=== PATIENT | male | born 1955 | race Caucasian/White ===

== ENCOUNTER → 2017-06-01 | Outpatient (CLI) | payer MEDICARE, MEDICAID, SELFPAY | PROVIDERS: Visit Provider Emergency Medicine | DX: Z79.899 Other long term (current) drug therapy (principal) | CPT/HCPCS: 80305; 80364 ==

== ENCOUNTER → 2017-07-11 13:34 | Outpatient (POV) | payer MEDICARE, MEDICAID, SELFPAY ==
[2017-07-11 13:52] VITALS: BP 134/92; PULSE 77; RESP 20; O2SAT 94
--- NOTE | 2017-07-11 14:22 | HMH.PMCON ---
Assessment and Plan (1) Degenerative joint disease of cervical spine Current visit: Yes Status: Chronic Category: Medical Code(s): M47.812 - Spondylosis without myelopathy or radiculopathy, cervical region (2) Cervical radiculopathy Current visit: Yes Status: Chronic Category: Medical Code(s): M54.12 - Radiculopathy, cervical region (3) Cervical spinal stenosis Current visit: Yes Status: Chronic Category: Medical Code(s): M48.02 - Spinal stenosis, cervical region - Assessment and plan all Dx Assessment and Plan for all problems:: We will seek approval and plan on spinal cord stimulator trial. I have given him all the information and explained the risk and benefits. I have entered all questions. We will plan on neuropsychological evaluation and plan on spinal cord stimulator trial to help with neck pain with radiation down his left arm. HPI - Data of Consult Patient: new to practice Consult date: 07/11/17 Requesting Physician: Davey Paez MD Primary Care Provider: Luis Mendez MD Family Provider: Luis Mendez MD - Consult Narrative Reason for consult: Neck pain with left arm pain History of present illness: Mr. Soni is a 62 year old male who we are seeing for neck pain with left arm pain. He is referred by Dr. Cedeño who felt that he may be a candidate for spinal cord stimulation. 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 He thought that strong cord stimulation may help instead of pursuing posterior decompression. At that pain is a 10 out of 10. He is currently on gabapentin 600 mg 3 times a day along with oxycodone given by Dr. Mendez. His Arthur is appropriate. Kaspar #[id number]. Urine drug screen is pending. CC: Davey Paez MD [facility] History I have reviewed the patient's past medical history: Yes Medical History: Reports:: Internal Pacemaker Denies:: Diabetes Mellitus Type 1 Other Surgeries: Yes: Appendectomy, Pacemaker, Other (THROAT AND NECK SX) - *Social History Smoking Status: Current every day smoker Tobacco Type: cigarettes # Packs/Day (cigarettes): 2 #Yrs smoked (if former smoker): 40 Alcohol Intake: never Occupational Status: other - Psychiatric History Expresses thoughts of harming self/others: None Suicide Plan Description: No Plan *Family Hx:: Diabetes Review of Systems - Review of Systems Review of systems:: pertinent systems reviewed and negative unless documented below - *Musculoskeletal Reports back pain, Reports neck pain, Reports radiating pain into limb, Reports stiffness - *Neurologic Reports tingling/numbness/burning sensations, Reports radiating pain Meds Home Medications Medication Instructions Recorded Confirmed Type gabapentin 600 mg tablet 600 mg PO TID 07/04/17 07/11/17 History oxycodone 5 mg tablet 5 mg PO TID PRN tab 07/04/17 07/11/17 History Allergies Allergy/AdvReac Type Severity Reaction Status Date / Time cyclobenzaprine Allergy Intermediate I-HIVES Verified 07/04/17 16:50 [From Flexeril] Penicillins Allergy Intermediate Verified 07/04/17 16:50 Muscle Relaxants Allergy Intermediate I-RASH Uncoded 07/04/17 16:50 Objective Vital signs: Pulse Resp BP Pulse Ox 77 20 134/92 94 L 07/11/17 13:52 07/11/17 13:52 07/11/17 13:52 07/11/17 13:52 - Routine Back/Spine/Pelvis Exam Back/Spine: Present: vertebral tenderness - *Routine Neurological Exam Present: alert, oriented X3 Opioid Risk Tool - Opioid Risk Tool-Male Family hx alcohol abuse: N Family hx illegal drugs: N Family hx rx drug abuse: N Personal hx alcohol abuse: N Personal hx illegal drugs: N Personal hx rx drug abuse: N Age: 45+ Hx of sexual abuse: N Mental health issues-ADD,OCD,Bipolar, etc: N Hx of depression: Y Male Risk Score: 1
--- NOTE | 2017-07-11 14:25 | P.CONS_ITS ---
Assessment and Plan (1) Degenerative joint disease of cervical spine Current visit: Yes Status: Chronic Category: Medical Code(s): M47.812 - Spondylosis without myelopathy or radiculopathy, cervical region (2) Cervical radiculopathy Current visit: Yes Status: Chronic Category: Medical Code(s): M54.12 - Radiculopathy, cervical region (3) Cervical spinal stenosis Current visit: Yes Status: Chronic Category: Medical Code(s): M48.02 - Spinal stenosis, cervical region - Assessment and plan all Dx Assessment and Plan for all problems:: We will seek approval and plan on spinal cord stimulator trial. I have given him all the information and explained the risk and benefits. I have entered all questions. We will plan on neuropsychological evaluation and plan on spinal cord stimulator trial to help with neck pain with radiation down his left arm. HPI - Data of Consult Patient: new to practice Consult date: 07/11/17 Requesting Physician: Davey Paez MD Primary Care Provider: Luis Mendez MD Family Provider: Luis Mendez MD - Consult Narrative Reason for consult: Neck pain with left arm pain History of present illness: Mr. Soni is a 62 year old male who we are seeing for neck pain with left arm pain. He is referred by Dr. Cedeño who felt that he may be a candidate for spinal cord stimulation. 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 He thought that strong cord stimulation may help instead of pursuing posterior decompression. At that pain is a 10 out of 10. He is currently on gabapentin 600 mg 3 times a day along with oxycodone given by Dr. Mendez. His Arthur is appropriate. Kaspar # [id number]. Urine drug screen is pending. CC: Davey Paez MD [facility] History I have reviewed the patient's past medical history: Yes Medical History: Reports:: Internal Pacemaker Denies:: Diabetes Mellitus Type 1 Other Surgeries: Yes: Appendectomy, Pacemaker, Other (THROAT AND NECK SX) - *Social History Smoking Status: Current every day smoker Tobacco Type: cigarettes # Packs/Day (cigarettes): 2 #Yrs smoked (if former smoker): 40 Alcohol Intake: never Occupational Status: other - Psychiatric History Expresses thoughts of harming self/others: None Suicide Plan Description: No Plan *Family Hx:: Diabetes Review of Systems - Review of Systems Review of systems:: pertinent systems reviewed and negative unless documented below - *Musculoskeletal Reports back pain, Reports neck pain, Reports radiating pain into limb, Reports stiffness - *Neurologic Reports tingling/numbness/burning sensations, Reports radiating pain Meds Home Medications Medication Instructions Recorded Confirmed Type gabapentin 600 mg tablet 600 mg PO TID 07/04/17 07/11/17 History oxycodone 5 mg tablet 5 mg PO TID PRN tab 07/04/17 07/11/17 History Allergies Allergy/AdvReac Type Severity Reaction Status Date / Time cyclobenzaprine Allergy Intermediate I-HIVES Verified 07/04/17 16:50 [From Flexeril] Penicillins Allergy Intermediate Verified 07/04/17 16:50 Muscle Relaxants Allergy Intermediate I-RASH Uncoded 07/04/17 16:50 Objective Vital signs: Pulse Resp BP Pulse Ox 77 20 134/92 94 L 07/11/17 13:52 07/11/17 13:52 07/11/17 13:52 07/11/17 13:52 - Routine Back/Spine/Pelvis Exam Back/
[2017-07-11 15:26] LABS: Amphetamine/Metha Screen,Urine Negative ng/mL (<1000); Barbiturates Screen,Urine Negative ng/mL (<200); Benzodiazepines Screen,Urine Negative ng/mL (200); Cannabinoid Screen,Urine Positive ng/mL (<50); Cocaine Screen,Urine Positive ng/g (<300); Methadone Screen,Urine Negative ng/mL (<300); Opiate Screen,Urine Negative ng/mL (<300); Phencyclidine Screen,Urine Negative ng/mL (<25)
[2017-07-23 14:11] LABS: Cannabinoid Positive (.); Carboxy THC (GC/MS) 157 ng/mL (Cutoff=10); Cocaine + Metabolite Positive (.)
[2017-07-23 19:08] LABS: Benzoylecgonine (GC/MS) 845 ng/mL (Cutoff=150); Opiates Negative (Cutoff=100)
== END ==
PROVIDERS: Family Provider Emergency Medicine; PCP Emergency Medicine; Visit Provider Anesthesiology
DX: M47.812 Spondylosis without myelopathy or radiculopathy, cervical region (principal); M54.12 Radiculopathy, cervical region; M48.02 Spinal stenosis, cervical region; Z79.899 Other long term (current) drug therapy
CPT/HCPCS: 80305; 80361; 99202; G0480

== ENCOUNTER 2017-08-24 12:10 | Day surgery (SDC) | payer MEDICARE, MEDICAID, SELFPAY ==
[2017-08-23 11:46] VITALS: BMI 21.2
[2017-08-24 12:52] VITALS: BP 116/51; PULSE 69; RESP 20; TEMP 37.1; O2SAT 97
[2017-08-24 13:32] LABS: Basophils % 0.7 % (0.1-2.0); Eosinophils # 0.1 K/mm3 (0.0-0.4); Eosinophils % 1.3 % (0.1-12.0); Hematocrit 47.5 % (42.0-52.0); Hemoglobin 15.4 g/dL (14.1-18.0); Lymphocytes # 1.1 K/mm3 (0.7-4.5); Lymphocytes % 27.6 K/mm3 (10-50); Mean Corpuscular HGB Conc 32.4 g/dL (31.8-35.4); Mean Corpuscular Hemoglobin 29.5 pg (27.0-31.2); Mean Corpuscular Volume 90.9 fl (80-94); Mean Platelet Volume 7.3 fl (7.4-10.4); Monocytes # 0.3 K/mm3 (0.1-1.0); Monocytes % 7.7 % (1.7-9.3); Neutrophils # 2.4 K/mm3 (1.8-7.8); Neutrophils % 62.7 % (37.0-80.0); Platelet Count 184 K/mm3 (142-424); Red Blood Count 5.23 M/mm3 (4.60-6.20); White Blood Count 3.9 K/mm3 (4.8-10.8)
[2017-08-24 14:11] LABS: Anion Gap 9.9 mEq/L (5-15); Blood Urea Nitrogen 9 mg/dL (7-18); Carbon Dioxide 28 mmol/L (21.0-32.0); Chloride 101 mmol/L (98-107); Creatinine Clearance Estimated 97 mL/min (0-300); Creatinine,Serum 0.77 mg/dL (0.70-1.30); Estimated Glomerular Filt Rate 103 ml/min (>60); GFR (African American) 125 ML/MIN (>60); Glucose 87 mg/dL (74-106); Potassium 3.9 mmoL/L (3.5-5.1); Sodium 135 mmol/L (136-145)
[2017-08-24 17:20] VITALS: BP 123/71; PULSE 85; RESP 18; TEMP 37.2; O2SAT 97
--- NOTE | 2017-08-24 17:22 | HMH.OPNOTE ---
Date of procedure: 08/24/17 Pre-op Diagnosis:: Degenerative disc disease of the cervical spine with cervical radiculopathy symptoms and cervical spinal stenosis with degenerative disc disease of lumbar spine with lumbar radiculopathy symptoms Post-op Diagnosis:: Same Procedure performed:: Spinal cord stimulator trial with 2 leads one in the cervical region and one in the thoracolumbar region Surgeon:: Davey Paez MD IT DATA ARCHITECT:: Other Anesthesia: local Estimated blood loss (mL): 0 Clinical Note:: This patient is a pleasant 62-year-old white male who we have been seeing for neck pain and low back pain with radicular symptoms. He has C5-C6 pseudoarthrosis with stenosis and is not a surgical candidate. He presents for spinal cord stimulator trial to help with neck pain and low back pain. We will place 2 leads one in the cervical region and one at the thoracolumbar region. We will do this today. Operative findings:: None Operative note:: Informed consent was obtained and the risk and benefits of the procedure was explained to the patient. Patient was taken to the procedure room. He was placed prone on the procedure table. He was prepped and draped in sterile fashion. C-arm fluoroscopy was used to view the lumbar spine. The skin and subcutaneous tissues were anesthetized using lidocaine. A 17-gauge epidural needle was inserted and advanced into the L3-L4 interspace. After confirmation of needle placement in the epidural space stimulating lead was inserted and advanced with great difficulty to the cervical region. We were unable to advance past T3. The lead remained at T3-T4-T5. The superior aspect of lead was then unable to go past T3. A second needle was then placed and advanced into the L4-L5 interspace. After confirmation needle placement in the epidural space stimulating lead was inserted and advanced very easily to the T7-T8-T9 vertebral bodies. Lead placement was confirmed in AP and lateral views. The stylets were pulled and needles were pulled. The leads were secured in place and the patient was taken to recovery in stable condition. He was then programmed by the [facility] loan servicing representative. We will discharge patient home. We will follow-up with him on Tuesday for reprogramming. This will be a 1 week trial. Condition: stable Disposition: PACU (Follow-up in 1 week) Complications:: None
--- NOTE | 2017-08-24 17:31 | P.OP_ITS ---
Date of procedure: 08/24/17 Pre-op Diagnosis:: Degenerative disc disease of the cervical spine with cervical radiculopathy symptoms and cervical spinal stenosis with degenerative disc disease of lumbar spine with lumbar radiculopathy symptoms Post-op Diagnosis:: Same Procedure performed:: Spinal cord stimulator trial with 2 leads one in the cervical region and one in the thoracolumbar region Surgeon:: Davey Paez MD TELEPHONE INSTRUMENT SUPERVISOR:: Other Anesthesia: local Estimated blood loss (mL): 0 Clinical Note:: This patient is a pleasant 62-year-old white male who we have been seeing for neck pain and low back pain with radicular symptoms. He has C5-C6 pseudoarthrosis with stenosis and is not a surgical candidate. He presents for spinal cord stimulator trial to help with neck pain and low back pain. We will place 2 leads one in the cervical region and one at the thoracolumbar region. We will do this today. Operative findings:: None Operative note:: Informed consent was obtained and the risk and benefits of the procedure was explained to the patient. Patient was taken to the procedure room. He was placed prone on the procedure table. He was prepped and draped in sterile fashion. C-arm fluoroscopy was used to view the lumbar spine. The skin and subcutaneous tissues were anesthetized using lidocaine. A 17-gauge epidural needle was inserted and advanced into the L3-L4 interspace. After confirmation of needle placement in the epidural space stimulating lead was inserted and advanced with great difficulty to the cervical region. We were unable to advance past T3. The lead remained at T3-T4-T5. The superior aspect of lead was then unable to go past T3. A second needle was then placed and advanced into the L4-L5 interspace. After confirmation needle placement in the epidural space stimulating lead was inserted and advanced very easily to the T7-T8-T9 vertebral bodies. Lead placement was confirmed in AP and lateral views. The stylets were pulled and needles were pulled. The leads were secured in place and the patient was taken to recovery in stable condition. He was then programmed by the [facility] product support sales representative. We will discharge patient home. We will follow-up with him on Tuesday for reprogramming. This will be a 1 week trial. Condition: stable Disposition: PACU (Follow-up in 1 week) Complications:: None
[2017-08-24 17:35] VITALS: BP 128/77; PULSE 86; RESP 18; O2SAT 97
[2017-08-24 17:50] VITALS: BP 127/85; PULSE 89; RESP 18; O2SAT 97
[2017-08-24 18:05] VITALS: BP 125/70; PULSE 88; RESP 18; O2SAT 95
[2017-08-24 18:10] VITALS: BP 123/71; PULSE 83; RESP 18; O2SAT 95
== END 2017-08-24 18:21 | disposition home or self-care (01) ==
LOC: OR 12:11
PROVIDERS: Family Provider Emergency Medicine; PCP Emergency Medicine; Visit Provider Anesthesiology
DX: M50.10 Cervical disc disorder with radiculopathy, unspecified cervical region (principal); M51.16 Intervertebral disc disorders with radiculopathy, lumbar region
CPT/HCPCS: 63650; 80048; 85025; C1897; J3370

== ENCOUNTER → 2017-08-24 14:38 | Outpatient (POV) | payer MEDICARE, MEDICAID, SELFPAY ==
--- NOTE | 2017-08-24 15:03 | HMH.PMCON ---
Assessment and Plan - Assessment and plan all Dx Assessment and Plan for all problems:: Impression-DDD of the cervical spine with radiculopathy and spinal stenosis of the cervical spine Plan-spinal cord stimulator trial today. If successful will consider placement of an epidural pain stimulator system HPI - Data of Consult Patient: new to practice Consult date: 08/24/17 Requesting Physician: Wallace Fontana MD Primary Care Provider: Luis Mendez MD Family Provider: Luis Mendez MD - Consult Narrative Reason for consult: DDD of the cervical spine with radiculopathy, cervical spinal stenosis History of present illness: Mr. Soni is a 62 year old male who is to undergo a spinal cord stimulator trial today for management of this cervical disc disease. CC: Wallace Fontana MD [facility] History Medical History: Reports:: Cancer (throat ca), Chronic Obstructive Pulmonary Disease (COPD), Internal Pacemaker Denies:: Diabetes Mellitus Type 1, Diabetes Mellitus Type 2, MRSA, Seizures Other Medical History: Reports: Liver Disease. Denies: Blood Transfusion Reaction Comment: Illnesses-atrial fibrillation, hepatitis, history of throat cancer status post surgery Other Surgeries: Yes: Angioplasty, Appendectomy, Colonoscopy, Pacemaker, Other (THROAT AND NECK SX) Amputation: No Fractures: Yes Comment: Operations-pacemaker placement, appendectomy, throat surgery - *Social History Smoking Status: Current every day smoker Tobacco Type: cigarettes # Packs/Day (cigarettes): 2 #Yrs smoked (if former smoker): 40 Alcohol Intake: never Substance Use Type: denies use Occupational Status: other Household Members: family *Family Hx:: Cancer, Diabetes, Heart Attack Review of Systems - Review of Systems As above Meds Home Medications Medication Instructions Recorded Confirmed Type gabapentin 600 mg tablet 600 mg PO TID 07/04/17 08/23/17 History oxycodone 5 mg tablet 5 mg PO TID PRN tab 07/04/17 08/23/17 History Allergies Allergy/AdvReac Type Severity Reaction Status Date / Time cyclobenzaprine Allergy Intermediate I-HIVES Verified 07/04/17 16:50 [From Flexeril] Penicillins Allergy Intermediate Verified 07/04/17 16:50 Muscle Relaxants Allergy Intermediate I-RASH Uncoded 07/04/17 16:50 Objective Comments: Pale white male in no distress - Routine Chest/Breast/Axilla Exam Comments: Decreased breath sounds - *Routine Cardiovascular Exam Present: RRR - *Routine Abdominal Exam Comments: Soft and nontender
--- NOTE | 2017-08-24 15:06 | P.CONS_ITS ---
Assessment and Plan - Assessment and plan all Dx Assessment and Plan for all problems:: Impression-DDD of the cervical spine with radiculopathy and spinal stenosis of the cervical spine Plan-spinal cord stimulator trial today. If successful will consider placement of an epidural pain stimulator system HPI - Data of Consult Patient: new to practice Consult date: 08/24/17 Requesting Physician: Wallace Fontana MD Primary Care Provider: Luis Mendez MD Family Provider: Luis Mendez MD - Consult Narrative Reason for consult: DDD of the cervical spine with radiculopathy, cervical spinal stenosis History of present illness: Mr. Soni is a 62 year old male who is to undergo a spinal cord stimulator trial today for management of this cervical disc disease. CC: Wallace Fontana MD [facility] History Medical History: Reports:: Cancer (throat ca), Chronic Obstructive Pulmonary Disease (COPD), Internal Pacemaker Denies:: Diabetes Mellitus Type 1, Diabetes Mellitus Type 2, MRSA, Seizures Other Medical History: Reports: Liver Disease. Denies: Blood Transfusion Reaction Comment: Illnesses-atrial fibrillation, hepatitis, history of throat cancer status post surgery Other Surgeries: Yes: Angioplasty, Appendectomy, Colonoscopy, Pacemaker, Other ( THROAT AND NECK SX) Amputation: No Fractures: Yes Comment: Operations-pacemaker placement, appendectomy, throat surgery - *Social History Smoking Status: Current every day smoker Tobacco Type: cigarettes # Packs/Day (cigarettes): 2 #Yrs smoked (if former smoker): 40 Alcohol Intake: never Substance Use Type: denies use Occupational Status: other Household Members: family *Family Hx:: Cancer, Diabetes, Heart Attack Review of Systems - Review of Systems As above Meds Home Medications Medication Instructions Recorded Confirmed Type gabapentin 600 mg tablet 600 mg PO TID 07/04/17 08/23/17 History oxycodone 5 mg tablet 5 mg PO TID PRN tab 07/04/17 08/23/17 History Allergies Allergy/AdvReac Type Severity Reaction Status Date / Time cyclobenzaprine Allergy Intermediate I-HIVES Verified 07/04/17 16:50 [From Flexeril] Penicillins Allergy Intermediate Verified 07/04/17 16:50 Muscle Relaxants Allergy Intermediate I-RASH Uncoded 07/04/17 16:50 Objective Comments: Pale white male in no distress - Routine Chest/Breast/Axilla Exam Comments: Decreased breath sounds - *Routine Cardiovascular Exam Present: RRR - *Routine Abdominal Exam Comments: Soft and nontender
== END ==
PROVIDERS: Family Provider Emergency Medicine; PCP Emergency Medicine; Visit Provider Surgery
DX: M54.12 Radiculopathy, cervical region (principal)
CPT/HCPCS: 99212

== ENCOUNTER → 2017-08-29 14:29 | Outpatient (POV) | payer MEDICARE, MEDICAID, SELFPAY ==
[2017-08-29 15:23] VITALS: BP 116/71; PULSE 85; RESP 18; O2SAT 91; BMI 21.2
--- NOTE | 2017-08-29 15:33 | HMH.PAINSOAP ---
[facility] Pain Management SOAP Note Subjective:: This patient is a pleasant 62-year-old white male who is status post spinal cord stimulator trial for neck pain and low back pain with radicular symptoms. He does have C5-C6 pseudoarthrosis with stenosis. He is not a surgical candidate. He underwent spinal cord stimulator trial with one cervical lead in 1 thoracolumbar lead. We were unable to get the cervical lead up past T3, T4 and T5. He had one lead at T3-4-5 and 1-lead at T7-T8-T9. Patient had 90% relief in his pain symptoms. Pain score was a 1 out of 10. He is doing much better with his pain symptoms and is much more functional. This is a successful trial and he wants to proceed with implant. Objective:: Alert and oriented ?3 in no acute distress. Patient does have a normal gait. Motor strength of the upper and lower extremities is 5/5. There is no gross sensory deficit. Leads were pulled intact without complication. Assessment:: Degenerative disc disease of the cervical spine with cervical radiculopathy symptoms and cervical spinal stenosis with degenerative disc disease of lumbar spine with lumbar radiculopathy symptoms. Plan:: We will seek approval and plan on permanent placement of spinal cord stimulator. One lead will be at T3-T4-T5 and one lead will be at T7-T8-T9. This will be a Nuvectra spinal cord stimulator system. Patient has had a successful neuropsychological evaluation and a successful spinal cord stimulator trial.
== END ==
PROVIDERS: Family Provider Emergency Medicine; PCP Emergency Medicine; Visit Provider Anesthesiology
DX: M54.16 Radiculopathy, lumbar region (principal); M54.12 Radiculopathy, cervical region
CPT/HCPCS: 99212

== ENCOUNTER → 2017-09-12 13:37 | Outpatient (REF) | payer MEDICARE, MEDICAID, SELFPAY ==
[2017-09-12 19:10] LABS: Amphetamine/Metha Screen,Urine Negative ng/mL (<1000); Barbiturates Screen,Urine Negative ng/mL (<200); Benzodiazepines Screen,Urine Negative ng/mL (200); Cannabinoid Screen,Urine Negative ng/mL (<50); Cocaine Screen,Urine Negative ng/g (<300); Methadone Screen,Urine Negative ng/mL (<300); Opiate Screen,Urine Negative ng/mL (<300); Phencyclidine Screen,Urine Negative ng/mL (<25)
== END ==
LOC: LAB 13:37
PROVIDERS: Visit Provider Emergency Medicine
DX: M54.2 Cervicalgia (principal)
CPT/HCPCS: 80305

== ENCOUNTER → 2017-09-30 10:58 | Outpatient (CLI) | payer MEDICARE, MEDICAID, SELFPAY ==
[2017-09-30 11:16] LABS: Basophils % 0.4 % (0.1-2.0); Eosinophils # 0.1 K/mm3 (0.0-0.4); Eosinophils % 0.7 % (0.1-12.0); Hematocrit 51.5 % (42.0-52.0); Lymphocytes # 1.5 K/mm3 (0.7-4.5); Lymphocytes % 23.6 K/mm3 (10-50); Mean Corpuscular HGB Conc 32.9 g/dL (31.8-35.4); Mean Corpuscular Hemoglobin 29.6 pg (27.0-31.2); Mean Corpuscular Volume 90.1 fl (80-94); Mean Platelet Volume 7.1 fl (7.4-10.4); Monocytes # 0.3 K/mm3 (0.1-1.0); Monocytes % 5.1 % (1.7-9.3); Neutrophils # 4.5 K/mm3 (1.8-7.8); Neutrophils % 70.1 % (37.0-80.0); Platelet Count 190 K/mm3 (142-424); Red Blood Count 5.72 M/mm3 (4.60-6.20); Red Cell Distribution Width 13.1 % (11.5-17.5); White Blood Count 6.4 K/mm3 (4.8-10.8)
[2017-09-30 14:12] LABS: Anion Gap 13.4 mEq/L (5-15); Blood Urea Nitrogen 8 mg/dL (7-18); Carbon Dioxide 29 mmol/L (21.0-32.0); Chloride 102 mmol/L (98-107); Creatinine,Serum 0.73 mg/dL (0.70-1.30); Estimated Glomerular Filt Rate 110 ml/min (>60); GFR (African American) 133 ML/MIN (>60); Glucose 96 mg/dL (74-106); Potassium 4.4 mmoL/L (3.5-5.1); Sodium 140 mmol/L (136-145)
== END ==
PROVIDERS: Visit Provider Clinical Nurse Specialist Family Health
DX: Z79.899 Other long term (current) drug therapy (principal)
CPT/HCPCS: 36415; 80048; 85025

== ENCOUNTER → 2017-10-11 10:58 | Outpatient (REF) | payer MEDICARE, MEDICAID, SELFPAY ==
[2017-10-11 14:05] LABS: Amphetamine/Metha Screen,Urine Negative ng/mL (<1000); Barbiturates Screen,Urine Negative ng/mL (<200); Benzodiazepines Screen,Urine Negative ng/mL (200); Cannabinoid Screen,Urine Negative ng/mL (<50); Cocaine Screen,Urine Positive ng/g (<300); Methadone Screen,Urine Negative ng/mL (<300); Opiate Screen,Urine Negative ng/mL (<300); Phencyclidine Screen,Urine Negative ng/mL (<25)
== END ==
LOC: LAB 10:58
PROVIDERS: Visit Provider Emergency Medicine
DX: M47.812 Spondylosis without myelopathy or radiculopathy, cervical region (principal)
CPT/HCPCS: 80305

== ENCOUNTER → 2017-10-18 09:06 | Outpatient (POV) | payer MEDICARE, MEDICAID, SELFPAY ==
[2017-10-18 09:37] VITALS: BP 135/80; PULSE 92; RESP 18; TEMP 36.7; O2SAT 98; BMI 20.6
--- NOTE | 2017-10-18 09:57 | HMH.PAINSOAP ---
[facility] Pain Management SOAP Note Subjective:: Patient is a pleasant 62-year-old white male who presents today for follow-up after neurostimulator implant. Patient is doing extremely well. Patient stitches have been removed. Sites look clean dry and intact. No sign symptoms of infection. Patient states that his pain is completely relieved he states he has 100% relief of his back and leg pain. Along with his neck and arm pain. Patient states he is sleeping well through the night. ROS General: no recent weight change, no fever, no sleep disturbances Respiratory: no cough, no shortness of air, no recurring pulmonary infections Cardiovascular/Peripheral Vascular: No chest pain, No palpitations, no edema, no shortness of breath. Gastrointestinal: no incontinence, normal bowel movements reported Genitourinary: no incontinence Musculoskeletal: Neck pain, arm pain, back pain, leg pain Psychiatric: normal mood/ affect Neurological: [denies weakness in extremities], [denies balance issues] Objective:: Physical Exam General: Alert and oriented x3, no acute distress, pleasant and cooperative, [on room air] Lungs: Resps E/U, Symmetrical chest expansion, Eyes: PERRL Musculoskeletal: Flexion and extension of lumbar and cervical spine somewhat guarded secondary to pain, deep tendon reflexes normal, strength in upper and lower extremities [5/5], normal gait noted Skin: 3 sites on his back clean dry intact, healing, Steri-Strips in place, no sign symptoms of infection Neurological: speech clear, euclid operator equal, no gross sensory deficits Assessment:: Degenerative disc disease of cervical spine with cervical radiculopathy symptoms and cervical stenosis. Degenerative disc disease of the lumbar spine with lumbar radiculopathy symptoms Plan:: We will see this patient back in 1 month to assess his healing. Patient is to call if he needs anything in the meantime. This note was dictated using voice recognition software and may contain errors or omissions
--- NOTE | 2017-10-18 10:09 | P.CONS_ITS ---
[facility] Pain Management SOAP Note Subjective:: Patient is a pleasant 62-year-old white male who presents today for follow-up after neurostimulator implant. Patient is doing extremely well. Patient stitches have been removed. Sites look clean dry and intact. No sign symptoms of infection. Patient states that his pain is completely relieved he states he has 100% relief of his back and leg pain. Along with his neck and arm pain. Patient states he is sleeping well through the night. ROS General: no recent weight change, no fever, no sleep disturbances Respiratory: no cough, no shortness of air, no recurring pulmonary infections Cardiovascular/Peripheral Vascular: No chest pain, No palpitations, no edema, no shortness of breath. Gastrointestinal: no incontinence, normal bowel movements reported Genitourinary: no incontinence Musculoskeletal: Neck pain, arm pain, back pain, leg pain Psychiatric: normal mood/ affect Neurological: [denies weakness in extremities], [denies balance issues] Objective:: Physical Exam General: Alert and oriented x3, no acute distress, pleasant and cooperative, [ on room air] Lungs: Resps E/U, Symmetrical chest expansion, Eyes: PERRL Musculoskeletal: Flexion and extension of lumbar and cervical spine somewhat guarded secondary to pain, deep tendon reflexes normal, strength in upper and lower extremities [5/5], normal gait noted Skin: 3 sites on his back clean dry intact, healing, Steri-Strips in place, no sign symptoms of infection Neurological: speech clear, photograph inspector equal, no gross sensory deficits Assessment:: Degenerative disc disease of cervical spine with cervical radiculopathy symptoms and cervical stenosis. Degenerative disc disease of the lumbar spine with lumbar radiculopathy symptoms Plan:: We will see this patient back in 1 month to assess his healing. Patient is to call if he needs anything in the meantime. This note was dictated using voice recognition software and may contain errors or omissions
== END ==
PROVIDERS: Family Provider Emergency Medicine; PCP Emergency Medicine; Visit Provider Clinical Nurse Specialist Family Health
DX: M54.12 Radiculopathy, cervical region (principal); M54.16 Radiculopathy, lumbar region
CPT/HCPCS: 99212

== ENCOUNTER → 2017-11-08 10:21 | Outpatient (POV) | payer MEDICARE, MEDICAID, SELFPAY ==
[2017-11-08 10:31] VITALS: BP 136/81; PULSE 74; RESP 18; O2SAT 97; BMI 21.2
--- NOTE | 2017-11-08 10:48 | HMH.PAINSOAP ---
[facility] Pain Management SOAP Note Subjective:: Patient is a pleasant 62-year-old white male who presents today for follow-up. Patient had a neurostimulator implant. Patient is doing well with the stimulation and reports 100% pain relief in his back and legs along with his neck and arms. Patient does have a small seroma around the anchor site of the leads. Patient states that this is very tender. There is no sign symptoms of infection. Patient states he still has his abdominal binder but has not been wearing it. ROS General: no recent weight change, no fever, no sleep disturbances Respiratory: no cough, no shortness of air, no recurring pulmonary infections Cardiovascular/Peripheral Vascular: No chest pain, No palpitations, no edema, no shortness of breath. Gastrointestinal: no incontinence, normal bowel movements reported Genitourinary: no incontinence Musculoskeletal: Neck pain, arm pain, back pain, leg pain Psychiatric: normal mood/ affect Neurological: [denies weakness in extremities], [denies balance issues] Objective:: Physical Exam General: Alert and oriented x3, no acute distress, pleasant and cooperative, [on room air] Lungs: Resps E/U, Symmetrical chest expansion, Eyes: PERRL Musculoskeletal: Flexion and extension of cervical and lumbar spine somewhat guarded secondary to pain, deep tendon reflexes normal, strength in upper and lower extremities [5/5], normal gait noted Skin: Small seroma noted on site where leads were anchored. 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 I will follow-up with him in 1 week and we will determine if the seroma has begun to resolve. This note was dictated using voice recognition software and may contain errors or omissions
--- NOTE | 2017-11-08 10:51 | P.CONS_ITS ---
[facility] Pain Management SOAP Note Subjective:: Patient is a pleasant 62-year-old white male who presents today for follow-up. Patient had a neurostimulator implant. Patient is doing well with the stimulation and reports 100% pain relief in his back and legs along with his neck and arms. Patient does have a small seroma around the anchor site of the leads. Patient states that this is very tender. There is no sign symptoms of infection. Patient states he still has his abdominal binder but has not been wearing it. ROS General: no recent weight change, no fever, no sleep disturbances Respiratory: no cough, no shortness of air, no recurring pulmonary infections Cardiovascular/Peripheral Vascular: No chest pain, No palpitations, no edema, no shortness of breath. Gastrointestinal: no incontinence, normal bowel movements reported Genitourinary: no incontinence Musculoskeletal: Neck pain, arm pain, back pain, leg pain Psychiatric: normal mood/ affect Neurological: [denies weakness in extremities], [denies balance issues] Objective:: Physical Exam General: Alert and oriented x3, no acute distress, pleasant and cooperative, [ on room air] Lungs: Resps E/U, Symmetrical chest expansion, Eyes: PERRL Musculoskeletal: Flexion and extension of cervical and lumbar spine somewhat guarded secondary to pain, deep tendon reflexes normal, strength in upper and lower extremities [5/5], normal gait noted Skin: Small seroma noted on site where leads were anchored. 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 I will follow-up with him in 1 week and we will determine if the seroma has begun to resolve. This note was dictated using voice recognition software and may contain errors or omissions
== END ==
PROVIDERS: Family Provider Emergency Medicine; PCP Emergency Medicine; Visit Provider Clinical Nurse Specialist Family Health
DX: M54.16 Radiculopathy, lumbar region (principal); M54.12 Radiculopathy, cervical region
CPT/HCPCS: 99212

== ENCOUNTER → 2017-11-15 08:29 | Outpatient (POV) | payer MEDICARE, MEDICAID, SELFPAY ==
[2017-11-15 08:39] VITALS: BP 165/89; PULSE 66; RESP 18; O2SAT 99; BMI 21.2
--- NOTE | 2017-11-15 09:10 | HMH.PAINSOAP ---
[facility] Pain Management SOAP Note Subjective:: Patient is a pleasant 62-year-old white male who presents today for follow-up in regards to his seroma. Patient neurostimulator implant and reports 100% pain relief in his back and legs along with his neck and arms. Patient has a small seroma around the anchor site of the leads. Patient states that it is tender. Patient denies any fever. Patient states he has not been wearing his abdominal binder as he was directed. Patient shows no sign symptoms of infection. ROS General: no recent weight change, no fever, no sleep disturbances Respiratory: no cough, no shortness of air, no recurring pulmonary infections Cardiovascular/Peripheral Vascular: No chest pain, No palpitations, no edema, no shortness of breath. Gastrointestinal: no incontinence, normal bowel movements reported Genitourinary: no incontinence Musculoskeletal: Neck pain, arm pain, back pain, leg pain Psychiatric: normal mood/ affect Neurological: [denies weakness in extremities], [denies balance issues] Objective:: Physical Exam General: Alert and oriented x3, no acute distress, pleasant and cooperative, [on room air] Lungs: Resps E/U, Symmetrical chest expansion, Eyes: PERRL Musculoskeletal: Flexion and extension of lumbar spine somewhat guarded secondary to pain, deep tendon reflexes normal, strength in upper and lower extremities [5/5], normal gait noted Skin: Small seroma noted on site where leads were anchored. No redness noted. No changes in size since last assessment. 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 dorita chavira to assess the seroma. Patient did not wear his abdominal binder as directed. Patient states that NSAIDs do not help him. I instructed the patient to call the office if he began to have any fevers or changes in the size of the seroma. This note was dictated using voice recognition software and may contain errors or omissions
--- NOTE | 2017-11-15 09:14 | P.CONS_ITS ---
[facility] Pain Management SOAP Note Subjective:: Patient is a pleasant 62-year-old white male who presents today for follow-up in regards to his seroma. Patient neurostimulator implant and reports 100% pain relief in his back and legs along with his neck and arms. Patient has a small seroma around the anchor site of the leads. Patient states that it is tender. Patient denies any fever. Patient states he has not been wearing his abdominal binder as he was directed. Patient shows no sign symptoms of infection. ROS General: no recent weight change, no fever, no sleep disturbances Respiratory: no cough, no shortness of air, no recurring pulmonary infections Cardiovascular/Peripheral Vascular: No chest pain, No palpitations, no edema, no shortness of breath. Gastrointestinal: no incontinence, normal bowel movements reported Genitourinary: no incontinence Musculoskeletal: Neck pain, arm pain, back pain, leg pain Psychiatric: normal mood/ affect Neurological: [denies weakness in extremities], [denies balance issues] Objective:: Physical Exam General: Alert and oriented x3, no acute distress, pleasant and cooperative, [ on room air] Lungs: Resps E/U, Symmetrical chest expansion, Eyes: PERRL Musculoskeletal: Flexion and extension of lumbar spine somewhat guarded secondary to pain, deep tendon reflexes normal, strength in upper and lower extremities [5/5], normal gait noted Skin: Small seroma noted on site where leads were anchored. No redness noted. No changes in size since last assessment. Neurological: speech clear, coordinating producer equal, no gross sensory deficits Assessment:: Degenerative disc disease of the cervical spine with cervical radiculopathy symptoms and cervical stenosis, degenerative disc disease of the lumbar spine with lumbar radiculopathy symptoms, seroma Plan:: I will have the patient follow-up with Dr. dorita chavira to assess the seroma. Patient did not wear his abdominal binder as directed. Patient states that NSAIDs do not help him. I instructed the patient to call the office if he began to have any fevers or changes in the size of the seroma. This note was dictated using voice recognition software and may contain errors or omissions
== END ==
PROVIDERS: Family Provider Emergency Medicine; PCP Emergency Medicine; Visit Provider Clinical Nurse Specialist Family Health
DX: M54.12 Radiculopathy, cervical region (principal); M54.16 Radiculopathy, lumbar region
CPT/HCPCS: 99212

== ENCOUNTER → 2017-11-30 13:33 | Outpatient (POV) | payer MEDICARE, MEDICAID, SELFPAY ==
[2017-11-30 14:43] VITALS: BP 124/78; PULSE 67; RESP 18; O2SAT 99; BMI 20.2
--- NOTE | 2017-11-30 14:53 | HMH.PAINSOAP ---
[facility] Pain Management SOAP Note Subjective:: Complains of swelling around the lead insertion site on his lower spine. Patient had a pain stimulator system placement. System was placed 2 months ago. According to the nurse it looks smaller than on his last visit Objective:: Physical exam-stimulator generator incision without any problems. Small seroma noted over the stimulator lead insertion site but definitely no significant action?should resolve with time Assessment:: Impression-resolving negligible seroma. Definitely no intervention needed Plan:: [id number] mainly for any signs of infection such as tenderness redness etc.
--- NOTE | 2017-11-30 14:57 | P.CONS_ITS ---
[facility] Pain Management SOAP Note Subjective:: Complains of swelling around the lead insertion site on his lower spine. Patient had a pain stimulator system placement. System was placed 2 months ago. According to the nurse it looks smaller than on his last visit Objective:: Physical exam-stimulator generator incision without any problems. Small seroma noted over the stimulator lead insertion site but definitely no significant action?should resolve with time Assessment:: Impression-resolving negligible seroma. Definitely no intervention needed Plan:: [id number] mainly for any signs of infection such as tenderness redness etc.
== END ==
PROVIDERS: Family Provider Emergency Medicine; PCP Emergency Medicine; Visit Provider Surgery
DX: L76.34 Postprocedural seroma of skin and subcutaneous tissue following other procedure (principal)
CPT/HCPCS: 99212

== ENCOUNTER → 2018-01-03 09:25 | Outpatient (CLI) | payer MEDICARE, MEDICAID, SELFPAY ==
--- NOTE | 2018-01-03 09:28 | XR_ITS ---
XR chest 2V HISTORY: ITS.REASON: chest pain ORDERING PHYSICIAN: Luis Mendez MD PATIENT AGE: 63 years COMPARISON: PA and lateral chest 12/26/2017 FINDINGS: The cardiomediastinal silhouette and pulmonary vascularity are within normal limits. The lungs are clear without infiltrates, suspicious nodules, or pleural effusions. No acute bony abnormalities. Again noted is a left-sided cardiac pacemaker with dual chamber electrodes both in good position. The neurostimulator electrode is again seen unchanged in position. IMPRESSION: Negative chest, no acute finding
[2018-01-03 10:02] LABS: Basophils % 0.5 % (0.1-2.0); Eosinophils # 0.2 K/mm3 (0.0-0.4); Eosinophils % 2.9 % (0.1-12.0); Hematocrit 46.3 % (42.0-52.0); Hemoglobin 15.2 g/dL (14.1-18.0); Lymphocytes # 1.6 K/mm3 (0.7-4.5); Lymphocytes % 22.5 K/mm3 (10-50); Mean Corpuscular HGB Conc 32.9 g/dL (31.8-35.4); Mean Corpuscular Hemoglobin 29.9 pg (27.0-31.2); Mean Corpuscular Volume 90.8 fl (80-94); Mean Platelet Volume 7.1 fl (7.4-10.4); Monocytes # 0.4 K/mm3 (0.1-1.0); Monocytes % 5.5 % (1.7-9.3); Neutrophils # 4.9 K/mm3 (1.8-7.8); Neutrophils % 68.5 % (37.0-80.0); Platelet Count 196 K/mm3 (142-424); Red Cell Distribution Width 14.1 % (11.5-17.5); White Blood Count 7.2 K/mm3 (4.8-10.8)
[2018-01-03 10:43] LABS: Alanine Aminotransferase 92 U/L (12-78); Albumin Level 3.5 gm/dL (3.4-5.0); Alkaline Phosphatase 74 U/L (46-116); Anion Gap 12.4 mEq/L (5-15); Aspartate Amino Transferase 39 U/L (15-37); Bilirubin,Total 0.2 mg/dL (0.2-1.0); Blood Urea Nitrogen 14 mg/dL (7-18); Calcium 8.6 mg/dL (8.5-10.1); Carbon Dioxide 26 mmol/L (21.0-32.0); Chloride 106 mmol/L (98-107); Creatinine,Serum 0.74 mg/dL (0.70-1.30); Estimated Glomerular Filt Rate 108 ml/min (>60); GFR (African American) 130 ML/MIN (>60); Globulin 3.5 gm/dl (1.3-3.2); Glucose 100 mg/dL (74-106); Potassium 4.4 mmoL/L (3.5-5.1); Sodium 140 mmol/L (136-145)
== END ==
PROVIDERS: PCP Emergency Medicine; Visit Provider Emergency Medicine
DX: R07.9 Chest pain, unspecified (principal); M47.812 Spondylosis without myelopathy or radiculopathy, cervical region; I10 Essential (primary) hypertension
CPT/HCPCS: 36415; 71046; 80053; 85025

== ENCOUNTER → 2018-03-03 08:46 | Outpatient (CLI) | payer MEDICARE, SELFPAY ==
--- NOTE | 2018-03-03 08:47 | CT_ITS ---
CT abdomen pelvis w con CLINICAL INDICATION: Left groin pain ITS.REASON: groin pin ORDERING PHYSICIAN: Steve Valadez MD PATIENT AGE: 63 years COMPARISON: 11/25/2014 TECHNIQUE: Axial images obtained with sagittal and coronal reformats. All CT scans at the facility use one or more dose reduction, viz: automated exposure control, ma/kV adjustment per patient size (including targeted exams where dose is matched to indication, i.e. head), or iterative reconstruction technique. PROCEDURE: Oral Contrast: Redicat IV Contrast: 75 mL's of Isovue-370. Immediate and delayed images are obtained. FINDINGS: COPD noted in the lung bases with areas of scarring. There are scattered isodense lesions of the liver the largest in the right hepatic lobe superiorly at 5.3 x 5.2 cm consistent with hepatic cysts. The largest cyst has slightly increased in size previously measuring 4.9 x 4.8 cm. The spleen, adrenal glands, and pancreas are unremarkable No renal or ureteral calculi. No hydronephrosis. There is no evidence of hernia. There is mild thickening in the left inguinal region with slight increased soft tissue density and could be related to prior hernia repair. No evidence of residual or recurrent hernia. There is an epidural stimulator device present with power pack in the subcutaneous region of the right flank. IMPRESSION: 1. No acute finding. 2. Multiple hepatic cysts the largest at 5 cm 3 slight soft tissue thickening in the left inguinal area which may be due to prior surgery. No evidence of inguinal hernia.
== END ==
PROVIDERS: Family Provider Emergency Medicine; PCP Emergency Medicine; Visit Provider Surgery
DX: R10.30 Lower abdominal pain, unspecified (principal)
CPT/HCPCS: 74177; Q9967

== ENCOUNTER → 2018-04-10 15:32 | Outpatient (POV) | payer MEDICARE, SELFPAY ==
[2018-04-10 15:50] VITALS: BP 118/79; PULSE 72; RESP 18; O2SAT 97; BMI 19.8
--- NOTE | 2018-04-18 08:51 | P.CONS_ITS ---
[facility] Pain Management SOAP Note Subjective:: Patient is a pleasant 63-year-old white male who presents today for follow-up. Patient is having difficulty with his neurostimulator. Patient has swelling over the area however that is resolved. Patient is being seen by the malt liquors sales representative today. Patient would like to also take some information in regards to her intrathecal pain pump. Patient rates his pain today a 7 out of 10. Patient denies falling. ROS General: no recent weight change, no fever, no sleep disturbances Respiratory: no cough, no shortness of air, no recurring pulmonary infections Cardiovascular/Peripheral Vascular: No chest pain, No palpitations, no edema, no shortness of breath. Gastrointestinal: no incontinence, normal bowel movements reported Genitourinary: no incontinence Musculoskeletal: Back pain, leg pain Psychiatric: normal mood/ affect, Neurological: [denies weakness in extremities], [denies balance issues] Objective:: Physical Exam General: Alert and oriented x3, no acute distress, pleasant and cooperative, [on room air] Lungs: Resps E/U, Symmetrical chest expansion, Eyes: PERRL Musculoskeletal: Flexion and extension of lumbar spine somewhat guarded secondary to pain, deep tendon reflexes normal, strength in upper and lower extremities [5/5], [abnormal gait noted] Neurological: speech clear, crew scheduler 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 Patient is going to be reprogrammed at this time by the malt liquors sales representative. It may be beneficial to get x-rays to determine if his leads have shifted. This note was dictated using voice recognition software and may contain errors or omissions
== END ==
PROVIDERS: PCP Emergency Medicine; Visit Provider Clinical Nurse Specialist Family Health
DX: M51.16 Intervertebral disc disorders with radiculopathy, lumbar region (principal); M50.10 Cervical disc disorder with radiculopathy, unspecified cervical region
CPT/HCPCS: 99213

== ENCOUNTER → 2018-05-01 14:18 | Outpatient (POV) | payer MEDICARE, MEDICAID, SELFPAY ==
[2018-05-01 14:39] VITALS: BP 130/91; PULSE 80; RESP 18; O2SAT 98; BMI 20.5
--- NOTE | 2018-05-01 15:06 | XR_ITS ---
XR thoracic spine 2V Ordering Physician: Jackie Caldwell Patient Age: 63 years: Male HISTORY: ITS.REASON: STIMULATOR MAY NOT BE WORKING THORACIC PAIN TECHNIQUE: AP lateral and swimmer's view T-spine COMPARISON : PA and lateral chest 04/30/2018 and 01/03/2018. FINDINGS The thoracic spine is intact with no compression fractures. Minor anterior marginal osteophytes. We again see the 2 stimulator device leads in the T-spine spinal canal,. The most superior extending up to to the level of T5. , And the other. To the T8 level. 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 Transitional vertebra at thoracolumbar junction. Pacemaker leads noted entering from left subclavian with atrial and ventricular leads intact. Pacemaker overlying the upper left chest.. There is normal alignment at the cervical thoracic junction. There does appear to be displaced C7/T1 and likely due to less IMPRESSION Thoracic spine intact. No fracture nor subluxation. Normal alignment. Spinal stenosis leads are evident extending to the T8 and T5 level thoracic spinal canal.. . These leads appear to be intact on these images
--- NOTE | 2018-05-01 15:34 | HMH.PAINSOAP ---
[facility] Pain Management SOAP Note Subjective:: Patient is a pleasant 63-year-old white male who presents today for follow-up. Patient is having difficulty with his neurostimulator. Patient was doing well right after his implantation however he has been overstimulated recently. Patient has not had a stimulator on for 2 weeks. We will follow-up with the sales promotion representative and see if we can re-program him starting low and increasing slowly. He rates his pain a 7 out of 10 today. ROS General: no recent weight change, no fever, no sleep disturbances Respiratory: no cough, no shortness of air, no recurring pulmonary infections Cardiovascular/Peripheral Vascular: No chest pain, No palpitations, no edema, no shortness of breath. Gastrointestinal: no incontinence, normal bowel movements reported Genitourinary: no incontinence Musculoskeletal: Back pain, leg pain Psychiatric: normal mood/ affect Neurological: [denies weakness in extremities], [denies balance issues] Objective:: Physical Exam General: Alert and oriented x3, no acute distress, pleasant and cooperative, [on room air] Lungs: Resps E/U, Symmetrical chest expansion, Eyes: PERRL Musculoskeletal: Flexion and extension of lumbar spine somewhat guarded secondary to pain, deep tendon reflexes normal, strength in upper and lower extremities [5/5], slightly antalgic gait Neurological: speech clear, electrical design technician equal, no gross sensory deficits Assessment:: Degenerative disc disease lumbar spine with lumbar radiculopathy and degenerative disc disease cervical spine with cervical radiculopathy Plan:: We will follow-up with the patient and the sales promotion representative tomorrow. This note was dictated using voice recognition software and may contain errors or omissions
== END ==
PROVIDERS: PCP Emergency Medicine; Visit Provider Clinical Nurse Specialist Family Health
DX: M51.16 Intervertebral disc disorders with radiculopathy, lumbar region (principal); M50.10 Cervical disc disorder with radiculopathy, unspecified cervical region
CPT/HCPCS: 72070; 99213

== ENCOUNTER → 2018-05-16 10:37 | Outpatient (POV) | payer MEDICARE, SELFPAY ==
[2018-05-16 10:46] VITALS: BP 126/78; PULSE 77; RESP 18; O2SAT 98; BMI 20.7
--- NOTE | 2018-05-16 11:16 | P.CONS_ITS ---
[facility] Pain Management SOAP Note Subjective:: Patient is a 63-year-old white male who presents today for follow-up. Patient is wanted to discuss an intrathecal pain pump. Patient and I had a long discussion in regards to this. He has a neurostimulator however he is noncompliant with keeping it discharged and managed. Patient has a history of alcoholism and illegal drug use. Patient is not really a narcotic candidate. I discussed with the patient that we will see if he is an appropriate candidate for Prialt. Patient states he understands. Patient has been in contact with the neurostimulator rep however he is not provided with what we need to ensure we can reprogram him. 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 Rates his pain a 6 out of 10. ROS General: no recent weight change, no fever, no sleep disturbances Respiratory: no cough, no shortness of air, no recurring pulmonary infections Cardiovascular/Peripheral Vascular: No chest pain, No palpitations, no edema, no shortness of breath. Gastrointestinal: no incontinence, normal bowel movements reported Genitourinary: no incontinence Musculoskeletal: Back pain, leg pain Psychiatric: normal mood/ affect Neurological: [denies weakness in extremities], [denies balance issues] Objective:: Physical Exam General: Alert and oriented x3, no acute distress, pleasant and cooperative, [on room air] Lungs: Resps E/U, Symmetrical chest expansion, Eyes: PERRL Musculoskeletal: Flexion and extension of lumbar spine somewhat guarded secondary to pain, deep tendon reflexes normal, strength in upper and lower extremities [5/5], [abnormal gait noted] Neurological: speech clear, network contract manager equal, no gross sensory deficits Assessment:: Degenerative disc disease lumbar spine with lumbar radiculopathy Plan:: I have some hesitations moving forward with an intrathecal pain pump trial due to his history of illegal drug use and noncompliance with his neurostimulator. Patient and I did discuss potentially utilizing nonnarcotic Prialt. Patient states he would like to try this. Patient is also requesting pain medication. I discussed with him we would not be prescribing for him. Patient does have a confirmed urine drug screen for both cocaine and marijuana in this year. This note was dictated using voice recognition software and may contain errors or omissions
== END ==
PROVIDERS: PCP Emergency Medicine; Visit Provider Clinical Nurse Specialist Family Health
DX: M51.16 Intervertebral disc disorders with radiculopathy, lumbar region (principal)
CPT/HCPCS: 99213

== ENCOUNTER → 2018-05-30 09:52 | Outpatient (POV) | payer MEDICARE, SELFPAY ==
[2018-05-30 10:30] VITALS: BP 138/90; PULSE 74; RESP 18; O2SAT 99; BMI 20.5
[2018-05-30 10:56] LABS: Amphetamine/Metha Screen,Urine Negative ng/mL (<1000); Barbiturates Screen,Urine Negative ng/mL (<200); Benzodiazepines Screen,Urine Negative ng/mL (<200); Cannabinoid Screen,Urine Positive ng/mL (<50); Cocaine Screen,Urine Negative ng/mL (<300); Methadone Screen,Urine Negative ng/mL (<300); Opiate Screen,Urine Negative ng/mL (<300); Phencyclidine Screen,Urine Negative ng/mL (<25)
--- NOTE | 2018-05-30 11:06 | HMH.PAINSOAP ---
[facility] Pain Management SOAP Note Subjective:: Is a 63-year-old white male who presents today to discuss the removal of spinal cord stimulator. Patient would like to have it removed he states is not working however he has not had on. Patient had the gas charger stool in. Patient states that he is in a lot of pain and he wants it taken out he does have a history of alcoholism and illegal drug use. We will have him put down for explant soon as possible. ROS General: no recent weight change, no fever, no sleep disturbances Respiratory: no cough, no shortness of air, no recurring pulmonary infections Cardiovascular/Peripheral Vascular: No chest pain, No palpitations, no edema, no shortness of breath. Gastrointestinal: no incontinence, normal bowel movements reported Genitourinary: no incontinence Musculoskeletal: Back pain Psychiatric: normal mood/ affect Neurological: [denies weakness in extremities], [denies balance issues] Objective:: Physical Exam General: Alert and oriented x3, no acute distress, pleasant and cooperative, [on room air] Lungs: Resps E/U, Symmetrical chest expansion, Eyes: PERRL Musculoskeletal: Flexion and extension of lumbar spine somewhat guarded secondary to pain, deep tendon reflexes normal, strength in upper and lower extremities [5/5], [abnormal gait noted] Neurological: speech clear, vegetable farmer equal, no gross sensory deficits Assessment:: Degenerative disc disease lumbar spine with lumbar radiculopathy Plan:: We will set up with Dr. alfa chavira to have his spinal cord stimulator removed. This note was dictated using voice recognition software and may contain errors or omissions
[2018-06-03 20:11] LABS: Oxycodone (GC/MS) 235 ng/mL (Cutoff=100)
[2018-06-04 21:27] LABS: Opiates Negative (Cutoff=100); Oxymorphone (GC/MS) 541 ng/mL (Cutoff=100)
== END ==
PROVIDERS: PCP Emergency Medicine; Visit Provider Clinical Nurse Specialist Family Health
DX: M51.16 Intervertebral disc disorders with radiculopathy, lumbar region (principal); Z79.899 Other long term (current) drug therapy
CPT/HCPCS: 80305; 80361; 80365; 99213; G0480

== ENCOUNTER → 2018-07-25 11:21 | Outpatient (POV) | payer MEDICARE, MEDICAID, SELFPAY ==
[2018-07-25 11:47] VITALS: BP 100/65; PULSE 77; RESP 18; O2SAT 98
--- NOTE | 2018-07-25 12:01 | HMH.PAINSOAP ---
[facility] Pain Management SOAP Note Subjective:: Patient is a pleasant 63-year-old white male who presents today for follow-up after removal of his spinal cord stimulator. Patient does have a seroma. Is not wearing his abdominal binder. 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 Patient has stitches intact. ROS General: no recent weight change, no fever, no sleep disturbances Respiratory: no cough, no shortness of air, no recurring pulmonary infections Cardiovascular/Peripheral Vascular: No chest pain, No palpitations, no edema, no shortness of breath. Gastrointestinal: no incontinence, normal bowel movements reported Genitourinary: no incontinence Musculoskeletal: Back pain Psychiatric: normal mood/ affect Neurological: [denies weakness in extremities], [denies balance issues] Objective:: Physical Exam General: Alert and oriented x3, no acute distress, pleasant and cooperative, [on room air] Lungs: Resps E/U, Symmetrical chest expansion Eyes: PERRL Skin: Notable seroma lower back no redness noted around Musculoskeletal: Flexion and extension of lumbar spine somewhat guarded secondary to pain, deep tendon reflexes normal, strength in upper and lower extremities [5/5], [abnormal gait noted] Neurological: speech clear, slot service specialist equal, no gross sensory deficits Assessment:: Seroma after procedure Plan:: Patient has a long history of noncompliance. Patient was sent to retrieve his antibiotics we will put him on Bactrim DS twice daily for 7 days. He is to wear his abdominal binder. I will follow-up with him in 1 week and reassess his symptoms. Dr. Paez has reviewed this note and agrees with this plan of care. This note was dictated using voice recognition software and may contain errors or omissions
--- NOTE | 2018-07-25 12:04 | P.CONS_ITS ---
[facility] Pain Management SOAP Note Subjective:: Patient is a pleasant 63-year-old white male who presents today for follow-up after removal of his spinal cord stimulator. Patient does have a seroma. Is not wearing his abdominal binder. Patient did not picker and packer his antibiotics after his surgery. Patient has stitches intact. ROS General: no recent weight change, no fever, no sleep disturbances Respiratory: no cough, no shortness of air, no recurring pulmonary infections Cardiovascular/Peripheral Vascular: No chest pain, No palpitations, no edema, no shortness of breath. Gastrointestinal: no incontinence, normal bowel movements reported Genitourinary: no incontinence Musculoskeletal: Back pain Psychiatric: normal mood/ affect Neurological: [denies weakness in extremities], [denies balance issues] Objective:: Physical Exam General: Alert and oriented x3, no acute distress, pleasant and cooperative, [on room air] Lungs: Resps E/U, Symmetrical chest expansion Eyes: PERRL Skin: Notable seroma lower back no redness noted around Musculoskeletal: Flexion and extension of lumbar spine somewhat guarded secondary to pain, deep tendon reflexes normal, strength in upper and lower extremities [5/5], [abnormal gait noted] Neurological: speech clear, business reporting developer equal, no gross sensory deficits Assessment:: Seroma after procedure Plan:: Patient has a long history of noncompliance. Patient was sent to retrieve his antibiotics we will put him on Bactrim DS twice daily for 7 days. He is to wear his abdominal binder. I will follow-up with him in 1 week and reassess his symptoms. Dr. Paez has reviewed this note and agrees with this plan of care. This note was dictated using voice recognition software and may contain errors or omissions
== END ==
PROVIDERS: PCP Emergency Medicine; Visit Provider Clinical Nurse Specialist Family Health
DX: M96.842 Postprocedural seroma of a musculoskeletal structure following a musculoskeletal system procedure
CPT/HCPCS: 99213

== ENCOUNTER → 2018-07-31 10:49 | Outpatient (POV) | payer MEDICARE, MEDICAID, SELFPAY ==
[2018-07-31 11:03] VITALS: BP 117/72; PULSE 75; RESP 18; O2SAT 98; BMI 19.5
--- NOTE | 2018-07-31 11:12 | HMH.PAINSOAP ---
[facility] Pain Management SOAP Note Subjective:: Patient is a pleasant 63-year-old white male who presents today for follow-up after removal of his spinal cord stimulator patient does have a seroma however it is smaller than last time I have seen him. Patient finished his antibiotics there is no redness. Patient has stitches intact. Incisions are healed with no sign symptoms of infection. He rates his pain a 6 out of 10. ROS General: no recent weight change, no fever, no sleep disturbances Respiratory: no cough, no shortness of air, no recurring pulmonary infections Cardiovascular/Peripheral Vascular: No chest pain, No palpitations, no edema, no shortness of breath. Gastrointestinal: no incontinence, normal bowel movements reported Genitourinary: no incontinence Musculoskeletal: Back pain Psychiatric: normal mood/ affect Neurological: [denies weakness in extremities], [denies balance issues] Objective:: Physical Exam General: Alert and oriented x3, no acute distress, pleasant and cooperative, [on room air] Lungs: Resps E/U, Symmetrical chest expansion, Eyes: PERRL Musculoskeletal: Flexion and extension of lumbar spine somewhat guarded secondary to pain, deep tendon reflexes normal, strength in upper and lower extremities [5/5], [abnormal gait noted] Neurological: speech clear, manager mission equal, no gross sensory deficits Assessment:: Degenerative disc disease lumbar spine with lumbar radiculopathy Plan:: We will follow-up with the patient in 1 month and reassess his symptoms. Patient stitches were removed. he has been instructed to call the office if he has any issues prior to his next appointment. Dr. Paez has reviewed this note and agrees with this plan of care. This note was dictated using voice recognition software and may contain errors or omissions
--- NOTE | 2018-07-31 11:17 | P.CONS_ITS ---
[facility] Pain Management SOAP Note Subjective:: Patient is a pleasant 63-year-old white male who presents today for follow-up after removal of his spinal cord stimulator patient does have a seroma however it is smaller than last time I have seen him. Patient finished his antibiotics there is no redness. Patient has stitches intact. Incisions are healed with no sign symptoms of infection. He rates his pain a 6 out of 10. ROS General: no recent weight change, no fever, no sleep disturbances Respiratory: no cough, no shortness of air, no recurring pulmonary infections Cardiovascular/Peripheral Vascular: No chest pain, No palpitations, no edema, no shortness of breath. Gastrointestinal: no incontinence, normal bowel movements reported Genitourinary: no incontinence Musculoskeletal: Back pain Psychiatric: normal mood/ affect Neurological: [denies weakness in extremities], [denies balance issues] Objective:: Physical Exam General: Alert and oriented x3, no acute distress, pleasant and cooperative, [on room air] Lungs: Resps E/U, Symmetrical chest expansion, Eyes: PERRL Musculoskeletal: Flexion and extension of lumbar spine somewhat guarded secondary to pain, deep tendon reflexes normal, strength in upper and lower extremities [5/5], [abnormal gait noted] Neurological: speech clear, panel coverer equal, no gross sensory deficits Assessment:: Degenerative disc disease lumbar spine with lumbar radiculopathy Plan:: We will follow-up with the patient in 1 month and reassess his symptoms. Patient stitches were removed. he has been instructed to call the office if he has any issues prior to his next appointment. Dr. Paez has reviewed this note and agrees with this plan of care. This note was dictated using voice recognition software and may contain errors or omissions
== END ==
PROVIDERS: PCP Emergency Medicine; Visit Provider Clinical Nurse Specialist Family Health
DX: M51.16 Intervertebral disc disorders with radiculopathy, lumbar region (principal)
CPT/HCPCS: 99213

== ENCOUNTER → 2018-10-03 12:45 | Outpatient (CLI) | payer MEDICARE, MEDICAID, SELFPAY ==
--- NOTE | 2018-10-03 12:47 | CT_ITS ---
CT lumbar spine wo con INDICATION: Low back pain ITS.REASON: back pain ORDERING PHYSICIAN: Lusi Mendez MD PATIENT AGE: 63 years COMPARISON: 06/30/2015 TECHNIQUE: Axial images obtained with sagittal and coronal reformats. All CT scans at the facility use one or more dose reduction, viz: automated exposure control, ma/kV adjustment per patient size (including targeted exams where dose is matched to indication, i.e. head), or iterative reconstruction technique. FINDINGS: T12-L1 and L1-L2 have an unremarkable appearance. There is minimal bulging disc at L2-L3 slightly eccentric toward the left. There is some decrease in the disc space at L3-L4. There is absent pedicle on the right at L4 with fusion of the L3 and L4 spinous processes and partial fusion of the left L3 and L4 facets. L4-L5: Concentric bulging disc. There is mild anterolisthesis of L4 on L5 of 4 mm not significant changed. L5-S1: Bilateral pars interarticularis defect as before with bulging disc. No acute fracture or dislocation. No lytic or blastic change. IMPRESSION: 1. Overall no significant change with no acute finding. 2. Bulging disc at L4-5 and L5-S1. 3. 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
--- NOTE | 2018-10-03 12:47 | CT_ITS ---
CT CERVICAL SPINE WITHOUT CONTRAST CT RECONSTRUCTIONS HISTORY:Neck pain, chronic neck pain ORDERING PHYSICIAN: Luis Mendez MD PATIENT AGE: 63 years COMPARISON: 04/06/2017 Technique: All CT scans at the facility use one or more dose reduction, viz: automated exposure control, ma/kV adjustment per patient size (including targeted exams where dose is matched to indication, i.e. head), or iterative reconstruction technique PROCEDURE: Axial spiral CT scanning performed of the cervical spine beginning at the base of the skull and continuing to the upper T-spine. 3-D multiplanar reconstruction with 3-D manipulation of volumetric data set in image rendering was completed by the radiologist and/or technologist with the supervision of the radiologist on independent workstation. FINDINGS: There are postsurgical changes as before. There is normal alignment. No fracture or dislocation. No lytic or blastic change. C2-C3: Mild degenerative disc disease. C3-C4: Facet and uncovertebral hypertrophy with bilateral foraminal narrowing left greater than right not significant changed. C4-C5: Postsurgical changes with partial fusion of C4-C5 and mild retrolisthesis of C4 on C5 of 3 mm with posterior disc osteophyte complex not significant change. Borderline narrowing of the canal and change. C5-C6: Postsurgical changes with prior fusion. Right-sided foraminal narrowing from uncovertebral and facet hypertrophy. C6-C7: Severe degenerative disc disease with postsurgical changes. Screw holes are present within the C7 vertebral body. Mild right lateral recess and foraminal narrowing. C7-T1: Degenerative disc disease. Centrilobular emphysematous changes and scarring is present in the lung apices. IMPRESSION: Overall no significant change in cervical spondylosis with multilevel degenerative disc disease along with facet and uncovertebral hypertrophy with foraminal narrowing. Please see above for detailed description at each level
== END ==
PROVIDERS: PCP Emergency Medicine; Visit Provider Emergency Medicine
DX: M48.02 Spinal stenosis, cervical region (principal); M54.9 Dorsalgia, unspecified
CPT/HCPCS: 72125; 72131

== ENCOUNTER → 2018-12-15 18:02 | Outpatient (CLI) | payer MEDICARE, MEDICAID, SELFPAY ==
[2018-12-15 20:27] LABS: Amphetamine/Metha Screen,Urine Negative ng/mL (<1000); Barbiturates Screen,Urine Negative ng/mL (<200); Benzodiazepines Screen,Urine Negative ng/mL (<200); Cannabinoid Screen,Urine Positive ng/mL (<50); Cocaine Screen,Urine Negative ng/mL (<300); Methadone Screen,Urine Negative ng/mL (<300); Opiate Screen,Urine Positive ng/mL (<300); Phencyclidine Screen,Urine Negative ng/mL (<25)
== END ==
PROVIDERS: Visit Provider Emergency Medicine
DX: Z79.899 Other long term (current) drug therapy (principal)
CPT/HCPCS: 80305

== ENCOUNTER → 2019-02-14 15:51 | Outpatient (CLI) | payer MEDICARE, MEDICAID, SELFPAY ==
[2019-02-14 19:56] LABS: Amphetamine/Metha Screen,Urine Negative ng/mL (<1000); Barbiturates Screen,Urine Negative ng/mL (<200); Benzodiazepines Screen,Urine Negative ng/mL (<200); Cannabinoid Screen,Urine Positive ng/mL (<50); Cocaine Screen,Urine Negative ng/mL (<300); Methadone Screen,Urine Negative ng/mL (<300); Opiate Screen,Urine Negative ng/mL (<300); Phencyclidine Screen,Urine Negative ng/mL (<25)
== END ==
PROVIDERS: Visit Provider Emergency Medicine
DX: M47.812 Spondylosis without myelopathy or radiculopathy, cervical region (principal)
CPT/HCPCS: 80305

== ENCOUNTER → 2019-10-17 09:33 | Outpatient (CLI) | payer MEDICARE, SELFPAY | PROVIDERS: PCP Emergency Medicine; Visit Provider Emergency Medicine | DX: R05 Cough (principal) | CPT/HCPCS: 94060; 94726; 94729 ==

== ENCOUNTER 2019-12-24 11:43 | Emergency (ER) | payer MEDICARE, SELFPAY ==
--- NOTE | 2019-12-24 11:47 | HMH.EDGENADL ---
ED Disposition Clinical Impression: Finger infection Cellulitis Qualifiers: Site of cellulitis: extremity Site of cellulitis of extremity: finger Laterality: left Qualified Code(s): L03.012 - Cellulitis of left finger Disposition: Home, Self-Care Condition on Discharge: Good Instructions: DI for Skin Abscess Additional Instructions: Take antibiotics as prescribed. This is very important. As we discussed, you must be on the look out for signs of deep space infection. If you have any fever, worsening swelling or pain of the hand, or any other new, changing, worsening, or concerning symptoms, come back to the emergency department. Prescriptions: Sulfamethoxazole/Trimethoprim [Bactrim DS tablet] 1 each PO BID 10 Days #20 tab Transmission Status: Received by [facility] cephALEXin [Keflex 500mg Cap] 500 mg PO Q6H 10 Days #40 cap Transmission Status: Received by [facility] Referrals: Luis Mendez MD [Primary Care Provider] - Time of Disposition: 12:59 - Critical Care Critical Care Time: No Attestation: On , the high probability of a clinically significant, sudden or life threatening deterioration of the following system(s) required my full and direct attention, intervention and personal management. The time I documented below is in addition to time spent performing reported procedures but includes the following listed in this critical care notation. Medical Decision Making - Medical Records MR Comment: 64-year-old right hand dominant male presents emergency department with left middle finger swelling and a laceration on the dorsal aspect of the finger between the MCP and proximal interphalangeal joint. This injury occurred on , 4 days ago. He has had a recent tetanus vaccination within the last year denies the need for one today. Today he complains of swelling of the finger and pain. There is no concern for compartment syndrome. He does not have flexor tenosynovitis. He does have a localized cellulitis some surrounding redness and swelling. No drainage from the wound. Given that he was cut on the finger by a piece of metal, will obtain an x-ray and reassess. Of note, he has full extension ability of the middle finger as well as flexion, but does have some pain with range of motion. laceration dorsal aspect of finger. He states that right after the accident incident he was able to completely range his finger without any problems, so I doubt tendon injury. However I told him that this was a possibility. Also spoke to him about the risk of worsening infection and the importance of very close follow-up for a wound check and instructions for hand surgery followup. We will start him on antibiotics today. He is not septic, does not have indication for deep space infection at this time, however spoke to him about the possibility of this. X-ray personally reviewed and read by radiology and does not show any concern for foreign body. Is given strict return precautions to come back with any worsening of swelling and redness, fever, etc. and discharge instructions and he verbalized understanding and agreement to the plan. Safe to discharge. - Arthur Inquiry Pt receiving controlled substance: No Vital Signs: 12/24/19 12:00 12/24/19 12:50 12/24/19 13:17 Temperature 98.9 F Temperature Source Oral Pulse Rate Pulse Rate [Right Radial] 74 75 70 Respiratory Rate 18 18 Blood Pressure Blood Pressure [Right Arm] 114/87 112/81 109/81 L Blood Pressure Mean [Right Arm] 96 91 90 Blood Pressure Source Blood Pressure Source [Right Arm] Automatic Cuff Automatic Cuff Automatic Cuff Blood Pressure Position Blood Pressure Position [Right Arm] Sitting Sitting Sitting 02 Sat by Pulse Oximetry 97 96 99 Oxygen Delivery Method Room Air Room Air Room Air 12/24/19 13:32 Temperature 98.9 F Temperature Source Oral Pulse Rate 75 Pulse Rate [Right Radial] Respiratory Rate 16 Bl
--- NOTE | 2019-12-24 11:52 | XR_ITS ---
PROCEDURE: XR HAND LT MIN 3V CLINICAL INDICATION: infection, fb Laceration COMPARISON: No exams were available for comparison FINDINGS: No fracture or dislocation. No lytic or blastic change. There is normal mineralization. Scattered mild osteoarthritic changes of the digits. Sub chondral cystic changes involve the distal aspect of the 1st metacarpal. No fracture or dislocation. No lytic or blastic change. No radiopaque foreign bodies. Other findings:None. IMPRESSION: Osteoarthritic changes Nonspecific subchondral cystic change of the distal aspect of the 1st metacarpal Dictated by: Jaquan Carolina MD 12/24/2019 12:27 Electronically signed by Jaquan Carolina MD in [place] 12/24/2019 12:27
--- NOTE | 2019-12-24 11:52 | XR_ITS ---
PROCEDURE: XR FINGER LT MIN 2V CLINICAL INDICATION: infection, fb Laceration COMPARISON: No exams were available for comparison FINDINGS: No fracture or dislocation. No lytic or blastic change. There is normal mineralization. The joint spaces are well-preserved. No significant degenerative/arthritic changes. No erosive changes evident. Other findings:No radiopaque foreign body apparent. Minimal osteoarthritic change at DIP joint. No soft tissue gas IMPRESSION: No acute findings. Dictated by: Jaquan Carolina MD 12/24/2019 12:26 Electronically signed by Jaquan Carolina MD in [place] 12/24/2019 12:26
[2019-12-24 12:00] VITALS: BP 114/87; PULSE 74; RESP 18; TEMP 37.2; O2SAT 97; BMI 20.5
[2019-12-24 12:50] VITALS: BP 112/81; PULSE 75; RESP 18; O2SAT 96
[2019-12-24 13:17] VITALS: BP 109/81; PULSE 70; O2SAT 99
[2019-12-24 13:32] VITALS: BP 125/83; PULSE 75; RESP 16; TEMP 37.2; O2SAT 99
== END 2019-12-24 13:33 | disposition home or self-care (01) ==
LOC: ER 11:52
PROVIDERS: Emergency Provider Emergency Medicine; PCP Emergency Medicine
DX: L03.012 Cellulitis of left finger (principal); J44.9 Chronic obstructive pulmonary disease, unspecified; I10 Essential (primary) hypertension; I25.10 Atherosclerotic heart disease of native coronary artery without angina pectoris; I48.91 Unspecified atrial fibrillation; F17.210 Nicotine dependence, cigarettes, uncomplicated; Z95.0 Presence of cardiac pacemaker; Z88.0 Allergy status to penicillin; Z88.8 Allergy status to other drugs, medicaments and biological substances
CPT/HCPCS: 73130; 73140; 99282

== ENCOUNTER → 2020-05-14 10:23 | Outpatient (CLI) | payer MEDICARE, SELFPAY ==
--- NOTE | 2020-05-14 10:23 | CT_ITS ---
PROCEDURE: CT LUNG SCREENING CLINICAL INDICATION: LDCT CURRENT SMOKER, 40 pack year smoking history COPD, EMPHYSEMA, CAD HX OF THROAT CA NO PRIOR COMPARISON: CT CHW CT CHEST W/ CONTRAST from 04/10/2013 TECHNIQUE: The exam was performed on a [employer] Speed [address] scanner using 2.90 mGy CTDI. A low dose helical CT CHEST was performed on a multi-detector scanner. All CT scans at the facility use one or more dose reduction, viz: automated exposure control, ma/kV adjustment per patient size (including targeted exams where dose is matched to indication, i.e. head), or iterative reconstruction technique. The LDCT was performed in a facility that meets the criteria for the screening program. Data regarding this exam was submitted to ACR which is an approved registry. The order for this exam indicates that it came as a result of a lung cancer screening counseling shard decision-making visit that included all the elements required of such a visit including smoking cessation. The radiologist interpreting this exam meets the CMS criteria for the LDCT lung cancer screening program. The exam is reported using the Lung-RADS classification scale and reported to the ACR registry. NOTE: This study was performed for the specific purposes of lung cancer screening and is not an alternative to diagnostic chest CT. RADIATION DOSE: CTDI vol(CT dose Index-volume) = 2.90mG DLP (Dose Length Product) = 126.63 mGcm FINDINGS: COPD with centrilobular emphysema and scattered areas of scarring No suspicious nodules are identified. There is bronchial thickening. There is evidence of old granulomatous disease. OTHER FINDINGS: Degenerative changes are present in the thoracic spine. There is a pacemaker present. Coronary artery calcifications are noted. There are few scattered small axillary lymph nodes. Upper abdominal images show a hepatic cyst measuring 6 cm with other smaller cysts noted. There is some increased density within the gallbladder which could be due to stones and/or sludge. IMPRESSION: Lung-RADS Category 2 Benign Appearance or Behavior Follow-up: Continue annual screening with LDCT in 12 months Other nonacute findings as described above. There is increased density in the gallbladder which could be due to sludge and/or stones. Dictated by: Jaquan Carolina MD 05/26/2020 11:20 Jaquan Carolina MD in [place] 05/26/2020 11:20
== END ==
PROVIDERS: PCP Emergency Medicine; Visit Provider Internal Medicine Pulmonary Disease
DX: Z87.891 Personal history of nicotine dependence (principal); Z12.2 Encounter for screening for malignant neoplasm of respiratory organs

== ENCOUNTER → 2020-09-15 14:53 | Outpatient (CLI) | payer MEDICARE, SELFPAY ==
[2020-09-15 15:40] LABS: Phencyclidine Screen,Urine Negative ng/ml (<25)
[2020-09-15 15:41] LABS: Opiate Screen,Urine Negative ng/ml (<300)
[2020-09-15 15:48] LABS: Amphetamine/Metha Screen,Urine Negative ng/ml (<1000); Barbiturates Screen,Urine Negative ng/ml (<200)
[2020-09-15 15:49] LABS: Benzodiazepines Screen,Urine Negative ng/ml (<200)
[2020-09-15 15:50] LABS: Cannabinoid Screen,Urine Positive ng/ml (<50); Cocaine Screen,Urine Negative ng/ml (<300)
[2020-09-15 15:51] LABS: Methadone Screen,Urine Negative ng/ml (<300)
== END ==
PROVIDERS: Visit Provider Emergency Medicine
DX: M47.812 Spondylosis without myelopathy or radiculopathy, cervical region (principal)
CPT/HCPCS: 80305

== ENCOUNTER → 2020-11-07 14:05 | Outpatient (CLI) | payer MEDICARE, SELFPAY ==
[2020-11-07 17:10] LABS: Amphetamine/Metha Screen,Urine Negative ng/ml (<1000)
[2020-11-07 17:11] LABS: Barbiturates Screen,Urine Negative ng/ml (<200)
[2020-11-07 17:12] LABS: Benzodiazepines Screen,Urine Negative ng/ml (<200); Cannabinoid Screen,Urine Positive ng/ml (<50)
[2020-11-07 17:13] LABS: Cocaine Screen,Urine Negative ng/ml (<300)
[2020-11-07 17:14] LABS: Methadone Screen,Urine Negative ng/ml (<300); Opiate Screen,Urine Negative ng/ml (<300)
[2020-11-07 17:15] LABS: Phencyclidine Screen,Urine Negative ng/ml (<25)
== END ==
PROVIDERS: Visit Provider Emergency Medicine
DX: M47.812 Spondylosis without myelopathy or radiculopathy, cervical region (principal)
CPT/HCPCS: 80305

== ENCOUNTER → 2021-01-02 13:39 | Outpatient (CLI) | payer MEDICARE, SELFPAY ==
[2021-01-02 13:46] LABS: Basophils # 0.1 K/mm3 (0-0.2); Basophils % 1.5 % (0.1-2.0); Eosinophils # 0.1 K/mm3 (0.0-0.4); Eosinophils % 1.6 % (0.1-12.0); Hematocrit 45.7 % (42.0-52.0); Hemoglobin 15.4 g/dL (14.1-18.0); Lymphocytes # 1.7 K/mm3 (0.7-4.5); Lymphocytes % 22.9 % (10-50); Mean Corpuscular HGB Conc 33.7 g/dL (31.8-35.4); Mean Corpuscular Hemoglobin 30.1 pg (27.0-31.2); Mean Corpuscular Volume 89.2 fl (80-94); Mean Platelet Volume 8.1 fl (7.4-10.4); Monocytes # 0.4 K/mm3 (0.1-1.0); Monocytes % 4.8 % (1.7-9.3); Neutrophils # 5.3 K/mm3 (1.8-7.8); Neutrophils % 69.3 % (37.0-80.0); Platelet Count 180 K/mm3 (142-424); Red Blood Count 5.12 M/mm3 (4.60-6.20); White Blood Count 7.6 K/mm3 (4.8-10.8)
[2021-01-02 13:49] LABS: Chloride 103 mmol/L (98-107); Potassium 4.1 mmoL/L (3.5-5.1); Sodium 140 mmol/L (136-145)
[2021-01-02 13:51] LABS: Blood Urea Nitrogen 13 mg/dl (9-20); Estimated Glomerular Filt Rate 114 ml/min (>60); GFR (African American) 137 ML/MIN (>60)
[2021-01-02 13:52] LABS: Alanine Aminotransferase 55 U/L (12-78); Albumin Level 4.5 g/dl (3.5-5.0); Albumin/Globulin Ratio 1.5 (1.1-1.8); Alkaline Phosphatase 57 U/L (38-126); Anion Gap 12.1 mEq/L (5-15); Aspartate Amino Transferase 47 U/L (17-59); Bilirubin,Total 0.4 mg/dl (0.2-1.3); Calcium 9.2 mg/dl (8.4-10.2); Carbon Dioxide 29 mmol/L (22.0-30.0); Glucose 101 mg/dl (74-100); Total Protein,Serum 7.5 g/dl (6.3-8.2)
[2021-01-02 14:32] LABS: Erythrocyte Sedimentation Rate 6 mm/hr (0-20)
[2021-01-02 14:48] LABS: Amphetamine/Metha Screen,Urine Negative ng/ml (<1000)
[2021-01-02 14:49] LABS: Barbiturates Screen,Urine Negative ng/ml (<200)
[2021-01-02 14:50] LABS: Benzodiazepines Screen,Urine Negative ng/ml (<200); Cannabinoid Screen,Urine Negative ng/ml (<50)
[2021-01-02 14:51] LABS: Cocaine Screen,Urine Negative ng/ml (<300); Methadone Screen,Urine Negative ng/ml (<300)
[2021-01-02 14:52] LABS: Opiate Screen,Urine Negative ng/ml (<300)
[2021-01-02 14:53] LABS: Phencyclidine Screen,Urine Negative ng/ml (<25)
== END ==
PROVIDERS: Visit Provider Emergency Medicine
DX: I10 Essential (primary) hypertension (principal); M47.812 Spondylosis without myelopathy or radiculopathy, cervical region
CPT/HCPCS: 80053; 80305; 85025; 85651

== ENCOUNTER → 2021-01-16 10:42 | Outpatient (CLI) | payer MEDICARE, SELFPAY ==
--- NOTE | 2021-01-16 10:42 | CT_ITS ---
PROCEDURE: CT HEAD/BRAIN WO/W CON CLINICAL INDICATION: headaches COMPARISON CT HDWO CT HEAD W/O CONTRAST from 11/04/2016 TECHNIQUE: IV Contrast: 100ML Isovue 370 CT head with axial performed with and without contrast. Dose modulation, automated exposure control, and/or iterative reconstruction were used for dose reduction. FINDINGS: There is no space-occupying mass or abnormal enhancement.There is no evidence of hemorrhage. Ventricles: The logan-white differentiation is well preserved throughout, with no evidence of acute infarct. Volume: Osseous Osseous structures are unremarkable. Sinuses: The paranasal sinuses are clear Mastoids: Mastoid air cells are clear. IMPRESSION: Negative Head CT. Dictated by: Jaquan Carolina MD 01/16/2021 18:41 Jaquan Carolina MD in [facility] 01/16/2021 18:41
[2021-01-16 11:21] LABS: Anion Gap 13.4 mEq/L (5-15); Blood Urea Nitrogen 12 mg/dl (9-20); Carbon Dioxide 28 mmol/L (22.0-30.0); Chloride 104 mmol/L (98-107); Estimated Glomerular Filt Rate 114 ml/min (>60); GFR (African American) 137 ML/MIN (>60); Glucose 91 mg/dl (74-100); Potassium 4.4 mmoL/L (3.5-5.1); Sodium 141 mmol/L (136-145)
== END ==
PROVIDERS: PCP Emergency Medicine; Visit Provider Emergency Medicine
DX: R51.9 Headache, unspecified (principal); Z01.818 Encounter for other preprocedural examination
CPT/HCPCS: 36415; 70470; 80048; Q9967

== ENCOUNTER → 2021-02-18 14:03 | Outpatient (CLI) | payer MEDICARE, SELFPAY ==
[2021-02-18 14:52] LABS: Amphetamine/Metha Screen,Urine Negative ng/ml (<1000); Benzodiazepines Screen,Urine Negative ng/ml (<200)
[2021-02-18 14:53] LABS: Barbiturates Screen,Urine Negative ng/ml (<200); Methadone Screen,Urine Negative ng/ml (<300)
[2021-02-18 14:54] LABS: Cannabinoid Screen,Urine Positive ng/ml (<50)
[2021-02-18 14:55] LABS: Cocaine Screen,Urine Negative ng/ml (<300); Opiate Screen,Urine Negative ng/ml (<300)
[2021-02-18 14:56] LABS: Phencyclidine Screen,Urine Negative ng/ml (<25)
== END ==
PROVIDERS: Visit Provider Emergency Medicine
DX: M47.812 Spondylosis without myelopathy or radiculopathy, cervical region (principal)
CPT/HCPCS: 80305

== ENCOUNTER → 2021-03-12 15:12 | Outpatient (CLI) | payer MEDICARE, SELFPAY ==
--- NOTE | 2021-03-12 15:13 | CT_ITS ---
PROCEDURE: CT CERVICAL SPINE WO CON CLINICAL INDICATION: neck pain COMPARISON: No exams were available for comparison TECHNIQUE: Axial images obtained with sagittal and coronal reformats. All CT scans at the facility use one or more dose reduction, viz: automated exposure control, ma/kV adjustment per patient size (including targeted exams where dose is matched to indication, i.e. head), or iterative reconstruction technique. Axial spiral CT scanning performed of the cervical spine beginning at the base of the skull and continuing to the upper T-spine. 3-D multiplanar reconstruction with 3-D manipulation of volumetric data set in image rendering was completed by the radiologist and/or technologist with the supervision of the radiologist on independent workstation. FINDINGS: FINDINGS: There are postsurgical changes as before. There is normal alignment. No fracture or dislocation. No lytic or blastic change. C2-C3: Mild degenerative disc disease. C3-C4: Facet and uncovertebral hypertrophy with bilateral foraminal narrowing left greater than slightly worse on the left compared to the previous study. Facet osteophyte on the left is creating foraminal encroachment and is slightly larger. This also causes left lateral recess narrowing.. C4-C5: Postsurgical changes with partial fusion of C4-C5 and mild retrolisthesis of C4 of approximately 3 mm. Small central posterior disc osteophyte complex is not significantly changed. Borderline canal stenosis unchanged. C5-C6: Postsurgical changes with prior fusion. Right-sided foraminal narrowing from uncovertebral and facet hypertrophy. Endplate hypertrophic changes eccentric toward the right with right lateral recess and foraminal narrowing not significantly changed. C6-C7: Severe degenerative disc disease with postsurgical changes. Screw holes are present within the C7 vertebral body. Mild right lateral recess and foraminal narrowing. C7-T1: Degenerative disc disease with 3 mm anterolisthesis of C7. Centrilobular emphysematous changes and scarring is present in the lung apices. IMPRESSION: Multilevel cervical spondylosis with postsurgical changes. Please see above for detailed description at each level there is slight increase in left-sided foraminal narrowing at C3-C4. No other significant changes are evident. Dictated by: Jaquan Carolina MD 03/13/2021 12:14 Jaquan Carolina MD in [facility] 03/13/2021 12:14
== END ==
LOC: RAD 15:13
PROVIDERS: PCP Emergency Medicine; Visit Provider Emergency Medicine
DX: M50.30 Other cervical disc degeneration, unspecified cervical region (principal)
CPT/HCPCS: 72125

== ENCOUNTER → 2021-04-20 14:02 | Outpatient (CLI) | payer MEDICARE, SELFPAY ==
[2021-04-20 14:36] LABS: Amphetamine/Metha Screen,Urine Negative ng/ml (<1000)
[2021-04-20 14:37] LABS: Barbiturates Screen,Urine Negative ng/ml (<200)
[2021-04-20 14:39] LABS: Benzodiazepines Screen,Urine Negative ng/ml (<200); Cannabinoid Screen,Urine Positive ng/ml (<50)
[2021-04-20 14:40] LABS: Cocaine Screen,Urine Negative ng/ml (<300)
[2021-04-20 14:41] LABS: Methadone Screen,Urine Negative ng/ml (<300); Opiate Screen,Urine Negative ng/ml (<300)
[2021-04-20 14:42] LABS: Phencyclidine Screen,Urine Negative ng/ml (<25)
== END ==
PROVIDERS: Visit Provider Emergency Medicine
DX: M47.812 Spondylosis without myelopathy or radiculopathy, cervical region (principal)
CPT/HCPCS: 80305

== ENCOUNTER → 2021-06-16 17:46 | Outpatient (CLI) | payer MEDICARE, SELFPAY ==
[2021-06-16 19:28] LABS: Barbiturates Screen,Urine Negative ng/ml (<200)
[2021-06-16 19:29] LABS: Benzodiazepines Screen,Urine Negative ng/ml (<200)
[2021-06-16 19:30] LABS: Cocaine Screen,Urine Negative ng/ml (<300)
[2021-06-16 19:31] LABS: Methadone Screen,Urine Negative ng/ml (<300)
[2021-06-16 19:32] LABS: Opiate Screen,Urine Positive ng/ml (<300); Phencyclidine Screen,Urine Negative ng/ml (<25)
[2021-06-16 20:17] LABS: Amphetamine/Metha Screen,Urine Negative ng/ml (<1000)
[2021-06-16 20:18] LABS: Cannabinoid Screen,Urine Positive ng/ml (<50)
== END ==
PROVIDERS: Visit Provider Emergency Medicine
DX: M47.812 Spondylosis without myelopathy or radiculopathy, cervical region (principal)
CPT/HCPCS: 80305

== ENCOUNTER → 2021-06-30 13:49 | Outpatient (CLI) | payer MEDICARE, SELFPAY ==
--- NOTE | 2021-06-30 13:49 | CT_ITS ---
FINAL REPORT CLINICAL HISTORY: lung cancer screening, current smoker, one pack a day of 53 years, hx of throat cancer, pt has COPD and emphysema COMPARISON: May 14, 2020 FINDINGS: Low-Dose Chest CT CTDI vol (mGy): 2.90 DLP (mGy-cm): 114.64 Axial images were obtained from the lung apex to the mid abdomen by computed tomography. Low-dose protocol was utilized. FINDINGS: CHEST: There is no axillary adenopathy. There is no hilar or mediastinal adenopathy. The heart is proper size. A left subclavian pacemaker is present. There is no pericardial or pleural effusion. Limited images of the upper abdomen demonstrate stable low-attenuation hepatic masses which may represent cysts. Lung window images demonstrate moderate emphysema. There is mild scarring. There are multiple, stable, less than 5 mm pulmonary nodules including a 4 mm lateral right upper lobe nodule on image 28. There are no new masses or nodules identified. IMPRESSION: Lung RADS category 2. Recommend 12 month follow-up low-dose chest CT. Reviewed, Interpreted and Dictated by Jose Ny III, MD Transcribed by Aleida Browne Authenticated by Jose Ny III, MD on 06/30/2021 03:46:05 PM [facility]
== END ==
PROVIDERS: PCP Emergency Medicine; Visit Provider Internal Medicine Pulmonary Disease
DX: Z87.891 Personal history of nicotine dependence (principal); Z12.2 Encounter for screening for malignant neoplasm of respiratory organs
CPT/HCPCS: 71271

== ENCOUNTER → 2021-08-11 14:45 | Outpatient (CLI) | payer MEDICARE, SELFPAY ==
[2021-08-11 14:42] LABS: Prostate Specific Ag Screen 2.5 ng/ml (0.0-4.0)
[2021-08-11 15:12] LABS: Amphetamine/Metha Screen,Urine Negative ng/ml (<1000)
[2021-08-11 15:13] LABS: Barbiturates Screen,Urine Negative ng/ml (<200); Benzodiazepines Screen,Urine Negative ng/ml (<200)
[2021-08-11 15:14] LABS: Cannabinoid Screen,Urine Positive ng/ml (<50); Cocaine Screen,Urine Negative ng/ml (<300)
[2021-08-11 15:15] LABS: Methadone Screen,Urine Negative ng/ml (<300)
[2021-08-11 15:16] LABS: Opiate Screen,Urine Negative ng/ml (<300); Phencyclidine Screen,Urine Negative ng/ml (<25)
== END ==
PROVIDERS: Visit Provider Emergency Medicine
DX: Z12.5 Encounter for screening for malignant neoplasm of prostate (principal); M47.812 Spondylosis without myelopathy or radiculopathy, cervical region
CPT/HCPCS: 80305; G0103

== ENCOUNTER → 2021-10-09 16:38 | Outpatient (CLI) | payer MEDICARE, SELFPAY ==
[2021-10-09 17:12] LABS: Amphetamine/Metha Screen,Urine Negative ng/ml (<1000)
[2021-10-09 17:13] LABS: Barbiturates Screen,Urine Negative ng/ml (<200)
[2021-10-09 17:14] LABS: Benzodiazepines Screen,Urine Negative ng/ml (<200); Cannabinoid Screen,Urine Positive ng/ml (<50)
[2021-10-09 17:15] LABS: Cocaine Screen,Urine Negative ng/ml (<300)
[2021-10-09 17:16] LABS: Methadone Screen,Urine Negative ng/ml (<300); Opiate Screen,Urine Negative ng/ml (<300)
[2021-10-09 17:17] LABS: Phencyclidine Screen,Urine Negative ng/ml (<25)
== END ==
LOC: LAB.DROPOF 10-21 16:39
PROVIDERS: Visit Provider Emergency Medicine
DX: M47.812 Spondylosis without myelopathy or radiculopathy, cervical region (principal)
CPT/HCPCS: 80305

== ENCOUNTER → 2021-12-01 15:23 | Outpatient (CLI) | payer MEDICARE, SELFPAY ==
[2021-12-01 13:42] LABS: Barbiturates Screen,Urine Negative ng/ml (<200)
[2021-12-01 13:43] LABS: Amphetamine/Metha Screen,Urine Negative ng/ml (<1000); Benzodiazepines Screen,Urine Negative ng/ml (<200)
[2021-12-01 13:44] LABS: Cocaine Screen,Urine Negative ng/ml (<300); Methadone Screen,Urine Negative ng/ml (<300)
[2021-12-01 13:45] LABS: Cannabinoid Screen,Urine Positive ng/ml (<50)
[2021-12-01 13:46] LABS: Opiate Screen,Urine Negative ng/ml (<300); Phencyclidine Screen,Urine Negative ng/ml (<25)
== END ==
LOC: LAB 15:24
PROVIDERS: Visit Provider Emergency Medicine
DX: M47.812 Spondylosis without myelopathy or radiculopathy, cervical region (principal)
CPT/HCPCS: 80305

== ENCOUNTER → 2022-01-27 19:00 | Outpatient (CLI) | payer MEDICARE, SELFPAY ==
[2022-01-27 15:32] LABS: Amphetamine/Metha Screen,Urine Negative ng/ml (<1000)
[2022-01-27 15:33] LABS: Barbiturates Screen,Urine Negative ng/ml (<200); Benzodiazepines Screen,Urine Negative ng/ml (<200)
[2022-01-27 15:34] LABS: Cannabinoid Screen,Urine Negative ng/ml (<50)
[2022-01-27 15:35] LABS: Cocaine Screen,Urine Negative ng/ml (<300)
[2022-01-27 15:36] LABS: Methadone Screen,Urine Negative ng/ml (<300); Opiate Screen,Urine Negative ng/ml (<300)
[2022-01-27 15:37] LABS: Phencyclidine Screen,Urine Negative ng/ml (<25)
== END ==
LOC: LAB.DROPOF 19:01
PROVIDERS: PCP Emergency Medicine; Visit Provider Emergency Medicine
DX: M47.812 Spondylosis without myelopathy or radiculopathy, cervical region (principal); Z79.899 Other long term (current) drug therapy
CPT/HCPCS: 80305

== ENCOUNTER → 2022-03-26 10:00 | Outpatient (CLI) | payer MEDICARE, SELFPAY ==
[2022-03-26 19:30] LABS: Amphetamine/Metha Screen,Urine Negative ng/ml (<1000)
[2022-03-26 19:31] LABS: Barbiturates Screen,Urine Negative ng/ml (<200)
[2022-03-26 19:32] LABS: Benzodiazepines Screen,Urine Negative ng/ml (<200)
[2022-03-26 19:33] LABS: Cannabinoid Screen,Urine Positive ng/ml (<50); Cocaine Screen,Urine Negative ng/ml (<300)
[2022-03-26 19:34] LABS: Methadone Screen,Urine Negative ng/ml (<300)
[2022-03-26 19:35] LABS: Opiate Screen,Urine Positive ng/ml (<300); Phencyclidine Screen,Urine Negative ng/ml (<25)
== END ==
LOC: LAB.DROPOF 03-27 07:53
PROVIDERS: PCP Emergency Medicine; Visit Provider Emergency Medicine
DX: M47.812 Spondylosis without myelopathy or radiculopathy, cervical region (principal)
CPT/HCPCS: 80305

== ENCOUNTER → 2022-05-24 21:22 | Outpatient (CLI) | payer MEDICARE, SELFPAY ==
[2022-05-24 19:33] LABS: Amphetamine/Metha Screen,Urine Negative ng/ml (<1000); Barbiturates Screen,Urine Negative ng/ml (<200)
[2022-05-24 19:34] LABS: Benzodiazepines Screen,Urine Negative ng/ml (<200)
[2022-05-24 19:35] LABS: Cannabinoid Screen,Urine Positive ng/ml (<50)
[2022-05-24 19:36] LABS: Cocaine Screen,Urine Negative ng/ml (<300); Methadone Screen,Urine Negative ng/ml (<300)
[2022-05-24 19:37] LABS: Opiate Screen,Urine Negative ng/ml (<300); Phencyclidine Screen,Urine Negative ng/ml (<25)
== END ==
LOC: LAB 21:23
PROVIDERS: Visit Provider Emergency Medicine
DX: M47.812 Spondylosis without myelopathy or radiculopathy, cervical region (principal)
CPT/HCPCS: 80305

== ENCOUNTER → 2022-07-23 14:51 | Outpatient (CLI) | payer MEDICARE, SELFPAY ==
[2022-07-23 16:40] LABS: Amphetamine/Metha Screen,Urine Negative ng/ml (<1000); Barbiturates Screen,Urine Negative ng/ml (<200); Benzodiazepines Screen,Urine Negative ng/ml (<200); Cannabinoid Screen,Urine Positive ng/ml (<50); Cocaine Screen,Urine Negative ng/ml (<300); Methadone Screen,Urine Negative ng/ml (<300); Opiate Screen,Urine Positive ng/ml (<300); Phencyclidine Screen,Urine Negative ng/ml (<25)
== END ==
PROVIDERS: PCP Emergency Medicine; Visit Provider Emergency Medicine
DX: M47.812 Spondylosis without myelopathy or radiculopathy, cervical region (principal)
CPT/HCPCS: 80305

== ENCOUNTER → 2022-09-22 09:20 | Outpatient (CLI) | payer MEDICARE, SELFPAY ==
[2022-09-22 13:49] LABS: Barbiturates Screen,Urine Negative ng/ml (<200)
[2022-09-22 13:50] LABS: Benzodiazepines Screen,Urine Negative ng/ml (<200)
[2022-09-22 13:51] LABS: Amphetamine/Metha Screen,Urine Negative ng/ml (<1000); Cannabinoid Screen,Urine Negative ng/ml (<50)
[2022-09-22 13:52] LABS: Alanine Aminotransferase 56 U/L (12-78); Albumin Level 3.9 g/dl (3.5-5.0); Albumin/Globulin Ratio 1.5 (1.1-1.8); Alkaline Phosphatase 61 U/L (38-126); Anion Gap 6.5 mEq/L (5-15); Aspartate Amino Transferase 50 U/L (17-59); Bilirubin,Total 0.2 mg/dl (0.2-1.3); Blood Urea Nitrogen 17 mg/dl (9-20); Calcium 8.4 mg/dl (8.4-10.2); Carbon Dioxide 28 mmol/L (22.0-30.0); Chloride 106 mmol/L (98-107); Chol/HDL Ratio 2.1 (1-3.5); Cholesterol 96 mg/dl (140-200); Cocaine Screen,Urine Negative ng/ml (<300); Estimated Glomerular Filt Rate 135 ml/min (>60); GFR (African American) 164 ML/MIN (>60); Globulin 2.6 g/dL (1.3-3.2); Glucose 97 mg/dl (74-100); HDL Cholesterol 46 mg/dl (40-60); Methadone Screen,Urine Negative ng/ml (<300); Potassium 4.5 mmoL/L (3.5-5.1); Sodium 136 mmol/L (136-145); Total Protein,Serum 6.5 g/dl (6.3-8.2); Triglycerides 45 mg/dl (30-150); VLDL Cholesterol 9 mg/dL (0-40)
[2022-09-22 13:54] LABS: Opiate Screen,Urine Negative ng/ml (<300); Phencyclidine Screen,Urine Negative ng/ml (<25)
[2022-09-22 13:57] LABS: Basophils % 0.5 % (0.1-2.0); Eosinophils # 0.1 K/mm3 (0.0-0.4); Eosinophils % 1.2 % (0.1-12.0); Hematocrit 44.4 % (42.0-52.0); Hemoglobin 13.8 g/dL (14.1-18.0); Lymphocytes # 1.6 K/mm3 (0.7-4.5); Lymphocytes % 26.2 % (10-50); Mean Corpuscular HGB Conc 31.1 g/dL (31.8-35.4); Mean Corpuscular Hemoglobin 29.6 pg (27.0-31.2); Mean Corpuscular Volume 95.4 fl (80-94); Mean Platelet Volume 9.1 fl (7.4-10.4); Monocytes # 0.5 K/mm3 (0.1-1.0); Monocytes % 7.6 % (1.7-9.3); Neutrophils # 3.9 K/mm3 (1.8-7.8); Neutrophils % 64.6 % (37.0-80.0); Platelet Count 182 K/mm3 (142-424); Red Blood Count 4.66 M/mm3 (4.60-6.20); Red Cell Distribution Width 14.2 % (11.5-17.5)
[2022-09-22 14:02] LABS: Direct LDL Cholesterol 37.02 mg/dL (100-129)
[2022-09-22 14:09] LABS: 25-OH Vitamin D, Total 41.6 ng/mL (30-100); Free T4 (Free Thyroxine) 1.19 ng/dl (0.78-2.19)
[2022-09-22 14:21] LABS: Prostate Specific Ag Screen 2.2 ng/ml (0.0-4.0); Thyroid Stimulating Hormone 1.31 uIU/mL (0.465-4.68)
== END ==
PROVIDERS: PCP Emergency Medicine; Visit Provider Emergency Medicine
DX: R07.9 Chest pain, unspecified (principal); R53.83 Other fatigue; E55.9 Vitamin D deficiency, unspecified; M47.812 Spondylosis without myelopathy or radiculopathy, cervical region; Z12.5 Encounter for screening for malignant neoplasm of prostate
CPT/HCPCS: 80053; 80061; 80305; 82306; 84439; 84443; 85025; G0103

== ENCOUNTER → 2022-09-28 06:37 | Outpatient (CLI) | payer MEDICARE, SELFPAY | LOC: RAD 06:38 | PROVIDERS: PCP Emergency Medicine; Visit Provider Physician Assistant | DX: F17.200 Nicotine dependence, unspecified, uncomplicated (principal); I10 Essential (primary) hypertension; J44.9 Chronic obstructive pulmonary disease, unspecified; R06.09 Other forms of dyspnea; Z95.0 Presence of cardiac pacemaker | CPT/HCPCS: 78452; 93017; 93306; A9502; J2785 ==

== ENCOUNTER 2022-10-13 09:10 | Day surgery (SDC) | payer MEDICARE, SELFPAY ==
[2022-10-13] VITALS (9 sets, daily range): BP systolic 122–135; BP diastolic 69–88; PULSE 60–70; RESP 16–20; O2SAT 95–97; BMI 18.6
--- NOTE | 2022-10-13 07:06 | IR_ITS ---
APPROVED REPORT Patient Location: Outpatient PROCEDURES Left heart catheterization Left ventriculogram Selective coronary angiogram Intravascular ultrasound the proximal LAD INDICATION Known coronary artery disease, Angina pectoris, Abnormal stress test Informed consent was obtained prior to the procedure. COMPLICATIONS None Estimated Blood Loss: Less than 10 ML TECHNIQUE One percent lidocaine used to anesthetize the right anterior aspect of the wrist. The right radial artery was accessed via the Seldinger technique. A 6 Mohawk sheath was placed in the right radial artery. 150 mg magnesium sulfate, 800 mcg of nitroglycerin, 1mg Lidocaine and 5000 U Heparin were given through the arterial sheath. The papa catheter was also used to perform left heart catheterization, left ventriculogram and selective coronary angiogram. At the end the diagnostic angiogram therapeutic Was administered giving a therapeutic ACT and the guide catheter was placed in left main artery followed by Choice PT extra-support wire being placed into the LAD. An intravascular ultrasound probe was advanced in the proximal LAD was interrogated. The MLA of the proximal LAD was 4.5 mm???. The vessel was calcified but the severity of the stenosis did not require revascularization therefore the apparatus was removed the sheath was removed and hemostasis was achieved using TR banding patient transferred to the postop holding in stable condition ANGIOGRAPHIC RESULTS The left main artery Normal The left anterior descending artery Has a proximal calcified concentric 40 to 50% stenosis. The mid vessel has additional 10 to 20% stenoses while the distal segment is widely patent. The entire LAD is tortuous a large first diagonal artery is equal in size to the LAD proper. Diagonal arteries widely patent The circumflex artery Is a nondominant vessel and has proximal 20 to 30% stenosis The right coronary artery Is a dominant vessel and has proximal 50% calcification and then subtotally occluded at mid portion immediately distal to the RV marginal branch. The distal right coronary fills via a large and rich collateral network from the left coronary system The FISHER ventriculogram reveals Normal 65% The left ventricular end-diastolic pressure 10 to 15 mmHg IMPRESSION Chronically occluded dominant right coronary artery which fills via [id number]-je-[id number] collaterals and a rich collateral network Moderate calcification in the proximal LAD which does not meet criteria for revascularization Normal ejection fraction Normal to borderline LVEDP PLAN 1. Aggressive risk factor modification 2. I do not recommend revascularizing or opening the chronically occluded right coronary artery given the rich collateral network as described above 3. LDL less than 55 to be achieved with high intensity statin 4. Continue medical management 5. Avoidance of tobacco products 6. Cardiac rehabilitation Electronically signed by : Juan Hardin MD 10/13/2022 13:32:56
[2022-10-13 10:07] LABS: MANUAL DIFFERENTIAL MANUAL DIFFERENTIAL (MANUAL DIFF)
[2022-10-13 10:11] LABS: Basophils % 0.4 % (0.1-2.0); Eosinophils # 0.1 K/mm3 (0.0-0.4); Eosinophils % 1.6 % (0.1-12.0); Hematocrit 43.2 % (42.0-52.0); Hemoglobin 14.2 g/dL (14.1-18.0); Lymphocytes # 1.7 K/mm3 (0.7-4.5); Lymphocytes % 31.8 % (10-50); Mean Corpuscular HGB Conc 32.7 g/dL (31.8-35.4); Mean Corpuscular Hemoglobin 30.2 pg (27.0-31.2); Mean Corpuscular Volume 92.3 fl (80-94); Mean Platelet Volume 7.9 fl (7.4-10.4); Monocytes # 0.3 K/mm3 (0.1-1.0); Monocytes % 5.8 % (1.7-9.3); Neutrophils # 3.3 K/mm3 (1.8-7.8); Neutrophils % 60.4 % (37.0-80.0); Platelet Count 185 K/mm3 (142-424); Red Blood Count 4.69 M/mm3 (4.60-6.20); White Blood Count 5.4 K/mm3 (4.8-10.8)
[2022-10-13 10:23] LABS: Chloride 101 mmol/L (98-107); Potassium 4.1 mmoL/L (3.5-5.1); Sodium 138 mmol/L (136-145)
[2022-10-13 10:26] LABS: Anion Gap 14.1 mEq/L (5-15); Blood Urea Nitrogen 19 mg/dl (9-20); Calcium 8.6 mg/dl (8.4-10.2); Carbon Dioxide 27 mmol/L (22.0-30.0); Creatinine Clearance Estimated 60 mL/min (50-200); Estimated Glomerular Filt Rate 113 ml/min (>60); GFR (African American) 137 ML/MIN (>60); Glucose 83 mg/dl (74-100)
[2022-10-13 10:51] LABS: Eosinophils % 4 % (0-3); Lymphocytes % 27 % (10-50); Monocytes % 7 % (2-9); Neutrophils % 62 % (42-76); RBC Morphology Normal; Total Cells Counted 100
[2022-10-13 10:52] LABS: Platelet Estimate Normal
== END 2022-10-13 14:58 | disposition home or self-care (01) ==
PROVIDERS: PCP Emergency Medicine; Visit Provider Internal Medicine
DX: F17.210 Nicotine dependence, cigarettes, uncomplicated (principal); I10 Essential (primary) hypertension; I25.118 Atherosclerotic heart disease of native coronary artery with other forms of angina pectoris; J44.9 Chronic obstructive pulmonary disease, unspecified; R06.09 Other forms of dyspnea; R94.39 Abnormal result of other cardiovascular function study; Z95.0 Presence of cardiac pacemaker; I25.82 Chronic total occlusion of coronary artery; Z79.899 Other long term (current) drug therapy; D64.9 Anemia, unspecified
CPT/HCPCS: 80048; 85007; 85014; 85018; 85048; 85049; 92978; 93458; 99152; C1725; C1769; J1644; Q9967

== ENCOUNTER → 2023-01-17 23:12 | Outpatient (CLI) | payer MEDICARE, SELFPAY ==
[2023-01-17 20:16] LABS: Amphetamine/Metha Screen,Urine Negative ng/ml (<1000); Barbiturates Screen,Urine Negative ng/ml (<200); Benzodiazepines Screen,Urine Negative ng/ml (<200); Cannabinoid Screen,Urine Positive ng/ml (<50); Cocaine Screen,Urine Negative ng/ml (<300); Methadone Screen,Urine Negative ng/ml (<300); Opiate Screen,Urine Negative ng/ml (<300); Phencyclidine Screen,Urine Negative ng/ml (<25)
== END ==
PROVIDERS: PCP Emergency Medicine; Visit Provider Emergency Medicine
DX: M47.812 Spondylosis without myelopathy or radiculopathy, cervical region (principal)
CPT/HCPCS: 80305

== ENCOUNTER 2023-02-12 11:48 | Emergency (ER) | payer MEDICARE, SELFPAY ==
[2023-02-12] VITALS (9 sets, daily range): BP systolic 117–140; BP diastolic 56–91; PULSE 60–80; RESP 17–18; TEMP 36.7–36.8; O2SAT 96–100; BMI 19.3
--- NOTE | 2023-02-12 11:59 | PC.NURSE ---
DR DOLL AT BEDSIDE
--- NOTE | 2023-02-12 12:03 | CT_ITS ---
PROCEDURE INFORMATION: Exam: CT Right Lower Extremity With Contrast, Hip Exam date and time: 02/12/2023 1:54 PM Age: 68 years old Clinical indication: Cellulitis; Hip; Right; Additional info: R lateral hip infection TECHNIQUE: Imaging protocol: CT of the right lower extremity with intravenous contrast was performed. Exam focused on the hip. Radiation optimization: All CT scans at this facility use at least one of these dose optimization techniques: automated exposure control; mA and/or kV adjustment per patient size (includes targeted exams where dose is matched to clinical indication); or iterative reconstruction. Contrast material: ISOVUE; Contrast volume: 100 ml; Contrast route: IV; REPORTING DATA: Count of CT and Cardiac NM exams in prior 12 months: This patient has received [address] and 0 known cardiac nuclear medicine studies in the 12 months prior to the current study. COMPARISON: ABDPELW CT abdomen pelvis w con 03/03/2018 10:16 AM FINDINGS: Bones/joints: Normal. No acute fracture or dislocation. Soft tissues: Thick-walled collection lateral to the right hip measures 5.0 x 0.9 x 4.4 cm (AP/TV/SI). This appears lateral to the iliotibial band. No extension into adjacent musculature. Associated extensive subcutaneous edema. IMPRESSION: Subcutaneous abscess as detailed above.
--- NOTE | 2023-02-12 12:05 | HMH.EDGENADL ---
Discharge Plan Disposition Patient Disposition: Home, Self-Care Condition: Good Chief Complaint: Skin/Abscess/Foreign Body Prescriptions Prescriptions: No Action wkhidfbnyc-nqiykiwhanwua-zpri [Fioricet] 50-300-40 mg capsule 1 cap PO Q8H PRN (Reason: headache) Qty: 10 0RF albuterol sulfate [Proventil HFA] 90 mcg/actuation HFA aerosol inhaler 2 puff INHALATION Q4-6H PRN (Reason: shortness of breath or wheezing) Qty: 18 2RF sildenafil (pulm.hypertension) 20 mg tablet 20 mg PO DAILY PRN (Reason: sexual activity) Qty: 30 2RF Rx Instructions: Take 1 to 3 tablets as needed sulfamethoxazole-trimethoprim 800-160 mg tablet 1 tab PO Q12H mupirocin 2 % ointment topical gabapentin 600 mg tablet 600 mg PO TID Qty: 90 1RF oxycodone 10 mg tablet 10 mg PO QID Qty: 120 0RF aspirin 81 MG tablet,chewable 81 mg PO DAILY tamsulosin 0.4 mg capsule See Rx Instructions .ROUTE .COMPLEX Rx Instructions: TAKE ONE CAPSULE BY MOUTH ONCE A DAY bupropion HCl 75 mg tablet 75 mg PO BID finasteride 5 mg tablet See Rx Instructions .ROUTE .COMPLEX Rx Instructions: TAKE ONE TABLET BY MOUTH ONCE A DAY Trelegy Ellipta 100-62.5-25 mcg blister with device 1 inh INHALATION DAILY Referrals Follow up/Referrals: Luis Mendez MD [Primary Care Provider] - See instructions Activity Restrictions/Add. Instructions Additional Instructions/Restrictions: At this time it was felt you are safe to be discharged home. If new or worsening symptoms please do not hesitate to return the emergency department. Please change your packing once daily as discussed. Please continue to take Bactrim which was previously prescribed to you. Please follow-up with your family doctor early next week as soon as you are able. Clinical Impressions Clinical Impression: Abscess of right thigh Instructions Patient Instructions: DI for Skin Abscess Discharge ED Provider: Nick Celaya General Adult HPI General Chief complaint: Skin/Abscess/Foreign Body Stated complaint: wound on right hip draining Time Seen by Provider: 02/12/23 11:53 Mode of Arrival: Ambulatory Limitations: No Limitations Description of Symptoms (Recalled from ER Triage Doc. by RN): PT C/O RED, RAISED AREA TO RIGHT HIP. HAS HAS FOR 4-5 DAYS. SEEN AT [facility] ED AND GIVEN ABX AND CREAM. NO IMPROVEMENT History of Present Illness HPI narrative: Patient is a 68-year-old male with no pertinent past medical history who presents emergency department for evaluation of right hip swelling. History is obtained by patient at bedside. Over the last week were initially started as what he suspects to be a bug bite developed worsening erythema spreading from the proximal hip all the way down towards the knee. Patient went to [facility] where he was prescribed Bactrim for which he has been compliant over the last 3 days. Swelling and pain over the lateral hip has worsened however he does state that the distal erythema towards his knee has improved. Due to worsening pain and swelling at the hip he presents here for continued evaluation. Patient denies fevers, other acute complaints at this time. Related Data Home Medications Medication Instructions Recorded Confirmed aspirin 81 mg chewable tablet 81 mg PO DAILY heart health 12/24/19 02/10/23 bupropion HCl 75 mg tablet 75 mg PO BID mood 10/13/22 02/10/23 finasteride 5 mg tablet See Rx Instructions .Route 10/13/22 02/10/23 .COMPLEX urinary fluticasone fur. 100 mcg-umeclid 1 inh inhalation DAILY Allergy 10/13/22 02/10/23 62.5 mcg-vilant 25 mcg symptoms inhalat.powder (Trelegy Ellipta) tamsulosin 0.4 mg capsule See Rx Instructions .Route 10/13/22 02/10/23 .COMPLEX bph mupirocin 2 % topical ointment topical 02/10/23 02/10/23 sulfamethoxazole 800 1 tab PO Q12H 02/10/23 02/10/23 mg-trimethoprim 160 mg tablet Previous Rx's Medication Instructions Recor
--- NOTE | 2023-02-12 12:16 | EXP.PHA.CONS ---
Pharmacy Consult Date: 02/12/23 Time: 12:16 Referring provider: DR. DOLL Reason for Consult:: VANCOMYCIN DOSING Allergies Allergy/AdvReac Type Severity Reaction Status Date / Time cyclobenzaprine Allergy Intermediate I-HIVES Verified 02/10/23 11:32 [From Flexeril] Penicillins Allergy Intermediate Unknown Verified 02/10/23 11:32 allergy reaction tramadol AdvReac Nausea Verified 02/10/23 11:32 Home Medications Medication Instructions Recorded Confirmed Type aspirin 81 mg chewable tablet 81 mg PO DAILY heart health 12/24/19 02/10/23 History albuterol sulfate 90 mcg/actuation 2 puff inhalation Q4-6H PRN 06/09/20 02/10/23 Rx aerosol inhaler (Proventil HFA) shortness of breath or wheezing #18 grams tpidqvueow-rmyjlxwbdvcyk-nkkctsev 1 cap PO Q8H PRN headache #10 caps 01/02/21 02/10/23 Rx 50 mg-300 mg-40 mg capsule (Fioricet) sildenafil (pulm.hypertension) 20 20 mg PO DAILY PRN sexual activity 07/23/22 02/10/23 Rx mg tablet #30 tabs bupropion HCl 75 mg tablet 75 mg PO BID mood 10/13/22 02/10/23 History finasteride 5 mg tablet See Rx Instructions .Route 10/13/22 02/10/23 History .COMPLEX urinary fluticasone fur. 100 mcg-umeclid 1 inh inhalation DAILY Allergy 10/13/22 02/10/23 History 62.5 mcg-vilant 25 mcg symptoms inhalat.powder (Trelegy Ellipta) tamsulosin 0.4 mg capsule See Rx Instructions .Route 10/13/22 02/10/23 History .COMPLEX bph gabapentin 600 mg tablet 600 mg PO TID Pain #90 tabs 01/17/23 02/10/23 Rx oxycodone 10 mg tablet 10 mg PO QID Pain #120 tabs 01/17/23 02/10/23 Rx mupirocin 2 % topical ointment topical 02/10/23 02/10/23 History sulfamethoxazole 800 1 tab PO Q12H 02/10/23 02/10/23 History mg-trimethoprim 160 mg tablet New Prescriptions to Start Prescriptions: Height: 1.78 m Weight: 61.235 kg Laboratory Results:: D Medical History: Medical History (Updated 02/10/23 @ 12:39 by Luis Mendez MD) COPD (chronic obstructive pulmonary disease) Coronary artery disease Hypertension Assessment and Plan Assessment and plan all Dx Assessment and Plan for all problems:: Pharmacokinetic dosing service Objective: Patient: Floor: Age: 68 yo Serum creatinine: 1 mg/dL Height: 70.1 Inches Weight (kg): 61.3 Assessment: IBW (kg): 73.23 Dosing wt(kg): 61.3 Estimated Creatinine clearance (ml/min): 63.0 CRCL method: Cockcroft and Gault using ibw(default). Drug selected: Vancomycin Loading dose (mg): 0 Vd (liters): 49.0 (factor used: 0.8 L/kg) Miguel Angel (hr-1): 0.057 Half life (hrs): 12.16 Recommended dose: 1250 mg Interval: 18 hrs Infusion time (hrs): 2.0 Predicted peak (mcg/mL): 37.6 Predicted trough (mcg/mL): 15.10 Total body weight is being used for vancomycin dosing. Recommendations: Give Vancomycin 1250 mg q 18 hrs with an expected Cpeak of 37.6 mcg/ml and an expected Ctrough of 15.10 mcg/ml ----Vanco only - ignore for aminoglycosides----- CLvanco= 2.79 L/hr AUC 0-24 /ELIDA Data: ELIDA 0.5 mcg/mL: AUC/ELIDA: 1194.7 ELIDA 1.0 mcg/mL: AUC/ELIDA: 597.4 --------- ELIDA 1.5 mcg/mL: AUC/ELIDA: 398.2 ELIDA 2.0 mcg/mL: AUC/ELIDA: 298.7
[2023-02-12 13:03] LABS: Basophils % 0.2 % (0.1-2.0); Eosinophils # 0.1 K/mm3 (0.0-0.4); Eosinophils % 0.9 % (0.1-12.0); Hematocrit 43.9 % (42.0-52.0); Lymphocytes # 0.9 K/mm3 (0.7-4.5); Lymphocytes % 10.8 % (10-50); Mean Corpuscular HGB Conc 31.9 g/dL (31.8-35.4); Mean Corpuscular Hemoglobin 29.8 pg (27.0-31.2); Mean Corpuscular Volume 93.5 fl (80-94); Mean Platelet Volume 8.4 fl (7.4-10.4); Monocytes # 0.5 K/mm3 (0.1-1.0); Monocytes % 5.9 % (1.7-9.3); Neutrophils # 7.1 K/mm3 (1.8-7.8); Neutrophils % 82.1 % (37.0-80.0); Platelet Count 174 K/mm3 (142-424); Red Cell Distribution Width 13.7 % (11.5-17.5); White Blood Count 8.7 K/mm3 (4.8-10.8)
[2023-02-12 13:13] LABS: Alanine Aminotransferase 35 U/L (12-78); Albumin Level 4.1 g/dl (3.5-5.0); Albumin/Globulin Ratio 1.1 (1.1-1.8); Alkaline Phosphatase 65 U/L (38-126); Anion Gap 12.8 mEq/L (5-15); Aspartate Amino Transferase 37 U/L (17-59); Bilirubin,Total 0.3 mg/dl (0.2-1.3); Blood Urea Nitrogen 12 mg/dl (9-20); Calcium 9.2 mg/dl (8.4-10.2); Carbon Dioxide 31 mmol/L (22.0-30.0); Chloride 102 mmol/L (98-107); Creatinine Clearance Estimated 63 mL/min (50-200); Estimated Glomerular Filt Rate 97 ml/min (>60); GFR (African American) 117 ML/MIN (>60); Globulin 3.9 g/dL (1.3-3.2); Glucose 97 mg/dl (74-100); Potassium 4.8 mmoL/L (3.5-5.1); Sodium 141 mmol/L (136-145)
[2023-02-12 13:18] LABS: C-Reactive Protein 47.2 mg/L (0-4)
--- NOTE | 2023-02-12 13:25 | PC.NURSE ---
PT RESTING WITH EYES CLOSED. CALL LIGHT WITHIN REACH
--- NOTE | 2023-02-12 13:45 | PC.NURSE ---
PT TO CT
--- NOTE | 2023-02-12 13:58 | PC.NURSE ---
PT RETURNED FROM CT
--- NOTE | 2023-02-12 14:19 | PC.NURSE ---
pt sleeping in bed nothing needed at this time,call light at bs
--- NOTE | 2023-02-12 14:58 | PC.NURSE ---
REGULAR LUNCH TRAY SET-UP FOR PT
== END 2023-02-12 15:10 | disposition home or self-care (01) ==
PROVIDERS: Emergency Provider Emergency Medicine; PCP Emergency Medicine
DX: L02.415 Cutaneous abscess of right lower limb (principal); J44.9 Chronic obstructive pulmonary disease, unspecified; I25.10 Atherosclerotic heart disease of native coronary artery without angina pectoris; I10 Essential (primary) hypertension; F17.210 Nicotine dependence, cigarettes, uncomplicated
CPT/HCPCS: 10061; 73701; 80053; 85025; 86140; 87040; 87070; 87077; 87186; 87205; 96374; 96375; 99285; Q9967

== ENCOUNTER → 2023-03-28 10:53 | Outpatient (CLI) | payer MEDICARE, SELFPAY ==
--- NOTE | 2023-03-28 11:07 | CA_ITS ---
APPROVED REPORT EXAM: Comprehensive 2D, Doppler, and color-flow Echocardiogram Customer Consultant: Julissa Campbell RDCS Ht: 5 ft 10 in Wt: 129lbs BSA: 1.73 BP: 121/77 mmHg Indications: PP PRE-OP,CAD,SOA,COPD,HTN 2D Dimensions LVOT 1.81 cm (M/F) 1.5-2.5 M-Mode Dimensions RVDd 1.67 cm (0.9-2.6) LA Diam 2.13 cm (1.9-4.0) LVDd 5.29 cm (3.5-5.7) Ao Diam 4.30 cm (2.0-3.7) LVDs 3.95 cm (3.5-5.7) IVSd 0.87 cm (0.6-1.1) PWd 0.80 cm (0.6-1.1) EF (Teich) 49.60% FS 25.30% EDV (Teich) 134.80 mL TAPSE 1.65 (<1.7) ESV (Teich) 67.90 mL LV Diastology E Decel Time 223.00 (160-240 msec) E/A Ratio 0.7 MED E' 7.20 (< 7 cm/sec) E'/MED E' Ratio 7.25 (>14) LAT E' 12.60 (<10 cm/sec) E/LAT E' Ratio 4.14 (>14) Mitral Valve MV E Max Joseph. 52.00 (40-130 cm/s) MV A Velocity 72.00 (40-130 cm/s) E/A Ratio 0.73 MV Decel. Time 223.00 (160-240 ms) MV PHT 65.00 ms Tricuspid Valve TR P. Velocity 312.00 cm/s RAP Estimate 10.00 mmHg RVSP 48.80 mmHg Left Ventricle The left ventricle is normal size. The left ventricular systolic function is mildly reduced. Proximal septal thickening is noted. There is mild global hypokinesis present. The inferior, lateral, and inferolateral LV ibarra are moderately hypokinetic. The left ventricular diastolic function is normal. LVEF is 45-50%. Right Ventricle Right ventricle is mildly dilated. The right ventricular systolic function is normal. A devie lead is noted in the right ventricle. Atria The left atrium size is normal. The right atrium size is normal. There is no Doppler evidence of interatrial shunt. Aortic Valve The aortic valve is mildly thickened. The aortic valve opens well, cannot rule out bicuspid aortic valve. There is no aortic valvular stenosis. Trace aortic regurgitation. Mitral Valve Mild mitral annular calcification. The mitral valve leaflets are mildly thickened. No evidence of mitral valve stenosis. Mild to moderate mitral regurgitation. Tricuspid Valve The tricuspid valve leaflets are thin and pliable. Mild to moderate tricuspid regurgitation. RVSP is 40-45 mmHg. Pulmonic Valve The pulmonary valve is normal in structure. Trace pulmonic regurgitation. Great Vessels The aortic root is normal in size. The ascending aorta is not well visualized. IVC is normal in size and collapses >50% with inspiration. Pericardium There is no pericardial effusion. Conclusion Normal LV size with mild reduction in LV systolic function (LVEF 45-50%). Mildly dilated RV. Mild to moderate MR and TR. Elevated RVSP 40-45 mmHg. Electronically signed by : Gema Courtney MD 03/29/2023 19:29:58
== END ==
LOC: RT 10:54
PROVIDERS: PCP Emergency Medicine; Visit Provider Physician Assistant
DX: R06.09 Other forms of dyspnea (principal); I10 Essential (primary) hypertension; I25.10 Atherosclerotic heart disease of native coronary artery without angina pectoris; Z95.0 Presence of cardiac pacemaker; F17.200 Nicotine dependence, unspecified, uncomplicated
CPT/HCPCS: 93306

== ENCOUNTER 2023-04-11 10:59 | Day surgery (SDC) | payer MEDICARE, SELFPAY ==
--- NOTE | 2023-04-11 | IR_ITS ---
APPROVED REPORT Patient Location: Outpatient Electrical Intern: ANIL Trinidad RT (R) PROCEDURES Pocket Revision Removal of old Pacemaker Implant of Permanent Pacemaker INDICATION End of battery life Informed consent was obtained prior to the procedure. COMPLICATIONS None Estimated Blood Loss: Less than 10 mls TECHNIQUE 1% lidocaine with epinephrine used to anesthetize the left anterior aspect of the chest. Scalpel was used to make the initial cutaneous incision and then used to dissect down to the existing pacemaker generator. The generator was removed from the existing pocket. Digital manipulation was required along with intermittent usage of scalpel in order to revise the pocket. The leads were removed from the old generator. The new generator was screwed to the existing leads and secured into place. Electronic interrogation proved acceptable thresholds and voltage within the lead. Antibiotics were used to flush the pocket and the pacemaker was secured using 3-0 silk into the newly revised pocket. Monocryl was used to close the subcutaneous tissue and then oralia were placed on the cutaneous area in order to approximate the incision. Patient was transferred to the postop holding area in stable condition. INTERROGATION Generator Model number: [id number] Generator Serial number: [id number] Atrial lead model number: 4076 Atrial lead serial number: [id number] P-wave: 2.7mV Impedence: 0.75V@0.4ms Threshold: 640 Right Ventricular lead model number: 4076 Right Ventricular lead serial number: [id number] R-wave: 8.6mV Impedence: 1.0V@0.4ms Threshold: 460 Pacing Parameters: Mode: DDDR Base/Max Track: 60 ppm / 130 ppm No diaphragmatic stimulation at 10 volts. IMPRESSION Successful Pocket Revision Successful Removal of old Pacemaker Successful Implant of Permanent Pacemaker PLAN 1. follow up office visit, post op wound care Electronically signed by : Juan Hardin MD 04/11/2023 14:41:14
[2023-04-11 11:02] VITALS: BMI 17.9
[2023-04-11 11:17] LABS: Basophils % 0.5 % (0.1-2.0); Eosinophils # 0.1 K/mm3 (0.0-0.4); Eosinophils % 1.4 % (0.1-12.0); Hematocrit 42.1 % (42.0-52.0); Hemoglobin 14.4 g/dL (14.1-18.0); Lymphocytes # 1.3 K/mm3 (0.7-4.5); Lymphocytes % 22.8 % (10-50); Mean Corpuscular HGB Conc 34.2 g/dL (31.8-35.4); Mean Corpuscular Hemoglobin 31.1 pg (27.0-31.2); Mean Corpuscular Volume 91.1 fl (80-94); Mean Platelet Volume 7.9 fl (7.4-10.4); Monocytes # 0.3 K/mm3 (0.1-1.0); Monocytes % 5.6 % (1.7-9.3); Neutrophils % 69.8 % (37.0-80.0); Platelet Count 165 K/mm3 (142-424); Red Blood Count 4.62 M/mm3 (4.60-6.20); Red Cell Distribution Width 14.2 % (11.5-17.5); White Blood Count 5.7 K/mm3 (4.8-10.8)
[2023-04-11 11:25] LABS: Chloride 105 mmol/L (98-107); Potassium 4.4 mmoL/L (3.5-5.1); Sodium 140 mmol/L (136-145)
[2023-04-11 11:28] LABS: Anion Gap 7.4 mEq/L (5-15); Blood Urea Nitrogen 15 mg/dl (9-20); Calcium 8.6 mg/dl (8.4-10.2); Carbon Dioxide 32 mmol/L (22.0-30.0); Creatinine Clearance Estimated 58 mL/min (50-200); Estimated Glomerular Filt Rate 113 ml/min (>60); GFR (African American) 137 ML/MIN (>60); Glucose 93 mg/dl (74-100)
[2023-04-11 12:57] VITALS: BP 117/84; PULSE 80; RESP 20; O2SAT 100
[2023-04-11 14:15] VITALS: BP 144/84; PULSE 74; RESP 18; O2SAT 93
[2023-04-11 14:30] VITALS: BP 122/74; PULSE 67; RESP 18; O2SAT 91
[2023-04-11 14:58] VITALS: BP 124/72; PULSE 83; RESP 18; O2SAT 98
== END 2023-04-11 15:19 | disposition home or self-care (01) ==
PROVIDERS: PCP Emergency Medicine; Visit Provider Internal Medicine
DX: Z45.010 Encounter for checking and testing of cardiac pacemaker pulse generator [battery] (principal); I25.10 Atherosclerotic heart disease of native coronary artery without angina pectoris; J44.9 Chronic obstructive pulmonary disease, unspecified; I10 Essential (primary) hypertension; F17.210 Nicotine dependence, cigarettes, uncomplicated; Z79.899 Other long term (current) drug therapy
CPT/HCPCS: 33228; 36415; 80048; 85025; 99152; C1785

== ENCOUNTER → 2023-04-12 08:08 | Outpatient (CLI) | payer MEDICARE, SELFPAY ==
[2023-04-12 20:03] LABS: Amphetamine/Metha Screen,Urine Negative ng/ml (<1000)
[2023-04-12 20:04] LABS: Barbiturates Screen,Urine Negative ng/ml (<200); Benzodiazepines Screen,Urine Positive ng/ml (<200)
[2023-04-12 20:05] LABS: Cannabinoid Screen,Urine Negative ng/ml (<50)
[2023-04-12 20:06] LABS: Cocaine Screen,Urine Negative ng/ml (<300); Methadone Screen,Urine Negative ng/ml (<300)
[2023-04-12 20:07] LABS: Opiate Screen,Urine Negative ng/ml (<300)
[2023-04-12 20:08] LABS: Phencyclidine Screen,Urine Negative ng/ml (<25)
== END ==
PROVIDERS: PCP Emergency Medicine; Visit Provider Emergency Medicine
DX: M47.812 Spondylosis without myelopathy or radiculopathy, cervical region (principal)
CPT/HCPCS: 80305

== ENCOUNTER → 2023-06-08 23:39 | Outpatient (CLI) | payer MEDICARE, SELFPAY ==
[2023-06-08 19:35] LABS: Amphetamine/Metha Screen,Urine Negative ng/ml (<1000)
[2023-06-08 19:36] LABS: Barbiturates Screen,Urine Negative ng/ml (<200)
[2023-06-08 19:37] LABS: Benzodiazepines Screen,Urine Negative ng/ml (<200); Cannabinoid Screen,Urine Negative ng/ml (<50)
[2023-06-08 19:38] LABS: Cocaine Screen,Urine Negative ng/ml (<300)
[2023-06-08 19:39] LABS: Methadone Screen,Urine Negative ng/ml (<300); Opiate Screen,Urine Positive ng/ml (<300)
[2023-06-08 19:40] LABS: Phencyclidine Screen,Urine Negative ng/ml (<25)
== END ==
PROVIDERS: PCP Internal Medicine; Visit Provider Internal Medicine
DX: Z79.899 Other long term (current) drug therapy (principal)
CPT/HCPCS: 80305

== ENCOUNTER 2023-07-04 12:33 | Outpatient (CLI) | payer MEDICARE, SELFPAY ==
[2023-07-04 12:55] LABS: Basophils # 0.1 K/mm3 (0-0.2); Basophils % 0.6 % (0.1-2.0); Eosinophils # 0.1 K/mm3 (0.0-0.4); Eosinophils % 1.1 % (0.1-12.0); Hematocrit 47.4 % (42.0-52.0); Hemoglobin 15.8 g/dL (14.1-18.0); Lymphocytes # 1.9 K/mm3 (0.7-4.5); Lymphocytes % 24.1 % (10-50); Mean Corpuscular HGB Conc 33.4 g/dL (31.8-35.4); Mean Corpuscular Hemoglobin 30.8 pg (27.0-31.2); Mean Corpuscular Volume 92.1 fl (80-94); Mean Platelet Volume 8.6 fl (7.4-10.4); Monocytes # 0.5 K/mm3 (0.1-1.0); Neutrophils # 5.5 K/mm3 (1.8-7.8); Neutrophils % 68.2 % (37.0-80.0); Platelet Count 173 K/mm3 (142-424); Red Blood Count 5.15 M/mm3 (4.60-6.20); Red Cell Distribution Width 13.9 % (11.5-17.5)
[2023-07-04 13:03] LABS: Chloride 102 mmol/L (98-107)
[2023-07-04 13:04] LABS: Potassium 4.8 mmoL/L (3.5-5.1); Sodium 139 mmol/L (136-145)
[2023-07-04 13:06] LABS: Alanine Aminotransferase 61 U/L (12-78); Albumin Level 4.3 g/dl (3.5-5.0); Albumin/Globulin Ratio 1.3 (1.1-1.8); Alkaline Phosphatase 52 U/L (38-126); Anion Gap 12.8 mEq/L (5-15); Aspartate Amino Transferase 54 U/L (17-59); Bilirubin,Total 0.7 mg/dl (0.2-1.3); Blood Urea Nitrogen 12 mg/dl (9-20); Carbon Dioxide 29 mmol/L (22.0-30.0); Cholesterol 115 mg/dl (140-200); Estimated Glomerular Filt Rate 135 ml/min (>60); GFR (African American) 163 ML/MIN (>60); Globulin 3.4 g/dL (1.3-3.2); Glucose 88 mg/dl (74-100); Total Protein,Serum 7.7 g/dl (6.3-8.2); Triglycerides 63 mg/dl (30-150); VLDL Cholesterol 13 mg/dL (0-40)
[2023-07-04 13:07] LABS: Chol/HDL Ratio 2.9 (1-3.5); HDL Cholesterol 40 mg/dl (40-60)
[2023-07-04 14:44] LABS: Direct LDL Cholesterol 55.85 mg/dL (100-129)
[2023-07-04 19:37] LABS: Amphetamine/Metha Screen,Urine Negative ng/ml (<1000); Barbiturates Screen,Urine Negative ng/ml (<200); Benzodiazepines Screen,Urine Negative ng/ml (<200); Cannabinoid Screen,Urine Negative ng/ml (<50); Cocaine Screen,Urine Negative ng/ml (<300); Methadone Screen,Urine Negative ng/ml (<300); Opiate Screen,Urine Negative ng/ml (<300); Phencyclidine Screen,Urine Negative ng/ml (<25)
[2023-07-04 21:34] LABS: Creatinine,Urine Random 38 mg/dL (Not Estab.)
[2023-07-04 21:41] LABS: Microalbumin < 6.000 mg/L (0-16.7)
== END 2023-07-04 23:59 ==
LOC: LAB.DROPOF 12:33
PROVIDERS: PCP Internal Medicine; Visit Provider Internal Medicine
DX: Z79.899 Other long term (current) drug therapy (principal); Z83.3 Family history of diabetes mellitus; R53.83 Other fatigue; E78.5 Hyperlipidemia, unspecified
CPT/HCPCS: 80053; 80061; 80307; 82043; 82570; 85025

== ENCOUNTER 2023-08-01 19:28 | Outpatient (CLI) | payer MEDICARE, SELFPAY ==
[2023-08-02 12:40] LABS: Prostate Specific Ag Screen 2.5 ng/ml (0.0-4.0)
== END 2023-08-01 23:59 ==
LOC: LAB.DROPOF 19:29
PROVIDERS: PCP Internal Medicine; Visit Provider Internal Medicine
DX: R35.0 Frequency of micturition (principal); Z12.5 Encounter for screening for malignant neoplasm of prostate
CPT/HCPCS: 87086; G0103

== ENCOUNTER 2023-10-24 14:37 | Outpatient (CLI) | payer MEDICARE, SELFPAY ==
[2023-10-26 09:12] LABS: Prostate Specific Ag 1.1 ng/mL (0.0-4.0); Sex Hormone Binding Globulin 98.8 nmol/L (19.3-76.4); Testosterone,Total 711 ng/dL (264-916)
[2023-11-01 20:45] LABS: Testosterone,Free 3.3 pg/mL (6.6-18.1)
== END 2023-10-24 23:59 | disposition home or self-care (01) ==
LOC: LAB 14:38
PROVIDERS: PCP Internal Medicine; Visit Provider Urology
DX: N40.1 Benign prostatic hyperplasia with lower urinary tract symptoms (principal); R39.11 Hesitancy of micturition; R33.9 Retention of urine, unspecified
CPT/HCPCS: 36415; 84153; 84154; 84270; 84402; 84403

== ENCOUNTER 2023-11-23 18:16 | Emergency (ER) | payer MEDICARE, SELFPAY ==
[2023-11-23 18:51] VITALS: BP 122/78; PULSE 68; RESP 16; O2SAT 97; BMI 19.3
--- NOTE | 2023-11-23 18:56 | PC.NURSE ---
pt placed on nonrebreather at 15L per for pain relief
[2023-11-23 19:06] LABS: Basophils # 0.1 K/mm3 (0-0.2); Basophils % 0.6 % (0.1-2.0); Eosinophils # 0.1 K/mm3 (0.0-0.4); Eosinophils % 1.4 % (0.1-12.0); Hematocrit 40.4 % (42.0-52.0); Hemoglobin 13.3 g/dL (14.1-18.0); Lymphocytes # 1.5 K/mm3 (0.7-4.5); Lymphocytes % 18.6 % (10-50); Mean Corpuscular HGB Conc 32.9 g/dL (31.8-35.4); Mean Corpuscular Hemoglobin 30.4 pg (27.0-31.2); Mean Corpuscular Volume 92.5 fl (80-94); Mean Platelet Volume 7.5 fl (7.4-10.4); Monocytes # 0.4 K/mm3 (0.1-1.0); Monocytes % 4.2 % (1.7-9.3); Neutrophils # 6.2 K/mm3 (1.8-7.8); Neutrophils % 75.2 % (37.0-80.0); Platelet Count 196 K/mm3 (142-424); Red Blood Count 4.37 M/mm3 (4.60-6.20); Red Cell Distribution Width 14.3 % (11.5-17.5); White Blood Count 8.2 K/mm3 (4.8-10.8)
[2023-11-23 19:13] LABS: Chloride 107 mmol/L (98-107); Potassium 4.2 mmoL/L (3.5-5.1); Sodium 139 mmol/L (136-145)
--- NOTE | 2023-11-23 19:15 | PC.NURSE ---
I rounded on the pt. he states there has been no relief with the oxygen administration. O2 removed
[2023-11-23 19:16] LABS: Alanine Aminotransferase 26 U/L (12-78); Albumin Level 3.8 g/dl (3.5-5.0); Albumin/Globulin Ratio 1.2 (1.1-1.8); Alkaline Phosphatase 75 U/L (38-126); Anion Gap 10.2 mEq/L (5-15); Aspartate Amino Transferase 35 U/L (17-59); Blood Urea Nitrogen 15 mg/dl (9-20); Carbon Dioxide 26 mmol/L (22.0-30.0); Creatinine Clearance Estimated 63 mL/min (50-200); Estimated Glomerular Filt Rate 97 ml/min (>60); GFR (African American) 117 ML/MIN (>60); Globulin 3.2 g/dL (1.3-3.2); Glucose 95 mg/dl (74-100)
[2023-11-23 19:18] LABS: Bilirubin,Total 0.1 mg/dl (0.2-1.3)
[2023-11-23] MEDS: PROCHLORPERAZINE 10MG/2ML VIAL 10 MG IV (19:21)
[2023-11-23] MEDS: diphenhydrAMINE 50MG/ML VIAL 25 MG IV (19:21)
[2023-11-23] MEDS: KETOROLAC 30MG/ML VIAL 15 MG IV (19:21)
[2023-11-23] MEDS: ACETAMINOPHEN 1,000MG/100ML VIAL 1000 MG IV (19:21)
[2023-11-23] MEDS: DEXAMETHASONE 4MG/ML 1ML VIAL 10 MG IV (19:21)
[2023-11-23 19:22] LABS: C-Reactive Protein 0.7 mg/L (0-4)
[2023-11-23] MEDS: LACTATED RINGERS 1000ML 1,000 ML 999 ML IV (19:22)
--- NOTE | 2023-11-23 19:51 | PC.NURSE ---
I rounded on the pt, he is resting with his eyes closed at this time.
[2023-11-23 20:01] LABS: Erythrocyte Sedimentation Rate 13 mm/hr (0-20)
--- NOTE | 2023-11-23 20:01 | ED_ITS ---
Discharge Plan Disposition Patient Disposition: Home, Self-Care Chief Complaint: Headache Prescriptions Prescriptions: No Action tadalafil [Cialis] 20 mg tablet 20 mg PO DAILY Qty: 7 2RF Rx Instructions: Take a 20 mg 1-2 hours before sexual intercourse in addition to the daily 5 mg Cialis bupropion HCl 150 mg tablet sustained-release 12 hr 150 mg PO BID 90 Days Qty: 180 4RF albuterol sulfate [Proventil HFA] 90 mcg/actuation HFA aerosol inhaler 2 puff INHALATION Q4-6H PRN (Reason: shortness of breath or wheezing) Qty: 18 2RF aspirin 81 mg tablet,chewable 81 mg PO DAILY Qty: 90 4RF carvedilol 3.125 mg tablet 3.125 mg PO DAILY 90 Days Qty: 90 4RF finasteride 5 mg tablet 5 mg PO DAILY 90 Days Qty: 90 4RF Trelegy Ellipta 100-62.5-25 mcg blister with device 1 inh INHALATION DAILY Qty: 60 4RF gabapentin 600 mg tablet 600 mg PO TID Qty: 90 2RF irbesartan 75 mg tablet See Rx Instructions .ROUTE .COMPLEX Qty: 90 4RF Dose Instruction: TAKE ONE TABLET BY MOUTH ONCE A DAY Rx Instructions: TAKE ONE TABLET BY MOUTH ONCE A DAY mupirocin 2 % ointment 1 applic topical BID PRN (Reason: Skin condition) Qty: 22 4RF oxycodone 10 mg tablet 10 mg PO Q6H PRN (Reason: pain) Qty: 120 0RF oxycodone 10 mg tablet 10 mg PO Q6H PRN (Reason: pain) 30 Days Qty: 120 0RF oxycodone 10 mg tablet 10 mg PO Q6H 30 Days Qty: 120 0RF tamsulosin 0.4 mg capsule 0.4 mg PO DAILY 90 Days Qty: 90 1RF tadalafil [Cialis] 5 mg tablet 5 mg PO DAILY Qty: 30 2RF Referrals Follow up/Referrals: Yuniel Clark DO [Primary Care Provider] - See instructions Activity Restrictions/Add. Instructions Additional Instructions/Restrictions: Call your family doctor to establish care for this visit to the emergency department and schedule follow-up within 48 hours to ensure improvement. If you have any worsening of your condition or any other concerning signs or symptoms, return to the emergency department or your primary care doctor for further evaluation. Clinical Impressions Clinical Impression: Headache, Retro-orbital pain of left eye, Migraine Discharge ED Provider: Stef Prescott General Adult HPI General Chief complaint: Headache Stated complaint: Migraine Time Seen by Provider: 11/23/23 18:48 Mode of Arrival: Ambulatory Source of Information: Patient Limitations: No Limitations Description of Symptoms (Recalled from ER Triage Doc. by RN): pt reports he woke up with a migraine this am. he took 10mg percocet around 1300 without any relief. pt reports the pain is worse in his R eye and an 8/10. pt states he has been experiencing migraines for the last six months. pt has never seen a provider for migraines. History of Present Illness HPI narrative: Please note that above description of symptoms, in this electronic medical record under categorization of recalled from ER triage doctor by RN are reflective of an initial nursing assessment, however, is not reflective of my full history and physical exam that was personally taken and clarified. Consequentially, this preceding description of symptoms, which may include the patient's categorized chief complaint in the EMR, do not reflect my personal clinical impression, and the ultimate description of history of present illness and patient stated complaints should be deferred to this section of the note. Unless stated otherwise or congruent with this section of the note, additional signs, symptoms, or incongruence should be interpreted as inaccurate with my clinical impression. Related Data Previous Rx's Medication Instructions Recorded tadalafil 5 mg tablet (Cialis) 5 mg PO DAILY #30 tabs 09/12/23 tamsulosin 0.4 mg capsule 0.4 mg PO DAILY bph 90 days #90 09/12/23 caps albuterol sulfate 90 mcg/actuation 2 puff inhalation Q4-6H PRN 09/26/23 aerosol inhaler (Proventil HFA) shortness of breath or wheezing #18 grams aspirin 81 mg chewable tablet 81 mg PO DAILY heart health #90 09/26/23 tabs bupropion HCl 150 mg tablet,12 hr 150 mg PO BID 90 days #180 ea 09/26/23 sustained-release carvedilol 3.125 mg tablet 3.125 mg PO DAILY 90 days #90 tabs 09/26/23 finasteride 5 mg tablet 5 mg PO DAILY urinary 90 days #90 09/26/23 tabs fluticasone fur. 100 mcg-umeclid 1 inh inhalation DAILY Allergy 09/26/23 62.5 mcg-vilant 25 mcg symptoms #60 ea inhalat.powder (Trelegy Ellipta) gabapentin 600 mg tablet 600 mg PO TID Pain #90 tabs 09/26/23 irbesartan 75 mg tablet See Rx Instructions .Route 09/26/23 .COMPLEX #90 tabs mupirocin 2 % topical ointment 1 applic topical BID PRN Skin 09/26/23 condition #22 grams oxycodone 10 mg tablet 10 mg PO Q6H PRN pain #120 tabs 09/26/23 oxycodone 10 mg tablet 10 mg PO Q6H PRN pain 30 days #120 09/26/23 tabs oxycodone 10 mg tablet 10 mg PO Q6H Pain 30 days #120 tabs 09/26/23 tadalafil 20 mg tablet (Cialis) 20 mg PO DAILY #7 tabs 10/24/23 Allergies Allergy/AdvReac Type Severity Reaction Status Date / Time cyclobenzaprine Allergy Intermediate I-HIVES Verified 10/24/23 14:07 [From Flexeril] Penicillins Allergy Intermediate Unknown Verified 10/24/23 14:07 allergy reaction methadone AdvReac Intermediate vomiting Verified 10/24/23 14:07 tramadol AdvReac Nausea Verified 10/24/23 14:07 PFSH PFSH Disclaimer: The information contained in this section may have been updated after the patient was seen, as this information can be updated by other users. Medical History Coronary artery disease Patient is following with Dr. Hardin and his team. COPD (chronic obstructive pulmonary disease) Hypertension Family History Other No significant family history Social History Smoking Status: Current every day smoker tobacco type: cigarettes packs per day: 40 alcohol intake: never substance use type: marijuana current occupational status: disabled Travel in the last 8 weeks: Inside the [place] household members: family housing: house current occupational exposures/hazards: No caffeine: Yes ROS Obtained: Yes All systems reviewed & no additional complaints except as documented Physical Exam General General appearance: alert and in no apparent distress Head Head exam: atraumatic and normocephalic Eye Eye exam: Present normal appearance, PERRL and EOMI ENT ENT exam: Present mucous membranes moist Neck Neck exam: Present normal inspection, full ROM and trachea midline Respiratory Respiratory exam: Absent respiratory distress, wheezes, stridor, accessory muscle use or prolonged expiratory phase Cardiovascular Cardiovascular exam: Present normal rhythm Abdominal Exam Abdominal exam: Present soft; Absent distention, tenderness, guarding, rebound or rigidity Extremities Exam Extremities exam: Absent edema Neurological Exam Neurological exam: Present alert, oriented X3, CN II-XII intact and normal gait; Absent motor sensory deficit Skin Skin exam: Present warm and dry; Absent diaphoresis or erythema Medical Decision Making Medical Records Medical records reviewed: Yes I reviewed the patient's medical records. Arthur Inquiry Pt receiving controlled substance: No Arthur was queried for this patient: No Vital Signs: 11/23/23 18:51 11/23/23 21:07 Temperature 98.1 F Temperature Source Oral Pulse Rate 66 Pulse Rate [Left] 68 Respiratory Rate 16 18 Blood Pressure 120/75 Blood Pressure [Right Arm] 122/78 Blood Pressure Mean [Right Arm] 92 Blood Pressure Source Automatic Cuff Blood Pressure Source [Right Arm] Automatic Cuff Blood Pressure Position Sitting Blood Pressure Position [Right Arm] Sitting 02 Sat by Pulse Oximetry 97 Oxygen Delivery Method Room Air Room Air Lab Data Lab Results 11/23/23 18:53: WBC 8.2, RBC 4.37 L, Hgb 13.3 L, Hct 40.4 L, MCV 92.5, MCH 30.4, MCHC 32.9, RDW 14.3, Plt Count 196, MPV 7.5, Neut % (Auto) 75.2, Lymph % (Auto) 18.6, [place] % (Auto) 4.2, Eos % (Auto) 1.4, Baso % (Auto) 0.6, Neut # (Auto) 6.2, Lymph # (Auto) 1.5, [place] # (Auto) 0.4, Eos # (Auto) 0.1, Baso # (Auto) 0.1, ESR 13, Sodium 139, Potassium 4.2, Chloride 107, Carbon Dioxide 26, Anion Gap 10.2, BUN 15, Creatinine 0.80, Estimated Creat Clear 63, Estimated GFR 97, Est GFR ( Amer) 117, Glucose 95, Calcium 9.0, Total Bilirubin 0.1 L, AST 35, ALT 26, Alkaline Phosphatase 75, C-Reactive Protein 0.7, Total Protein 7.0, Albumin 3.8, Globulin 3.2, Albumin/Globulin Ratio 1.2 11/23/23 18:53 11/23/23 18:53 Orders (Tests/Meds): ED MEDICATIONS Discontinued Medications Generic Name Dose Route Start Last Admin Trade Name Ghanshyamq PRN Reason Stop Dose Admin Acetaminophen 1,000 mg 11/23/23 18:56 11/23/23 19:21 Acetaminophen 1,000mg/100ml Vial IV 11/23/23 18:57 1,000 mg ONCE ONE Administration Dexamethasone Sodium Phosphate 10 mg 11/23/23 18:56 11/23/23 19:21 Dexamethasone 4mg/Ml 1ml Vial IV 11/23/23 18:57 10 mg ONCE ONE Administration Diphenhydramine HCl 25 mg 11/23/23 18:56 11/23/23 19:21 Diphenhydramine 50mg/Ml Vial IV 11/23/23 18:57 25 mg ONCE ONE Administration Lactated Ringer's 1,000 mls @ 999 mls/hr 11/23/23 18:56 11/23/23 19:22 Lactated Ringer's 1000 Ml Bag IV 11/23/23 19:56 999 mls/hr .Q1H1M ONE Administration Ketorolac Tromethamine 15 mg 11/23/23 18:56 11/23/23 19:21 Ketorolac 30mg/Ml Vial IV 11/23/23 18:57 15 mg ONCE ONE Administration Prochlorperazine Edisylate 10 mg 11/23/23 18:56 11/23/23 19:21 Prochlorperazine 10mg/2ml Vial IV 11/23/23 18:57 10 mg ONCE ONE Administration ORDERS Category Date Time Status CBC w/Auto Diff [Complete Blood Count Auto Diff] Stat Lab 11/23/23 18:53 Completed CMP [Comprehensive Metabolic Panel] Stat Lab 11/23/23 18:53 Completed CRP [C-Reactive Protein] Stat Lab 11/23/23 18:53 Completed ESR [Erythrocyte Sedimentation Rate] Stat Lab 11/23/23 18:53 Completed Medical Decision Narrative: 68-year-old male history of hypertension, hyperlipidemia, COPD not on home oxygen presenting with headache. Patient states that he gets migraines every now and again, this was a little different. It is behind his left eye, stabbing, intermittent, associated with eye tearing and intermittent blurry vision. States that Excedrin helps a little bit, but they come and go. Had an episode in the lobby just prior to this visit, it is gone now. Never had anything like this in the past, does not take chronic headache medications or daily medications other than intermittent Excedrin. No neurologic deficits, chest pain, or other concerns. No jaw claudication, fevers or chills, weight loss. No blurry vision or ocular deficits when pain is not flaring up. History was obtained via conversation with patient. On arrival, patient hemodynamically stable, alert, oriented x4, appropriate, GCS 15, moving all extremities spontaneously, pupils equal and reactive to light. Full physical exam performed and significant for well-appearing patient in no acute distress. Differential includes migraine, cluster headache, tension headache, among others. Patient was given migraine cocktail with supplemental oxygen, followed by Benadryl, Compazine, fluids, Toradol, acetaminophen, Decadron for symptomatic management and correction of underlying abnormalities. Workup independently interpreted and significant for no leukocytosis, ESR negative, CRP negative. CT head was considered, not deemed necessary at this time given improvement of symptoms with care listed above. On reevaluation, patient stating his pain is controlled. Was not the oxygen, but was given migraine cocktail. This makes it less likely to be cluster headaches, but still possible. He was recommended a follow-up with his family doctor regarding this visit to the emergency department and possible neurology referral if needed. Patient voiced his understanding. Because patient at baseline without signs or symptoms of clinical decompensation, deemed appropriate for discharge. Results were relayed to patient who voiced understanding and were agreeable to outpatient management and follow up. I discussed my clinical impression with patient and answered all questions. At this time, the evidence for any other entities in the differential is insufficient to warrant any further testing or ED observation. This was explained as well. Advisory was given that persistent or worsening symptoms require further evaluation. I confirmed the understanding of this discussion. [employer] disclaimer Much of this encounter note is an electronic natural resources specialist spoken language to printed text. Electronic natural resources specialist of the spoken language may permit errors. Although I have reviewed the note, some errors may still exist. Critical Care Critical Care Time Critical Care Time: No
[2023-11-23 21:07] VITALS: BP 120/75; PULSE 66; RESP 18; TEMP 36.7; O2SAT 96
== END 2023-11-23 21:12 | disposition home or self-care (01) ==
PROVIDERS: Emergency Provider Emergency Medicine; PCP Internal Medicine
DX: G43.909 Migraine, unspecified, not intractable, without status migrainosus (principal); H57.12 Ocular pain, left eye; F17.210 Nicotine dependence, cigarettes, uncomplicated; J44.9 Chronic obstructive pulmonary disease, unspecified; I11.9 Hypertensive heart disease without heart failure; I25.10 Atherosclerotic heart disease of native coronary artery without angina pectoris
CPT/HCPCS: 80053; 85025; 85651; 86140; 96361; 96374; 96375; 99284; J0131; J1100; J1885; J7120

== ENCOUNTER 2023-12-21 11:00 | Outpatient (CLI) | payer MEDICARE, SELFPAY ==
[2023-12-21 18:30] LABS: Basophils % 0.4 % (0.1-2.0); Eosinophils # 0.1 K/mm3 (0.0-0.4); Eosinophils % 0.9 % (0.1-12.0); Hemoglobin 13.5 g/dL (14.1-18.0); Lymphocytes # 1.4 K/mm3 (0.7-4.5); Lymphocytes % 21.8 % (10-50); Mean Corpuscular HGB Conc 32.1 g/dL (31.8-35.4); Mean Corpuscular Hemoglobin 30.7 pg (27.0-31.2); Mean Corpuscular Volume 95.7 fl (80-94); Mean Platelet Volume 9.1 fl (7.4-10.4); Monocytes # 0.3 K/mm3 (0.1-1.0); Monocytes % 5.1 % (1.7-9.3); Neutrophils # 4.6 K/mm3 (1.8-7.8); Neutrophils % 71.8 % (37.0-80.0); Platelet Count 274 K/mm3 (142-424); Red Blood Count 4.39 M/mm3 (4.60-6.20); Red Cell Distribution Width 14.3 % (11.5-17.5); White Blood Count 6.4 K/mm3 (4.8-10.8)
== END 2023-12-21 23:59 | disposition home or self-care (01) ==
LOC: LAB.DROPOF 12-22 09:04
PROVIDERS: PCP Internal Medicine; Visit Provider Internal Medicine
DX: J44.9 Chronic obstructive pulmonary disease, unspecified (principal); F17.210 Nicotine dependence, cigarettes, uncomplicated
CPT/HCPCS: 85025

== ENCOUNTER 2024-01-25 10:45 | Outpatient (CLI) | payer MEDICARE, SELFPAY ==
--- NOTE | 2024-01-25 10:45 | US_ITS ---
FINAL REPORT TECHNIQUE: Ultrasound images of the abdominal aorta were obtained. CLINICAL HISTORY: family Hx AAA COMPARISON: None FINDINGS: ULTRASOUND OF THE ABDOMINAL AORTA The aorta measures up to 2.1 cm. The bifurcation is normal. The iliac arteries are within normal limits. IMPRESSION: No evidence of abdominal aortic aneurysm. Reviewed, Interpreted and Dictated by Jose Ny III, MD Transcribed by Bettina Haynes Authenticated and [facility]
--- NOTE | 2024-01-25 10:45 | CT_ITS ---
FINAL REPORT TECHNIQUE: Axial CT images of the chest were obtained without contrast. Low-dose protocol was utilized. This study was performed with techniques to keep radiation doses as low as reasonably achievable (ALARA). Individualized dose reduction techniques using automated exposure control or adjustment of mA and/or kV according to the patient's size were employed. CLINICAL HISTORY: lung cancer screening SMOKER, 2 1/2 PKS PER DAY X 56 YRS COPD, EMPYSEMA HX OF THROAT CANCER COMPARISON: 06/30/2021 FINDINGS: CT CHEST WITHOUT, LOW DOSE SCREENING CT Di Vol: 2.90 mGy DLP: 120.11 mGy*cm There is no axillary, mediastinal, or hilar adenopathy. The heart size is normal. There are severe coronary artery calcifications. A left subclavian pacer is present. There is no pleural or pericardial effusion. There is moderate emphysema and mild scarring. The lung windows show a stable 4 mm lateral right upper lobe nodule best seen on image 28. There are several other less than 5 mm nodules which are also stable. There are multiple new nodules in the right middle lobe and right lower lobe measuring up to 7 mm. There is a calcified granuloma in the left lower lobe. Limited images of the upper abdomen demonstrate several low-attenuation hepatic masses which are stable and favored to represent cysts. IMPRESSION: Multiple new right middle lobe and lower lobe nodules, most likely inflammatory. LR Category 0: 3 month follow-up low-dose chest CT is recommended. Reviewed, Interpreted and Dictated by Jose Ny III, MD Transcribed by Bettina Haynes Authenticated and [facility]
== END 2024-01-25 23:59 | disposition home or self-care (01) ==
LOC: RAD 10:45
PROVIDERS: PCP Internal Medicine; Visit Provider Internal Medicine
DX: F17.210 Nicotine dependence, cigarettes, uncomplicated (principal); Z82.49 Family history of ischemic heart disease and other diseases of the circulatory system; I11.9 Hypertensive heart disease without heart failure; I25.10 Atherosclerotic heart disease of native coronary artery without angina pectoris
CPT/HCPCS: 71271; 76705

== ENCOUNTER 2024-02-08 11:18 | Outpatient (CLI) | payer MEDICARE, SELFPAY ==
[2024-02-08 20:10] LABS: Thyroid Stimulating Hormone 2.14 uIU/mL (0.465-4.68)
== END 2024-02-08 23:59 | disposition home or self-care (01) ==
LOC: LAB.DROPOF 02-09 11:18
PROVIDERS: PCP Internal Medicine; Visit Provider Internal Medicine
DX: R53.83 Other fatigue (principal)
CPT/HCPCS: 84443

== ENCOUNTER 2024-03-09 11:04 | Outpatient (CLI) | payer MEDICARE, SELFPAY ==
--- NOTE | 2024-03-09 11:09 | US_ITS ---
FINAL REPORT CLINICAL HISTORY: claudication, current smoker, HTN, hyperlipidemia, CAD, bilateral rest pain COMPARISON: None FINDINGS: ANKLE-BRACHIAL PRESSURE INDICES Pressure indices are as follows: RIGHT LOWER EXTREMITY: Ankle-brachial pressure index: 1.26 Comments: Normal LEFT LOWER EXTREMITY: Ankle-brachial pressure index: 1.23 Comments: Normal CONCLUSION: No evidence of significant obstructive peripheral vascular disease of the lower extremities Reviewed, Interpreted and Dictated by Bala Richards MD Transcribed by Raya Aden Authenticated and [facility]
== END 2024-03-09 23:59 | disposition home or self-care (01) ==
LOC: RT 11:06
PROVIDERS: PCP Internal Medicine; Visit Provider Physician Assistant
DX: I73.9 Peripheral vascular disease, unspecified (principal)
CPT/HCPCS: 93923

== ENCOUNTER 2024-03-23 14:15 | Emergency (ER) | payer MEDICARE, SELFPAY ==
[2024-03-23] VITALS (7 sets, daily range): BP systolic 116–152; BP diastolic 61–79; PULSE 75–89; RESP 17–20; TEMP 36.4; O2SAT 94–98; BMI 19.3
--- NOTE | 2024-03-23 14:38 | CT_ITS ---
FINAL REPORT TECHNIQUE: Postcontrast axial images through the abdomen and pelvis were performed. This study was performed with techniques to keep radiation doses as low as reasonably achievable, (ALARA). Individualized dose reduction techniques using automated exposure control or adjustment of mA and/or kV according to the patient's size were employed. CLINICAL HISTORY: Abdominal pain, constipation FINDINGS: Abdomen: There is motion on many of the images which decreases the sensitivity of the exam. There are irregular nodular opacities in the right midlung and the right lower lobe worrisome for pneumonia. Multiple hepatic cysts are noted. There is mild fatty infiltration of the liver. The spleen is unremarkable. The adrenals are normal. The pancreas is unremarkable. The kidneys enhance appropriately. The aorta is normal in caliber. Moderate vascular calcifications are noted. No free fluid or adenopathy is identified. No findings for mechanical bowel obstruction are identified. Pelvis: The appendix is not identified. There is wall thickening of the rectosigmoid colon favored to be inflammatory. The urinary bladder wall is thickened which is likely inflammatory. No free fluid, free air, abscess or adenopathy is identified. Bilateral L5 pars defects are noted. There is 8 mm of anterolisthesis of L4 on L5. IMPRESSION: Rectosigmoid colon wall thickening is favored to be inflammatory. Urinary bladder wall thickening is likely inflammatory. Mild fatty liver with multiple hepatic cysts. Nodular opacities in the right midlung and the right lower lobe worrisome for pneumonia. Reviewed, Interpreted and Dictated by Jose Ny III, MD Transcribed by Roma Ferrer Authenticated and [facility]
--- NOTE | 2024-03-23 14:38 | XR_ITS ---
FINAL REPORT CLINICAL HISTORY: Shortness of breath COMPARISON: 07/13/2019 FINDINGS: A single portable view of the chest was obtained. A left subclavian pacer is present. The heart size and pulmonary vascularity are within normal limits. The mediastinum is within normal limits. There are mild right base opacities which may represent pneumonia or atelectasis and are new from the prior study. The bony thorax is intact. IMPRESSION: New mild right base opacities, may represent pneumonia or atelectasis. Reviewed, Interpreted and Dictated by Jose Ny III, MD Transcribed by Bettina Haynes Authenticated and [facility]
--- NOTE | 2024-03-23 14:39 | HMH.EDGENADL ---
Discharge Plan Disposition Patient Disposition: Home, Self-Care Condition: Good Prescriptions Prescriptions: New azithromycin 500 mg tablet 500 mg PO DAILY 3 Days Qty: 3 0RF Rx Instructions: start on day 2 of therapy magnesium citrate Solution 150 ml PO DAILY MDD 300 ml Qty: 750 0RF No Action varenicline [Chantix Starting Month Box] 0.5 mg (11)- 1 mg (42) tablets,dose pack See Rx Instructions PO PER PKG DIR Qty: 53 0RF Rx Instructions: PO PER PKG DIR varenicline [Chantix Continuing Month Box] 1 mg tablet 1 mg PO BID Qty: 56 2RF oxycodone 10 mg tablet 10 mg PO Q6H PRN (Reason: pain) Qty: 120 0RF oxycodone 10 mg tablet 10 mg PO Q6H 30 Days Qty: 120 0RF melatonin 10 mg capsule 10 mg PO HS PRN (Reason: sleep) Qty: 30 2RF finasteride 5 mg tablet 5 mg PO DAILY 90 Days Qty: 90 4RF tadalafil [Cialis] 5 mg tablet 5 mg PO DAILY Qty: 30 2RF tadalafil [Cialis] 20 mg tablet 20 mg PO DAILY Qty: 7 2RF Rx Instructions: Take a 20 mg 1-2 hours before sexual intercourse in addition to the daily 5 mg Cialis tamsulosin 0.4 mg capsule 0.8 mg PO DAILY 90 Days Qty: 180 1RF bupropion HCl 150 mg tablet sustained-release 12 hr 150 mg PO BID 90 Days Qty: 180 4RF albuterol sulfate [Proventil HFA] 90 mcg/actuation HFA aerosol inhaler 2 puff INHALATION Q4-6H PRN (Reason: shortness of breath or wheezing) Qty: 18 2RF aspirin 81 mg tablet,chewable 81 mg PO DAILY Qty: 90 4RF carvedilol 3.125 mg tablet 3.125 mg PO DAILY 90 Days Qty: 90 4RF Trelegy Ellipta 100-62.5-25 mcg blister with device 1 inh INHALATION DAILY Qty: 60 4RF irbesartan 75 mg tablet See Rx Instructions .ROUTE .COMPLEX Qty: 90 4RF Dose Instruction: TAKE ONE TABLET BY MOUTH ONCE A DAY Rx Instructions: TAKE ONE TABLET BY MOUTH ONCE A DAY mupirocin 2 % ointment 1 applic topical BID PRN (Reason: Skin condition) Qty: 22 4RF oxycodone 10 mg tablet 10 mg PO Q6H PRN (Reason: pain) 30 Days Qty: 120 0RF gabapentin 600 mg tablet 600 mg PO TID Qty: 90 2RF Referrals Follow up/Referrals: Yuniel Clark DO [Primary Care Provider] - See instructions Activity Restrictions/Add. Instructions Additional Instructions/Restrictions: Please utilize [id number] MiraLAX, use mag citrate if MiraLAX fails to produce bowel movement within the next 24 to 48 hours. Take mag citrate 150 mL once daily until bowel movement. Take azithromycin antibiotic as prescribed. Follow-up with your family physician. Please return to the emergency department for any worsening signs or symptoms. Clinical Impressions Clinical Impression: Constipation, Pneumonia Instructions Patient Instructions: Pneumonia-Adult, DI for Constipation, DI for Acute Abdominal Pain Print Language Print Language: Cuban Discharge ED Provider: Stef Prescott General Adult HPI <ALICIA Little - Last Filed: 03/23/24 17:20> General Chief complaint: Abdominal Pain Stated complaint: abd pain Time Seen by Provider: 03/23/24 14:29 Mode of Arrival: Ambulatory Source of Information: Patient Limitations: No Limitations History of Present Illness HPI narrative: C9-year-old male presents the emergency department with abdominal pain, constipation for 1 week, patient states he is still passing gas, he has had several diarrhea-like bowel movements ., But has not had a full bowel movement, he denies any hematochezia, melena, hematemesis, no nausea no vomiting, urinary type symptomatology, except for decreased urination which is chronic for him. Patient denies any fever chills chest pain shortness of breath, has no other acute symptomatology. Other past medical history consistent with hyperlipidemia, hypertension, BPH, insomnia, implantable pacemaker, CAD, degenerative disc disease of the cervical lumbar spine, on every day opioid use (Percocet 10 mg p.o), COPD, patient is a current everyday smoker, denies any alcohol or drug use. Initial triage vitals are unremarkable, patient states he has taken MiraLAX yesterday for the constipation, however it was unsuccessful Onset (ago): day(s) Related Data Previous Rx's ?Medication ?Instructions ?Recorded albuterol sulfate 90 mcg/actuation 2 puff inhalation Q4-6H PRN 09/26/23 aerosol inhaler (Proventil HFA) shortness of breath or wheezing #18 grams aspirin 81 mg chewable tablet 81 mg PO DAILY heart health #90 09/26/23 tabs bupropion HCl 150 mg tablet,12 hr 150 mg PO BID 90 days #180 ea 09/26/23 sustained-release carvedilol 3.125 mg tablet 3.125 mg PO DAILY 90 days #90 tabs 09/26/23 fluticasone fur. 100 mcg-umeclid 1 inh inhalation DAILY Allergy 09/26/23 62.5 mcg-vilant 25 mcg symptoms #60 ea inhalat.powder (Trelegy Ellipta) irbesartan 75 mg tablet See Rx Instructions .Route 09/26/23 .COMPLEX #90 tabs mupirocin 2 % topical ointment 1 applic topical BID PRN Skin 09/26/23 condition #22 grams varenicline 0.5 mg (11)-1 mg (42) See Rx Instructions PO PER PKG DIR 12/21/23 tablets in a dose pack (Chantix #53 tabs Starting Month Box) oxycodone 10 mg tablet 10 mg PO Q6H PRN pain 30 days #120 01/11/24 tabs melatonin 10 mg capsule 10 mg PO HS PRN sleep #30 caps 02/08/24 oxycodone 10 mg tablet 10 mg PO Q6H PRN pain #120 tabs 02/08/24 oxycodone 10 mg tablet 10 mg PO Q6H Pain 30 days #120 tabs 02/08/24 varenicline 1 mg tablet (Chantix 1 mg PO BID #56 tabs 02/08/24 Continuing Month Box) finasteride 5 mg tablet 5 mg PO DAILY urinary 90 days #90 03/05/24 tabs tadalafil 20 mg tablet (Cialis) 20 mg PO DAILY #7 tabs 03/05/24 tadalafil 5 mg tablet (Cialis) 5 mg PO DAILY #30 tabs 03/05/24 tamsulosin 0.4 mg capsule 0.8 mg (2 x 0.4 mg) PO DAILY bph 03/05/24 90 days #180 caps gabapentin 600 mg tablet 600 mg PO TID Pain #90 tabs 03/11/24 azithromycin 500 mg tablet 500 mg PO DAILY 3 days #3 tabs 10/11/24 magnesium citrate 150 ml PO DAILY constipation #750 03/23/24 mL Allergies Allergy/AdvReac Type Severity Reaction Status Date / Time cyclobenzaprine Allergy Intermediate I-HIVES Verified 03/05/24 11:17 [From Flexeril] Penicillins Allergy Intermediate Unknown Verified 03/05/24 11:17 allergy reaction methadone AdvReac Intermediate vomiting Verified 03/05/24 11:17 tramadol AdvReac Nausea Verified 03/05/24 11:17 PFSH <ALICIA Little - Last Filed: 03/23/24 17:20> FOR[facility]LY [facility] Disclaimer: The information contained in this section may have been updated after the patient was seen, as this information can be updated by other users. Medical History Coronary artery disease COPD (chronic obstructive pulmonary disease) Hypertension Family History Other No significant family history Social History Smoking Status: Current every day smoker tobacco type: cigarettes packs per day: 40 alcohol intake: never substance use type: marijuana current occupational status: disabled Travel in the last 8 weeks: Inside the [place] household members: family housing: house current occupational exposures/hazards: No caffeine: Yes Other Medical History Have you received the Flu Vaccine for this season: Yes Have you received the Pneumonia Vaccine: Yes <ALICIA Little - Last Filed: 03/23/24 17:20> ROS Obtained: Yes All systems reviewed & no additional complaints except as documented Physical Exam <ALICIA Little - Last Filed: 03/23/24 17:20> General General appearance: alert and in no apparent distress Head Head exam: atraumatic and normocephalic Eye Eye exam: Present PERRL and EOMI ENT ENT exam: Present mucous membranes moist Neck Neck exam: Present normal inspection Chest Chest inspection: Present normal inspection and symmetric chest wall rise Respiratory Respiratory exam: Present normal lung sounds bilaterally; Absent respiratory distress Cardiovascular Cardiovascular exam: Present regular rate and normal rhythm Abdominal Exam Abdominal exam: Present soft and tenderness; Absent distention, guarding, rebound or rigidity Extremities Exam Extremities exam: Present normal inspection Neurological Exam Neurological exam: Present alert and oriented X3 Psychiatric Psychiatric exam: Present normal affect Skin Skin exam: Present warm and dry Medical Decision Making <ALICIA Little - Last Filed: 03/23/24 17:20> Medical Records Medical records reviewed: Yes I reviewed the patient's medical records. Screening: Per USPSTF and CDC recommendations, given the prevalence of disease in our region, it is our hospital?s policy to screen for HIV and viral Hepatitis for all patients aged 18 and over and those with ongoing risk factors. Arthur Inquiry Pt receiving controlled substance: No Vital Signs: 03/23/24 14:17 03/23/24 15:00 03/23/24 15:30 Temperature 97.6 F Temperature Source Oral Pulse Rate 80 78 Pulse Rate [Right] 82 Respiratory Rate 17 Blood Pressure 129/72 129/61 Blood Pressure [Right Arm] 152/79 H Blood Pressure Mean Blood Pressure Mean [Right Arm] 103 Blood Pressure Source Blood Pressure Source [Right Arm] Automatic Cuff 02 Sat by Pulse Oximetry 98 95 97 Oxygen Delivery Method Room Air Room Air 03/23/24 16:00 03/23/24 16:30 03/23/24 17:00 Temperature Temperature Source Pulse Rate 75 76 80 Pulse Rate [Right] Respiratory Rate Blood Pressure 116/61 120/69 125/77 Blood Pressure [Right Arm] Blood Pressure Mean 85 91 Blood Pressure Mean [Right Arm] Blood Pressure Source Blood Pressure Source [Right Arm] 02 Sat by Pulse Oximetry 94 L 96 94 L Oxygen Delivery Method Room Air Room Air 03/23/24 17:37 Temperature 97.5 F L Temperature Source Pulse Rate 89 Pulse Rate [Right] Respiratory Rate 20 Blood Pressure 135/70 Blood Pressure [Right Arm] Blood Pressure Mean Blood Pressure Mean [Right Arm] Blood Pressure Source Automatic Cuff Blood Pressure Source [Right Arm] 02 Sat by Pulse Oximetry Oxygen Delivery Method Room Air Lab Data Lab results reviewed: Yes I reviewed the patient's lab results. Lab Results 03/23/24 14:40: WBC 10.7, RBC 4.64, Hgb 14.1, Hct 41.4 L, MCV 89.2, MCH 30.4, MCHC 34.0, RDW 14.7, Plt Count 200, MPV 7.3 L, Neut % (Auto) 84.6 H, Lymph % (Auto) 9.4 L, [place] % (Auto) 5.0, Eos % (Auto) 0.7, Baso % (Auto) 0.3, Neut # (Auto) 9.1 H, Lymph # (Auto) 1.0, [place] # (Auto) 0.5, Eos # (Auto) 0.1, Baso # (Auto) 0.0, Sodium 136, Potassium 3.3 L, Chloride 109 H, Carbon Dioxide 26, Anion Gap 4.3 L, BUN 17, Creatinine 0.70, Estimated GFR 112, Est GFR ( Amer) 136, Glucose 82, Lactate 1.1, Calcium 8.9, Magnesium 1.9, Total Bilirubin 0.6, AST 182 H, ALT 59, Alkaline Phosphatase 59, Total Protein 7.3, Albumin 3.9, Globulin 3.4 H, Albumin/Globulin Ratio 1.1, Lipase 67, HIV 1&2 Antibody Rapid Nonreactive 03/23/24 14:40 03/23/24 14:40 Orders (Tests/Meds): ED MEDICATIONS Discontinued Medications Generic Name Dose Route Start Last Admin Trade Name Freq PRN Reason Stop Dose Admin Iopamidol 75 ml 03/23/24 15:23 03/23/24 15:24 Iopamidol-370 (76%);100ml Bottle IV 03/23/24 15:24 75 ml ONCE ONE Administration Potassium Chloride 20 meq 03/23/24 16:45 03/23/24 17:11 Potassium Chloride 20meq Tab PO 03/23/24 16:46 20 meq ONCE ONE Administration Sodium Chloride 10 ml 03/23/24 15:23 03/23/24 15:24 Sodium Chloride 0.9% 10ml Syr (Rad Only) IV 04/22/24 15:22 10 ml NEEDED PRN Administration Maintain IV Site ORDERS Category Date Time Status CT abdomen pelvis w con Stat Cat Scan 03/23/24 14:38 Completed XR chest portable Stat Exams 03/23/24 14:38 Completed Complete Blood Count Auto Diff Stat Lab 03/23/24 14:40 Completed Comprehensive Metabolic Panel Stat Lab 03/23/24 14:40 Completed HIV (1&2) Antibody Rapid Stat Lab 03/23/24 14:40 Completed Hep C Ab with Reflex to RNA Stat Lab 03/23/24 14:40 Received Lactic Acid Stat Lab 03/23/24 14:40 Completed Lipase Stat Lab 03/23/24 14:40 Completed Magnesium Stat Lab 03/23/24 14:40 Completed Medical Decision Narrative: 69-year-old male presents emerged part with abdominal pain, constipation for 1 week, differential diagnose include but not limited to ileus, pseudo colonic obstruction, small bowel obstruction, large bowel obstruction, constipation, pancreatitis, gastroenteritis, colitis. Discussed patient case with the attending physician Dr. Prescott Will obtain CBC CMP, lactate, lipase, magnesium level, n.p.o. diet, CXR, CT abdomen pelvis with and without contrast further evaluate/characterization. Reviewed the patient's EKG along with the attending physician, NSR, with occasional PVC at 78 bpm, TN was within normal limits, QT interval within normal limits there is no STEMI CBC unremarkable CMP notable for mild hypokalemia at 3.3, mild hyperchloremia at 109, anion gap is decreased to 4.3 AST is increased to 182, otherwise unremarkable Give 20 mill equivalents p.o. potassium for hypokalemia I reviewed the patient's CT abdomen pelvis with and without contrast along with the corresponding radiologic report, there is a rectosigmoid colon wall thickening favored to be inflammatory, urinary bladder wall thickening is likely inflammatory, mild fatty liver with multiple hepatic cyst, nodule opacity in the right midlung and right lower lobe, worrisome for pneumonia. I reviewed the patient's chest x-ray along the corresponding radiologic report, new mild right base opacities which may represent pneumonia or atelectasis. Will prophylactically treat for pneumonia due to the patient's history of smoking, and chest x-ray/CT abdomen pelvis findings, will give azithromycin (Z-D[facility]) for pneumonia prophylaxis, will also give bowel regimen with mag citrate to the patient's pharmacy. Patient will take as prescribed, strict ED return precaution given to the patient at the bedside, patient care with current treatment plan/discharge plan. Follow-up PCP as directed. <Mere Floyd MD - Last Filed: 03/23/24 16:11> Vital Signs: 03/23/24 14:17 03/23/24 15:00 03/23/24 15:30 Temperature 97.6 F Temperature Source Oral Pulse Rate 80 78 Pulse Rate [Right] 82 Respiratory Rate 17 Blood Pressure 129/72 129/61 Blood Pressure [Right Arm] 152/79 H Blood Pressure Mean Blood Pressure Mean [Right Arm] 103 Blood Pressure Source Blood Pressure Source [Right Arm] Automatic Cuff 02 Sat by Pulse Oximetry 98 95 97 Oxygen Delivery Method Room Air Room Air 03/23/24 16:00 03/23/24 16:30 03/23/24 17:00 Temperature Temperature Source Pulse Rate 75 76 80 Pulse Rate [Right] Respiratory Rate Blood Pressure 116/61 120/69 125/77 Blood Pressure [Right Arm] Blood Pressure Mean 85 91 Blood Pressure Mean [Right Arm] Blood Pressure Source Blood Pressure Source [Right Arm] 02 Sat by Pulse Oximetry 94 L 96 94 L Oxygen Delivery Method Room Air Room Air 03/23/24 17:37 Temperature 97.5 F L Temperature Source Pulse Rate 89 Pulse Rate [Right] Respiratory Rate 20 Blood Pressure 135/70 Blood Pressure [Right Arm] Blood Pressure Mean Blood Pressure Mean [Right Arm] Blood Pressure Source Automatic Cuff Blood Pressure Source [Right Arm] 02 Sat by Pulse Oximetry Oxygen Delivery Method Room Air Lab Data Lab Results 03/23/24 14:40: WBC 10.7, RBC 4.64, Hgb 14.1, Hct 41.4 L, MCV 89.2, MCH 30.4, MCHC 34.0, RDW 14.7, Plt Count 200, MPV 7.3 L, Neut % (Auto) 84.6 H, Lymph % (Auto) 9.4 L, [place] % (Auto) 5.0, Eos % (Auto) 0.7, Baso % (Auto) 0.3, Neut # (Auto) 9.1 H, Lymph # (Auto) 1.0, [place] # (Auto) 0.5, Eos # (Auto) 0.1, Baso # (Auto) 0.0, Sodium 136, Potassium 3.3 L, Chloride 109 H, Carbon Dioxide 26, Anion Gap 4.3 L, BUN 17, Creatinine 0.70, Estimated GFR 112, Est GFR ( Amer) 136, Glucose 82, Lactate 1.1, Calcium 8.9, Magnesium 1.9, Total Bilirubin 0.6, AST 182 H, ALT 59, Alkaline Phosphatase 59, Total Protein 7.3, Albumin 3.9, Globulin 3.4 H, Albumin/Globulin Ratio 1.1, Lipase 67, HIV 1&2 Antibody Rapid Nonreactive Orders (Tests/Meds): ED MEDICATIONS Discontinued Medications Generic Name Dose Route Start Last Admin Trade Name Freq PRN Reason Stop Dose Admin Iopamidol 75 ml 03/23/24 15:23 03/23/24 15:24 Iopamidol-370 (76%);100ml Bottle IV 03/23/24 15:24 75 ml ONCE ONE Administration Potassium Chloride 20 meq 03/23/24 16:45 03/23/24 17:11 Potassium Chloride 20meq Tab PO 03/23/24 16:46 20 meq ONCE ONE Administration Sodium Chloride 10 ml 03/23/24 15:23 03/23/24 15:24 Sodium Chloride 0.9% 10ml Syr (Rad Only) IV 04/22/24 15:22 10 ml NEEDED PRN Administration Maintain IV Site ORDERS Category Date Time Status CT abdomen pelvis w con Stat Cat Scan 03/23/24 14:38 Completed XR chest portable Stat Exams 03/23/24 14:38 Completed Complete Blood Count Auto Diff Stat Lab 03/23/24 14:40 Completed Comprehensive Metabolic Panel Stat Lab 03/23/24 14:40 Completed HIV (1&2) Antibody Rapid Stat Lab 03/23/24 14:40 Completed Hep C Ab with Reflex to RNA Stat Lab 03/23/24 14:40 Received Lactic Acid Stat Lab 03/23/24 14:40 Completed Lipase Stat Lab 03/23/24 14:40 Completed Magnesium Stat Lab 03/23/24 14:40 Completed <Stef Prescott MD - Last Filed: 03/23/24 17:53> Vital Signs: 03/23/24 14:17 03/23/24 15:00 03/23/24 15:30 Temperature 97.6 F Temperature Source Oral Pulse Rate 80 78 Pulse Rate [Right] 82 Respiratory Rate 17 Blood Pressure 129/72 129/61 Blood Pressure [Right Arm] 152/79 H Blood Pressure Mean Blood Pressure Mean [Right Arm] 103 Blood Pressure Source Blood Pressure Source [Right Arm] Automatic Cuff 02 Sat by Pulse Oximetry 98 95 97 Oxygen Delivery Method Room Air Room Air 03/23/24 16:00 03/23/24 16:30 03/23/24 17:00 Temperature Temperature Source Pulse Rate 75 76 80 Pulse Rate [Right] Respiratory Rate Blood Pressure 116/61 120/69 125/77 Blood Pressure [Right Arm] Blood Pressure Mean 85 91 Blood Pressure Mean [Right Arm] Blood Pressure Source Blood Pressure Source [Right Arm] 02 Sat by Pulse Oximetry 94 L 96 94 L Oxygen Delivery Method Room Air Room Air 03/23/24 17:37 Temperature 97.5 F L Temperature Source Pulse Rate 89 Pulse Rate [Right] Respiratory Rate 20 Blood Pressure 135/70 Blood Pressure [Right Arm] Blood Pressure Mean Blood Pressure Mean [Right Arm] Blood Pressure Source Automatic Cuff Blood Pressure Source [Right Arm] 02 Sat by Pulse Oximetry Oxygen Delivery Method Room Air Lab Data Lab Results 03/23/24 14:40: WBC 10.7, RBC 4.64, Hgb 14.1, Hct 41.4 L, MCV 89.2, MCH 30.4, MCHC 34.0, RDW 14.7, Plt Count 200, MPV 7.3 L, Neut % (Auto) 84.6 H, Lymph % (Auto) 9.4 L, [place] % (Auto) 5.0, Eos % (Auto) 0.7, Baso % (Auto) 0.3, Neut # (Auto) 9.1 H, Lymph # (Auto) 1.0, [place] # (Auto) 0.5, Eos # (Auto) 0.1, Baso # (Auto) 0.0, Sodium 136, Potassium 3.3 L, Chloride 109 H, Carbon Dioxide 26, Anion Gap 4.3 L, BUN 17, Creatinine 0.70, Estimated GFR 112, Est GFR ( Amer) 136, Glucose 82, Lactate 1.1, Calcium 8.9, Magnesium 1.9, Total Bilirubin 0.6, AST 182 H, ALT 59, Alkaline Phosphatase 59, Total Protein 7.3, Albumin 3.9, Globulin 3.4 H, Albumin/Globulin Ratio 1.1, Lipase 67, HIV 1&2 Antibody Rapid Nonreactive Orders (Tests/Meds): ED MEDICATIONS Discontinued Medications Generic Name Dose Route Start Last Admin Trade Name Freq PRN Reason Stop Dose Admin Iopamidol 75 ml 03/23/24 15:23 03/23/24 15:24 Iopamidol-370 (76%);100ml Bottle IV 03/23/24 15:24 75 ml ONCE ONE Administration Potassium Chloride 20 meq 03/23/24 16:45 03/23/24 17:11 Potassium Chloride 20meq Tab PO 03/23/24 16:46 20 meq ONCE ONE Administration Sodium Chloride 10 ml 03/23/24 15:23 03/23/24 15:24 Sodium Chloride 0.9% 10ml Syr (Rad Only) IV 04/22/24 15:22 10 ml NEEDED PRN Administration Maintain IV Site ORDERS Category Date Time Status CT abdomen pelvis w con Stat Cat Scan 03/23/24 14:38 Completed XR chest portable Stat Exams 03/23/24 14:38 Completed Complete Blood Count Auto Diff Stat Lab 03/23/24 14:40 Completed Comprehensive Metabolic Panel Stat Lab 03/23/24 14:40 Completed HIV (1&2) Antibody Rapid Stat Lab 03/23/24 14:40 Completed Hep C Ab with Reflex to RNA Stat Lab 03/23/24 14:40 Received Lactic Acid Stat Lab 03/23/24 14:40 Completed Lipase Stat Lab 03/23/24 14:40 Completed Magnesium Stat Lab 03/23/24 14:40 Completed Medical Decision Narrative: 69-year-old male presents emerged part with abdominal pain, constipation for 1 week, differential diagnose include but not limited to ileus, pseudo colonic obstruction, small bowel obstruction, large bowel obstruction, constipation, pancreatitis, gastroenteritis, colitis. Discussed patient case with the attending physician Dr. Prescott Will obtain CBC CMP, lactate, lipase, magnesium level, n.p.o. diet, CXR, CT abdomen pelvis with and without contrast further evaluate/characterization. Reviewed the patient's EKG along with the attending physician, GIULIANAR, with occasional PVC at 78 bpm, TN was within normal limits, QT interval within normal limits there is no STEMI CBC unremarkable CMP notable for mild hypokalemia at 3.3, mild hyperchloremia at 109, anion gap is decreased to 4.3 AST is increased to 182, otherwise unremarkable Give 20 mill equivalents p.o. potassium for hypokalemia I reviewed the patient's CT abdomen pelvis with and without contrast along with the corresponding radiologic report, there is a rectosigmoid colon wall thickening favored to be inflammatory, urinary bladder wall thickening is likely inflammatory, mild fatty liver with multiple hepatic cyst, nodule opacity in the right midlung and right lower lobe, worrisome for pneumonia. I reviewed the patient's chest x-ray along the corresponding radiologic report, new mild right base opacities which may represent pneumonia or atelectasis. Will prophylactically treat for pneumonia due to the patient's history of smoking, and chest x-ray/CT abdomen pelvis findings, will give azithromycin (Z-[facility]) for pneumonia prophylaxis, will also give bowel regimen with mag citrate to the patient's pharmacy. Patient will take as prescribed, strict ED return precaution given to the patient at the bedside, patient care with current treatment plan/discharge plan. Follow-up PCP as directed. I was consulted by the MAGO, and we discussed the complexity of the problems being addressed. I approved the treatment and management plan for this patient's care in the Emergency Department, thus performing a substantive portion of the medical decision making. Stef Prescott MD Critical Care <Mere Floyd MD - Last Filed: 03/23/24 16:11> Critical Care Time Critical Care Time: No
--- NOTE | 2024-03-23 14:49 | PC.NURSE ---
RAD at for cxr
[2024-03-23 14:54] LABS: Basophils % 0.3 % (0.1-2.0); Eosinophils # 0.1 K/mm3 (0.0-0.4); Eosinophils % 0.7 % (0.1-12.0); Hematocrit 41.4 % (42.0-52.0); Hemoglobin 14.1 g/dL (14.1-18.0); Lymphocytes % 9.4 % (10-50); Mean Corpuscular Hemoglobin 30.4 pg (27.0-31.2); Mean Corpuscular Volume 89.2 fl (80-94); Mean Platelet Volume 7.3 fl (7.4-10.4); Monocytes # 0.5 K/mm3 (0.1-1.0); Neutrophils # 9.1 K/mm3 (1.8-7.8); Neutrophils % 84.6 % (37.0-80.0); Platelet Count 200 K/mm3 (142-424); Red Blood Count 4.64 M/mm3 (4.60-6.20); Red Cell Distribution Width 14.7 % (11.5-17.5); White Blood Count 10.7 K/mm3 (4.8-10.8)
--- NOTE | 2024-03-23 14:55 | ECG_ITS ---
APPROVED REPORT Exam: Resting ECG HR:78 bpm ECG Measurements Heart Rate 78 AXES UT 135 P 86 QRSd 107 QRS 86 QT 380 T 90 QTc 413 Conclusion SINUS RHYTHM WITH OCCASIONAL VENTRICULAR PREMATURE COMPLEXES RIGHT ATRIAL ENLARGEMENT [0.3mV P-WAVE] POSSIBLE LEFT ATRIAL ENLARGEMENT [-0.1mV P-WAVE IN V1/V2] NONSPECIFIC ST & T-WAVE ABNORMALITY Motion artifact degrades study Electronically signed by : ENMANUEL MICHELE, 03/25/2024 13:17:12
[2024-03-23 15:07] LABS: Lactic Acid 1.1 mmol/L (0.7-2.1)
[2024-03-23 15:08] LABS: Alanine Aminotransferase 59 U/L (12-78); Albumin Level 3.9 g/dl (3.5-5.0); Albumin/Globulin Ratio 1.1 (1.1-1.8); Alkaline Phosphatase 59 U/L (38-126); Aspartate Amino Transferase 182 U/L (17-59); Bilirubin,Total 0.6 mg/dl (0.2-1.3); Blood Urea Nitrogen 17 mg/dl (9-20); Calcium 8.9 mg/dl (8.4-10.2); Carbon Dioxide 26 mmol/L (22.0-30.0); Chloride 109 mmol/L (98-107); Estimated Glomerular Filt Rate 112 ml/min (>60); GFR (African American) 136 ML/MIN (>60); Globulin 3.4 g/dL (1.3-3.2); Glucose 82 mg/dl (74-100); Lipase 67 U/L (23-300); Magnesium 1.9 mg/dl (1.6-2.3); Sodium 136 mmol/L (136-145); Total Protein,Serum 7.3 g/dl (6.3-8.2)
[2024-03-23 15:11] LABS: Anion Gap 4.3 mEq/L (5-15); Potassium 3.3 mmoL/L (3.5-5.1)
[2024-03-23] MEDS: SODIUM CHLORIDE 0.9% 10ML SYR (RAD ONLY) 10 ML IV (15:24)
[2024-03-23] MEDS: IOPAMIDOL-370 (76%);100ML BOTTLE 75 ML IV (15:24)
[2024-03-23 16:22] LABS: HIV (1&2) Antibody Rapid NONREACTIVE (NONREACTIVE)
--- NOTE | 2024-03-23 16:31 | PC.NURSE ---
pt resting with call light within reach
[2024-03-23] MEDS: POTASSIUM CHLORIDE 20MEQ TAB 20 MEQ PO (17:11)
[2024-03-27 14:14] LABS: HCV Ab Reactive (Non Reactive)
== END 2024-03-23 17:37 | disposition home or self-care (01) ==
PROVIDERS: Physician Assistant; Emergency Provider Emergency Medicine; PCP Internal Medicine
DX: J18.9 Pneumonia, unspecified organism (principal); R10.9 Unspecified abdominal pain; K59.00 Constipation, unspecified; R39.12 Poor urinary stream; F17.200 Nicotine dependence, unspecified, uncomplicated
CPT/HCPCS: 71045; 74177; 80053; 83605; 83690; 83735; 85025; 86803; 87389; 93005; 99285; Q9967

== ENCOUNTER 2024-03-26 14:03 | Outpatient (POV) | payer MEDICARE, SELFPAY ==
[2024-03-26 15:23] VITALS: BP 136/89; PULSE 80; RESP 18; O2SAT 96; BMI 18.6
--- NOTE | 2024-03-26 15:59 | A.OFFVIS_ITS ---
HPI Data of Consult Patient: new to practice Consult date: 03/26/24 Requesting Physician: Marina Cedeño APRN Primary Care Provider: Yuniel Clark DO Consult Narrative Reason for consult: Neck pain, low back pain History of present illness: Mr. Soni is a 69 year old male who presents today as a new patient. He is a referral from Dr. Coates's office. Today he rates his pain an 8 out of 10. He states he has chronic pain throughout his neck and low back that has been going on for years. Patient states that he did have a spinal cord stimulator that was removed in 2019 because it was not working. Patient is currently managed with oxycodone 10 mg 4 times a day and gabapentin 600 mg 3 times a day from his PCP and feels like this works just fine for him. He states that he does not feel like he needs anything additional. Patient states he is not interested in injections or other interventions. Patient has tried and failed conservative therapy including oral medications, heat and ice and topicals. Patient has also had physical therapy and chiropractor in the past. Patient states that he is honestly not really sure why he was sent to our office. His Arthur has been reviewed. CC: Marina Cedeño APRN [facility] Disclaimer: The information contained in this section may have been updated after the patient was seen, as this information can be updated by other users. Medical History Coronary artery disease COPD (chronic obstructive pulmonary disease) Hypertension Family History Other No significant family history Social History Smoking Status: Current every day smoker tobacco type: cigarettes packs per day: 40 alcohol intake: never substance use type: marijuana current occupational status: other Travel in the last 8 weeks: None household members: family housing: house current occupational exposures/hazards: No caffeine: Yes Review of Systems Review of Systems Review of systems:: pertinent systems reviewed and negative unless documented below Review of systems (narrative): Review of Systems: General: No recent weight changes, no fever, no sleep disturbances Respiratory: No cough, no shortness of air, no recurring pulmonary infections Cardiovascular/peripheral vascular: No chest pain, no palpitations, no edema, no shortness of breath Gastrointestinal: No new onset incontinence, normal bowel movements reported Genitourinary: No new onset incontinence Musculoskeletal: Neck pain, low back pain Psychiatric: [Normal mood/affect] Neurological: [Denies weakness in extremities], [denies balance issues] Meds Home Medications and Allergies Home Medications ?Medication ?Instructions ?Recorded ?Confirmed ?Type albuterol sulfate 90 mcg/actuation 2 puff inhalation Q4-6H PRN 09/26/23 03/26/24 Rx aerosol inhaler (Proventil HFA) shortness of breath or wheezing #18 grams aspirin 81 mg chewable tablet 81 mg PO DAILY heart health #90 09/26/23 03/26/24 Rx tabs bupropion HCl 150 mg tablet,12 hr 150 mg PO BID 90 days #180 ea 09/26/23 03/26/24 Rx sustained-release carvedilol 3.125 mg tablet 3.125 mg PO DAILY 90 days #90 tabs 09/26/23 03/26/24 Rx fluticasone fur. 100 mcg-umeclid 1 inh inhalation DAILY Allergy 09/26/23 03/26/24 Rx 62.5 mcg-vilant 25 mcg symptoms #60 ea inhalat.powder (Trelegy Ellipta) irbesartan 75 mg tablet See Rx Instructions .Route 09/26/23 03/26/24 Rx .COMPLEX #90 tabs mupirocin 2 % topical ointment 1 applic topical BID PRN Skin 09/26/23 03/26/24 Rx condition #22 grams melatonin 10 mg capsule 10 mg PO HS PRN sleep #30 caps 02/08/24 03/26/24 Rx oxycodone 10 mg tablet 10 mg PO Q6H PRN pain #120 tabs 02/08/24 03/26/24 Rx oxycodone 10 mg tablet 10 mg PO Q6H Pain 30 days #120 tabs 02/08/24 03/26/24 Rx varenicline 1 mg tablet (Chantix 1 mg PO BID #56 tabs 02/08/24 03/26/24 Rx Continuing Month Box) finasteride 5 mg tablet 5 mg PO DAILY urinary 90 days #90 03/05/24 03/26/24 Rx tabs tadalafil 20 mg tablet (Cialis) 20 mg PO DAILY #7 tabs 03/05/24 03/26/24 Rx tadalafil 5 mg tablet (Cialis) 5 mg PO DAILY #30 tabs 03/05/24 03/26/24 Rx tamsulosin 0.4 mg capsule 0.8 mg (2 x 0.4 mg) PO DAILY bph 03/05/24 03/26/24 Rx 90 days #180 caps gabapentin 600 mg tablet 600 mg PO TID Pain #90 tabs 03/11/24 03/26/24 Rx azithromycin 500 mg tablet 500 mg PO DAILY 3 days #3 tabs 03/23/24 03/26/24 Rx magnesium citrate 150 ml PO DAILY constipation #750 03/23/24 03/26/24 Rx mL New Prescriptions to Start Prescriptions: Allergies Allergy/AdvReac Type Severity Reaction Status Date / Time cyclobenzaprine Allergy Intermediate I-HIVES Verified 03/05/24 11:17 [From Flexeril] Penicillins Allergy Intermediate Unknown Verified 03/05/24 11:17 allergy reaction methadone AdvReac Intermediate vomiting Verified 03/05/24 11:17 tramadol AdvReac Nausea Verified 03/05/24 11:17 Objective Vital signs: Pulse Resp BP Pulse Ox O2 Del Method 80 18 136/89 96 Room Air 03/26/24 15:23 03/26/24 15:23 03/26/24 15:23 03/26/24 15:23 03/26/24 15:23 Narrative: Physical Exam: General: Alert and oriented x3, no acute distress, pleasant and cooperative Lungs: Respirations even and unlabored, symmetrical chest expansion Eyes: PERRL Musculoskeletal: Flexion and extension of lumbar [spine] somewhat guarded secondary to pain, [antalgic gait noted] Neurological: Speech clear, no gross sensory deficit Additional findings Additional findings: FINDINGS: T12-L1 and L1-L2 have an unremarkable appearance. There is minimal bulging disc at L2-L3 slightly eccentric toward the left. There is some decrease in the disc space at L3-L4. There is absent pedicle on the right at L4 with fusion of the L3 and L4 spinous processes and partial fusion of the left L3 and L4 facets. L4-L5: Concentric bulging disc. There is mild anterolisthesis of L4 on L5 of 4 mm not significant changed. L5-S1: Bilateral pars interarticularis defect as before with bulging disc. No acute fracture or dislocation. No lytic or blastic change. IMPRESSION: 1. Overall no significant change with no acute finding. 2. Bulging disc at L4-5 and L5-S1. 3. 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 Medications have helped him to be functional and continue with a good quality of life per his admission, will continue for now. Status: Chronic Qualifiers: Spinal osteoarthritis complication: unspecified spinal osteoarthritis Qualified Code(s): M47.812 - Spondylosis without myelopathy or radiculopathy, cervical region Category: Medical Code(s): M47.812 - Spondylosis without myelopathy or radiculopathy, cervical region (2) Cervical radiculopathy: Status: Chronic Category: Medical Code(s): M54.12 - Radiculopathy, cervical region (3) DDD (degenerative disc disease), lumbar: Problem Comment: Will refill this patient's medications, gabapentin and oxycodone. Urine drug screen was obtained today. Will review those results when available. Status: Acute Category: Medical Code(s): M51.36 - Other intervertebral disc degeneration, lumbar region Plan Patient was counseled where we do more injection therapy to her provide improvement and that he is more than welcome if he would like to try any injec tions in future. Patient does state that at this time he is not interested whatsoever in this option. Patient was counseled that I want make him a follow- up appointment but to feel free to contact us if he needs any additional visits or evaluation. Patient agrees with this plan of care. Patient has been instructed to contact the clinic with any concerns before the next appointment. Dr. Paez has reviewed this note and agrees with this plan of care. This note was dictated using voice recognition software and make contain errors or omissions. All injections are used with Lidocaine or Bupivacaine and Depo Medrol.
== END 2024-03-26 23:59 | disposition home or self-care (01) ==
LOC: SC.PAIN 14:05
PROVIDERS: PCP Internal Medicine; Visit Provider Nurse Practitioner Family
DX: M47.22 Other spondylosis with radiculopathy, cervical region (principal); M51.369 Other intervertebral disc degeneration, lumbar region without mention of lumbar back pain or lower extremity pain; F17.210 Nicotine dependence, cigarettes, uncomplicated; Z79.899 Other long term (current) drug therapy
CPT/HCPCS: 99202; G0463

== ENCOUNTER 2024-05-07 10:34 | Outpatient (CLI) | payer MEDICARE, SELFPAY ==
[2024-05-07 11:52] LABS: Albumin Level 4.3 g/dl (3.5-5.0)
[2024-05-07 11:55] LABS: Alanine Aminotransferase 35 U/L (12-78); Aspartate Amino Transferase 39 U/L (17-59); Bilirubin,Unconjugated 0.8 mg/dL (0.0-1.1); Total Protein,Serum 7.4 g/dl (6.3-8.2)
[2024-05-07 11:56] LABS: Alkaline Phosphatase 55 U/L (38-126); Bilirubin,Direct 0.1 mg/dl (0.0-0.4); Bilirubin,Indirect 0.8 mg/dL (0.0-0.9); Bilirubin,Total 0.9 mg/dl (0.2-1.3)
[2024-05-07 12:14] LABS: 25-OH Vitamin D, Total 49.3 ng/mL (30-100)
[2024-05-07 12:24] LABS: Activated Partial Thrombo Time 26.5 seconds (22.8-30.6); INR 0.95 (0.9-1.1); Prothrombin Time 10.7 seconds (10.1-12.5)
[2024-05-09 10:22] LABS: Hepatitis B Surface Antigen NEGATIVE
== END 2024-05-07 23:59 | disposition home or self-care (01) ==
LOC: LAB 10:36
PROVIDERS: PCP Internal Medicine; Visit Provider Internal Medicine
DX: B18.2 Chronic viral hepatitis C (principal); E55.9 Vitamin D deficiency, unspecified; Z11.59 Encounter for screening for other viral diseases
CPT/HCPCS: 36415; 80076; 82306; 85610; 85730; 87340

== ENCOUNTER 2024-05-28 09:32 | Outpatient (CLI) | payer MEDICARE, SELFPAY ==
[2024-05-29 03:36] LABS: Testosterone,Total 1043 ng/dL (264-916)
== END 2024-05-28 23:59 | disposition home or self-care (01) ==
LOC: LAB 09:34
PROVIDERS: PCP Internal Medicine; Visit Provider Urology
DX: N40.1 Benign prostatic hyperplasia with lower urinary tract symptoms (principal); R39.11 Hesitancy of micturition; N52.9 Male erectile dysfunction, unspecified
CPT/HCPCS: 36415; 84270; 84403

== ENCOUNTER 2024-06-14 10:37 | Outpatient (CLI) | payer MEDICARE, SELFPAY ==
--- NOTE | 2024-06-14 10:39 | XR_ITS ---
FINAL REPORT CLINICAL HISTORY: wheezing COMPARISON: 03/23/2024 FINDINGS: PA and lateral views of the chest were obtained. The cardiac and mediastinal silhouettes are within normal limits. Changes of emphysema are present. There is no pleural effusion or pneumothorax. No acute osseous abnormality is identified. A pacemaker remains stable in appearance. IMPRESSION: Changes of emphysema, with no radiographic evidence of acute cardiac or pulmonary disease. Reviewed, Interpreted and Dictated by Kat Edwards MD Transcribed by Raya Aden Authenticated and [facility]
== END 2024-06-14 23:59 | disposition home or self-care (01) ==
LOC: RAD 10:38
PROVIDERS: PCP Internal Medicine; Visit Provider Nurse Practitioner
DX: R06.2 Wheezing (principal); I48.0 Paroxysmal atrial fibrillation
CPT/HCPCS: 71046

== ENCOUNTER 2024-06-30 09:41 | Emergency (ER) | payer MEDICARE, SELFPAY ==
[2024-06-30] VITALS (10 sets, daily range): BP systolic 132–184; BP diastolic 76–156; PULSE 62–88; RESP 20; TEMP 36.7–36.8; O2SAT 92–99; BMI 21.2
--- NOTE | 2024-06-30 09:46 | PC.NURSE ---
provided pt with a warm blanket
--- NOTE | 2024-06-30 09:53 | XR_ITS ---
PROCEDURE INFORMATION: Exam: XR Chest Exam date and time: 06/30/2024 10:05 AM Age: 69 years old Clinical indication: Cough; Additional info: Cough, chest pain with cough TECHNIQUE: Imaging protocol: Radiologic exam of the chest. Views: 2 views. COMPARISON: CR XR CHEST 2V 06/14/2024 10:51 AM FINDINGS: Tubes, catheters and devices: Transvenous pacemaker leads in the heart Lungs: Hyperexpanded lung neri consistent with COPD. No focal consolidation.. Pleural spaces: Unremarkable. No pleural effusion. No pneumothorax. Heart/Mediastinum: Unremarkable. No cardiomegaly. Bones/joints: Unremarkable. IMPRESSION: No focal consolidation..
--- NOTE | 2024-06-30 10:00 | ECG_ITS ---
APPROVED REPORT Exam: Resting ECG HR:77 bpm ECG Measurements Heart Rate 77 AXES NH 157 P 84 QRSd 106 QRS 83 QT 372 T 85 QTc 404 Conclusion SINUS RHYTHM POSSIBLE RIGHT ATRIAL ENLARGEMENT [0.25mV P-WAVE] Electronically signed by : ENMANUEL MICHELE, 06/30/2024 12:40:52
--- NOTE | 2024-06-30 10:03 | HMH.EDGENADL ---
Discharge Plan Disposition Patient Disposition: Home, Self-Care Condition: Good Prescriptions Prescriptions: New doxycycline hyclate 100 mg tablet 100 mg PO BID 7 Days Qty: 14 0RF prednisone 20 mg tablet 40 mg PO DAILY 4 Days Qty: 8 0RF pantoprazole 40 mg tablet,delayed release (DR/EC) 40 mg PO DAILY Qty: 30 0RF No Action Eliquis 5 mg tablet 5 mg PO BID Qty: 60 2RF bupropion HCl 150 mg tablet sustained-release 12 hr 150 mg PO BID 90 Days Qty: 180 4RF albuterol sulfate [Proventil HFA] 90 mcg/actuation HFA aerosol inhaler 2 puff INHALATION Q4-6H PRN (Reason: shortness of breath or wheezing) Qty: 18 2RF aspirin 81 mg tablet,chewable 81 mg PO DAILY Qty: 90 4RF Trelegy Ellipta 100-62.5-25 mcg blister with device 1 inh INHALATION DAILY Qty: 60 4RF tadalafil [Cialis] 20 mg tablet 20 mg PO DAILY Qty: 7 2RF Rx Instructions: Take a 20 mg 1-2 hours before sexual intercourse in addition to the daily 5 mg Cialis tamsulosin 0.4 mg capsule 0.8 mg PO DAILY 90 Days Qty: 180 1RF gabapentin 600 mg tablet 600 mg PO TID Qty: 90 2RF carvedilol 3.125 mg tablet 3.125 mg PO BID Qty: 30 0RF oxycodone 10 mg tablet 10 mg PO QID Qty: 120 0RF Mavyret 100-40 mg tablet 3 tab PO DAILY 84 Days Qty: 252 0RF Rx Instructions: must administer with a meal/food Referrals Follow up/Referrals: Yuniel Clark DO [Primary Care Provider] - See instructions Activity Restrictions/Add. Instructions Additional Instructions/Restrictions: You were evaluated in the emergency department today. At this time, it is felt that your symptoms are likely related to a COPD exacerbation. I feel your abdominal pain is most likely related to strain of your muscle wall from coughing, but I cannot exclude other causes such as stomach irritation/pain. For this, I am prescribing you pantoprazole for stomach acid. Please machine pecan picker your prescriptions at the pharmacy and take the full course as prescribed. You have an antibiotic and a steroid prescribed for your COPD exacerbation. Use your inhaler at home as prescribed. 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 You were incidentally found to have a large lesion on your liver, which was felt to be a cyst back in March. Stable, but outpatient MRI of your liver is recommended. Please follow-up closely with your primary care provider for this. It was a blood thinner that you did not machine pecan picker from the pharmacy because it was too expensive, not a blood pressure medication. It is important you are on this, so please call cardiology office in the morning to see if they can help arrange a prior authorization or some sort of patient assistance to get improved cost. Clinical Impressions Clinical Impression: Acute exacerbation of chronic obstructive pulmonary disease, Abdominal muscle strain, Liver mass Stand Alone Forms Stand Alone Forms: Work/School Release Instructions Patient Instructions: DI for Chronic Obstructive Pulmonary Disease, DI for Abdominal Muscle Strain Print Language Print Language: Belarusian Discharge ED Provider: Marina Randle General Adult HPI General Chief complaint: Upper Respiratory Infection Stated complaint: cough, left side pain Time Seen by Provider: 06/30/24 09:47 Mode of Arrival: Ambulatory Source of Information: Patient Limitations: No Limitations Description of Symptoms (Recalled from ER Triage Doc. by RN): cough and congestion for 3 days. coughing up yellow stuff. no fever. left side pain from the cough History of Present Illness HPI narrative: This patient is a 69-year-old male with a history of COPD, alcohol use disorder, hepatitis C, paroxysmal atrial fibrillation, tobacco abuse, and hypertension presenting to the emergency department for evaluation with concern for cough with thick yellow sputum production, left upper quadrant/epigastric pain from coughing that is only present with coughing, and congestion. He also notes that he ran out of his Trelegy inhaler yesterday. No fevers, chills, chest pain, nausea, vomiting, changes in appetite, changes in bowel movements, or other concerns. He notes that he was supposed to be started on blood pressure medication as well but he has not picked it up because he cannot afford it. Related Data Previous Rx's ?Medication ?Instructions ?Recorded albuterol sulfate 90 mcg/actuation 2 puff inhalation Q4-6H PRN 09/26/23 aerosol inhaler (Proventil HFA) shortness of breath or wheezing #18 grams aspirin 81 mg chewable tablet 81 mg PO DAILY heart health #90 09/26/23 tabs bupropion HCl 150 mg tablet,12 hr 150 mg PO BID 90 days #180 ea 09/26/23 sustained-release fluticasone fur. 100 mcg-umeclid 1 inh inhalation DAILY Allergy 09/26/23 62.5 mcg-vilant 25 mcg symptoms #60 ea inhalat.powder (Trelegy Ellipta) gabapentin 600 mg tablet 600 mg PO TID Pain #90 tabs 04/09/24 carvedilol 3.125 mg tablet 3.125 mg PO BID #30 tabs 05/28/24 tadalafil 20 mg tablet (Cialis) 20 mg PO DAILY #7 tabs 05/28/24 tamsulosin 0.4 mg capsule 0.8 mg (2 x 0.4 mg) PO DAILY bph 05/28/24 90 days #180 caps oxycodone 10 mg tablet 10 mg PO QID Pain #120 tabs 05/31/24 apixaban 5 mg tablet (Eliquis) 5 mg PO BID #60 tabs 06/14/24 glecaprevir 100 mg-pibrentasvir 40 3 tab PO DAILY 12 weeks #252 tabs 06/14/24 mg tablet (Mavyret) doxycycline hyclate 100 mg tablet 100 mg PO BID 7 days #14 tabs 06/30/24 pantoprazole 40 mg tablet,delayed 40 mg PO DAILY #30 tabs 06/30/24 release prednisone 20 mg tablet 40 mg (2 x 20 mg) PO DAILY 4 days 06/30/24 #8 tabs Allergies Allergy/AdvReac Type Severity Reaction Status Date / Time cyclobenzaprine (From Allergy Intermediate I-HIVES Verified 06/14/24 09:58 Flexeril) Penicillins Allergy Intermediate Unknown Verified 06/14/24 09:58 allergy reaction methadone AdvReac Intermediate vomiting Verified 06/14/24 09:58 tramadol AdvReac Nausea Verified 06/14/24 09:58 [facility] Disclaimer: The information contained in this section may have been updated after the patient was seen, as this information can be updated by other users. Medical History Wheezing on both sides of chest Coronary artery disease COPD (chronic obstructive pulmonary disease) Hypertension Family History Other No significant family history Social History Smoking Status: Current every day smoker tobacco type: cigarettes packs per day: 40 alcohol intake: never substance use type: marijuana current occupational status: other Travel in the last 8 weeks: None household members: family housing: house current occupational exposures/hazards: No caffeine: Yes Have you lived/traveled outside [place] in past 30 days?: No Contact w/someone who lives/traveled outside US past 30 days?: No Exposure to someone with infectious disease in past 14 days?: No Do you have a fever (greater than 100.4 F or 38 C)?: No Have you tested positive for COVID-19: No Exposed to someone with COVID-19 in past 14 days?: No Do you have a sore throat?: No Do you have a cough?: Yes Do you have any weakness?: No Do you have any diarrhea?: No Are you experiencing any unusual bleeding?: No Do you have any muscle aches/pain?: Yes Do you have any abdominal pain?: No Are you experiencing loss of taste or smell?: No Other Medical History Have you received the Flu Vaccine for this season: Yes Have you received the Pneumonia Vaccine: Yes ROS Obtained: Yes All systems reviewed & no additional complaints except as documented Physical Exam General General appearance: alert and in no apparent distress Head Head exam: atraumatic and normocephalic Eye Eye exam: Present normal appearance, PERRL and EOMI ENT ENT exam: Present normal exam, normal oropharynx, mucous membranes moist and normal external ear exam Neck Neck exam: Present normal inspection, full ROM and trachea midline; Absent tenderness Chest Chest inspection: Present normal inspection, symmetric chest wall rise and tenderness (Left lower ribs) Respiratory Respiratory exam: Present normal lung sounds bilaterally; Absent respiratory distress, wheezes, stridor or accessory muscle use Cardiovascular Cardiovascular exam: Present regular rate and normal rhythm Abdominal Exam Abdominal exam: Present soft and tenderness (Epigastric/left upper quadrant tenderness); Absent distention or guarding Extremities Exam Extremities exam: Present normal inspection, full ROM and normal capillary refill; Absent tenderness or edema Back Exam Back exam: Present normal inspection and full ROM; Absent tenderness Neurological Exam Neurological exam: Present alert, oriented X3, CN II-XII intact and normal gait; Absent motor sensory deficit Psychiatric Psychiatric exam: Present normal affect and normal mood Skin Skin exam: Present warm and dry Medical Decision Making Medical Records Medical records reviewed: Yes I reviewed the patient's medical records. Screening: Per USPSTF and CDC recommendations, given the prevalence of disease in our region, it is our hospital?s policy to screen for HIV and viral Hepatitis for all patients aged 18 and over and those with ongoing risk factors. Arthur Inquiry Pt receiving controlled substance: No Vital Signs: 06/30/24 09:42 06/30/24 09:45 06/30/24 09:46 Temperature 98.2 F Temperature Source Oral Pulse Rate 69 69 Pulse Rate [Right] 88 Respiratory Rate 20 Blood Pressure 184/156 H 144/105 H Blood Pressure [Right Arm] 144/105 H Blood Pressure Mean [Right Arm] 118 02 Sat by Pulse Oximetry 99 99 98 Oxygen Delivery Method Room Air Room Air Room Air 06/30/24 10:00 06/30/24 10:18 06/30/24 10:30 Temperature Temperature Source Pulse Rate 78 86 71 Pulse Rate [Right] Respiratory Rate Blood Pressure 155/97 H 152/95 H 140/82 Blood Pressure [Right Arm] Blood Pressure Mean [Right Arm] 02 Sat by Pulse Oximetry 97 97 94 L Oxygen Delivery Method Room Air 06/30/24 11:00 06/30/24 11:30 06/30/24 12:01 Temperature Temperature Source Pulse Rate 70 62 62 Pulse Rate [Right] Respiratory Rate Blood Pressure 136/87 132/76 142/91 H Blood Pressure [Right Arm] Blood Pressure Mean [Right Arm] 02 Sat by Pulse Oximetry 92 L 95 95 Oxygen Delivery Method Room Air Room Air Room Air Lab Data Lab results reviewed: Yes I reviewed the patient's lab results. Lab Results 06/30/24 10:05: WBC 7.5, RBC 5.09, Hgb 14.8, Hct 44.1, MCV 86.6, MCH 29.1, MCHC 33.6, RDW 13.0, Plt Count 168, MPV 9.6, Neut % (Auto) 72.3, Lymph % (Auto) 18.9, [place] % (Auto) 7.4, Eos % (Auto) 0.7, Baso % (Auto) 0.4, Neut # (Auto) 5.4, Lymph # (Auto) 1.4, [place] # (Auto) 0.6, Eos # (Auto) 0.1, Baso # (Auto) 0.0, D-Dimer 1.02 H, Sodium 138, Potassium 4.7, Chloride 105, Carbon Dioxide 25, Anion Gap 12.7, BUN 16, Creatinine 0.60 L, Estimated Creat Clear 64, Estimated GFR 134, Est GFR ( Amer) 163, Glucose 95, Calcium 9.3, Total Bilirubin 0.4, AST 46, ALT 40, Alkaline Phosphatase 51, Troponin I < 0.01, Total Protein 7.7, Albumin 4.3, Globulin 3.4 H, Albumin/Globulin Ratio 1.3, Lipase 98, SARS-CoV-2 (PCR) Not detected, HCV Ab [place] w/Rflx PCR Qn Reactive, HIV Ag/Ab Combo Qual Negative, Influenza A Untype (PCR) Not detected, Influenza Type B (PCR) Not detected 06/30/24 11:35: Troponin I < 0.01 06/30/24 10:05 06/30/24 10:05 Orders (Tests/Meds): ED MEDICATIONS Discontinued Medications Generic Name Dose Route Start Last Admin Trade Name Freq PRN Reason Stop Dose Admin Acetaminophen 1,000 mg 06/30/24 09:55 06/30/24 10:14 Acetaminophen 500mg Tab PO 06/30/24 09:56 1,000 mg ONCE ONE Administration Doxycycline Hyclate 100 mg 06/30/24 11:53 06/30/24 12:04 Doxycycline Hycl 100 Mg Tablet PO 06/30/24 11:54 100 mg ONCE ONE Administration Fluticasone/Umeclidinium/Vilanterol 1 puff 06/30/24 09:55 06/30/24 10:13 Fluticasone/Umeclidin/Vilanter 100/62.5/25mcg Inhaler IH 06/30/24 09:56 1 puff ONCE ONE Administration Iopamidol 70 ml 06/30/24 11:17 06/30/24 11:19 Iopamidol-370 (76%);100ml Bottle IV 06/30/24 11:18 70 ml ONCE ONE Administration Ketorolac Tromethamine 15 mg 06/30/24 09:53 06/30/24 10:14 Ketorolac 30mg/Ml Vial IV 06/30/24 09:54 15 mg ONCE ONE Administration Methocarbamol 500 mg 06/30/24 11:12 06/30/24 11:16 Methocarbamol 500mg Tablet PO 06/30/24 11:13 500 mg ONCE ONE Administration Prednisone 40 mg 06/30/24 09:53 06/30/24 10:13 Prednisone 20mg Tab PO 06/30/24 09:54 40 mg ONCE ONE Administration Sodium Chloride 50 ml 06/30/24 11:17 06/30/24 11:19 0.9 % Sodium Chloride 50 Ml Vial IV 06/30/24 11:18 50 ml ONCE ONE Administration Sodium Chloride 10 ml 06/30/24 11:17 06/30/24 11:19 Sodium Chloride 0.9% 10ml Syr (Rad Only) IV 06/30/24 11:18 10 ml ONCE ONE Administration ORDERS Category Date Time Status CT abdomen pelvis w con Stat Cat Scan 06/30/24 10:[address] angio chest PE protocol Stat Cat Scan 06/30/24 10:56 Completed CXR 2 view (NOT portable) [XR chest 2V] Stat Exams 06/30/24 09:53 Completed Complete Blood Count Auto Diff Stat Lab 06/30/24 10:05 Completed Comprehensive Metabolic Panel Stat Lab 06/30/24 10:05 Completed D-Dimer Stat Lab 06/30/24 10:05 Completed HCV RNA PCR, Quant Stat Lab 06/30/24 10:05 Received HIV Combo Stat Lab 06/30/24 10:05 Completed Hepatitis C Ab Qual. W/ RFX Stat Lab 06/30/24 10:05 Completed Lipase Stat Lab 06/30/24 10:05 Completed Rapid PCR Covid and Flu A/B Stat Lab 06/30/24 10:05 Completed Trop I [Troponin I] Stat Lab 06/30/24 10:05 Completed Troponin I Q3H Lab 06/30/24 11:35 Completed Troponin I Q3H Lab 06/30/24 16:00 Ordered ECG Data Tracing #1: I reviewed this ECG and interpreted as documented below: Normal sinus rhythm with a ventricular rate of 77 bpm. No acute STEMI. Normal axis and intervals. ECG initial impression date: 06/30/24 ECG initial impression time: 10:01 Medical Decision Narrative: In summary, this patient is a 69-year-old male presenting to the Emergency Department for evaluation of cough with thick yellow sputum production, left upper quadrant/epigastric pain related to coughing, congestion. Differential diagnoses considered include but are not limited to viral syndrome, pneumonia, COPD exacerbation, pleurisy, musculoskeletal strain/sprain, pancreatitis, gastritis. Ruling out the most morbid conditions drove assessment. It should be noted patient's history includes COPD, CAD, paroxysmal atrial fibrillation, hypertension which may or may not be at goal therapy. This complicates all aspects of care by increasing patient's risk for morbidity. I reviewed patient's past medical records and noted previous cardiology evaluation at which point he was prescribed Eliquis for his paroxysmal atrial fibrillation, which it looks like his medication that he did not machine pecan picker as opposed to being an antihypertensive. I will tell him to call cardiology on Tuesday morning to see if they can get a prior authorization and get this approved. On exam, the patient is well-appearing. He is sitting upright in no acute distress with normal vital signs on cardiac telemetry. He has some epigastric/left upper quadrant/left lower rib tenderness to palpation from pain that he states is worse with coughing. Cardiopulmonary exam is otherwise reassuring with good clear lung sounds and no significantly increased work of breathing. Workup included CBC, CMP, troponin, D-dimer, lipase, chest x-ray, EKG. He was given IV Toradol, oral Tylenol presented medic improvement. I did go ahead and give him another Trelegy inhaler as he states that he ran out. I gave him oral prednisone given concerns for COPD exacerbation with increased cough and sputum production. EKG obtained is reassuring. I independently interpreted chest x-ray prior to the radiologist read and noted no obvious acute focal consolidation, no pneumothorax. Please see their read for final interpretation. Labs were obtained that demonstrated reassuring CBC without significant leukocytosis or anemia, reassuring chemistry with the exception of elevated D-dimer at 1.02. Initial troponin is negative. Lipase is negative, and liver enzymes are reassuring with only mildly elevated AST. Given elevated D-dimer and chest/abdominal pain, I did order CTA PE protocol as well as CT abdomen pelvis with IV contrast. On reassessment, patient had good improvement after administration of medications above as well as Robaxin which was administered orally, as I feel his belly pain is likely musculoskeletal. CT scans demonstrate large liver lesions which were present on prior CT scan from March on my independent interpretation. Please see radiology read for final interpretation. They note that imaging is stable. No PE, no pneumonia, no other concerns. Vitals normal on reassessment and he has no increased work of breathing. Troponins negative x 2. Ultimately given reassuring workup and exam, I feel he is appropriate for discharge home with prescriptions for doxycycline and prednisone to treat COPD exacerbation. He was given inhaler refill here. He was given prescription for pantoprazole for stomach protection in setting of prednisone and epigastric pain, as I feel is likely musculoskeletal but cannot definitively exclude peptic ulcer disease or gastritis as a cause. He was given instructions for follow-up with primary care for reassessment of this liver lesion with outpatient imaging as well as instructions for follow-up with cardiology regarding his anticoagulation plan. He was discharged with strict return precautions. Critical Care Critical Care Time Critical Care Time: No
[2024-06-30] MEDS: predniSONE 20MG TAB 40 MG PO (10:13)
[2024-06-30] MEDS: FLUTICASONE/UMECLIDIN/VILANTER 100/62.5/25MCG INHALER 1 PUFF IH (10:13)
[2024-06-30] MEDS: KETOROLAC 30MG/ML VIAL 15 MG IV (10:14)
[2024-06-30] MEDS: ACETAMINOPHEN 500MG TAB 1000 MG PO (10:14)
--- NOTE | 2024-06-30 10:14 | PC.NURSE ---
pt transported to radiology via wheelchair
[2024-06-30 10:16] LABS: Coronavirus 19, PCR Not Detected (NotDetected); Influenza A, PCR Not Detected (NotDetected); Influenza B, PCR Not Detected (NotDetected)
[2024-06-30 10:27] LABS: Basophils % 0.4 % (0.1-2.0); Eosinophils # 0.1 K/mm3 (0.0-0.4); Eosinophils % 0.7 % (0.1-12.0); Hematocrit 44.1 % (42.0-52.0); Hemoglobin 14.8 g/dL (14.1-18.0); Lymphocytes # 1.4 K/mm3 (0.7-4.5); Lymphocytes % 18.9 % (10-50); Mean Corpuscular HGB Conc 33.6 g/dL (31.8-35.4); Mean Corpuscular Hemoglobin 29.1 pg (27.0-31.2); Mean Corpuscular Volume 86.6 fl (80-94); Mean Platelet Volume 9.6 fl (7.4-10.4); Monocytes # 0.6 K/mm3 (0.1-1.0); Monocytes % 7.4 % (1.7-9.3); Neutrophils # 5.4 K/mm3 (1.8-7.8); Neutrophils % 72.3 % (37.0-80.0); Platelet Count 168 K/mm3 (142-424); Red Blood Count 5.09 M/mm3 (4.60-6.20); White Blood Count 7.5 K/mm3 (4.8-10.8)
[2024-06-30 10:28] LABS: Alanine Aminotransferase 40 U/L (12-78); Albumin Level 4.3 g/dl (3.5-5.0); Albumin/Globulin Ratio 1.3 (1.1-1.8); Alkaline Phosphatase 51 U/L (38-126); Anion Gap 12.7 mEq/L (5-15); Aspartate Amino Transferase 46 U/L (17-59); Bilirubin,Total 0.4 mg/dl (0.2-1.3); Blood Urea Nitrogen 16 mg/dl (9-20); Calcium 9.3 mg/dl (8.4-10.2); Carbon Dioxide 25 mmol/L (22.0-30.0); Chloride 105 mmol/L (98-107); Creatinine Clearance Estimated 64 mL/min (50-200); Estimated Glomerular Filt Rate 134 ml/min (>60); GFR (African American) 163 ML/MIN (>60); Globulin 3.4 g/dL (1.3-3.2); Glucose 95 mg/dl (74-100); Lipase 98 U/L (23-300); Potassium 4.7 mmoL/L (3.5-5.1); Sodium 138 mmol/L (136-145); Total Protein,Serum 7.7 g/dl (6.3-8.2)
[2024-06-30 10:34] LABS: D-Dimer 1.02 ug/mL (0.0-0.5)
[2024-06-30 10:47] LABS: Troponin I < 0.01 ng/ml (0.00-0.034)
--- NOTE | 2024-06-30 10:56 | CT_ITS ---
PROCEDURE INFORMATION: Exam: CT Abdomen And Pelvis With Contrast Exam date and time: 06/30/2024 11:14 AM Age: 69 years old Clinical indication: Other: Epigastric/luq ttp TECHNIQUE: Imaging protocol: Computed tomography of the abdomen and pelvis with contrast. 3D rendering (Not supervised by radiologist): MIP and/or 3D reconstructed images were created by the technologist. Radiation optimization: All CT scans at this facility use at least one of these dose optimization techniques: automated exposure control; mA and/or kV adjustment per patient size (includes targeted exams where dose is matched to clinical indication); or iterative reconstruction. Contrast material: ISOVUE; Contrast volume: 70 ml; Contrast route: IV; COMPARISON: CT ABDOMEN PELVIS W CON 03/23/2024 3:25 PM FINDINGS: Tubes, catheters and devices: Transvenous pacemaker leads in the heart Liver: Multiple cystic structures in the liver. Largest measures 6.3 cm. . No follow-up imaging recommended . 16 mm mass anterior right lobe of the liver measures 44 Hounsfield units. Series 4, image 24. Coronal series 5, image 17 It was present in March. Gallbladder and biliary ducts: Normal gallbladder Pancreas: Normal. No ductal dilation. Spleen: Borderline splenomegaly 13.5 cm. Adrenal glands: Normal. No mass. Kidneys and ureters: Normal. No hydronephrosis. Stomach and bowel: Unremarkable. No obstruction. No mucosal thickening. Appendix: No evidence of appendicitis. Intraperitoneal space: Unremarkable. No free air. No significant fluid collection. Vasculature: Unremarkable. No abdominal aortic aneurysm. Lymph nodes: Unremarkable. No enlarged lymph nodes. Urinary bladder: Unremarkable as visualized. Reproductive: Unremarkable as visualized. Bones/joints: Unremarkable. No acute fracture. Soft tissues: Unremarkable. IMPRESSION: 1. 16 mm mass anterior right lobe of the liver measures 44 Hounsfield units. Series 4, image 24. Coronal series 5, image 17 It was present in March. Recommend liver MRI 2. Borderline splenomegaly 13.5 cm. Differential diagnosis of splenomegaly is lymphoma/leukemia, mononucleosis, hemolytic anemia, portal hypertension.
--- NOTE | 2024-06-30 10:56 | CT_ITS ---
PROCEDURE INFORMATION: Exam: CTA Chest With Contrast Exam date and time: 06/30/2024 11:14 AM Age: 69 years old Clinical indication: Other: L lower chest pain/elevated dimer TECHNIQUE: Imaging protocol: Computed tomographic angiography of the chest with contrast. Exam focused on the arteries. 3D rendering (Not supervised by radiologist): MIP and/or 3D reconstructed images were created by the technologist. Radiation optimization: All CT scans at this facility use at least one of these dose optimization techniques: automated exposure control; mA and/or kV adjustment per patient size (includes targeted exams where dose is matched to clinical indication); or iterative reconstruction. Contrast material: ISOVUE 370; Contrast volume: 70 ml; Contrast route: INTRAVENOUS (IV); COMPARISON: CT LUNG SCREENING 01/25/2024 10:56 AM FINDINGS: Tubes, catheters and devices: Transvenous pacemaker leads in the heart Pulmonary arteries: No evidence of pulmonary embolus to the segmental level. Aorta: No aneurysm of the aorta. No dissection of the aorta. Lungs: Mild panlobular emphysematous changes . No pulmonary nodule. No pulmonary mass Pleural spaces: Unremarkable. No pneumothorax. No pleural effusion. Heart: Unremarkable. No cardiomegaly. No pericardial effusion. Lymph nodes: Unremarkable. No enlarged lymph nodes. Liver: 6.4 cm simple cyst right lobe of the liver. Additional smaller simple cysts in the liver Bones/joints: Anterior cervical fusion Soft tissues: Unremarkable. IMPRESSION: 1. No evidence of pulmonary embolus to the segmental level. 2. No aneurysm of the aorta. 3. No dissection of the aorta. COMMENTS: The presence of pulmonary emphysema on CT is an independent risk factor for lung cancer. In the absence of a history or active diagnosis of lung cancer, it is recommended that this patient with emphysema be evaluated for enrollment in a low dose CT lung cancer screening program.
[2024-06-30] MEDS: METHOCARBAMOL 500MG TABLET 500 MG PO (11:16)
[2024-06-30] MEDS: 0.9 % SODIUM CHLORIDE 50 ML VIAL IV (11:19)
[2024-06-30] MEDS: IOPAMIDOL-370 (76%);100ML BOTTLE 70 ML IV (11:19)
[2024-06-30] MEDS: SODIUM CHLORIDE 0.9% 10ML SYR (RAD ONLY) 10 ML IV (11:19)
--- NOTE | 2024-06-30 11:20 | PC.NURSE ---
pt returned from radiology
[2024-06-30 11:31] LABS: HIV Combo NEGATIVE (Negative)
--- NOTE | 2024-06-30 11:36 | PC.NURSE ---
second trop sent to lab for 2hour
[2024-06-30 11:40] LABS: Hepatitis C Ab Qual. W/ RFX REACTIVE (Negative)
[2024-06-30] MEDS: DOXYCYCLINE HYCL 100 MG TABLET PO (12:04)
--- NOTE | 2024-06-30 12:17 | PC.NURSE ---
pt is resting in bed no needs at this time call light in reach
[2024-06-30 12:28] LABS: Troponin I < 0.01 ng/ml (0.00-0.034)
--- NOTE | 2024-07-05 11:31 | HMH.PHAINT1 ---
Pharmacy Intervention Comments: 07/05/24--MICHELET--RECEIVED CALL FROM ALICIA IN CLINIC PHARMACY ABOUT DR. FERNANDEZ WANTING TO SWITCH PATIENT FROM ELIQUIS TO WARFARIN AND SIGN HIM UP FOR THE COUMADIN CLINIC. I FAXED PAPERWORK TO OFFICE FOR DR. FERNANDEZ TO SIGN TO [facility] PATIENT IN COUMADIN CLINIC. CALLED OFFICE TO LET THEM KNOW FAX HAD BEEN SENT WITH EXTRA COPY FOR THEIR RECORDS.
--- NOTE | 2024-07-19 11:49 | HMH.PHAINT1 ---
Pharmacy Intervention Comments: 07/19/24--SPOKE WITH PATIENT ON PHONE 07/16/24. HE INDICATED HE WAS NOT FEELING WELL AND WANTED TO RESCHEDULE APPT FOR ACC ON TUE. CALLED PATIENT TODAY, HE INDICATED LIKELY FLU AND WILL RESCHEDULE FOR NEXT TUESDAY, 07/23. RECOMMENDED HE ONLY TAKE THE WARFARIN 4 MG DAILY UNTIL FOLLOW UP.
== END 2024-06-30 12:44 | disposition home or self-care (01) ==
PROVIDERS: Emergency Provider Emergency Medicine; PCP Internal Medicine
DX: J44.1 Chronic obstructive pulmonary disease with (acute) exacerbation (principal); R16.0 Hepatomegaly, not elsewhere classified; S39.011A Strain of muscle, fascia and tendon of abdomen, initial encounter; R10.13 Epigastric pain; R05.8 Other specified cough; R10.12 Left upper quadrant pain; R09.81 Nasal congestion; F17.210 Nicotine dependence, cigarettes, uncomplicated
CPT/HCPCS: 71046; 71275; 74177; 80053; 83690; 84484; 85025; 85378; 86803; 87389; 87522; 87636; 93005; 96374; 99285; J1885; Q9967

== ENCOUNTER 2024-07-11 09:31 | Outpatient (CLI) | payer MEDICARE, SELFPAY | END 2024-07-11 10:45 | LOC: ACC 09:32 | PROVIDERS: PCP Internal Medicine; Visit Provider Internal Medicine | DX: Z79.01 Long term (current) use of anticoagulants (principal); I48.91 Unspecified atrial fibrillation | CPT/HCPCS: 85610; 99211; G0463 ==

== ENCOUNTER 2024-07-23 08:57 | Outpatient (CLI) | payer MEDICARE, SELFPAY ==
[2024-07-23 12:07] LABS: PHA INR Fingerstick 1.1 (0.9-1.1)
== END 2024-07-23 13:03 ==
LOC: ACC 08:57
PROVIDERS: PCP Internal Medicine; Visit Provider Internal Medicine
DX: I48.91 Unspecified atrial fibrillation (principal); Z79.01 Long term (current) use of anticoagulants
CPT/HCPCS: 85610; 99211; G0463

== ENCOUNTER 2024-07-30 09:59 | Outpatient (CLI) | payer MEDICARE, SELFPAY ==
[2024-07-30 15:25] LABS: PHA INR Fingerstick 1.3 (0.9-1.1)
== END 2024-07-30 15:35 ==
LOC: ACC 10:00
PROVIDERS: PCP Internal Medicine; Visit Provider Internal Medicine
DX: Z79.01 Long term (current) use of anticoagulants (principal); I48.91 Unspecified atrial fibrillation
CPT/HCPCS: 85610; 99211; G0463

== ENCOUNTER 2024-08-31 10:31 | Day surgery (SDC) | payer MEDICARE, SELFPAY ==
[2024-08-30 15:49] VITALS: BMI 18.3
[2024-08-31 10:43] VITALS: BP 140/94; PULSE 62; RESP 16; TEMP 36.4; O2SAT 97
--- NOTE | 2024-08-31 10:57 | HMH.PROCNOTE ---
[facility] [place] Procedure Note Date: 08/31/24 Time: 10:58 Procedure Note:: Chart review: 69-year-old patient on double Flomax still having voiding issues with weak stream and hesitation. He is here for cystoscopy to see about prostate surgery. He is also on Proscar and his adjusted PSA on 11/03 was 2.2. 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 His urethra was anesthetized with Xylocaine jelly. The anterior urethra was unremarkable through the flexible cystoscope. From the level of the verumontanum the patient has grade 2 prostate obstruction. His prostatic urethra is 2 cm. The obstruction is bilateral lobes so he could become a candidate for UroLift if he chose. The patient also may very well benefit with laser prostate surgery. The bladder itself is free of stone tumor hemorrhage or infection. The ureteral orifice ease are normal bilaterally with clear E flux of urine. The patient tolerated the procedure well.
[2024-08-31 11:07] VITALS: BP 149/83; PULSE 60; RESP 16; TEMP 36.6; O2SAT 98
[2024-08-31] MEDS: 0.9 % SODIUM CHLORIDE 500 ML 25 ML IV (12:11)
== END 2024-08-31 11:16 | disposition home or self-care (01) ==
PROVIDERS: PCP Internal Medicine; Visit Provider Urology
PROC: 0TJB8ZZ Inspection of Bladder, Via Natural or Artificial Opening Endoscopic (ICD-10-PCS; CPT 52000; principal; 2024-08-31 11:45)
DX: N40.1 Benign prostatic hyperplasia with lower urinary tract symptoms (principal); N13.8 Other obstructive and reflux uropathy; R39.12 Poor urinary stream
CPT/HCPCS: 52000

== ENCOUNTER 2024-09-18 09:03 | Outpatient (CLI) | payer MEDICARE, SELFPAY ==
[2024-09-18 14:21] LABS: PHA INR Fingerstick 1.4 (0.9-1.1)
== END 2024-09-18 14:24 ==
PROVIDERS: PCP Internal Medicine; Visit Provider Family Medicine
DX: Z79.01 Long term (current) use of anticoagulants (principal); I48.91 Unspecified atrial fibrillation
CPT/HCPCS: 85610; 99211; G0463

== ENCOUNTER 2024-09-26 14:17 | Outpatient (CLI) | payer MEDICARE, SELFPAY ==
[2024-09-26 15:16] LABS: PHA INR Fingerstick 2.1 (0.9-1.1)
== END 2024-09-26 15:21 ==
LOC: ACC 14:18
PROVIDERS: PCP Internal Medicine; Visit Provider Family Medicine
DX: Z79.01 Long term (current) use of anticoagulants (principal); I48.91 Unspecified atrial fibrillation
CPT/HCPCS: 85610; 99211; G0463

== ENCOUNTER 2024-10-09 14:02 | Outpatient (CLI) | payer MEDICARE, SELFPAY ==
[2024-10-09 14:20] LABS: PHA INR Fingerstick 2.2 (0.9-1.1)
== END 2024-10-09 14:22 ==
LOC: ACC 14:04
PROVIDERS: PCP Internal Medicine; Visit Provider Family Medicine
DX: Z79.01 Long term (current) use of anticoagulants (principal); I48.91 Unspecified atrial fibrillation
CPT/HCPCS: 85610; 99211; G0463

== ENCOUNTER 2024-12-20 12:13 | Outpatient (CLI) | payer MEDICARE, SELFPAY ==
--- OUTSIDE RECORDS SUMMARY | 2024-10-26 09:30 | XMS_ITS | Encounter Summary ---
Author Organization Healthcare Address [address] [place] [address] Care Team Providers Care Bar Examiner Name Role Phone Jackie Coy Chelle CERAMIC PAINTER Unavailable [phone] Fredrick Esposito MD Unavailable [phone] Yuniel Clark DO Primary Care Provider [phone] Encounter Details Date Type Department Care Team (Latest Contact Info) Description 10/26/2024 9:30 AM EDT Ancillary Procedure [facility] [address] [place] [address] Liver lesion; Chronic viral hepatitis C (CMS/HCC) Social History Tobacco Use Types Packs/Day Years Used Date Smoking Tobacco: Every Day Cigarettes 0.8 50 Smokeless Tobacco: Never Alcohol Use Standard Drinks/Week Comments Not Currently 0 (1 standard drink = 0.6 oz pur e alcohol) quit 2018. PHQ-2 Answer Date Recorded Patient Health Questionnaire-2 Score 2 08/16/2024 PHQ-9 Answer Date Recorded Patient Health Questionnaire-9 Score 6 08/16/2024 Sex and Gender Information Value Date Recorded Sex Assigned at Not on file Legal Sex Male 8:43 PM EDT Gender Identity Not on file Sexual Orientation Not on file documented as of this encounter Plan of Treatment Upcoming Encounters Date Type Department Care Team (Late st Contact Info) Description 12/31/2024 1:00 PM EDT Appointment Cardiac Imaging [address] [place] [address] 01/16/2025 11:30 AM EDT Appointment [facility] Radiology [address] [place] [address] 01/17/2025 10:40 AM EDT Office Visit [facility] [address] [place] [address] Jennifer Akins, CERAMIC PAINTER [address] [place] [address] documented as of this encounter Procedures Procedure Name Priority Date/Time Associated Diagnosis Comments GI FIBROSCAN Routine 10/26/2024 10:36 AM EDT Liver lesion Chronic viral hepatitis C (CMS/HCC) documented in this encounter Results * GI Fibroscan (10/26/2024 10:36 AM EDT) Narrative Tiago Andersen MD - 10/26/2024 12:13 PM EDT Table formatting from the original result was not included. GI FIBROSCAN INTERPRETATION Procedure: VCTE using M+ probe Indication: Chronic Hepatitis C Discussed: Oral and written explanations of the FibroScan VCTE test procedure provided to the patient. Procedure Note: Patient was placed in a supine position with right arm in maximum abduction to allow optimal exposure of right lateral abdomen. Patient was briefly assessed, identifying the terminus of the xyphoid process and locating an ideal transient elastography testing site, mid-line and lateral to this point. Patient was instructed to breathe normally and remain stationary during the test process. Pre-measurement data confirmed the transient elastography probe was centered over the liver parenchyma. A series of ten 50Hz mechanical pulses were applied with controlled application pressure to induce a mechanical shear wave in the liver tissue. For each measurement, the shear wave propagation speed was detected, displayed and converted to its equivalent liver stiffness value in kilopascals. Skin to liver capsule distance and shear wave characteristics were monitored during the entire examination to assure data quality. Median liver stiffness measurement and interquartile range were calculated and displayed in real time. Acquired measurement data was stored and submitted for my review and interpretation. Patient tolerated the procedure well and was discharged without incident. Findings: Patient had a median Liver Stiffness Score of 9.4 kilopascal (kPa). The Interquartile Range to median ratio was 15 %. Per Referring Provider recent history includes: Order Questions Answers Does patient have recent history of alcohol use? No Does patient have recent history of cholestasis? No Does patient have recent history of liver tumor? No Does patient have recent history of right heart failure? No Does patient have recent history of acute hepatitis? No Does patient have recent history of ALT > 100 U/L? No At the time of exam patient was NPO 3 hours or more, had no recent relevant alcohol and current scan is considered reliable. Interpretation: Taking into account the above mentioned diagnosis and history,the liver stiffness score is most consistent with F2: Significant fibrosis. Please review indication and potential limitations of the Fibroscan for a more accurate assessment. Recommendations: Higher scores are associated with a higher specificity (low false positive rate) in predicting advanced fibrosis (>= F2) or cirrhosis (F4). Lower scores are associated with a higher specificity in ruling out advanced fibrosis (>= F2) or cirrhosis (F4). Please consider using serum marker panels (Fibrosure, FIB-4, APRI) as well as imaging criteria (e.g., signs of cirrhosis) and clinical data (e.g., physical exam findings of cirrhosis or decompensation) to improve the accuracy of fibrosis assessment especially in cases with intermediate liver stiffness results. Consider liver biopsy if results remain conflicting/unclear. Jennifer Akins APRN IN CLINIC DIAGNOSTIC ORDERS Final Result documented in this encounter Visit Diagnoses Diagnosis Liver lesion Other specified disorders of liver Chronic viral hepatitis C (CMS/HCC) Chronic hepatitis C without mention of hepatic coma documented in this encounter Additional Health Concerns Assessment Noted Time PHQ-9 Depression Total Score: 6 08/17/19 25 12:48 PM EST A fall risk assessment has been complete d for the patient 08/16/2024 12:49 PM EST A Body Mass Index follow-up plan has been documented for the patient 10/27/2024 1:02 AM EDT documented as of this encounter Care Teams Bar Examiner Relationship Specialty Start Date End Date Yuniel Clark DO [address] [place] [address] PCP - General 08/16/24 Jackie Coy APRN [address] [place] [address] Nurse Practitioner Neurosurgery 03/27/21 Fredrick Esposito MD [address] [place] [address] Surgeon Neurosurgery 05/06/21 documented as of this encounter
--- OUTSIDE RECORDS SUMMARY | 2024-10-26 10:10 | XMS_ITS | Encounter Summary ---
Author Organization Healthcare Address [address] [place] [address] Care Team Providers Care Senior Electrical Engineer Name Role Phone Jackie Coy Chelle VIVAS Unavailable [phone] Fredrick Esposito MD Unavailable [phone] Yuniel Clark DO Primary Care Provider [phone] Reason for Referral * Consultation (Routine) - Authorized Specialty Diagnoses / Procedures Referred By Isak berman Referred To Contact Diagnoses Liver lesion Chronic hepatitis C without hepatic coma (CMS/HCC) Elevated liver enzymes Jennifer Akins APRN [address] [facility] [place] [address] [place] [address] Phone: tel: fax: Referral ID Status Reason Start Date Expiration Date V isits Requested Visits Authorized [id number] Authorized 10/26/2024 04/27/2026 1 1 Reason for Visit * Reason Comments Hepatitis C Encounter Details Date Type Department Care Team (Late st Contact Info) Description 10/26/2024 10:10 AM EDT Office Visit [facility] [address] [place] [address] Jennifer Akins APRN [address] [place] [phone] Liver lesion (Primary Dx); Chronic hepatitis C without hepatic coma (CMS/HCC); Elevated liver enzymes Social History Tobacco Use Types Packs/Day Years [...] on file documented as of this encounter Last Filed Vital Signs Vital Sign Reading Time Taken Comments Blood Pressure 104/65 10/26/2024 10:16 AM EDT Pulse 63 10/26/2024 10:16 AM EDT Temperature 36.4 C (97.6 F) 10/26/2024 10:16 AM EDT Respiratory Rate 16 10/26/2024 10:16 AM EDT Oxygen Saturation 97% 10/26/2024 10:16 AM EDT Inhaled Oxygen Concentration - - Weight - - Height - - Body Mass Index - - documented in this encounter Miscellaneous Notes * Progress Notes - Jennifer Akins APRN - 10/26/2024 10:10 AM EDT Images from the original note were not included. MEDICINE SPECIALTIES Hepatology Note History of Presenting Illness Kimani Soni is a 69 y.o. male presenting for chronic hepatitis C, liver lesion. Past medical history: COPD, Atrial fibrillation, CAD, HTN, malignant neoplasm of throat (2016). Last seen 08/16/2024. Patient presents today for follow-up after fibroscan: LSM 9.4 kPa; CAP 207dB/m; IQR 15% c/w F2-F3 fibrosis, no significant steatosis. Patient denies any complaints today. MRI still pending d/t pt having a pacemaker - confirmed with radiology today appointments are limited. Labs 08/2024 confirmed HCVGT 3, viral load 2.2mil, AST 36, ALT 30. Liver history from initial consult: Pt initially diagnosed with HCV in 2016. Reports no history of treatment. Denies any history of IVDU, LUCIE, blood transfusions. He does report history of ETOH use - drank 6-12 beers/day for 40+ years. No ETOH in [address] A/P w/contrast (OSH) 06/30/24: multiple cystic structures in liver, largest measuring 6.3cm. 16mm mass anterior right lobe of liver - MRI liver recommended. Borderline splenomegaly 13.5cm. He has not had MRI completed yet. Past Medical History Past Medical History: Diagnosis Date Irregular heart beat A-Fib and SSS. Nicotine dependence, unspecified, uncomplicated Current smoker Pacemaker Personal history of malignant neoplasm of unspecified site of lip, oral cavity, and pharynx History of malignant neoplasm of pharynx Personal history of other diseases of the circulatory system History of cardiac disorder Personal history of other diseases of the respiratory system History of chronic obstructive lung disease Surgical History Past Surgical History: Procedure Laterality Date ANTERIOR CERVICAL DISCECTOMY W/ FUSION Right 05/16/2021 C3-C4 ACDF APPENDECTOMY N/A Appendectomy from [facility] CARDIAC PACEMAKER PLACEMENT N/A Pacemaker Placement from [facility] NECK SURGERY N/A Neck Surgery from [facility] OTHER SURGICAL HISTORY N/A Pacemaker insertion from [facility] SPINAL CORD STIMULATOR IMPLANT Placement and removal THROAT SURGERY N/A Throat Surgery from [facility] Family History Family History Problem Relation Name Age of Onset Diabetes Other Other cancer Other Diabetes Father FH: diabetes mellitus Diabetes Mother FH: diabetes mellitus Diabetes Brother FH: diabetes mellitus Malig Hyperthermia Neg Hx Anesthesia problems Neg Hx Social History Social History Socioeconomic History Marital status: Legally Spouse name: Not on file Number of children: Not on file Years of education: Not on file Highest education level: Not on file Occupational History Not on file Tobacco Use Smoking status: Every Day Current packs/day: 0.75 Average packs/day: 0.8 packs/day for 50.0 years (37.5 ttl pk-yrs) Types: Cigarettes Smokeless tobacco: Never Vaping Use Vaping status: Never Used Substance and Sexual Activity Alcohol use: Not Currently Comment: quit 2019. Drug use: Never Sexual activity: Not on file Other Topics Concern Not on file Social History Narrative Not on file Social Drivers of Health Financial Resource Strain: Not on file Food Insecurity: Not on file Transportation Needs: Not on file Physical Activity: Not on file Stress: Not on file Social Connections: Unknown (03/21/2023) Received from [facility] Family and Community Support Help with Day-to-Day Activities: Not on file Lonely or Isolated: Not on file Intimate Partner Violence: Unknown (03/21/2023) Received from [facility] Abuse Screen Unsafe at Home or Work/School: Not on file Feels Threatened by Someone?: Not on file Does Anyone Keep You from Contacting Others or Doint Things Outside the Home?: Not on file Physical Sign of Abuse Present: Not on file Housing Stability: Unknown (03/21/2023) Received from [facility] Housing Stability Current Living Arrangements: Not on file Potentially Unsafe Housing Conditions: Not on file Review of Systems A 14 point review of systems negative except for HPI Outpatient Medications Current Outpatient Medications Medication Instructions albuterol 108 (90 Base) MCG/ACT inhaler 2 puffs, Every 4 hours PRN carvedilol (Coreg) 3.125 MG tablet gabapentin (NEURONTIN) 600 mg, Oral, 3 times daily lisinopril 10 mg, Daily oxyCODONE (Roxicodone) 10 MG immediate release tablet oxyCODONE (ROXICODONE) 5 mg, Oral, Every 4 hours PRN pantoprazole (PROTONIX) 40 mg, Daily tadalafil (Adcirca) 20 MG tablet Trelegy Ellipta 100-62.5-25 MCG/ACT aerosol powder warfarin (Coumadin) 4 MG tablet TAKE TWO TABLETS BY MOUTH EVERY DAY OR DIRECTED Allergies Allergies Allergen Reactions Methocarbamol Hives Cyclobenzaprine Rash Penicillins Rash Vital Signs Visit Vitals BP 104/65 Pulse 63 Temp 36.4 ??C (97.6 ??F) Resp 16 SpO2 97% Smoking Status Every Day Physical Exam General - well nourished and developed and in no acute distress. Appears stated age. HEENT - no scleral icterus, EOMI, atraumatic, normocephalic; ears located midway on head with normal appearance, nose midline without discharge. Cardiovascular - regular rate Respiratory - respiratory rate even and non-labored Gastrointestinal - non-distended MSK - no deformities noted; no edema or erythema of joints visible, normal gait and station Neuro - oriented to time and place. Psychiatric - pleasant, calm, cooperative. Labs Lab Results Component Value Date/Time AST 36 08/16/2024 1349 ALT 30 08/16/2024 1349 ALKPHOS 57 08/16/2024 1349 BILITOT 0.4 08/16/2024 1349 INR 1.3 (H) 08/16/2024 1349 ALBUMIN 4.2 08/16/2024 1349 CREATININE 0.80 08/16/2024 1349 Lab Results Component Value Date/Time HGB 14.6 08/16/2024 1349 WBC 7.78 08/16/2024 1349 PLT 162 08/16/2024 1349 Hepatitis Serologies Lab Results Component Value Date/Time HEPBSAG NEGATIVE Reference Value: Negative 08/11/2015 1524 HAG Positive (A) 08/16/2024 1349 HEPBSAB 08/11/2015 1524 0.43 NEGATIVE Antibodies to HBsAg are less than 8 International Units/L which indicate they are not detected or are below the protective level for immunity. Work-up Labs No results found for: FERRITIN , TIBC , AAT , CERULOPLSM , HGBA1C , SCRE , CHOL , LDLCALC , HDL , TRIG , TSH Assessment and Plan Problem List Items Addressed This Visit None Kimani Soni is a 69 y.o. male presenting for chronic hepatitis C, liver lesion. Past medical history: COPD, Atrial fibrillation, CAD, HTN, malignant neoplasm of throat (2017). #Liver lesion #elevated liver enzymes - CT A/P w/contrast (OSH) 06/30/24: multiple cystic structures in liver, largest measuring 6.3cm. 16mm mass anterior right lobe of liver - MRI liver recommended. Borderline splenomegaly 13.5cm. - 06/30/24 AST 46; ALT 40; ALP 51; HBsAg (-); HCVAb (+); viral load [id number]; platelets, albumin, t.bili normal #Chronic Hepatitis C, Genotype 3 - initially diagnosed in 2015, treatment naive - 08/2024: HCV viral load 2.2mil - fibroscan today: LSM 9.4 kPa; CAP 207dB/m; IQR 15% c/w F2-F3 fibrosis PLAN - MELD labs, AFP today - MRI ordered for evaluation of liver cysts/mass seen on CT - confirmed patient is on waitlist withradiology, current appointment 01/2025 - liver enzymes mildly elevated - will not proceed with further work-up at this time, if any elevation or do not resolve with HCV treatment will proceed with work-up - will not proceed with HCV treatment until MRI is completed. Plan for Eplcusa Return to clinic 3 months after MRI # Health Maintenance Immune to Hepatitis A Not immune to Hepatitis B HBsAg - negative Colonoscopy - follows locally per patient, scheduled A total of 45 minutes was spent on this patient encounter - educating patient, interpreting and discussing labs and imaging, impressions, prognosis, risks/benefits of current treatment options, risk factor reduction, instructions for management, and documentation. Care coordination provided included review and summary of medical records and additional diagnostic research, phone collaboration and consult with peers. documented in this encounter Plan of Treatment Upcoming Encounters Date Type Department Care Team (Late st Contact Info) Description 12/31/2024 1:00 PM EDT Appointment Cardiac Imaging [address] [place] [address] 01/16/2025 11:30 AM EDT Appointment [facility] Radiology [address] [place] [address] 01/17/2025 10:40 AM EDT Office Visit [facility] [address] [place] [address] Jennifer Akins APRN [address] [place] [address] Scheduled Referrals Name Type Priority Associated Diagnoses Orde r Schedule Follow Up GI Outpatient Referral Routine Liver lesion Chronic hepatitis C without hepatic coma (CMS/HCC) Elevated liver enzymes Expected: 01/17/2025, Expires: 11/26/2025 documented as of this encounter Results * (ABNORMAL) CBC and Differential (10/26/2024 10:55 AM EDT) WBC Count 6.30 3.70 - 10.30 10*3/uL LAB HEMATOLOGY METHOD 10/26/2024 11:42 AM EDT [facility] RBC Count 4.63 4.60 - 6.10 10*6/uL LAB HEMATOLOGY METHOD 10/26/2024 11:42 AM EDT [facility] HGB 13.4(L) 13.7 - 17.5 g/dL LAB HEMATOLOGY METHOD 10/26/2024 11:42 AM EDT [facility] HCT 40.7 40.0 - 51.0 % LAB HEMATOLOGY METHOD 10/26/2024 11:42 AM EDT [facility] Platelet Count 156 155 - 369 10*3/uL LAB HEMATOLOGY METHOD 10/26/2024 11:42 AM EDT [facility] MCV 88 79 - 98 fL LAB HEMATOLOGY METHOD 10/26/2024 11:42 AM EDT [facility] MCH 28.9 26.0 - 32.0 pg LAB HEMATOLOGY METHOD 10/26/2024 11:42 AM EDT [facility] MCHC 32.9 30.7 - 35.5 g/dL LAB HEMATOLOGY METHOD 10/26/2024 11:42 AM EDT [facility] RDW 15.0(H) 11.5 - 14.5 % LAB HEMATOLOGY METHOD 10/26/2024 11:42 AM EDT [facility] MPV 9.1 8.8 - 12.5 fL LAB HEMATOLOGY METHOD 10/26/2024 11:42 AM EDT [facility] nRBC 0.0 <=0.0 per 100 WBCs LAB HEMATOLOGY METHOD 10/26/2024 11:42 AM EDT [facility] Differential Type Automated LAB HEMATOLOGY METHOD 10/26/2024 11:42 AM EDT [facility] Neutrophils % 63 % LAB HEMATOLOGY METHOD 10/26/2024 11:42 AM EDT [facility] Lymphocytes % 28 % LAB HEMATOLOGY METHOD 10/26/2024 11:42 AM EDT [facility] Monocytes % 7 % LAB HEMATOLOGY METHOD 10/26/2024 11:42 AM EDT [facility] Eosinophils % 2 % LAB HEMATOLOGY METHOD 10/26/2024 11:42 AM EDT [facility] Basophils % 0 % LAB HEMATOLOGY METHOD 10/26/2024 11:42 AM EDT [facility] Immature Granulocytes % 0 % LAB HEMATOLOGY METHOD 10/26/2024 11:42 AM EDT [facility] Neutrophils Absolute 3.98 1.60 - 6.10 10*3/uL LAB HEMATOLOGY METHOD 10/26/2024 11:42 AM EDT [facility] Lymphocytes Absolute 1.74 1.20 - 3.90 10*3/uL LAB HEMATOLOGY METHOD 10/26/2024 11:42 AM EDT [facility] Monocytes Absolute 0.41 0.30 - 0.90 10*3/uL LAB HEMATOLOGY METHOD 10/26/2024 11:42 AM EDT [facility] Eosinophils Absolute 0.13 0.00 - 0.50 10*3/uL LAB HEMATOLOGY METHOD 10/26/2024 11:42 AM EDT [facility] Basophils Absolute 0.02 0.00 - 0.10 10*3/uL LAB HEMATOLOGY METHOD 10/26/2024 11:42 AM EDT [facility] Immature Granulocytes Absolute 0.02 0.00 - 0.06 10*3/uL LAB HEMATOLOGY METHOD 10/26/2024 11:42 AM EDT [facility] Blood Venous blood specimen / Unknown Venipuncture / Unknown 10/26/2024 10:55 AM EDT 10/26/2024 10:55 AM EDT Narrative [facility] - 10/26/2024 11:42 AM EDT Therapeutic decision making should be based on absolute values, rather than percentages. Jennifer Panchal [facility] CHIEF SCIENTIFIC OFFICER LAB BLOOD ORDERABLES Final Result [facility] [address] [place] [address] * Comprehensive Metabolic Panel, Plasma (10/26/2024 10:55 AM EDT) Glucose, Plasma 91 74 - 99 mg/dL 10/26/2024 12:14 PM EDT [facility] BUN, Plasma 19 8 - 23 mg/dL 10/26/2024 12:14 PM EDT [facility] Creatinine, Plasma 0.86 0.70 - 1.20 mg/dL 10/26/2024 12:14 PM EDT [facility] BUN/Creatinine Ratio 22 10/26/2024 12:14 PM EDT [facility] Sodium, Plasma 137 136 - 145 mmol/L 10/26/2024 12:14 PM EDT [facility] Potassium, Plasma 3.7 3.6 - 4.9 mmol/L 10/26/2024 12:14 PM EDT [facility] Chloride, Plasma 102 97 - 107 mmol/L 10/26/2024 12:14 PM EDT [facility] CO2, Plasma 26 22 - 29 mmol/L 10/26/2024 12:14 PM EDT [facility] Anion Gap 9 6 - 16 mmol/L 10/26/2024 12:14 PM EDT [facility] Total Calcium, Plasma 9.1 8.9 - 10.2 mg/dL 10/26/2024 12:14 PM EDT [facility] Total Protein 7.5 6.3 - 7.9 g/dL 10/26/2024 12:14 PM EDT [facility] Albumin, Plasma 4.2 3.5 - 5.2 g/dL 10/26/2024 12:14 PM EDT [facility] AST, Plasma 33 10 - 50 U/L 10/26/2024 12:14 PM EDT [facility] ALT, Plasma 33 10 - 50 U/L 10/26/2024 12:14 PM EDT [facility] Alkaline Phosphatase, Plasma 60 40 - 115 U/L 10/26/2024 12:14 PM EDT [facility] Total Bilirubin, Plasma 0.2 0.2 - 1.1 mg/dL 10/26/2024 12:14 PM EDT [facility] eGFRcr 94.9 mL/min/1.7 3m*2 10/26/2024 12:14 PM EDT [facility] Comment:Reported eGFRcr in m L/min/1.73m2 is based the CKD-EPI 2020 equation that does not use a race coefficient. Blood Venous blood specimen / Unknown Venipuncture / Unknown 10/26/2024 10:55 AM EDT 10/26/2024 10:55 AM EDT us Jennifer Akins CHIEF SCIENTIFIC OFFICER LAB BLOOD ORDERABLES Final Result [facility] [address] [place] [address] * (ABNORMAL) Prothrombin Time/INR (10/26/2024 10:55 AM EDT) Prothrombin Time 28.0(H) 12.0 - 14.3 sec LAB COAGULATION METHOD 10/26/2024 11:54 AM EDT [facility] INR 2.6(H) 0.9 - 1.1 LAB COAGULATION METHOD 10/26/2024 11:54 AM EDT [facility] Blood Venous blood specimen / Unknown Venipuncture / Unknown 10/26/2024 10:55 AM EDT 10/26/2024 10:55 AM EDT Narrative [facility] - 10/26/2024 11:54 AM EDT OPTIMAL INR RANGES FOR PATIENT ON ORAL ANTICOAGULANT THERAPY Prevention of venous thromboembolism INR 2.0 to 3.0 In patients with heart disease: Atrial fibrillation INR 2.0 to 3.0 Valvular heart disease INR 2.0 to 3.0 Tissue heart valves INR 2.0 to 3.0 Mechanical prosthetic valves INR 2.5 to 3.5 Prevention of recurrent PA INR 2.5 to 3.5 [facility] LAB BLOOD ORDERABLES Final Result Performing Organization Address City/[facility]/ZIP Co de Phone Number [facility] [address] [phone] * Alpha Fetoprotein, Serum (10/26/2024 10:55 AM EDT) Alpha Fetoprotein, Serum <2.3 <10.0 ng/mL 10/26/2024 12:21 PM EDT [facility] Blood Venous blood specimen / Unknown Venipuncture / Unknown 10/26/2024 10:55 AM EDT 10/26/2024 10:55 AM EDT Narrative [facility] - 10/26/2024 12:21 PM EDT Performed by Marc electrochemiluminescent immunoassay which is traceable to the 1st AFP IRP WHO Reference standard 72/255. Results obtained with different test methods or kits cannot be used interchangeably. [facility] LAB BLOOD ORDERABLES Final Result Performing Organization Address City/[facility]/ZIP Co de Phone Number [facility] [address] [place] [address] documented in this encounter Visit Diagnoses Diagnosis Liver lesion- Primary Other specified disorders of liver Chronic hepatitis C without hepatic coma (CMS/HCC) Elevated liver enzymes Other nonspecific abnormal serum enzyme levels documented in this encounter Additional Health Concerns Assessment Noted Time PHQ-9 Depression Total Score: 6 08/17/19 25 12:48 PM EST A fall risk assessment has been complete d for the patient 08/16/2024 12:49 PM EST A Body Mass Index follow-up plan has been documented for the patient 10/27/2024 1:02 AM EDT documented as of this encounter Care Teams Senior Electrical Engineer Relationship Specialty Start Date End Date Yuniel Clark DO [address] [place] [id number] PCP - General 08/16/24 Jackie Coy APRN [address] [place] [address] Nurse Practitioner Neurosurgery 03/27/21 Fredrick Esposito MD [address] [place] [address] Surgeon Neurosurgery 05/06/21 documented as of this encounter
--- OUTSIDE RECORDS SUMMARY | 2024-10-26 10:50 | XMS_ITS | Encounter Summary ---
Author Organization Healthcare Address [address] [place] [address] Care Team Providers Care Director Of Business Services Name Role Phone Jackie Coy Chelle YARD GOODS SALESPERSON Unavailable [phone] Fredrick Esposito MD Unavailable [phone] Yuniel Clark DO Primary Care Provider [phone] Encounter Details Date Type Department Care Team (Latest Contact Info) Description 10/26/2024 10:50 AM EDT Clinical Support [facility] [address], [address] [place] [address] Liver lesion; Chronic hepatitis C without hepatic coma (CMS/HCC); [...] PM EDT Appointment Cardiac Imaging [address] [place] [address] 01/16/2025 11:30 AM EDT Appointment [facility] Radiology [address] [place] [phone] 01/17/2025 10:40 AM EDT Office Visit [facility] [address] [place] [phone] Jennifer Akins, SANGEETHA [address] [place] [address] documented as of this encounter Procedures Procedure Name Priority Date/Time Associated Diagnosis Comments ALPHA FETOPROTEIN, SERUM Routine 10/26/2024 10:55 AM EDT Liver lesion Chronic hepatitis C without hepatic coma (CMS/HCC) Elevated liver enzymes PROTHROMBIN TIME(PT) / INR Routine 10/26/2024 10:55 AM EDT Liver lesion Chronic hepatitis C without hepatic coma (CMS/HCC) Elevated liver enzymes CBC WITH AUTO DIFFERENTIAL Routine 10/26/2024 10:55 AM EDT Liver lesion Chronic hepatitis C without hepatic coma (CMS/HCC) Elevated liver enzymes COMPREHENSIVE METABOLIC PANEL, PLASMA Routine 10/26/2024 10:55 AM EDT Liver lesion Chronic hepatitis C without hepatic coma (CMS/HCC) Elevated liver enzymes documented in this encounter Results * Alpha Fetoprotein, Serum (10/26/2024 10:55 AM EDT) Alpha Fetoprotein, Serum <2.3 <10.0 ng/mL 10/26/2024 12:21 PM EDT [facility] Blood Venous blood specimen / Unknown Venipuncture / Unknown 10/26/2024 10:55 AM EDT 10/26/2024 10:55 AM EDT Narrative [facility] - 10/26/2024 12:21 PM EDT Performed by Marc electrochemiluminescent immunoassay which is traceable to the 1st AFP IRP WHO Reference standard 72/255. Results obtained with different test methods or kits cannot be used interchangeably. us Jennifer Akins APRN LAB BLOOD ORDERABLES Final Result Performing Organization Address [facility]/ZIP Co de Phone Number [facility] [address] [place] [address] * (ABNORMAL) Prothrombin Time/INR (10/26/2024 10:55 AM EDT) Prothrombin Time 28.0(H) 12.0 - 14.3 sec LAB COAGULATION METHOD 10/26/2024 11:54 AM EDT [facility] INR 2.6(H) 0.9 - 1.1 LAB COAGULATION METHOD 10/26/2024 11:54 AM EDT [facility] Blood Venous blood specimen / Unknown Venipuncture / Unknown 10/26/2024 10:55 AM EDT 10/26/2024 10:55 AM EDT Narrative [facility] - 10/26/2024 11:54 AM EDT OPTIMAL INR RANGES FOR PATIENT ON ORAL ANTICOAGULANT THERAPY Prevention of venous thromboembolism INR 2.0 to 3.0 In patients with heart disease: Atrial fibrillation INR 2.0 to 3.0 Valvular heart disease INR 2.0 to 3.0 Tissue heart valves INR 2.0 to 3.0 Mechanical prosthetic valves INR 2.5 to 3.5 Prevention of recurrent DC INR 2.5 to 3.5 Jennifer Akins YARD GOODS SALESPERSON LAB BLOOD ORDERABLES Final Result Performing Organization Address [facility] Co de Phone Number [facility] [address] [place] [address] * Comprehensive Metabolic Panel, Plasma (10/26/2024 10:55 AM EDT) Glucose, Plasma 91 74 - 99 mg/dL 10/26/2024 12:14 PM EDT [facility] BUN, Plasma 19 8 - 23 mg/dL 10/26/2024 12:14 PM EDT [facility] Creatinine, Plasma 0.86 0.70 - 1.20 mg/dL 10/26/2024 12:14 PM EDT [facility] BUN/Creatinine Ratio 22 10/26/2024 12:14 PM EDT [facility] Sodium, Plasma 137 136 - 145 mmol/L 10/26/2024 12:14 PM EDT [facility] Potassium, Plasma 3.7 3.6 - 4.9 mmol/L 10/26/2024 12:14 PM EDT [facility] Chloride, Plasma 102 97 - 107 mmol/L 10/26/2024 12:14 PM EDT [facility] CO2, Plasma 26 22 - 29 mmol/L 10/26/2024 12:14 PM EDT [facility] Anion Gap 9 6 - 16 mmol/L 10/26/2024 12:14 PM EDT [facility] Total Calcium, Plasma 9.1 8.9 - 10.2 mg/dL 10/26/2024 12:14 PM EDT [facility] Total Protein 7.5 6.3 - 7.9 g/dL 10/26/2024 12:14 PM EDT [facility] Albumin, Plasma 4.2 3.5 - 5.2 g/dL 10/26/2024 12:14 PM EDT [facility] AST, Plasma 33 10 - 50 U/L 10/26/2024 12:14 PM EDT [facility] ALT, Plasma 33 10 - 50 U/L 10/26/2024 12:14 PM EDT [facility] Alkaline Phosphatase, Plasma 60 40 - 115 U/L 10/26/2024 12:14 PM EDT [facility] Total Bilirubin, Plasma 0.2 0.2 - 1.1 mg/dL 10/26/2024 12:14 PM EDT [facility] eGFRcr 94.9 mL/min/1.7 3m*2 10/26/2024 12:14 PM EDT [facility] Comment:Reported eGFRcr in m L/min/1.73m2 is based the CKD-EPI 2020 equation that does not use a race coefficient. Blood Venous blood specimen / Unknown Venipuncture / Unknown 10/26/2024 10:55 AM EDT 10/26/2024 10:55 AM EDT us Jennifer Akins YARD GOODS SALESPERSON LAB BLOOD ORDERABLES Final Result [facility] [address] [place] [address] * (ABNORMAL) CBC and Differential (10/26/2024 10:55 AM EDT) [facility] Signature WBC Count 6.30 3.70 - 10.30 10*3/uL LAB HEMATOLOGY METHOD 10/26/2024 11:42 AM EDT [facility] RBC Count 4.63 4.60 - 6.10 10*6/uL LAB HEMATOLOGY METHOD 10/26/2024 11:42 AM EDT [facility] HGB 13.4(L) 13.7 - 17.5 g/dL LAB HEMATOLOGY METHOD 10/26/2024 11:42 AM EDT [facility] HCT 40.7 40.0 - 51.0 % LAB HEMATOLOGY METHOD 10/26/2024 11:42 AM EDT [facility] Platelet Count 156 155 - 369 10*3/uL LAB HEMATOLOGY METHOD 10/26/2024 11:42 AM EDT [facility] MCV 88 79 - 98 fL LAB HEMATOLOGY METHOD 10/26/2024 11:42 AM EDT [facility] MCH 28.9 26.0 - 32.0 pg LAB HEMATOLOGY METHOD 10/26/2024 11:42 AM EDT [facility] MCHC 32.9 30.7 - 35.5 g/dL LAB HEMATOLOGY METHOD 10/26/2024 11:42 AM EDT [facility] RDW 15.0(H) 11.5 - 14.5 % LAB HEMATOLOGY METHOD 10/26/2024 11:42 AM EDT [facility] MPV 9.1 8.8 - 12.5 fL LAB HEMATOLOGY METHOD 10/26/2024 11:42 AM EDT [facility] nRBC 0.0 <=0.0 per 100 WBCs LAB HEMATOLOGY METHOD 10/26/2024 11:42 AM EDT [facility] Differential Type Automated LAB HEMATOLOGY METHOD 10/26/2024 11:42 AM EDT [facility] Neutrophils % 63 % LAB HEMATOLOGY METHOD 10/26/2024 11:42 AM EDT [facility] Lymphocytes % 28 % LAB HEMATOLOGY METHOD 10/26/2024 11:42 AM EDT [facility] Monocytes % 7 % LAB HEMATOLOGY METHOD 10/26/2024 11:42 AM EDT [facility] Eosinophils % 2 % LAB HEMATOLOGY METHOD 10/26/2024 11:42 AM EDT [facility] Basophils % 0 % LAB HEMATOLOGY METHOD 10/26/2024 11:42 AM EDT [facility] Immature Granulocytes % 0 % LAB HEMATOLOGY METHOD 10/26/2024 11:42 AM EDT [facility] Neutrophils Absolute 3.98 1.60 - 6.10 10*3/uL LAB HEMATOLOGY METHOD 10/26/2024 11:42 AM EDT [facility] Lymphocytes Absolute 1.74 1.20 - 3.90 10*3/uL LAB HEMATOLOGY METHOD 10/26/2024 11:42 AM EDT [facility] Monocytes Absolute 0.41 0.30 - 0.90 10*3/uL LAB HEMATOLOGY METHOD 10/26/2024 11:42 AM EDT [facility] Eosinophils Absolute 0.13 0.00 - 0.50 10*3/uL LAB HEMATOLOGY METHOD 10/26/2024 11:42 AM EDT [facility] Basophils Absolute 0.02 0.00 - 0.10 10*3/uL LAB HEMATOLOGY METHOD 10/26/2024 11:42 AM EDT [facility] Immature Granulocytes Absolute 0.02 0.00 - 0.06 10*3/uL LAB HEMATOLOGY METHOD 10/26/2024 11:42 AM EDT [facility] Blood Venous blood specimen / Unknown Venipuncture / Unknown 10/26/2024 10:55 AM EDT 10/26/2024 10:55 AM EDT Narrative [facility] - 10/26/2024 11:42 AM EDT Therapeutic decision making should be based on absolute values, rather than percentages. us Jennifer Akins YARD GOODS SALESPERSON LAB BLOOD ORDERABLES Final Result [facility] [address] [place] [address] documented in this encounter Visit Diagnoses Diagnosis Liver lesion Other specified disorders of liver Chronic hepatitis [...] documented as of this encounter Care Teams Director Of Business Services Relationship Specialty Start Date End Date Yuniel Clark DO [address] [place] [address] PCP - General 08/16/24 Jackie Coy APRN [address] [address] Nurse Practitioner Neurosurgery 03/27/21 Fredrick Esposito MD [address] [address] Surgeon Neurosurgery 05/06/21 documented as of this encounter
--- OUTSIDE RECORDS SUMMARY | 2024-12-20 12:15 | XMS_ITS | Clinical Summary ---
Author Organization [facility] Address [address] [place] [address] Care Team Providers Care Physical Education Professor Name Role Phone Jackie Coy Chelle VIVAS Unavailable [phone] Fredrick Esposito MD Unavailable [phone] Yuniel Clark DO Primary Care Provider Allergies Active Allergy Reactions Criticality Noted Date Comments Cyclobenzaprine Rash Low 06/25/2014 Methocarbamol Hives Medium 05/16/2021 Penicillins Rash Low 11/04/2016 Medications albuterol 108 (90 Base) MCG/ACT inhaler Inhale 2 puffs every 4 (four) hours as needed. 0 Active gabapentin (Neurontin) 600 MG tablet Take 1 tablet (600 mg total) by mouth 3 (three) times a day. 90 tablet 1 Active oxyCODONE (Roxicodone) 5 MG immediate release tablet Take 1 tablet (5 mg total) by mouth every 4 (four) hours if needed for severe pain. 55 tablet 1 Active Additional Information Patient not taking.Reported on 08/16/2024 carvedilol (Coreg) 3.125 MG tablet 4 Active lisinopril 10 MG tablet Take 1 tablet (10 mg) by mouth daily. 5 Active tadalafil (Adcirca) 20 MG tablet 4 Active warfarin (Coumadin) 4 MG tablet TAKE TWO TABLETS BY MOUTH EVERY DAY OR DIRECTED 5 Active Trelegy Ellipta 100-62.5-25 MCG/ACT aerosol powder 4 Active oxyCODONE (Roxicodone) 10 MG immediate release tablet 5 Active pantoprazole (Protonix) 40 MG EC tablet Take 1 tablet by mouth daily. 5 Active Active Problems Problem Noted Date Diagnosed Date Pacemaker 05/15/2021 Chronic obstructive pulmonary disease 05/15/2021 Atrial fibrillation 05/15/2021 Difficult intubation 05/15/2021 Antiplatelet or antithrombotic long-term use 08/2020 Good tolerance for activity 05/15/2021 Retropharyngeal abscess 08/29/2015 Dysphonia 07/30/2015 Hepatitis C virus infection 04/23/2015 Cervical neuralgia 06/24/2014 Resolved Problems Problem Noted Date Diagnosed Date Resolved Date Spinal stenosis, cervical region 05/06/2021 05/17/2021 Overview (05/06/2021): Added automatically from request for surgery [id number] Encounters Date Type Department Care Team Description 10/29/2024 Results Follow-Up [facility] Medicine Specialties [address] [place] [address], [address] [place] [phone] Jennifer Akins APRN 10/26/2024 10:50 AM EDT Clinical Support [facility] Lab [address] [place] [phone] Liver lesion; Chronic hepatitis C without hepatic coma (CMS/HCC); Elevated liver enzymes 10/26/2024 10:10 AM EDT Office Visit [facility] Medicine Specialties [address] [place] [address], [address] [place] [phone] Jennifer Akins, SUBWAY OPERATOR Liver lesion (Primary Dx); Chronic hepatitis C without hepatic coma (CMS/HCC); Elevated liver enzymes 10/26/2024 9:30 AM EDT Ancillary Procedure [facility] Medicine Specialties [address] [place] [phone] Liver lesion; Chronic viral hepatitis C (CMS/HCC) 10/26/2024 Travel from Last 3 Months Family History Medical History Relation Name Comments Diabetes Brother FH: diabetes me llitus Diabetes Father FH: diabetes me llitus Diabetes Mother FH: diabetes me llitus Diabetes Other 1 Other cancer Other 2 Anesthesia problems Neg Hx Malig Hyperthermia Neg Hx Relation Name Status Comments Brother Father Mother Other 1 Other 2 Social History Tobacco Use Types Packs/Day Years Used Date Smoking Tobacco: Every Day Cigarettes 0.8 50 Smokeless Tobacco: Never Tobacco Cessation:Ready to Q uit: Not Asked; Counseling Given: Not Answered Alcohol Use Standard Drinks/Week Comments Not Currently [...] on file Sexual Orientation Not on file Last Filed Vital Signs Vital Sign Reading Time Taken Comments Blood Pressure 104/65 10/26/2024 10:16 AM EDT Pulse 63 10/26/2024 10:16 AM EDT Temperature 36.4 C (97.6 F) 10/26/2024 10:16 AM EDT Respiratory Rate 16 10/26/2024 10:16 AM EDT Oxygen Saturation 97% 10/26/2024 10:16 AM EDT Inhaled Oxygen Concentration - - Weight 58.4 kg (128 lb 12 oz) 08/16/2024 12:43 P M EST Height 179.1 cm (5' 10.5 ) 08/16/2024 12:[address] Body Mass Index 18.21 08/16/2024 12:43 PM EST Plan of Treatment Upcoming Encounters Date Type Department Care Team (Late st Contact Info) Description 12/31/2024 1:00 PM EDT Appointment Cardiac Imaging [address] [place] [address] 01/16/2025 11:30 AM EDT Appointment [facility] Radiology [address] [place] [address] 01/17/2025 10:40 AM EDT Office Visit [facility] [address] [place] [address] Jennifer Akins, SUBWAY OPERATOR [address] [place] [phone] Health Maintenance Due Date Last Done Comments [facility]-Medicare Annual Wellness (AWV) 1957 [facility]-/Child/Adol SDOH Screenings 1957 [facility]- SDOH Screenings 1975 [facility]-Adult SDOH Screenings 1975 [facility]-DTaP,Tdap,and Td Vaccine s (1 - Tdap) 01/03/1976 [facility]-Hepatitis A Vaccines (1 of 2 - Risk 2-dose series) 01/03/1976 CT Colonography 2002 Colonoscopy 2002 FIT-DNA 2002 FIT 2002 FOBT 2002 Sigmoidoscopy 2002 [facility]-Colorectal Cancer Screening 2002 [facility]-Lung Cancer Screening 2007 [facility]-Zoster Vaccines (1 of 2) 2007 [facility]-RSV Vaccine: 60+ Years o r (1 - Risk 60-74 years 1-dose series) 2017 [facility]-Pneumococcal Vaccine: 50 + Years (2 of 2 - PCV) 06/15/2017 06/15/2016 [facility]-Abdominal Aortic Aneurys m (AAA) Screening 2022 [id number] Vaccine (1 - season) 2024 [facility]-Influenza Vaccine (#1) 2025 [facility]-Depression Screening 08/16/2025 025, 08/16/2024 HPV Vaccines Aged Out No longer eligi ble based on patient's age to complete this topic [facility]-HIB Vaccines Aged Out No longer e ligible based on patient's age to complete this topic [facility]-IPV Vaccines Aged Out No longer e ligible based on patient's age to complete this topic [facility]-Rotavirus Vaccines Aged Out No lo nger eligible based on patient's age to complete this topic Medical Devices Implanted Type Area Melt Room Operator Device Identifier Shelf Expiration Date Model / Serial / Lot Medtronic Pacemaker Pacemaker Chest Wall Medtronic [id number] / [id number] / One Level Plate, 14mm - [id number] Implanted:Qt y: 1 on 05/16/2021 by Blake Dickerson MD at [facility] Plate N/A: Spine Cervical DePuy Spine Sales [id number] 05/16/2022 [id number] / / Self Drilling Screw 16mm - [id number] Implanted:Qt y: 4 on 05/16/2021 by Blake Dickerson MD at [facility] Screw N/A: Spine Cervical DePuy Spine [employer] [id number] 05/16/2022 [id number] / / Knee Vanguard1 Cervical Preservon 8mm - [id number] - [id number] Implanted:Qt y: 1 on 05/16/2021 by Fredrick Esposito MD at [facility] N/A: Spine Cervical Int[facility]-[id number] 12/01/2025 [id number] / [id number] / [id number] Graft Vivigen 1cc - [id number] - [id number] Implanted:Qt y: 1 on 05/16/2021 by Fredrick Esposito MD at [facility] N/A: Spine Cervical Int[facility]Nic[facility] [employer]-[id number] 10/22/2021 [id number] / [id number] / [id number] Explanted Type Area Melt Room Operator Device Identifier Shelf Expiration Date Model / Serial / Lot Compression Pin, 14mm - [id number] Explanted:Qty: 2 on 05/16/2021 by Blake Dickerson MD at [facility] Pin N/A: Spine Cervical [employer] [id number] 05/16/2022 [id number] / / Procedures Procedure Name Priority Date/Time Associated Diagnosis [...] without hepatic coma (CMS/HCC) Elevated liver enzymes GI FIBROSCAN Routine 10/26/2024 10:36 AM EDT Liver lesion Chronic viral hepatitis C (CMS/HCC) from Last 3 Months Results * Alpha Fetoprotein, Serum (10/26/2024 10:55 AM EDT) Alpha Fetoprotein, Serum <2.3 <10.0 ng/mL 10/26/2024 12:21 PM EDT [facility] Blood Venous blood specimen / Unknown Venipuncture / Unknown 10/26/2024 10:55 AM EDT 10/26/2024 10:55 AM EDT Narrative [facility] - 10/26/2024 12:21 PM EDT Performed by Marc electrochemiluminescent immunoassay which is traceable to the 1st AFP IRP WHO Reference standard 72/255. Results obtained with different test methods or kits cannot be used interchangeably. Jennifer Akins SUBWAY OPERATOR LAB BLOOD ORDERABLES Final Result [facility] [address] [place] [address] * (ABNORMAL) Prothrombin Time/INR (10/26/2024 10:55 AM EDT) Prothrombin Time 28.0(H) 12.0 - 14.3 sec LAB COAGULATION METHOD 10/26/2024 11:54 AM EDT [facility] INR 2.6(H) 0.9 - 1.1 LAB COAGULATION METHOD 10/26/2024 11:54 AM EDT [facility] Blood Venous blood specimen / Unknown Venipuncture / Unknown 10/26/2024 10:55 AM EDT 10/26/2024 10:55 AM EDT Narrative [facility] - 10/26/2024 11:54 AM EDT OPTIMAL INR RANGES FOR PATIENT ON ORAL ANTICOAGULANT THERAPY Prevention of venous thromboembolism INR 2.0 to 3.0 In patients with heart disease: Atrial fibrillation INR 2.0 to 3.0 Valvular heart disease INR 2.0 to 3.0 Tissue heart valves INR 2.0 to 3.0 Mechanical prosthetic valves INR 2.5 to 3.5 Prevention of recurrent WA INR 2.5 to 3.5 us Jennifer Akins SUBWAY OPERATOR LAB BLOOD ORDERABLES Final Result [facility] [address] [place] [address] * (ABNORMAL) CBC and Differential (10/26/2024 10:55 AM EDT) [facility] WBC Count 6.30 3.70 - 10.30 10*3/uL LAB HEMATOLOGY METHOD 10/26/2024 11:42 AM EDT [facility] RBC Count 4.63 4.60 - 6.10 10*6/uL LAB HEMATOLOGY METHOD 10/26/2024 11:42 AM EDT [facility] HGB 13.4(L) 13.7 - 17.5 g/dL LAB HEMATOLOGY METHOD 10/26/2024 11:42 AM EDT [facility] HCT 40.7 40.0 - 51.0 % LAB HEMATOLOGY METHOD 10/26/2024 11:42 AM EDT [facility] Platelet Count 156 155 - 369 10*3/uL LAB HEMATOLOGY METHOD 10/26/2024 11:42 AM EDT [facility] MCV 88 79 - 98 fL LAB HEMATOLOGY METHOD 10/26/2024 11:42 AM EDT [facility] MCH 28.9 26.0 - 32.0 pg LAB HEMATOLOGY METHOD 10/26/2024 11:42 AM EDT [facility] MCHC 32.9 30.7 - 35.5 g/dL LAB HEMATOLOGY METHOD 10/26/2024 11:42 AM EDT [facility] RDW 15.0(H) 11.5 - 14.5 % LAB HEMATOLOGY METHOD 10/26/2024 11:42 AM EDT [facility] MPV 9.1 8.8 - 12.5 fL LAB HEMATOLOGY METHOD 10/26/2024 11:42 AM EDT [facility] nRBC 0.0 <=0.0 per 100 WBCs LAB HEMATOLOGY METHOD 10/26/2024 11:42 AM EDT [facility] Differential Type Automated LAB HEMATOLOGY METHOD 10/26/2024 11:42 AM EDT [facility] Neutrophils % 63 % LAB HEMATOLOGY METHOD 10/26/2024 11:42 AM EDT [facility] Lymphocytes % 28 % LAB HEMATOLOGY METHOD 10/26/2024 11:42 AM EDT [facility] Monocytes % 7 % LAB HEMATOLOGY METHOD 10/26/2024 11:42 AM EDT [facility] Eosinophils % 2 % LAB HEMATOLOGY METHOD 10/26/2024 11:42 AM EDT [facility] Basophils % 0 % LAB HEMATOLOGY METHOD 10/26/2024 11:42 AM EDT [facility] Immature Granulocytes % 0 % LAB HEMATOLOGY METHOD 10/26/2024 11:42 AM EDT [facility] Neutrophils Absolute 3.98 1.60 - 6.10 10*3/uL LAB HEMATOLOGY METHOD 10/26/2024 11:42 AM EDT [facility] Lymphocytes Absolute 1.74 1.20 - 3.90 10*3/uL LAB HEMATOLOGY METHOD 10/26/2024 11:42 AM EDT [facility] Monocytes Absolute 0.41 0.30 - 0.90 10*3/uL LAB HEMATOLOGY METHOD 10/26/2024 11:42 AM EDT [facility] Eosinophils Absolute 0.13 0.00 - 0.50 10*3/uL LAB HEMATOLOGY METHOD 10/26/2024 11:42 AM EDT [facility] Basophils Absolute 0.02 0.00 - 0.10 10*3/uL LAB HEMATOLOGY METHOD 10/26/2024 11:42 AM EDT [facility] Immature Granulocytes Absolute 0.02 0.00 - 0.06 10*3/uL LAB HEMATOLOGY METHOD 10/26/2024 11:42 AM EDT [facility] Blood Venous blood specimen / Unknown Venipuncture / Unknown 10/26/2024 10:55 AM EDT 10/26/2024 10:55 AM EDT [facility] - 10/26/2024 11:42 AM EDT Therapeutic decision making should be based on absolute values, rather than percentages. Jennifer Akins SUBWAY OPERATOR LAB BLOOD ORDERABLES Final Result [facility] [address] [place] [address] * Comprehensive Metabolic Panel, Plasma (10/26/2024 10:55 AM EDT) Glucose, Plasma 91 74 - 99 mg/dL 10/26/2024 12:14 PM EDT [facility] BUN, Plasma 19 8 - 23 mg/dL 10/26/2024 12:14 PM EDT [facility] Creatinine, Plasma 0.86 0.70 - 1.20 mg/dL 10/26/2024 12:14 PM EDT [facility] BUN/Creatinine Ratio 22 10/26/2024 12:14 PM EDT [facility] Sodium, Plasma 137 136 - 145 mmol/L 10/26/2024 12:14 PM EDT [facility] Potassium, Plasma 3.7 3.6 - 4.9 mmol/L 10/26/2024 12:14 PM EDT [facility] Chloride, Plasma 102 97 - 107 mmol/L 10/26/2024 12:14 PM EDT [facility] CO2, Plasma 26 22 - 29 mmol/L 10/26/2024 12:14 PM EDT [facility] Anion Gap 9 6 - 16 mmol/L 10/26/2024 12:14 PM EDT [facility] Total Calcium, Plasma 9.1 8.9 - 10.2 mg/dL 10/26/2024 12:14 PM EDT [facility] Total Protein 7.5 6.3 - 7.9 g/dL 10/26/2024 12:14 PM EDT [facility] Albumin, Plasma 4.2 3.5 - 5.2 g/dL 10/26/2024 12:14 PM EDT [facility] AST, Plasma 33 10 - 50 U/L 10/26/2024 12:14 PM EDT [facility] ALT, Plasma 33 10 - 50 U/L 10/26/2024 12:14 PM EDT [facility] Alkaline Phosphatase, Plasma 60 40 - 115 U/L 10/26/2024 12:14 PM EDT [facility] Total Bilirubin, Plasma 0.2 0.2 - 1.1 mg/dL 10/26/2024 12:14 PM EDT [facility] eGFRcr 94.9 mL/min/1.7 3m*2 10/26/2024 12:14 PM EDT [facility] Comment:Reported eGFRcr in m L/min/1.73m2 is based the CKD-EPI 2020 equation that does not use a race coefficient. Blood Venous blood specimen / Unknown Venipuncture / Unknown 10/26/2024 10:55 AM EDT 10/26/2024 10:55 AM EDT us Jennifer Akins SUBWAY OPERATOR LAB BLOOD ORDERABLES Final Result [facility] [address] [place] [address] * GI Fibroscan (10/26/2024 10:36 AM EDT) [...] APRN IN CLINIC DIAGNOSTIC ORDERS Final Result from Last [address] [place] [address] MEDICARE Care Teams Physical Education Professor Relationship Specialty Start Date End Date Yuniel Clark DO [address] [place] [address] PCP - General 08/16/24 Jackie Coy APRN [address] [place] [address] Nurse Practitioner Neurosurgery 03/27/21 Fredrick Esposito MD [address] [place] [address] Surgeon Neurosurgery 05/06/21
--- OUTSIDE RECORDS SUMMARY | 2024-12-20 12:15 | XMS_ITS | Encounter Summary ---
Author Organization Healthcare Address [address] [place] [address] Care Team Providers Care Rehabilitation Worker Name Role Phone Jackie Coy RESORT DESK CLERK Unavailable [phone] Fredrick Esposito MD Unavailable [phone] Yuniel Clark DO Primary Care Provider [phone] Encounter Details Date Type Department Care Team (Late st Contact Info) Description 10/29/2024 Results [facility] [address] [place] [address] Jennifer Akins, RESORT DESK CLERK [address] [place] [address] Social History Tobacco Use Types Packs/Day Years [...] PM EDT Appointment Cardiac Imaging [address] [place] [address] 01/16/2025 11:30 AM EDT Appointment [facility] [address] [place] [address] 01/17/2025 10:40 AM EDT Office Visit [facility] [address] [place] [address] Jennifer Akins APRN [address] [place] [address] documented as of this encounter Visit Diagnoses Not on filedocumented in this encounter Additional Health Concerns Assessment Noted Time PHQ-9 Depression Total Score: 6 08/17/19 12:48 PM EST A fall risk assessment has been complete d for the patient 08/16/2024 12:49 PM EST A Body Mass Index follow-up plan has been documented for the patient 10/27/2024 1:02 AM EDT documented as of this encounter Care Teams Rehabilitation Worker Relationship Specialty Start Date End Date Yuniel Clark DO [address] [place] [address] PCP - General 08/16/24 Jackie Coy APRN [address] [place] [address] Nurse Practitioner Neurosurgery 03/27/21 Fredrick Esposito MD [address] [place] [address] Surgeon Neurosurgery 05/06/21 documented as of this encounter
--- OUTSIDE RECORDS SUMMARY | 2024-12-20 12:15 | XMS_ITS | Encounter Summary ---
Author Organization Healthcare Address [address] [place] [address] Care Team Providers Care Inside Sales Executive Name Role Phone Jackie Coy Chelle FRENCH TRANSLATOR Unavailable [phone] Fredrick Esposito MD Unavailable [phone] Yuniel Clark DO Primary Care Provider [phone] Encounter Details Date Type Department Care Team (Latest Contact Info) Description 10/26/2024 Travel Social History Tobacco Use Types Packs/Day Years [...] PM EDT Appointment Cardiac Imaging [address] [place] [address] 01/16/2025 11:30 AM EDT Appointment [facility] [address] [place] [address] 01/17/2025 10:40 AM EDT Office [facility] [address] [place] [address] Jennifer Akins APRN [address] [place] [address] documented as of this encounter [...] documented as of this encounter Care Teams Inside Sales Executive Relationship Specialty Start Date End Date Yuniel Clark DO [address] [place] [address] PCP - General 08/16/24 Jackie Coy APRN [address] [place] [address] Nurse Practitioner Neurosurgery 03/27/21 Fredrick Esposito MD [address] [place] [address] Surgeon Neurosurgery 05/06/21 documented as of this encounter
--- OUTSIDE RECORDS SUMMARY | 2024-12-20 12:15 | XMS_ITS | Encounter Summary ---
Author Organization Healthcare Address [address] [place] [address] Care Team Providers Care Freight Delivery Driver Name Role Phone Luis Mendez MD Primary Care Provider [phone] Jackie Coy APRN Unavailable [phone] Fredrick Esposito MD Unavailable [phone] Yuniel Clark DO Primary Care Provider [phone] Reason for Referral * Consultation (Routine) - Closed Specialty Diagnoses / Procedures Referred By Contac t Referred To Contact Neurosurgery Diagnoses Radiculopathy, cervical Luis Mendez MD [address] [place] [address] Phone: tel: fax: Referral ID Status Reason Start Date Expiration Date V isits Requested Visits Authorized [id number] Closed Specialty Services Required 03/19/2021 09/18/2022 1 1 Encounter Details Date Type Department Care Team (Late st Contact Info) Description 03/19/2021 Community [facility] [address] [place] [address] Luis Mendez MD [address] [place] [address] Radiculopathy, cervical (Primary Dx) Social History Tobacco Use Types Packs/Day Years Used Date Smoking Tobacco: Every Day Alcohol Use Standard Drinks/Week Comments Yes 0 (1 standard drink = 0.6 oz pur e alcohol) Sex and Gender Information Value Date Recorded Sex Assigned at Not on file Legal Sex Male 8:43 PM EDT Gender Identity Not on file Sexual Orientation Not on file documented as of this encounter Plan of Treatment Upcoming Encounters Date Type Department Care Team (Late st Contact Info) Description 12/31/2024 1:00 PM EDT Appointment Cardiac Imaging [address] [place] [address] 01/16/2025 11:30 AM EDT Appointment [facility] [address] [place] [address] 01/17/2025 10:40 AM EDT Office Visit [facility] [address] [place] [address] Jennifer Akins APRN [address] [facility] [address] [place] [address] Scheduled Referrals Name Type Priority Associated Diagnoses Order Schedule Ambulatory Referral to Neurosurgery Outpatient Referral Routine Radiculopathy, cervical 1 Occurrences starting 03/19/2021 until 09/17/2021 documented as of this encounter Visit Diagnoses Diagnosis Radiculopathy, cervical- Primary Brachial neuritis or radiculitis nos documented in this encounter Care Teams Freight Delivery Driver Relationship Specialty Start Date End Date Luis Mendez MD [address] [place] [address] PCP - General 10/24/20 08/15/24 Yuniel Clark DO [address] [place] [address] PCP - General 08/16/24 Jackie Coy, BLOCK INSPECTOR [id number] [place] [address] Nurse Practitioner Neurosurgery 03/27/21 Fredrick Esposito MD [address] [facility] [address] [place] [address] Surgeon Neurosurgery 05/06/21 documented as of this encounter
[2024-12-20 13:02] LABS: INR 1.90 (0.9-1.1); Prothrombin Time 20.1 seconds (10.1-12.5)
== END 2024-12-20 23:59 | disposition home or self-care (01) ==
LOC: LAB 12:13
PROVIDERS: PCP Internal Medicine; Visit Provider Nurse Practitioner
DX: Z79.01 Long term (current) use of anticoagulants (principal)
CPT/HCPCS: 36415; 85610

== ENCOUNTER 2024-12-24 08:51 | Day surgery (SDC) | payer MEDICARE, SELFPAY ==
[2024-12-20 15:49] VITALS: BMI 18.6
--- NOTE | 2024-12-24 10:40 | P.HP_ITS ---
History of Present Illness *Admission Date: 12/24/24 *Reason for visit:: Personal history of adenomatous colon polyps *History of present illness: Mr. Soni is a 69-year-old gentleman who is here for follow-up screening/surveillance colonoscopy secondary to a personal history of adenoma tous colon polyps. The examination is deemed medically necessary for surveillance colonoscopy. The patient has been seen, interviewed and examined prior to the procedure by both myself and the anesthesia provider. [facility] Disclaimer: The information contained in this section may have been updated after the patient was seen, as this information can be updated by other users. Medical History Anxiety and depression Throat cancer Asthma Migraine History of pacemaker Wheezing on both sides of chest Coronary artery disease COPD (chronic obstructive pulmonary disease) Hypertension Surgical History H/O neck surgery Family History Other Cancer Social History Smoking Status: Current every day smoker tobacco type: cigarettes packs per day: 40 alcohol intake: former substance use type: marijuana current occupational status: retired and disabled Travel in the last 8 weeks?: None household members: family housing: house current occupational exposures/hazards: No caffeine: Yes Have you lived/traveled outside US in past 30 days?: No Contact w/someone who lives/traveled outside US past 30 days?: No Exposure to someone with infectious disease in past 14 days?: No Do you have a fever (greater than 100.4 F or 38 C)?: No Have you tested positive for COVID-19?: No Exposed to someone with COVID-19 in past 14 days?: No Do you have a sore throat?: No Do you have a cough?: No Do you have any weakness?: No Do you have any diarrhea?: No Are you experiencing any unusual bleeding?: No Do you have any muscle aches/pain?: No Do you have any abdominal pain?: No Are you experiencing loss of taste or smell?: No Other Medical History Have you received the Flu Vaccine for this season: Yes Have you received the Pneumonia Vaccine: No Review of Systems Review of Systems Review of systems (narrative): Negative *Cardiovascular Comments: Negative *Gastrointestinal Comments: Negative *Genitourinary Comments: Negative *Musculoskeletal Comments: Negative *Neurologic Comments: Negative Meds Home Medications and Allergies Home Medications ?Medication ?Instructions ?Recorded ?Confirmed ?Type aspirin 81 mg chewable tablet 81 mg PO DAILY heart hea lth #90 09/26/23 12/20/24 Rx tabs glecaprevir 100 mg-pibrentasvir 40 3 tab PO DAILY 12 w eeks #252 tabs 06/14/24 12/20/24 Rx mg tablet (Mavyret) Held on 07/05/24. Instructions: Home Medication placed on hold at Doctor's office albuterol sulfate 90 mcg/actuation 2 puff inhalation Q 4-6H PRN 08/22/24 12/20/24 Rx aerosol inhaler shortness of breath or wheez ing #18 grams bupropion HCl 150 mg tablet,12 hr 150 mg PO BID 90 day s #180 ea 08/22/24 12/20/24 Rx sustained-release hydroxyzine HCl 25 mg tablet 25 mg PO HS PRN sleep #30 tabs 11/09/24 12/20/24 Rx carvedilol 3.125 mg tablet 3.125 mg PO BID #30 tabs 12/20/24 Rx fluticasone fur. 100 mcg-umeclid 1 inh inhalation MARSHALL Y #60 ea 11/26/24 12/20/24 Rx 62.5 mcg-vilant 25 mcg inhalat.powder (Trelegy Ellipta) gabapentin 600 mg tablet 600 mg PO TID Pain #90 tabs 11/26/24 12/20/24 Rx oxycodone 10 mg tablet 10 mg PO QID Pain #120 tabs 11/26/24 12/20/24 Rx pantoprazole 40 mg tablet,delayed 40 mg PO DAILY #90 t abs 11/26/24 12/20/24 Rx release warfarin 4 mg tablet See Rx Instructions .Route 0 12/05/24 12/20/24 Rx .COMPLEX #60 tabs sodium,potassium,mag sulfates 17.5 See Rx Instructions PO .COMPLEX 12/17/24 12/20/24 Rx gram-3.13 gram-1.6 gram oral soln #354 mL (Suprep Bowel Prep Kit) enoxaparin 60 mg/0.6 mL 60 mg (0.6 mL) SQ Q12H 7 day s #8.4 12/20/24 12/20/24 Rx subcutaneous syringe (Lovenox) mL lisinopril 10 mg tablet 10 mg PO DAILY 12/20/2412/11 History New Prescriptions to Start Prescriptions: Allergies Allergy/AdvReac Type Severity Reaction Status Date / Time cyclobenzaprine (From Allergy Intermediate I-HIVES Verified 12/24/24 10:47 Flexeril) Penicillins Allergy Intermediate Unknown Verified 12/24/24 10:47 allergy reaction methadone AdvReac Intermediate vomiting Verified 12/24/24 10:47 tramadol AdvReac Nausea Verified 12/24/24 10:47 Exam *Routine HEENT Exam Head: Present normocephalic Eye: Present EOMI and PERRL ENT: Present mucous membranes moist *Routine Neck Exam Neck: Present supple *Routine Respiratory Exam Respiratory: Present CTA bilaterally *Routine Cardiovascular Exam Cardiovascular: Present RRR *Routine Abdominal Exam Abdominal: Present soft and normoactive bowel sounds; Absent tenderness *Routine Rectal Exam Rectal:: deferred *Routine Genitalia Exam Genitalia:: deferred *Routine Extremities Exam Extremities: Absent cyanosis, clubbing or edema *Routine Skin Exam Skin: Present warm; Absent rash *Routine Neurological Exam Neurological: Present alert and oriented X3 Assessment and Plan *Assessment and plan (1) Personal history of adenomatous and serrated colon polyps: Status: Acute Category: Medical Code(s): Z86.0101 - Personal history of adenomatous and serrated colon polyps Plan A/P: 1. Personal history of adenomatous colon polyps is the preprocedural diagnosis. The patient will be anesthetized/sedated using MAC sedation. The patient has been seen and examined. Cardiac and lung assessment prior to the examination is stable. Proceed with planned surveillance colonoscopy.
[2024-12-24] MEDS: LACTATED RINGERS 1000ML 1,000 ML 50 ML IV (10:46)
[2024-12-24 10:50] VITALS: BP 148/84; PULSE 50; RESP 18; TEMP 36.1; O2SAT 94
--- NOTE | 2024-12-24 11:25 | P.PNANES_ITS ---
[facility] Disclaimer: The information contained in this section may have been updated after the patient was seen, as this information can be updated by other users. Medical History Anxiety and depression Throat cancer Asthma Migraine History of pacemaker Wheezing on both sides of chest Coronary artery disease COPD (chronic obstructive pulmonary disease) Hypertension Surgical History H/O neck surgery Family History Other Cancer Social History Smoking Status: Current every day smoker tobacco type: cigarettes packs per day: 40 alcohol intake: former substance use type: marijuana current occupational status: retired and disabled Travel in the last 8 weeks?: None household members: family housing: house current occupational exposures/hazards: No caffeine: Yes Have you lived/traveled outside US in past 30 days?: No Contact w/someone who lives/traveled outside US past 30 days?: No Exposure to someone with infectious disease in past 14 days?: No Do you have a fever (greater than 100.4 F or 38 C)?: No Have you tested positive for COVID-19?: No Exposed to someone with COVID-19 in past 14 days?: No Do you have a sore throat?: No Do you have a cough?: No Do you have any weakness?: No Do you have any diarrhea?: No Are you experiencing any unusual bleeding?: No Do you have any muscle aches/pain?: No Do you have any abdominal pain?: No Are you experiencing loss of taste or smell?: No [facility] Anesthesia Checklist Patient Identification Patient Identification: Arm Band and Verbal (Name & ) Structural Data Admitted From: Home Planned Operative Procedure/s: colonscopy Consent for Planned Operative Procedure(s) Verified: Yes Verified Documents: Surgical Consent and History and Physical NPO Status Verified Time NPO: 00:00 Additional verifications Anesthesia Reactions: No Hx Blood Transfusions: No Blood Transfusion Reaction: No Airway Assessment Mallampati Score:: Class II Dentition: Edentulous Neurological Assessment Level of Consciousness: Awake, Alert and Appropriate Hx Seizures: No Anesthesia Plan Anesthesia Risk discussed: Yes ASA Class: III Anesthesia Type: MAC
--- NOTE | 2024-12-24 11:26 | P.PCN_ITS ---
[facility] Procedure Note Date: 12/24/24 Time: 11:42 Procedure Note:: Colonoscopy Procedure Report: Colonoscopy Endoscopist: Rich Abraham II, MD Referring physician: Vahe Mark MD Date of Procedure: December 24, 2024 Equipment: Olympus 190 variable stiffness pediatric colonoscope Sedation: MAC sedation Indication: Mr. Soni is a 69-year-old gentleman who is here for follow-up surveillance colonoscopy secondary to a personal history of adenomatous colon polyps. The patient did have a colonoscopy (Steve Valadez M.D.) in February 2016 and had multiple polyps removed (mixture of tubular adenomas and hyperplastic polyps). He did have a better prep colonoscopy 1 month later and 2 polyps (tubular adenomas x 2) were removed. He has not had a colonoscopy since that time. He reports no abdominal pain, weight loss, change in his bowel habits or rectal bleeding. He reports no family history of colon cancer. Procedure: Prior to the procedure, a history and physical exam was performed, and patient's medications and allergies were reviewed. The risks, benefits and alternatives o f the sedation and procedure were discussed with the patient. All questions were answered and informed consent was obtained. The patient was brought to the procedure room. Patient identification and proposed procedure were verified by the physician and the nurse. The patient was placed in a left lateral decubitus position and the scope was passed under direct vision. Throughout the procedure, the patient's blood pressure, pulse, and oxygen saturations were monitored continuously. The colonoscopy was accomplished without difficulty. The patient tolerated the procedure well. Findings: On digital rectal examination there was normal rectal tone. There were no external hemorrhoids. The colonoscope was introduced through the anal canal to the rectum and advanced to the cecum. The ileocecal valve and appendiceal orifice were identified. The scope was advanced a short distance into the ileum which appeared grossly normal. The scope was then withdrawn into the colon. The cecum, ascending, transverse, descending, sigmoid and rectum were grossly normal. There were no mucosal abnormalities identified. Upon retroflexion within the rectum there were 1-2 internal hemorrhoids. The preparation was excellent throughout with [place] Preparation Score of 9. The cecal time was 12 minutes. Impression: 1. Normal colonoscopy with intubation of the terminal ileum Plan: The patient will not require surveillance colonoscopy again for 10 years by ACS guidelines.
[2024-12-24 11:43] VITALS: BP 77/40; PULSE 74; RESP 16; TEMP 36.2; O2SAT 97
[2024-12-24 11:53] VITALS: BP 93/57; PULSE 76; RESP 16; O2SAT 98
[2024-12-24 12:03] VITALS: BP 99/62; PULSE 69; RESP 18; O2SAT 97
[2024-12-24 12:13] VITALS: BP 113/71; PULSE 63; RESP 18; O2SAT 98
[2024-12-24 12:30] VITALS: BP 126/67; PULSE 68; RESP 18; TEMP 36.2; O2SAT 98
== END 2024-12-24 12:30 | disposition home or self-care (01) ==
PROVIDERS: PCP Family Medicine; Visit Provider Internal Medicine Gastroenterology
PROC: 0DJD8ZZ Inspection of Lower Intestinal Tract, Via Natural or Artificial Opening Endoscopic (ICD-10-PCS; CPT 45378; principal; 2024-12-24 11:30)
DX: Z12.11 Encounter for screening for malignant neoplasm of colon (principal); Z86.0102 Personal history of hyperplastic colon polyps; Z85.89 Personal history of malignant neoplasm of other organs and systems; Z95.0 Presence of cardiac pacemaker; I25.10 Atherosclerotic heart disease of native coronary artery without angina pectoris; J44.9 Chronic obstructive pulmonary disease, unspecified; I10 Essential (primary) hypertension; Z79.82 Long term (current) use of aspirin; Z79.899 Other long term (current) drug therapy; Z79.51 Long term (current) use of inhaled steroids; Z79.01 Long term (current) use of anticoagulants; Z88.6 Allergy status to analgesic agent; Z88.0 Allergy status to penicillin; Z88.8 Allergy status to other drugs, medicaments and biological substances; F17.210 Nicotine dependence, cigarettes, uncomplicated
CPT/HCPCS: G0105; J2003; J2704; J7120

== ENCOUNTER 2025-01-23 14:31 | Outpatient (CLI) | payer MEDICARE, SELFPAY ==
--- OUTSIDE RECORDS SUMMARY | 2024-12-31 12:37 | XMS_ITS | Encounter Summary ---
Author Organization Healthcare Address [address] [place] [address] Care Team Providers Care Construction Crew Member Name Role Phone Jackie Coy CONTRACT ADMINISTRATIVE ASSISTANT Unavailable [phone] Fredrick Esposito MD Unavailable [phone] Juan Clark DO Primary Care Provider [phone] Encounter Details Date Type Department Care Team (Latest Contact Info) Description 12/31/2024 12:37 PM EDT - 12/31/2024 1:29 PM EDT Hospital Encounter Cardiac Imaging [address] [place] [address] Liver lesion; Chronic viral hepatitis C (CMS/HCC) Discharge Disposition: Home or Self Care Social History Tobacco Use Types Packs/Day Years [...] on file documented as of this encounter Medications at Time of Discharge albuterol 108 (90 Base) MCG/ACT inhaler Inhale 2 puffs every 4 (four) hours as needed. 06/09/2020 carvedilol (Coreg) 3.125 MG tablet 05/28/2024 gabapentin (Neurontin) 600 MG tablet Take 1 tablet (600 mg total) by mouth 3 (three) times a day. 90 tablet 05/17/2021 lisinopril 10 MG tablet Take 1 tablet (10 mg) by mouth daily. 08/01/2024 oxyCODONE (Roxicodone) 10 MG immediate release tablet 08/03/2024 oxyCODONE (Roxicodone) 5 MG immediate release tablet Take 1 tablet (5 mg total) by mouth every 4 (four) hours if needed for severe pain. 55 tablet 05/17/2021 tadalafil (Adcirca) 20 MG tablet 05/28/2024 Trelegy Ellipta 100-62.5-25 MCG/ACT aerosol powder 11/16/2023 warfarin (Coumadin) 4 MG tablet TAKE TWO TABLETS BY MOUTH EVERY DAY OR DIRECTED 07/27/2024 pantoprazole (Protonix) 40 MG EC tablet Take 1 tablet by mouth daily. 08/22/2024 01/23/2025 documented as of this encounter Plan of Treatment Not on file documented as of this encounter Procedures Procedure Name Priority Date/Time Associated Diagnosis Comments CARDIAC DEVICE CONSULT - PRE MRI Routine 12/31/2024 1:47 PM EDT Liver lesion Chronic viral hepatitis C (CMS/HCC) documented in this encounter Results * Cardiac Device Consult - Pre-MRI (12/31/2024 1:47 PM EDT) Anatomical Region Laterality Modality Other Narrative 12/31/2024 5:29 PM EDT [facility] EP[facility]Device [facility]: In-Person CIED Evaluation & Report Name: Kimani Soni Date: 12/31/2024 : 1955 Age: 69 y.o. Device: Airline Pilot/First Officer: Wiley dual chamber PM Permanent Programming Mode : DDDR LRL: 60 bpm MTR: 130 bpm Lead Measurments Available measurements within normal limits. See attached report. Pacing Percentage: RA 21 % RV <1 % Battery: Service time remainin.2-9.9 years Evaluation: Presenting rhythm: sinus with 1:1 intrinsic conduction to the ventricle. Underlying rhythm: sinus with 1:1 intrinsic conduction to the ventricle. Patient is not dependent on CIED for cardiac rate support today, during CIED evaluation. Trends Sensing trends: Stable Impedance trends: Stable Threshold trends: Stable Rate Histograms : demonstrate good rate distribution. Heart rate trend : Stable Demonstrates appropriate sensing: Yes Demonstrates pacing capture: Yes Programming Changes: Iterative changes only. No permanent changes made. Arrhythmias: No new arrhythmia since last evaluation. Summary CIED functioning as expected, with given programming and data. Pre-MRI evaluation and recommendations Patient has a Wiley ) dual chamber pacemaker Model: [id number] Implant date 04/11/2023 Implant indication a fib CIED system made by two different manufacturers. CIED is not MRI conditionally safe. CIED system implanted >6 weeks Chest xray completed today, all leads accounted for. Patient is not considered dependent on CIED for cardiac rate support. Patient is approved to move forward with MRI scheduling process. DEVICE CLINIC RECOMMENDATIONS: PRE-MRI 1) Interrogate the CIED 2) Validate lead measurements are within acceptable limits. If they are not, do NOT proceed with the MRI 3) Program the MRI conditional device to MRI Safe Mode. 4) Patients who require pacing support, MRI pacing mode must be set to DOO, AOO or VOO 10-15 beats per minute higher than the patient's intrinsic rhythm to prevent competitive pacing. 5) If ICD, ensure tachy therapies are disabled. While disabled, patient must be monitored on telemetry. POST MRI 1) Interrogate the CIED 2) Return device to pre-MRI settings (including tachy therapy, if applicable). 3) Validate lead measurements are within acceptable limits. 4) Notify Diagnostic trauma doctor if any of the following are discovered in the post-MRI interrogation: Capture threshold change of >1.0 V Sensing drop >50% Pacing impedance change >5O ohms Shock impedance change >5 ohms 5) Leave printed copy of pre-MRI and post-MRI testing results and programming with Diagnostic trauma doctor. Attestation I personally performed this device check and provided results to ordering provider. Jennifer Akins APRN CV IMPLANTABLE CARDIAC JASON CE PROCEDURES Final Result documented in this encounter Visit [...] documented as of this encounter Care Teams Construction Crew Member Relationship Specialty Start Date End Date Juan Clark DO [address] [place] [address] [place] [address] PCP - General 12/31/24 Jackie Coy APRN [address] [place] [address] Nurse Practitioner Neurosurgery 03/27/21 Fredrick Esposito MD [address] [place] [address] Surgeon Neurosurgery 05/06/21 documented as of this encounter
--- OUTSIDE RECORDS SUMMARY | 2024-12-31 13:30 | XMS_ITS | Encounter Summary ---
Author Organization Healthcare Address [address] [place] [address] Care Team Providers Care Visual Merchandising Director Name Role Phone Jackie Coy ADMINISTRATIVE SUPERVISOR Unavailable [phone] Fredrick Esposito MD Unavailable [phone] Juan Clark DO Primary Care Provider [phone] Encounter Details Date Type Department Care Team (Latest Contact Info) Description 12/31/2024 1:30 PM EDT - 12/31/2024 11:59 PM EDT Hospital Encounter [facility] [address] [place] [address] Presence of cardiac pacemaker Discharge Disposition: Home [...] documented as of this encounter Care Teams Visual Merchandising Director Relationship Specialty Start Date End Date Juan Clark DO [address] [place] [address] PCP - General 12/31/24 Jackie Coy APRN [address] [place] [address] Nurse Practitioner Neurosurgery 03/27/21 Fredrick Esposito MD [address] [place] [phone] Surgeon Neurosurgery 05/06/21 documented as of this encounter
--- OUTSIDE RECORDS SUMMARY | 2025-01-16 10:46 | XMS_ITS | Encounter Summary ---
Author Organization Healthcare Address [address] [place] [address] Care Team Providers Care Pulverizer Operator Name Role Phone Jackie Coy SANGEETHA Unavailable [phone] Fredrick Esposito MD Unavailable [phone] Juan Clark DO Primary Care Provider [phone] Reason for Referral * Imaging (Routine) - Closed Specialty Diagnoses / Procedures Referred By Isak berman Referred To Contact Radiology Diagnoses Liver lesion Chronic viral hepatitis C (CMS/HCC) Procedures MR Abdomen w and wo IV Contrast Jennifer Akins APRN [address] [address] Phone: tel: fax: Referral ID Status Reason Start Date Expiration Date Visits Re quested Visits Authorized [id number] Closed 08/16/2024 02/15/2026 1 1 Reason for Visit * Imaging (Routine) - Closed Specialty Diagnoses / Procedures Referred By Contcristhian berman Referred To Contact Radiology Diagnoses Liver lesion Chronic viral hepatitis C (CMS/HCC) Procedures MR Abdomen w and wo IV Contrast Jennifer Akins APRN [address] [facility] [address] [place] [address] Phone: tel: fax: Referral ID Status Reason Start Date Expiration Date Visits Re quested Visits Authorized [id number] Closed 08/16/2024 02/15/2026 1 1 Encounter Details Date Type Department Care Team (Latest Contact Info) Description 01/16/2025 10:46 AM EDT - 01/16/2025 11:59 PM EDT Hospital Encounter [facility] Radiology [address] [place] [address] Vahe Juarez, RN CH-PAV A 5 T2 [...] from the original note were not included. [id number] Magnetic Resonance Imaging (MRI) Magnetic resonance imaging [...] is: Last Reviewed Date: 2022 00:00:00 ?? [id number] [employer] All rights reserved. This information is not [...] using the following sequences: coronal single shot [id number] fast spin echo, axial T2 weighted sequences [...] MD on 01/16/2025 3:25 PM Jennifer Panchal [facility] MANUFACTURING GROUP LEADER IMG MRI PROCEDURES Final Re sult documented [...] documented as of this encounter Care Teams Pulverizer Operator Relationship Specialty Start Date End Date Juan Clark DO [address] [place] [address] PCP - General 12/31/24 Jackie Coy APRN [address] [facility] [address] [place] [address] Nurse Practitioner Neurosurgery 03/27/21 Fredrick Esposito MD [address] [place] [phone] Surgeon Neurosurgery 05/06/21 documented as of this encounter
--- OUTSIDE RECORDS SUMMARY | 2025-01-23 10:10 | XMS_ITS | Encounter Summary ---
Author Organization Healthcare Address [address] [place] [address] Care Team Providers Care Organizational Development Director Name Role Phone Jackie Coy SANGEETHA Unavailable [phone] Fredrick Esposito MD Unavailable [phone] Juan Clark DO Primary Care Provider [phone] Reason for Referral * Imaging (Routine) - Pending Review Specialty Diagnoses / Procedures Referred By Isak berman Referred To Contact Radiology Diagnoses Hepatic cyst Procedures MR Abdomen w and wo IV Contrast Jennifer Akins APRN [address] [facility] [address] [place] [address] Phone: tel: fax: Referral ID Status Reason Start Date Expiration Date V isits Requested Visits Authorized [id number] Pending Review 01/23/2025 07/25/2026 1 1 Encounter Details Date Type Department Care Team (Late st Contact Info) Description 01/23/2025 10:10 AM EDT [facility] Visit [facility] [address] [place] [address] Jennifer Akins APRN [address] [facility] [address] [place] [id number] Chronic hepatitis C without hepatic coma (CMS/HCC) (Primary Dx); Hepatic cyst Social History Tobacco Use Types Packs/Day Years Used Date Smoking Tobacco: Every Day Cigarettes 0.8 50 Smokeless Tobacco: Never Alcohol Use Standard Drinks/Week Comments Not Currently 0 (1 standard drink = 0.6 oz pur e alcohol) quit 2018. PHQ-2 Answer Date Recorded Patient Health Questionnaire-2 Score 2 01/23/2025 PHQ-9 Answer Date Recorded Patient Health Questionnaire-9 Score 9 01/23/2025 Sex and Gender Information Value Date Recorded Sex Assigned at Not on file Legal Sex Male 8:43 PM EDT Gender Identity Not on file Sexual Orientation Not on file documented as of this encounter Last Filed Vital Signs Vital Sign Reading Time Taken Comments Blood Pressure 100/70 01/23/2025 10:08 AM EDT Pulse 59 01/23/2025 10:08 AM EDT Temperature 36.4 C (97.5 F) 01/23/2025 10:08 AM EDT Respiratory Rate - - Oxygen Saturation 100% 01/23/2025 10:08 AM EDT Inhaled Oxygen Concentration - - Weight 58 kg (127 lb 13.9 oz) 01/23/2025 10:08 A M EDT Height 177.8 cm (5' 10 ) 01/23/2025 10:08 AM EDT Body Mass Index 18.35 01/23/2025 10:08 AM EDT documented in this encounter Functional Status * Over the past 2 weeks, how often have you been bothered by any of the following problems? Question Answer Date of Assessment Author Little interest or pleasure in doing things Several days 01/23/2025 10:10 AM EDT Perry Souza Feeling down, depressed, or hopeless Several days 01/23/2025 10:10 AM EDT Perry Souza Patient Health Questionnaire -2 Score 2 01/23/2025 10:10 AM EDT Perry Souza * Question Answer Date of Assessment Author Trouble falling or staying asleep, or sleeping too much Nearly every day 01/23/2025 10:10 AM ONELIAT Perry Souza Feeling tired or having little energy Nearly every day 01/23/2025 10:10 AM EDT Perry Souza Poor appetite or overeating Several days 01/23/2025 10 :10 AM EDT Perry oSuza Feeling bad about yourself - or that you are a failure or have let yourself or your family down Not at all 01/23/2025 10:10 AM ONELIAT Perry Souza Trouble concentrating on things, such as reading the newspaper or watching television Not at all 01/23/2025 10:10 AM ONELIAT Perry Souza Moving or speaking so slowly that other people could have noticed? Or the opposite - being so fidgety or restless that you have been moving around a lot more than usual. Not at all 01/23/2025 10:10 AM Perry Eisenberg Thoughts that you would be better off or hurting yourself in some way Not at all 01/23/2025 10:10 AM Perry Eisenberg Patient Health Questionnaire-9 Score 9 01/23/2025 10:10 AM Perry Eisenberg * If you checked off any problems on this questionnaire so far, Question Answer Date of Assessment Author How difficult have these problems made it for you to do your work, take care of things at home, or get along with other people? Not difficult at all 01/23/2025 10:10 AM Perry Eisenberg * How difficult have these problems made it for you to do your work, take care of things at home, or get along with other people? Answer Date of Assessment Author Not difficult at all 01/23/2025 10:10 AM EDT Perry Muñoz documented as of this encounter Miscellaneous Notes * Progress Notes - Jennifer Akins APRN - 01/23/2025 10:10 AM EDT Images from the original note were not included. MEDICINE SPECIALTIES Hepatology Note History of Presenting Illness Kimani oSni is a 70 y.o. male presenting for chronic hepatitis C, liver lesion. Past medical history: COPD, Atrial fibrillation, CAD, HTN, malignant neoplasm of throat (2017). Last seen 10/26/2024. Patient completed MR abdomen 01/16/2025 which showed multiple bilobar hepatic cysts with variable degree of thin septations, no suspicious solid hepatic lesions. He reports no abdominal pain. He is ready to start HCV treatment. Liver history from initial consult: Pt initially diagnosed with HCV in 2015. Reports no history of treatment. Denies any [...] 05/16/2021 C3-C4 ACDF APPENDECTOMY N/A Appendectomy from [employer] CARDIAC PACEMAKER PLACEMENT N/A Pacemaker Placement from [employer] NECK SURGERY N/A Neck Surgery from [employer] OTHER SURGICAL HISTORY N/A Pacemaker insertion from [facility]IMULATOR IMPLANT Placement and removal THROAT SURGERY N/A Throat Surgery from [employer] Family History Family History Problem Relation Name [...] file Social Connections: Unknown (03/21/2023) Received from [facility] Family and Community Support Help with Day-to-Day Activities: Not on file Lonely or Isolated: Not on file Intimate Partner Violence: Unknown (03/21/2023) Received from [facility] Abuse Screen Unsafe at Home or Work/School: Not on file Feels Threatened by Someone?: Not on file Does Anyone Keep You from Contacting Others or Doint Things Outside the Home?: Not on file Physical Sign of Abuse Present: Not on file Housing Stability: Unknown (03/21/2023) Received from [facility] Housing Stability Current Living Arrangements: Not on [...] Oral, Every 4 hours PRN pantoprazole (PROTONIX) 20 mg, Oral, Daily, Do not crush, chew, or split. Qulipta 60 mg, Daily sofosbuvir-velpatasvir (Epclusa) 400-100 MG tablet 1 tablet, Oral, Daily tadalafil (Adcirca) 20 MG tablet Trelegy Ellipta 100-62.5-25 MCG/ACT aerosol powder warfarin (Coumadin) 4 MG tablet TAKE TWO TABLETS BY MOUTH EVERY DAY OR DIRECTED Allergies Allergies Allergen Reactions Methocarbamol Hives Cyclobenzaprine Rash Penicillins Rash Vital Signs Visit Vitals BP 100/70 Pulse 59 Temp 36.4 ??C (97.5 ??F) (Oral) Ht 1.778 m (5' 10 ) Wt 58 kg (127 lb 13.9 oz) SpO2 100% BMI 18.35 kg/m?? Smoking Status Every Day BSA 1.69 m?? Physical Exam General - well nourished and [...] Labs Lab Results Component Value Date/Time AST 33 10/26/2024 1055 ALT 33 10/26/2024 1055 ALKPHOS 60 10/26/2024 1055 BILITOT 0.2 10/26/2024 1055 INR 2.6 (H) 10/26/2024 1055 ALBUMIN 4.2 10/26/2024 1055 CREATININE 0.86 10/26/2024 1055 AFP <2.3 10/26/2024 1055 Lab Results Component Value Date/Time HGB 13.4 (L) 10/26/2024 1055 WBC 6.30 10/26/2024 1055 PLT 156 10/26/2024 1055 Hepatitis Serologies Lab Results Component Value Date/Time [...] Plan Problem List Items Addressed This Visit Hepatitis C virus infection - Primary Relevant Medications sofosbuvir-velpatasvir (Epclusa) 400-100 MG tablet pantoprazole (ProtoNix) 20 MG EC tablet Other Relevant Orders Hepatitis C Virus (HCV) Quantitative PCR Prothrombin Time/INR Comprehensive Metabolic Panel, Plasma CBC and Differential Kimani Soni is a 70 y.o. male presenting for chronic hepatitis C, [...] 51; HBsAg (-); HCVAb (+); viral load [id number]; platelets, albumin, t.bili normal - 01/16/25: MR abdomen- multiple bilobar hepatic cysts with variable degree of thin septations, however without abnormal soft tissue component and no suspicious solid hepatic lesion #Chronic Hepatitis C, Genotype 3 - initially diagnosed in 2015, treatment naive - 08/2024: HCV viral load 2.2mil - fibroscan 10/26/24: LSM 9.4 kPa; CAP 207dB/m; IQR 15% c/w F2-F3 fibrosis PLAN - baseline labs for HCV treatment ordered today and faxed to PCP - Andrey x12 weeks sent to [facility] - discussed MRI with Dr. Dumont - recommend follow-up MRI in 1 year, ordered today. Return to clinic as scheduled through HCV treatment program # Health Maintenance Immune to Hepatitis A Not immune to Hepatitis B HBsAg - negative Colonoscopy - follows locally per patient, scheduled A total of 32 minutes was spent on this patient encounter - educating patient, interpreting and discussing labs and imaging, impressions, prognosis, risks/benefits of current treatment options, risk factor reduction, instructions for management, and documentation. Care coordination provided included review and summary of medical records and additional diagnostic research, phone collaboration and consult with peers. documented in this encounter Plan of Treatment Scheduled Orders Name Type Priority Associated Diagnoses Orde r Schedule Hepatitis C Virus (HCV) Quantitative PCR Lab Routine Chronic hepatitis C without hepatic coma (CMS/HCC) Expected: 01/23/2025 (Approximate), Expires: 07/26/2026 Prothrombin Time/INR Lab Routine Chronic hepatitis C without hepatic coma (CMS/HCC) Expected: 01/23/2025 (Approximate), Expires: 07/26/2026 Comprehensive Metabolic Panel, Plasma Lab Routine Chronic hepatitis C without hepatic coma (CMS/HCC) Expected: 01/23/2025 (Approximate), Expires: 07/26/2026 CBC and Differential Lab Routine Chronic hepatitis C without hepatic coma (CMS/HCC) Expected: 01/23/2025 (Approximate), Expires: 07/26/2026 MR Abdomen w and wo IV Contrast Imaging Routine Hepatic cyst Expected: 01/23/2026 (Approximate), Expires: 07/27/2026 documented as of this encounter Visit Diagnoses Diagnosis Chronic hepatitis C without hepatic coma (CMS/HCC)- Primary Hepatic cyst Other specified disorders of liver documented in this encounter Additional Health Concerns Assessment Noted Time PHQ-9 Depression Total Score: 9 01/24/20 25 10:10 AM EDT A fall risk assessment has been complete d for the patient 01/23/2025 10:12 AM EDT A Body Mass Index follow-up plan has been documented for the patient 01/23/2025 11:59 AM EDT documented as of this encounter Care Teams Organizational Development Director Relationship Specialty Start Date End Date Juan Clark DO [address] [place] [address] [place] [address] PCP - General 12/31/24 Jackie Coy APRN [address] [place] [address] Nurse Practitioner Neurosurgery 03/27/21 Fredrick Esposito MD [address] [place] [address] Surgeon Neurosurgery 05/06/21 documented as of this encounter
--- OUTSIDE RECORDS SUMMARY | 2025-01-23 14:34 | XMS_ITS | Encounter Summary ---
Author Organization Healthcare Address [address] [place] [address] Care Team Providers Care Health Information Management Director Name Role Phone Jackie Coy LIQUID FLOOR AND WALL APPLIER Unavailable [phone] Fredrick Esposito MD Unavailable [phone] Juan Clark DO Primary Care Provider [phone] Encounter Details Date Type Department Care Team (Latest Contact Info) Description 01/16/2025 Travel Social History Tobacco Use Types Packs/Day [...] on file documented as of this encounter Visit Diagnoses [...] documented as of this encounter Care Teams Health Information Management Director Relationship Specialty Start Date End Date Juan Clark DO [address] [place], [place] [address] PCP - General 12/31/24 Jackie Coy APRN [address] [place] [address] Nurse Practitioner Neurosurgery 03/27/21 Fredrick Esposito MD [address] [place] [address] Surgeon Neurosurgery 05/06/21 documented as of this encounter
--- OUTSIDE RECORDS SUMMARY | 2025-01-23 14:34 | XMS_ITS | Encounter Summary ---
Author Organization Healthcare Address [address] [place] [address] Care Team Providers Care Cataract Lens Generator Name Role Phone Jackie Coy HISTORY TUTOR Unavailable [phone] Fredrick Esposito MD Unavailable [phone] Yuniel Clark DO Primary Care Provider [phone] Juan Clark DO Primary Care Provider [phone] Encounter Details Date Type Department Care Team (Late st Contact Info) Description 08/21/2024 Results Follow-Up [facility] Medicine Specialties [address] [place] [address] Jennifer Akins, HISTORY TUTOR [address] [place] [address] Social History Tobacco Use Types [...] on file documented as of this encounter Miscellaneous Notes * Telephone Encounter - Mega Foreman RN - 01/17/2025 3:42 PM EDT S/W patient -gave him Jennifer's message -asked if cysts will hurt anything, explained that they are typically benign and can be watched with further imaging -he cancelled his appt because he has not been feeling well -rescheduled appt for next week -verbalized understanding of all, no further questions * Telephone Encounter - Mega Foreman RN - 01/17/2025 3:41 PM EDT ----- Message from Jennifer Akins APRN sent at 01/17/2025 8:58 AM EDT ----- Please inform patient his MRI shows multiple hepatic cysts, with no suspicious lesions. We can proceed with HCV treatment. He cancelled his follow-up today. Is he going to reschedule? We can also do telehealth if needed Thanks. ----- Message ----- From: Interface, Radiology Results In Sent: 01/16/2025 3:26 PM EDT To: Jennifer Akins APRN * Telephone Encounter - Ysabel Mercer - 08/21/2024 1:08 PM EDT Called and spoke with patient Relayed provider message regarding lab results Patient states that he will be going to see PCP tomorrow and requested lab results be sent over Patient had not scheduled MRI yet- transferred patient to radiology scheduling to schedule MRI Patient verbalized understanding, no questions or concerns at this time * Telephone Encounter - Ysabel Mercer - 08/21/2024 1:07 PM EDT ----- Message from Jennifer Akins APRN sent at 08/21/2024 11:16 AM EDT ----- Please inform patient labs are consistent with Hepatitis C. I would recommend hepatitis B vaccination. No further concerns at this time. Please give him ph# to radiology to schedule MRI. Thanks ----- Message ----- From: Lab, Background User Sent: 08/16/2024 3:22 PM EDT To: Jennifer Akins APRN * Result Encounter Note - Jennifer Akins APRN - 08/21/2024 11:16 AM EDT Please inform patient labs are consistent with Hepatitis C. I would recommend hepatitis B vaccination. No further concerns at this time. Please give him ph# to radiology to schedule MRI. Thanks documented in this encounter Plan of Treatment [...] plan has been documented for the patient 08/16/2024 1:30 PM EST documented as of this encounter Care Teams Cataract Lens Generator Relationship Specialty Start Date End Date Yuniel Clark DO [address] [place] [address] PCP - General 08/16/24 12/30/24 Juan Clark DO [address] [facility] [address] [place] [address] PCP - General 12/31/24 Jackie Coy APRN [address] [place] [address] Nurse Practitioner Neurosurgery 03/27/21 Fredrick Esposito MD [address] [place] [address] Surgeon Neurosurgery 05/06/21 documented as of this encounter
--- OUTSIDE RECORDS SUMMARY | 2025-01-23 14:34 | XMS_ITS | Encounter Summary ---
Author Organization Healthcare Address [address] [place] [address] Care Team Providers Care Adolescent Counselor Name Role Phone Jackie Coy ASSISTANT GROCERY STORE MANAGER Unavailable [phone] Fredrick Esposito MD Unavailable Juan Clark DO Primary Care Provider [phone] Encounter Details Date Type Department Care Team (Late st Contact Info) Description 01/17/[address] [facility] Medicine Specialties [address] [place] [address] Jennifer Akins, ASSISTANT GROCERY STORE MANAGER [address] [place] [address] Social History Tobacco Use Types Packs/Day Years Used Date Smoking Tobacco: Every Day Cigarettes 0.8 50 Smokeless Tobacco: Never Alcohol Use Standard Drinks/Week Comments Not Currently 0 (1 standard drink = 0.6 oz pur e alcohol) quit 2019. PHQ-2 Answer Date Recorded Patient Health Questionnaire-2 [...] Telephone Encounter - Mega Foreman RN - 01/18/2025 3:48 PM EDT S/W patient on 01/17/25 and provided MRI results, please see result note charting * Telephone Encounter - Andrew Brook N - 01/17/2025 8:14 AM EDT Clinical Concern/Question Reason for Call: patient calling would like call back to see if provider could call him with results for MRI as patient is not feeling well today Best contact number: Other: [phone] Optimal time of day to reach caller: ANYTIME Additional comments/information from caller: None Note: Please do not reply to this message. Follow-up communication and further actions as a result of this message need to be communicated with the patient directly, if the patient is not active onMyChart. If the patient is active on MyChart, they will receive notification of the communication/outcome via [employer]. documented in this encounter Plan of Treatment [...] documented as of this encounter Care Teams Adolescent Counselor Relationship Specialty Start Date End Date Juan Clark DO [address] [place] [id number] PCP - General 12/31/24 Jackie Coy APRN [address] [place] [address] Nurse Practitioner Neurosurgery 03/27/21 Fredrick Esposito MD [address] [place] [address] Surgeon Neurosurgery 05/06/21 documented as of this encounter
--- OUTSIDE RECORDS SUMMARY | 2025-01-23 14:34 | XMS_ITS | Encounter Summary ---
Author Organization Healthcare Address [address] [place] [address] Care Team Providers Care Computer Systems Technician Name Role Phone Luis Mendez MD Primary Care Provider [phone] Jackie Coy APRN Unavailable Fredrick Esposito MD Unavailable [phone] Yuniel Clark DO Primary Care Provider [phone] Juan Clark DO Primary Care Provider [phone] Reason for Referral * Consultation (Routine) - Closed Specialty Diagnoses / Procedures Referred By Isak berman Referred To Contact Neurosurgery Diagnoses Radiculopathy, cervical Luis Mendez MD [address] [place] [address] Phone: tel: fax: Referral ID Status Reason Start Date Expiration Date V isits Requested Visits Authorized [id number] Closed Specialty Services Required 03/19/2021 09/18/2022 1 1 Encounter Details Date Type Department Care Team (Late st Contact Info) Description 03/19/2021 Community [facility] [address] [place] [address] Luis Mendez MD [address] [place] [address] Radiculopathy, cervical (Primary Dx) Social History [...] as of this encounter Plan of Treatment Scheduled Referrals Name Type Priority Associated Diagnoses Order Schedule Ambulatory Referral to Neurosurgery Outpatient Referral Routine Radiculopathy, cervical 1 Occurrences starting 03/19/2021 until 09/17/2021 documented as of this encounter Visit Diagnoses Diagnosis Radiculopathy, cervical- Primary Brachial neuritis or radiculitis nos documented in this encounter Care Teams Computer Systems Technician Relationship Specialty Start Date End Date Luis Mendez MD [address] [place] [address] PCP - General 10/24/20 08/15/24 Yuniel Clark DO [address] [place] [address] PCP - General 08/16/24 12/30/24 Juan Clark DO [address] [place] [address] PCP - General 12/31/24 Jackie Coy APRN [address] [facility] [address] [place] [address] Nurse Practitioner Neurosurgery 03/27/21 Fredrick Esposito MD [address] [place] [address] Surgeon Neurosurgery 05/06/21 documented as of this encounter
--- OUTSIDE RECORDS SUMMARY | 2025-01-23 14:34 | XMS_ITS | Encounter Summary ---
Author Organization Healthcare Address [address] [place] [address] Care Team Providers Care Recoverer Name Role Phone Jackie Coy SATELLITE DISH REPAIRER Unavailable [phone] Fredrick Esposito MD Unavailable [phone] Juan Clark DO Primary Care Provider [phone] Encounter Details Date Type Department Care Team (Latest Contact Info) Description 01/23/2025 Travel Social History Tobacco Use Types Packs/Day [...] on file documented as of this encounter Functional Status * Over the past 2 weeks, how often have you been bothered by any of the following problems? Question Answer Date of Assessment Author Little interest or pleasure in doing things Several days 01/23/2025 10:10 AM Perry Eisenberg Feeling down, depressed, or hopeless Several days 01/23/2025 10:10 AM Perry Eisenberg Patient Health Questionnaire -2 Score 2 01/23/2025 10:10 AM Perry Eisenberg * Question Answer Date of Assessment Author Trouble falling or staying asleep, or sleeping too much Nearly every day 01/23/2025 10:10 AM ONELIAT Perry Souza Feeling tired or having little energy Nearly every day 01/23/2025 10:10 AM Perry Eisenberg Poor appetite or overeating Several days 01/23/2025 10 :10 AM Perry Eisenberg Feeling bad about yourself - or that [...] usual. Not at all 01/23/2025 10:10 AM ONELIAT Perry Souza Thoughts that you would be better off or hurting yourself in some way Not at all 01/23/2025 10:10 AM Perry Eisenberg Patient Health Questionnaire-9 Score 9 01/23/2025 10:10 AM ONELIAT Perry Souza * If you checked off any problems on this questionnaire so far, Question Answer Date of Assessment Author How difficult have these problems made it for you to do your work, take care of things at home, or get along with other people? Not difficult at all 01/23/2025 10:10 AM ONELIAT Perry Souza * How difficult have these problems made it for you to do your work, take care of things at home, or get along with other people? Answer Date of Assessment Author Not difficult at all 01/23/2025 10:10 AM EDT Perry Muñoz documented as of this encounter Plan of [...] documented as of this encounter Care Teams Recoverer Relationship Specialty Start Date End Date Juan Clark DO [address] [place] [address] PCP - General 12/31/24 Jackie Coy APRN [address] [place] [address] Nurse Practitioner Neurosurgery 03/27/21 Fredrick Esposito MD [address] [place] [address] Surgeon Neurosurgery 05/06/21 documented as of this encounter
--- OUTSIDE RECORDS SUMMARY | 2025-01-23 14:34 | XMS_ITS | Encounter Summary ---
Author Organization Healthcare Address [address] [place] [address] Care Team Providers Care Hvac Controls Technician Name Role Phone Jackie Coy ELECTROLYSIST Unavailable [phone] Fredrick Esposito MD Unavailable [phone] Juan Clark DO Primary Care Provider [phone] Encounter Details Date Type Department Care Team (Late st Contact Info) Description 01/09/2025 Telephone [facility] [address] [place] [address] Vivi Ko, RN [facility] Social History Tobacco Use Types Packs/Day Years [...] documented as of this encounter Care Teams Hvac Controls Technician Relationship Specialty Start Date End Date Juan Clark DO [address] [place] [address] PCP - General 12/31/24 Jackie Coy APRN [address] [place] [address] Nurse Practitioner Neurosurgery 03/27/21 Fredrick Esposito MD [address] [place] [address] Surgeon Neurosurgery 05/06/21 documented as of this encounter
--- OUTSIDE RECORDS SUMMARY | 2025-01-23 14:34 | XMS_ITS | Clinical Summary ---
Author Organization Healthcare Address [address] [place] [address] Care Team Providers Care Beef Lugger Name Role Phone Jackie Coy DISPUTE COORDINATOR Unavailable [phone] Fredrick Esposito MD Unavailable [phone] Juan Clark DO Primary Care Provider [phone] Allergies Active Allergy Reactions Criticality Noted Date Comments Cyclobenzaprine Rash Low 06/25/2014 Methocarbamol Hives Medium 05/16/2021 Penicillins Rash Low 11/04/2016 Medications albuterol 108 (90 Base) MCG/ACT inhaler Inhale 2 puffs every 4 (four) hours as needed. 06/09/20 20 Active gabapentin (Neurontin) 600 MG tablet Take 1 tablet (600 mg total) by mouth 3 (three) times a day. 90 tablet 05/17/20 21 Active oxyCODONE (Roxicodone) 5 MG immediate release tablet Take 1 tablet (5 mg total) by mouth every 4 (four) hours if needed for severe pain. 55 tablet 05/17/20 21 Active Additional Information Patient not taking.Reported on 01/23/2025 carvedilol (Coreg) 3.125 MG tablet 05/28/20 24 Active lisinopril 10 MG tablet Take 1 tablet (10 mg) by mouth daily. 08/01/19 25 Active tadalafil (Adcirca) 20 MG tablet 05/28/20 24 Active warfarin (Coumadin) 4 MG tablet TAKE TWO TABLETS BY MOUTH EVERY DAY OR DIRECTED 07/27/19 25 Active Trelegy Ellipta 100-62.5-25 MCG/ACT aerosol powder 11/16/19 24 Active oxyCODONE (Roxicodone) 10 MG immediate release tablet 08/03/19 Active Qulipta 60 MG tablet Take 60 mg by mouth daily. 01/10/20 25 Active sofosbuvir-lacho patasvir (Epclusa) 400-100 MG tabletIndicati ons:Chronic hepatitis C without hepatic coma (CMS/HCC) Take 1 tablet by mouth daily. 28 tablet 2 01/24/20 25 025 Active pantoprazole (ProtoNix) 20 MG EC tabletIndicati ons:Chronic hepatitis C without hepatic coma (CMS/HCC) Take 1 tablet by mouth daily. Do not crush, chew, or split. 30 tablet 2 01/24/20 25 Active pantoprazole (Protonix) 40 MG EC tablet Take 1 tablet by mouth daily. 08/23/19 025 Discontinued Active Problems Problem Noted Date Diagnosed Date [...] (05/06/2021): Added automatically from request for surgery [id number] Encounters Date Type Department Care Team Description 01/23/2025 10:10 AM EDT Office Visit [facility] Medicine Specialties 0 [facility], [address] [place] [phone] Jennifer Akins APRN Chronic hepatitis C without hepatic coma (CMS/HCC) (Primary Dx); Hepatic cyst 01/23/2025 Telephone [facility] Medicine Specialties 0 [facility], [address] [place] [phone] Jennifer Akins APRN Prior-authorization/ insurance Verification 01/23/2025 Travel 01/17/2025 Telephone [facility] Medicine Specialties [address] [address] Jennifer Akins APRN 01/16/2025 10:46 AM EDT - 01/16/2025 11:59 PM EDT Hospital Encounter [facility] [address] [place] [phone] Vahe Juarez, RN Liver lesion; Chronic viral hepatitis C (CMS/HCC) Discharge Disposition: Home or Self Care 01/16/2025 Travel 01/09/2025 Telephone [facility] [address] [place] [address] Vivi Ko RN 12/31/2024 1:30 PM EDT - 12/31/2024 11:59 PM EDT Hospital Encounter [facility] [address] [place] [phone] Presence of cardiac pacemaker Discharge Disposition: Home or Self Care 12/31/2024 12:37 PM EDT - 12/31/2024 1:29 PM EDT Hospital Encounter Cardiac Imaging [address] [place] [phone] Liver lesion; Chronic viral hepatitis C (CMS/HCC) Discharge Disposition: Home or Self Care 12/31/2024 Travel 10/29/2024 Results Follow-Up [facility] Medicine Specialties [address] [place] [phone] Jennifer Akins APRN 10/26/2024 10:50 AM EDT Clinical [facility] [address] [address] Liver lesion; Chronic hepatitis C without hepatic coma (CMS/HCC); Elevated liver enzymes 10/26/2024 10:10 AM EDT Office Visit [facility] Medicine Specialties [address] [place] [phone] Jeninfer Akins, SANGEETHA Liver lesion (Primary Dx); Chronic hepatitis C without hepatic coma (CMS/HCC); Elevated liver enzymes 10/26/2024 9:30 AM EDT Ancillary Procedure [facility] Medicine Specialties [address] [place] [address] [address] Liver lesion; Chronic viral hepatitis C (CMS/HCC) 10/26/2024 Travel from Last 3 Months Immunizations Immunization Administration Dates Next Due Pneumococcal Polysaccharide PPV23 06/15/2016 Family History Medical History Relation Name Comments [...] F) 01/23/2025 10:08 AM EDT Respiratory Rate 14 01/16/2025 12:40 PM EDT Oxygen Saturation 100% 01/23/2025 10:08 AM EDT Inhaled Oxygen Concentration - - Weight 58 kg (127 lb 13.9 oz) 01/23/2025 10:08 A M EDT Height 177.8 cm (5' 10 ) 01/23/2025 10:08 AM EDT Body Mass Index 18.35 01/23/2025 10:08 AM EDT Plan of Treatment Health Maintenance Due Date Last Done Comments [facility]Medic[facility] Annual Wellness (AWV) 1955 [facility]-Infant/Child/Adol SDOH Screenings 1955 [facility]- SDOH Screenings 1975 [...] [facility]-Abdominal Aortic Aneurys m (AAA) Screening 2022 [id number] Vaccine ( season) 2024 [facility]-Influenza Vaccine (#1) 2025 [facility]-Depression Screening 01/23/2026 025, 01/23/2025 HPV Vaccines Aged Out No longer eligi [...] this topic Medical Devices Implanted Type Area Surface Water Manager Device Identifier Shelf Expiration Date Model / Serial / Lot Medtronic Atrial Lead-11/11/2009 Implanted:06/2009 (Quantity not on file) Lead Chest Wall Medtronic 5076 / [id number] / Medtronic Ventricular Lead-11/11/2009 Implanted:06/2009 (Quantity not on file) Lead Chest Wall Medtronic 5076 / [id number] / Assurity Pacemaker Wiley- 023 Implanted:03/15 by Jaun Hardin MD (Quantity not on file) Pacemaker Chest Wall Peek@U 2272 / [id number] / Description:MEDTRONIC LEADS Implanted on 11/11/2009 ATRIAL LEAD MODEL: 5076/ Serial number: [id number] VENTRICLE LEAD MODEL: 5076/ Serial number: [id number] NON-conditional MRI system due to MIXED system of leads and generator. One Level Plate, 14mm - [id number] Implanted:Qty: 1 on 05/16/2021 by Blake Dickerson MD at [facility] Plate N/A: Spine Cervical DePuy Spine DeckDAQ [id number] 05/16/2022 [id number] / / Self Drilling Screw 16mm - [id number] Implanted:Qty: 4 on 05/16/2021 by Blake Dickerson MD at [facility] Screw N/A: Spine Cervical DePuy Spine DeckDAQ [id number] 05/16/2022 [id number] / / Knee Vanguard1 Cervical Preservon 8mm - [id number] - [id number] Implanted:Qty: 1 on 05/16/2021 by Fredrick Esposito MD at [facility] N/A: Spine Cervical [facility]-650216 12/01/2025 [id number] / [id number] / [id number] Graft Vivigen 1cc - [id number] - [id number] Implanted:Qty: 1 on 05/16/2021 by Fredrick Esposito MD at [facility] N/A: Spine Cervical [facility]-125727 10/22/2021 [id number] / [id number] / [id number] Explanted Type Area Surface Water Manager Device Identifier Shelf Expiration Date Model / Serial / Lot Compression Pin, 14mm - [id number] Explanted:Qty: 2 on 05/16/2021 by Blake Dickerson MD at [facility] Pin N/A: Spine Cervical DePuy Spine DeckDAQ [id number] 05/16/2022 [id number] / / Procedures Procedure Name Priority Date/Time Associated Diagnosis Comments MR ABDOMEN W AND WO IV CONTRAST Routine 01/16/2025 12:32 PM EDT Liver lesion Chronic viral hepatitis C (CMS/HCC) XR CHEST 2 VIEWS Routine 12/31/2024 1:49 PM EDT Presence of cardiac pacemaker CARDIAC DEVICE CONSULT - PRE MRI Routine 12/31/2024 1:47 PM EDT Liver lesion Chronic viral hepatitis C (CMS/HCC) ALPHA FETOPROTEIN, SERUM Routine 10/26/2024 10:55 AM [...] (CMS/HCC) from Last 3 Months Results * MR Abdomen w and wo [...] using the following sequences: coronal single shot [id number] fast spin echo, axial T2 weighted sequences [...] Schofield MD on 01/16/2025 3:25 PM Jennifer Akins DISPUTE COORDINATOR IMG MRI PROCEDURES Final Re sult * XR Chest 2 Views (12/31/2024 1:49 [...] VARGAS IMG XR PROCEDURES Final Resul t * Cardiac Device Consult - Pre-MRI (12/31/2024 1:47 PM EDT) Anatomical Region Laterality Modality Other Narrative 12/31/2024 5:29 PM EDT [facility]: In-Person CIED Evaluation & Report Name: Kimani Soni Date: 12/31/2024 : 1955 Age: 69 y.o. Device: Surface Water Manager: Wiley dual chamber PM Permanent Programming Mode [...] are within acceptable limits. 4) Notify Diagnostic transport engineer if any of the following are discovered in the post-MRI interrogation: Capture threshold change of >1.0 V Sensing drop >50% Pacing impedance change >5O ohms Shock impedance change >5 ohms 5) Leave printed copy of pre-MRI and post-MRI testing results and programming with Diagnostic transport engineer. Attestation I personally performed this device check and provided results to ordering provider. Jennifer Akins APRN CV IMPLANTABLE CARDIAC JASON CE PROCEDURES Final Result * Alpha Fetoprotein, Serum (10/26/2024 10:55 AM EDT) Pathologist [facility] Alpha Fetoprotein, Serum <2.3 <10.0 ng/mL 10/26/2024 12:21 PM EDT [facility] Blood Venous blood specimen / Unknown Venipuncture / Unknown 10/26/2024 10:55 AM EDT 10/26/2024 10:55 AM EDT Narrative [facility] - 10/26/2024 12:21 PM EDT Performed by Marc electrochemiluminescent immunoassay which is traceable to the 1st AFP IRP WHO Reference standard 72/255. Results obtained with different test methods or kits cannot be used interchangeably. [facility] LAB BLOOD ORDERABLES Final Result [facility] [address] [place] [address] * (ABNORMAL) Prothrombin Time/INR (10/26/2024 10:55 AM EDT) Pathologist [facility] Prothrombin Time 28.0(H) 12.0 - 14.3 sec LAB COAGULATION METHOD 10/26/2024 11:54 AM EDT [facility] INR 2.6(H) 0.9 - 1.1 LAB COAGULATION METHOD 10/26/2024 11:54 AM EDT [facility] Blood Venous blood specimen / Unknown Venipuncture / Unknown 10/26/2024 10:55 AM EDT 10/26/2024 10:55 AM EDT Narrative [facility] - 10/26/2024 11:54 AM EDT OPTIMAL INR RANGES FOR PATIENT ON ORAL ANTICOAGULANT THERAPY Prevention of venous thromboembolism INR 2.0 to 3.0 In patients with heart disease: Atrial fibrillation INR 2.0 to 3.0 Valvular heart disease INR 2.0 to 3.0 Tissue heart valves INR 2.0 to 3.0 Mechanical prosthetic valves INR 2.5 to 3.5 Prevention of recurrent IN INR 2.5 to 3.5 us Jennifer Akins DISPUTE COORDINATOR LAB BLOOD ORDERABLES Final Result [facility] [address] [place] [address] * (ABNORMAL) CBC and Differential (10/26/2024 10:55 AM EDT) WBC Count 6.30 3.70 - 10.30 10*3/uL LAB HEMATOLOGY METHOD 10/26/2024 11:42 AM EDT [facility] RBC Count 4.63 4.60 - 6.10 10*6/uL LAB HEMATOLOGY METHOD 10/26/2024 11:42 AM EDT [facility] HGB 13.4(L) 13.7 - 17.5 g/dL LAB HEMATOLOGY METHOD 10/26/2024 11:42 AM EDT [facility] HCT 40.7 40.0 - 51.0 % LAB HEMATOLOGY METHOD 10/26/2024 11:42 AM EDT [facility] Platelet Count 156 155 - 369 10*3/uL LAB HEMATOLOGY METHOD 10/26/2024 11:42 AM EDT [facility] MCV 88 79 - 98 fL LAB HEMATOLOGY METHOD 10/26/2024 11:42 AM EDT [facility] MCH 28.9 26.0 - 32.0 pg LAB HEMATOLOGY METHOD 10/26/2024 11:42 AM EDT [facility] MCHC 32.9 30.7 - 35.5 g/dL LAB HEMATOLOGY METHOD 10/26/2024 11:42 AM EDT [facility] RDW 15.0(H) 11.5 - 14.5 % LAB HEMATOLOGY METHOD 10/26/2024 11:42 AM EDT [facility] MPV 9.1 8.8 - 12.5 fL LAB HEMATOLOGY METHOD 10/26/2024 11:42 AM EDT [facility] nRBC 0.0 <=0.0 per 100 WBCs LAB HEMATOLOGY METHOD 10/26/2024 11:42 AM EDT [facility] Differential Type Automated LAB HEMATOLOGY METHOD 10/26/2024 11:42 AM EDT [facility] Neutrophils % 63 % LAB HEMATOLOGY METHOD 10/26/2024 11:42 AM EDT [facility] Lymphocytes % 28 % LAB HEMATOLOGY METHOD 10/26/2024 11:42 AM EDT [facility] Monocytes % 7 % LAB HEMATOLOGY METHOD 10/26/2024 11:42 AM EDT [facility] Eosinophils % 2 % LAB HEMATOLOGY METHOD 10/26/2024 11:42 AM EDT [facility] Basophils % 0 % LAB HEMATOLOGY METHOD 10/26/2024 11:42 AM EDT [facility] Immature Granulocytes % 0 % LAB HEMATOLOGY METHOD 10/26/2024 11:42 AM EDT [facility] Neutrophils Absolute 3.98 1.60 - 6.10 10*3/uL LAB HEMATOLOGY METHOD 10/26/2024 11:42 AM EDT [facility] Lymphocytes Absolute 1.74 1.20 - 3.90 10*3/uL LAB HEMATOLOGY METHOD 10/26/2024 11:42 AM EDT [facility] Monocytes Absolute 0.41 0.30 - 0.90 10*3/uL LAB HEMATOLOGY METHOD 10/26/2024 11:42 AM EDT [facility] Eosinophils Absolute 0.13 0.00 - 0.50 10*3/uL LAB HEMATOLOGY METHOD 10/26/2024 11:42 AM EDT [facility] Basophils Absolute 0.02 0.00 - 0.10 10*3/uL LAB HEMATOLOGY METHOD 10/26/2024 11:42 AM EDT [facility] Immature Granulocytes Absolute 0.02 0.00 - 0.06 10*3/uL LAB HEMATOLOGY METHOD 10/26/2024 11:42 AM EDT [facility] Blood Venous blood specimen / Unknown Venipuncture / Unknown 10/26/2024 10:55 AM EDT 10/26/2024 10:55 AM EDT [facility] - 10/26/2024 11:42 AM EDT Therapeutic decision making should be based on absolute values, rather than percentages. us Jennifer Jamesfitt DISPUTE COORDINATOR LAB BLOOD ORDERABLES Final Result [facility] [address] [place] [address] * Comprehensive Metabolic Panel, Plasma (10/26/2024 10:55 AM EDT) Glucose, Plasma 91 74 - 99 mg/dL 10/26/2024 12:14 PM EDT [facility] BUN, Plasma 19 8 - 23 mg/dL 10/26/2024 12:14 PM EDT [facility] Creatinine, Plasma 0.86 0.70 - 1.20 mg/dL 10/26/2024 12:14 PM EDT [facility] BUN/Creatinine Ratio 22 10/26/2024 12:14 PM EDT [facility] Sodium, Plasma 137 136 - 145 mmol/L 10/26/2024 12:14 PM EDT [facility] Potassium, Plasma 3.7 3.6 - 4.9 mmol/L 10/26/2024 12:14 PM EDT [facility] Chloride, Plasma 102 97 - 107 mmol/L 10/26/2024 12:14 PM EDT [facility] CO2, Plasma 26 22 - 29 mmol/L 10/26/2024 12:14 PM EDT [facility] Anion Gap 9 6 - 16 mmol/L 10/26/2024 12:14 PM EDT [facility] Total Calcium, Plasma 9.1 8.9 - 10.2 mg/dL 10/26/2024 12:14 PM EDT [facility] Total Protein 7.5 6.3 - 7.9 g/dL 10/26/2024 12:14 PM EDT [facility] Albumin, Plasma 4.2 3.5 - 5.2 g/dL 10/26/2024 12:14 PM EDT [facility] AST, Plasma 33 10 - 50 U/L 10/26/2024 12:14 PM EDT [facility] ALT, Plasma 33 10 - 50 U/L 10/26/2024 12:14 PM EDT [facility] Alkaline Phosphatase, Plasma 60 40 - 115 U/L 10/26/2024 12:14 PM EDT [facility] Total Bilirubin, Plasma 0.2 0.2 - 1.1 mg/dL 10/26/2024 12:14 PM EDT [facility] eGFRcr 94.9 mL/min/1.7 3m*2 10/26/2024 12:14 PM EDT [facility] Comment:Reported eGFRcr in m L/min/1.73m2 is based the CKD-EPI 2020 equation that does not use a race coefficient. Blood Venous blood specimen / Unknown Venipuncture / Unknown 10/26/2024 10:55 AM EDT 10/26/2024 10:55 AM EDT Jennifer Akins DISPUTE COORDINATOR LAB BLOOD ORDERABLES Final Result [facility] [address] [place] [address] * GI Fibroscan (10/26/2024 10:36 AM EDT) [...] Final Result from Last 3 Months Insurance MEDICARE [place] Care Teams Beef Lugger Relationship Specialty Start Date End Date Juan Clark DO [address] [facility] [address] [place] [address] PCP - General 12/31/24 Jackie Coy APRN [address] [place] [address] Nurse Practitioner Neurosurgery 03/27/21 Fredrick Esposito MD [address] [place] [address] Surgeon Neurosurgery 05/06/21
--- OUTSIDE RECORDS SUMMARY | 2025-01-23 14:34 | XMS_ITS | Encounter Summary ---
Author Organization Healthcare Address [address] [place] [address] Care Team Providers Care Mixed Crop And Livestock Farmer Name Role Phone Jackie Coy NAVAL MARINE ENGINEER Unavailable [phone] Fredrick Esposito MD Unavailable [phone] Juan Clark DO Primary Care Provider [phone] Reason for Visit * Reason Onset Date Comments Prior-authorization/insurance Verification 01/23 Encounter Details Date Type Department Care Team (Late st Contact Info) Description 01/23/2025 Telephone [facility] [address] [place] [address] Jennifer Akins, NAVAL MARINE ENGINEER [address] [place] [address] Prior-authorization/ins urance Verification Social History Tobacco Use Types Packs/Day Years [...] much Nearly every day 01/23/2025 10:10 AM Perry Eisenberg Feeling tired or having little energy Nearly every day 01/23/2025 10:10 AM Perry Eisenberg Poor appetite or overeating Several days 01/23/2025 10 :10 AM Perry Eisenberg Feeling bad about yourself - or that you are a failure or have let yourself or your family down Not at all 01/23/2025 10:10 AM Perry Eisenberg Trouble concentrating on things, such as reading the newspaper or watching television Not at all 01/23/2025 10:10 AM Perry Eisenberg Moving or speaking so slowly that other [...] encounter Miscellaneous Notes * Telephone Encounter - Lazara Mcclendon PharmD - 01/23/2025 12:14 PM EDT Epclusa is interacting Qulipta when used for treatment of episodic migraine, the recommended dose of atogepant is 10 mg once daily or 30 mg once daily when coadministered with BIHV1X3/1B3 inhibitors.Pt receiving Qulipta from outside provider reported at 60mg daily. documented in this encounter Plan of Treatment Not on file documented as of this encounter Visit Diagnoses Not on filedocumented in this encounter Additional Health Concerns Assessment Noted Time PHQ-9 Depression Total Score: 9 01/24/20 10:10 AM EDT A fall risk assessment has been complete d for the patient 01/23/2025 10:12 AM EDT A Body Mass Index follow-up plan has been documented for the patient 01/23/2025 11:59 AM EDT documented as of this encounter Care Teams Mixed Crop And Livestock Farmer Relationship Specialty Start Date End Date Juan Clark DO [address] [place] [address] [place] [address] PCP - General 12/31/24 Jackie Coy APRN [address] [place] [phone] Nurse Practitioner Neurosurgery 03/27/21 Fredrick Esposito MD [address] [place] [address] Surgeon Neurosurgery 05/06/21 documented as of this encounter
--- OUTSIDE RECORDS SUMMARY | 2025-01-23 14:34 | XMS_ITS | Encounter Summary ---
Author Organization Healthcare Address [address] [place] [address] Care Team Providers Care Target Worker Name Role Phone Jackie Coy BROADCAST DESIGNER Unavailable [phone] Fredrick Esposito MD Unavailable [phone] Juan Clark DO Primary Care Provider Encounter Details Date Type Department Care Team (Latest Contact Info) Description 12/31/2024 Travel Social History Tobacco Use Types Packs/Day [...] documented as of this encounter Care Teams Target Worker Relationship Specialty Start Date End Date Juan Clark DO [address] [place], [place] [address] PCP - General 12/31/24 Jackie Coy APRN [address] [place] [address] Nurse Practitioner Neurosurgery 03/27/21 Fredrick Esposito MD [address] [place] [address] Surgeon Neurosurgery 05/06/21 documented as of this encounter
[2025-01-23 15:58] LABS: PHA INR Fingerstick 1.1 (0.9-1.1)
== END 2025-01-23 15:59 ==
LOC: ACC 14:32
PROVIDERS: PCP Internal Medicine; Visit Provider Family Medicine
DX: I48.0 Paroxysmal atrial fibrillation (principal)
CPT/HCPCS: 85610; 99211; G0463

== ENCOUNTER 2025-02-18 12:38 | Outpatient (CLI) | payer MEDICARE, SELFPAY ==
--- OUTSIDE RECORDS SUMMARY | 2024-12-31 12:37 | XMS_ITS | Encounter Summary ---
Author Organization Healthcare Address [address] [place] [address] Care Team Providers Care Show Horse Driver Name Role Phone Jackie Coy REFINERY OPERATOR POLYMERIZATION PLANT Unavailable [phone] Fredrick Esposito MD Unavailable [phone] Juan Clark DO Primary Care Provider [phone] Encounter Details Date Type Department Care Team (Latest Contact Info) Description 12/31/2024 12:37 PM EDT - 12/31/2024 1:29 PM EDT Hospital Encounter Cardiac Imaging [address] [place] [address] Liver lesion; Chronic viral hepatitis C (CMS/HCC) [...] Modality Other Narrative 12/31/2024 5:29 PM EDT [facility] EP-Device Clinic: In-Person CIED Evaluation & Report Name: Kimani Soni Date: 12/31/2024 : 1955 Age: 69 y.o. Device: Fish Rod Maker: Wiley dual chamber PM Permanent Programming Mode [...] are within acceptable limits. 4) Notify Diagnostic fabrics and material cutter if any of the following are discovered in the post-MRI interrogation: Capture threshold change of >1.0 V Sensing drop >50% Pacing impedance change >5O ohms Shock impedance change >5 ohms 5) Leave printed copy of pre-MRI and post-MRI testing results and programming with Diagnostic fabrics and material cutter. Attestation I personally performed this device check [...] documented as of this encounter Care Teams Show Horse Driver Relationship Specialty Start Date End Date Juan Clark DO [address] [place] [address] PCP - General 12/31/24 Jackie Coy APRN [address] [place] [address] Nurse Practitioner Neurosurgery 03/27/21 Fredrick Esposito MD [address] [place] [address] Surgeon Neurosurgery 05/06/21 documented as of this encounter
--- OUTSIDE RECORDS SUMMARY | 2024-12-31 13:30 | XMS_ITS | Encounter Summary ---
Author Organization Healthcare Address [address] [place] [address] Care Team Providers Care Scrub Nurse Name Role Phone Jackie Coy SURVEY TECHNOLOGIST Unavailable [phone] Fredrick Esposito MD Unavailable [phone] Juan Clark DO Primary Care Provider [phone] Encounter Details Date Type Department Care Team (Latest Contact Info) Description 12/31/2024 1:30 PM EDT - 12/31/2024 11:59 PM EDT Hospital Encounter [facility] [address] [place] [address] Presence of cardiac pacemaker Discharge Disposition: Home or Self Care Social [...] Procedure Name Priority Date/Time Associated Diagnosis Comments XR CHEST 2 VIEWS Routine 12/31/2024 1:49 PM EDT Presence of cardiac pacemaker documented in this encounter Results * XR Chest 2 Views (12/31/2024 1:49 PM EDT) Anatomical Region Laterality Modality Chest Digital Radiogra phy Impressions 12/31/2024 3:04 PM EDT No evidence of abandoned cardiac leads. CRITICAL RESULT: No. COMMUNICATION: Per this written report. By electronically signing this report, I, the attending physician, attest that I have personally reviewed the images/data for the above examination(s) and agree with the final edited report. Drafted by Marilynn Johnson MD on 12/31/2024 2:29 PM Final report signed by Luis Randle MD on 12/31/2024 3:04 PM Narrative 12/31/2024 3:04 PM EDT CLINICAL INDICATION: Pre MRI Eval for abandoned cardiac leads TECHNIQUE: XR CHEST 2 VIEWS COMPARISON: None. FINDINGS: Left chest wall dual-lead pacemaker with leads overlying the right atrium and right ventricle. Cardiac silhouette and mediastinal contours are within normal limits. No consolidation. No pleural effusion. No pneumothorax. No acute osseous abnormalities. Procedure Note Luis Randle MD - 12/31/2024 CLINICAL INDICATION: Pre MRI Eval for abandoned cardiac leads TECHNIQUE: XR CHEST 2 VIEWS COMPARISON: None. FINDINGS: Left chest wall dual-lead pacemaker with leads overlying the right atriumand right ventricle. Cardiac silhouette and mediastinal contours arewithin normal limits. No consolidation. No pleural effusion. Nopneumothorax. No acute osseous abnormalities. IMPRESSION: No evidence of abandoned cardiac leads. CRITICAL RESULT: No. COMMUNICATION: Per this written report. By electronically signing this report, I, the attending physician, attestthat I have personally reviewed the images/data for the aboveexamination(s) and agree with the final edited report. Drafted by Marilynn Johnson MD on 12/31/2024 2:29 PM Final report signed by Luis Randle MD on 12/31/2024 3:04 PM us Veronica VARGAS IMG XR PROCEDURES Final Resul t documented in this encounter Visit Diagnoses Diagnosis Presence of cardiac pacemaker Cardiac pacemaker in situ documented in this encounter Additional Health Concerns Assessment Noted Time PHQ-9 Depression Total Score: 6 08/17/19 25 12:48 PM EST A fall risk assessment has been complete d for the patient 08/16/2024 12:49 PM EST A Body Mass Index follow-up plan has been documented for the patient 10/27/2024 1:02 AM EDT documented as of this encounter Care Teams Scrub Nurse Relationship Specialty Start Date End Date Juan Clark DO [address] [place] [address] PCP - General 12/31/24 Jackie Coy APRN [address] [place] [address] Nurse Practitioner Neurosurgery 03/27/21 Fredrick Esposito MD [address] [place] [id number] Surgeon Neurosurgery 05/06/21 documented as of this encounter
--- OUTSIDE RECORDS SUMMARY | 2025-01-16 10:46 | XMS_ITS | Encounter Summary ---
Author Organization Healthcare Address [address] [place] [address] Care Team Providers Care Branch Credit Counselor Name Role Phone Jackie Coy SANGEETHA Unavailable [phone] Fredrick Esposito MD Unavailable [phone] Juan Clark DO Primary Care Provider [phone] Reason for Referral * Imaging (Routine) - Closed Specialty Diagnoses / Procedures Referred By Isak berman Referred To Contact Radiology Diagnoses Liver lesion Chronic viral hepatitis C (CMS/HCC) Procedures MR Abdomen w and wo IV Contrast Jennifer Akins APRN [address] [address] Phone: tel: fax: Referral ID Status Reason Start Date Expiration Date Visits Re quested Visits Authorized [id number] Closed 08/16/2024 02/15/2026 1 1 Reason for Visit * Imaging (Routine) - Closed Specialty Diagnoses / Procedures Referred By Contcristhian berman Referred To Contact Radiology Diagnoses Liver lesion Chronic viral hepatitis C (CMS/HCC) Procedures MR Abdomen w and wo IV Contrast Jennifer Akins APRN [address] [facility] [address] [place] [address] Phone: tel: fax: Referral ID Status Reason Start Date Expiration Date Visits Re quested Visits Authorized [id number] Closed 08/16/2024 02/15/2026 1 1 Encounter Details Date Type Department Care Team (Latest Contact Info) Description 01/16/2025 10:46 AM EDT - 01/16/2025 11:59 PM EDT Hospital Encounter [facility] [address] [place] [address] Vahe Juarez, RN [facility] A 5 T2 NEURO EMU Liver lesion; Chronic viral hepatitis C (CMS/HCC) [...] Sign Reading Time Taken Comments Blood Pressure 105/65 01/16/2025 12:40 PM EDT Pulse 63 01/16/2025 12:40 PM EDT Temperature 36.7 C (98.1 F) 01/16/2025 10:59 AM EDT Respiratory Rate 14 01/16/2025 12:40 PM EDT Oxygen Saturation 96% 01/16/2025 12:40 PM EDT Inhaled Oxygen Concentration - - Weight 55.8 kg (123 lb 0.3 oz) 01/16/2025 10:59 AM EDT Height 177.8 cm (5' 10 ) 01/16/2025 10:59 AM EDT Body Mass Index 17.65 01/16/2025 10:59 AM EDT documented in this encounter Medications at Time of Discharge [...] needed for severe pain. 55 tablet 05/17/2021 Qulipta 60 MG tablet Take 60 mg by mouth daily. 01/09/2025 tadalafil (Adcirca) 20 MG tablet 05/28/2024 Trelegy Ellipta 100-62.5-25 MCG/ACT aerosol powder 11/16/2023 warfarin (Coumadin) 4 MG tablet TAKE TWO TABLETS BY MOUTH EVERY DAY OR DIRECTED 07/27/2024 pantoprazole (Protonix) 40 MG EC tablet Take 1 tablet by mouth daily. 08/22/2024 01/23/2025 documented as of this encounter Miscellaneous Notes * Vahe Victor RN - 01/16/2025 10:50 AM EDT Images from the original note were not included. [id number] Magnetic Resonance Imaging (MRI) Magnetic resonance imaging (MRI) is a type of test. It lets your healthcare provider see pictures of the inside of your body. MRI uses strong magnets, radio waves, and a computer to make an image. Because it uses strong magnets, you need to tell the healthcare team about any metal in or on your body. How do I get ready for an MRI? ? Follow any instructions for not eating or drinking before the test. ? Ask if you should stop taking any medicine before the test. ? Don?t wear makeup. Some makeup contains metal. ? You will be asked if you have any metal in or on your body. This includes electronic devices or implants. It includes metal plates, screws, clips, pins, or wires. Tell them if you may have any other metal pieces in your body, such as metal shavings or metal left from an injury. ? Remove your watch, jewelry, and hearing aids. Take all objects out of your pockets. This includescredit cards, pens, pocketknife, glasses, and other objects that may have metal. What happens during an MRI? You will be asked to hold very still during the scan. Most MRI tests take 30 minutes to 1 hour. But the test may take longer. This depends on the type ofMRI you have. During this time: ? You may be asked to wear a hospital gown. ? You may be given earplugs to wear. This is because the MRI machine can be loud. ? You may be injected with a special dye called contrast. This makes the MRI image better. ? You?ll lie down on a platform. The platform then slides into the MRI machine. ? You?ll need to lie still as directed. Follow all instructions from the healthcare team during thescan. ? The platform slides out of the MRI machine when the test is done. What to tell your healthcare provider Tell the healthcare team if you: ? Have had an imaging test such as MRI or CT with contrast dye ? Ever had a reaction to contrast dye ? Are allergic to iodine or shellfish ? Are allergic to any medicines ? Have diabetes or kidney disease ? Had a liver transplant ? Have any other serious health condition ? Are or may be ? Are What happens after an MRI? ? You can go back to normal activities right away. ? Contrast dye will pass naturally through your body within 1 day. You may be told to drink more water or other fluids during this time. ? Your healthcare provider will discuss the test results with you. This may be done during a follow-up visit or over the phone. ? Your next appointment is: Last Reviewed Date: 2022 00:00:00 ?? [id number] [employer]. All rights reserved. This information is not intended as a substitute for professional medical care. Always follow your healthcare professional's instructions. documented in this encounter Plan of Treatment Not on file documented as of this encounter Procedures Procedure Name Priority Date/Time Associated Diagnosis Comments MR ABDOMEN W AND WO IV CONTRAST Routine 01/16/2025 12:32 PM EDT Liver lesion Chronic viral hepatitis C (CMS/HCC) documented in this encounter Results * MR Abdomen w and wo IV Contrast (01/16/2025 12:32 PM EDT) Anatomical Region Laterality Modality Abdomen Magnetic Resonan ce Impressions 01/16/2025 3:25 PM EDT No suspicious hepatic focal lesions. Multiple bilobar hepatic cysts which show variable degree of thin septations, however without abnormal soft tissue component and no suspicious solid hepatic lesions. CRITICAL RESULT: No. COMMUNICATION: Per this written report. By electronically signing this report, I, the attending physician, attest that I have personally reviewed the images/data for the above examination(s) and agree with the final edited report. Drafted by Tristen Fletcher MD on 01/16/2025 12:59 PM Final report signed by Darlyn Schofield MD on 01/16/2025 3:25 PM Narrative 01/16/2025 3:25 PM EDT CLINICAL INDICATION: Liver lesion, > 1cm; outside CT detected multiple cystic liver lesions as well as an indeterminate 16 mm lesion within the anterior right lobe for which MRI was recommended. No history of HCV. TECHNIQUE: MR imaging of the abdomen was performed with and without intravenous contrast material using the following sequences: coronal single shot T2 weighted fast spin echo, axial T2 weighted sequences with and without fat saturation, axial dual phase gradient echo, pre and dynamic postcontrast 3-D T1 weighted gradient echo with fat saturation (axial and coronal), and axial diffusion. 5.6 mL of Gadavist was administered. COMPARISON: Images from the outside CT mentioned above are not available for review at the time of this interpretation FINDINGS: Liver: No cirrhosis or significant hepatic steatosis/iron deposition. Many simple and thinly septated hepatic cysts within both lobes. There are no convincingly suspicious hepatic focal lesions that are solidly enhancing wall which show suspicious enhancing mural/septal nodularity. A presumably perfusional focus of hyperenhancement within subcapsular hepatic segment on image 48 without corresponding signal abnormality on the noncontrast sequences and with sequelae relation to the hepatic background on the delayed phase. There is a 16mm cystic lesion in width some eccentric moderate T2 signal which does not show corresponding enhancement on 10:10 which may be what was questioned on outside CT. Gallbladder: Unremarkable. Bile Duct: No significant intrahepatic or extrahepatic ductal dilatation. The common bile duct is mildly prominent in size at 9-10 mm, perhaps at upper limits of normal for this demographic. Spleen: Unremarkable. Adrenal Glands: Unremarkable. Pancreas: Unremarkable. Kidneys: Unremarkable aside from a probably hemorrhagic/proteinaceous subcentimeter medial right upper polar renal cortical cyst on 3:89 and 11:31. Fluid Survey: No upper abdominal ascites. Vasculature: Patent major arterial and venous vasculature. Lymph Nodes: No lymphadenopathy. Musculoskeletal: No focal acute or aggressive findings. Lower lumbar spondylosis. Procedure Note Darlyn Schofield MD - 01/16/2025 CLINICAL INDICATION: Liver lesion, > 1cm; outside CT detected multiple cystic liver lesions aswell as an indeterminate 16 mm lesion within the anterior right lobe forwhich MRI was recommended. No history of HCV. TECHNIQUE: MR imaging of the abdomen was performed with and without intravenouscontrast material using the following sequences: coronal single shot [id number] fast spin echo, axial T2 weighted sequences with and without fatsaturation, axial dual phase gradient echo, pre and dynamic postcontrast3-D T1 weighted gradient echo with fat saturation (axial and coronal), andaxial diffusion. 5.6 mL of Gadavist was administered. COMPARISON: Images from the outside CT mentioned above are not available for review atthe time of this interpretation FINDINGS: Liver: No cirrhosis or significant hepatic steatosis/iron deposition. Manysimple and thinly septated hepatic cysts within both lobes. There are noconvincingly suspicious hepatic focal lesions that are solidly enhancingwall which show suspicious enhancing mural/septal nodularity. A presumablyperfusional focus of hyperenhancement within subcapsular hepatic segmentVI on image 48 without corresponding signal abnormality on the noncontrastsequences and with sequelae relation to the hepatic background on thedelayed phase. There is a 16mm cystic lesion in width some eccentricmoderate T2 signal which does not show corresponding enhancement on 10:10which may be what was questioned on outside CT. Gallbladder: Unremarkable. Bile Duct: No significant intrahepatic or extrahepatic ductal dilatation.The common bile duct is mildly prominent in size at 9-10 mm, perhaps atupper limits of normal for this demographic. Spleen: Unremarkable. Adrenal Glands: Unremarkable. Pancreas: Unremarkable. Kidneys: Unremarkable aside from a probably hemorrhagic/proteinaceoussubcentimeter medial right upper polar renal cortical cyst on 3:89 and11:31. Fluid Survey: No upper abdominal ascites. Vasculature: Patent major arterial and venous vasculature. Lymph Nodes: No lymphadenopathy. Musculoskeletal: No focal acute or aggressive findings. Lower lumbarspondylosis. IMPRESSION: No suspicious hepatic focal lesions. Multiple bilobar hepatic cysts which show variable degree of thinseptations, however without abnormal soft tissue component and nosuspicious solid hepatic lesions. CRITICAL RESULT: No. COMMUNICATION: Per this written report. By electronically signing this report, I, the attending physician, attestthat I have personally reviewed the images/data for the aboveexamination(s) and agree with the final edited report. Drafted by Tristen Fletcher MD on 01/16/2025 12:59 PM Final report signed by Darlyn Schofield MD on 01/16/2025 3:25 PM Jennifer Panchal [facility] DOG DAYCARE PROVIDER IMG MRI PROCEDURES Final Re sult documented in this encounter Visit Diagnoses Diagnosis Liver lesion Other specified disorders of liver Chronic viral hepatitis C (CMS/HCC) Chronic hepatitis C without mention of hepatic coma documented in this encounter Administered Medications Inactive Administered Medications - up to 3 most recent administrations Medication Order MAR Action Action Date Dose Rate Site gadobutrol (Gadavist) injection 5.6 mL 5.6 mL (rounded from 5.58 mL = 0.1 mL/kg 55.8 kg), Intravenous, Once in imaging, 1 dose, Starting on Tue01/16/25 at 1146, Until Tue01/16/25 at 1229, Routine, Imaging Protocol Orders Given 01/16/2025 12:29 PM EDT 5.6 mL documented in this encounter Additional Health Concerns Assessment Noted Time PHQ-9 Depression Total Score: 6 08/17/19 12:48 PM EST A fall risk assessment has been complete d for the patient 08/16/2024 12:49 PM EST A Body Mass Index follow-up plan has been documented for the patient 10/27/2024 1:02 AM EDT documented as of this encounter Care Teams Branch Credit Counselor Relationship Specialty Start Date End Date Juan Clark DO [address] [place] [address] PCP - General 12/31/24 Jackie Coy APRN [address] [facility] [address] [place] [address] Nurse Practitioner Neurosurgery 03/27/21 Fredrick Esposito MD [address] [place] [id number] Surgeon Neurosurgery 05/06/21 documented as of this encounter
--- OUTSIDE RECORDS SUMMARY | 2025-01-23 10:10 | XMS_ITS | Encounter Summary ---
Author Organization Healthcare Address [address] [place] [address] Care Team Providers Care Cleaning Team Member Name Role Phone Jackie Coy SANGEETHA Unavailable [phone] Fredrick Esposito MD Unavailable [phone] Juan Clark DO Primary Care Provider [phone] Reason for Referral * Imaging (Routine) - Pending Review Specialty Diagnoses / Procedures Referred By Isak berman Referred To Contact Radiology Diagnoses Hepatic cyst Procedures MR Abdomen w and wo IV Contrast Jennifer Akins APRN [address] [facility] [address] [place] [address] Phone: tel: fax: Referral ID Status Reason Start Date Expiration Date V isits Requested Visits Authorized [id number] Pending Review 01/23/2025 07/25/2026 1 1 Encounter Details Date Type Department Care Team (Late st Contact Info) Description 01/23/2025 10:10 AM EDT Office Visit [facility] [address] [place] [address] Jennifer Akins APRN [address] [facility] [address] [place] [address] Chronic hepatitis C without hepatic coma (CMS/HCC) [...] days 01/23/2025 10 :10 AM EDT Perry Souza Feeling bad about yourself - or that [...] of Presenting Illness Kimani Soni is a 70 y.o. male [...] 05/16/2021 C3-C4 ACDF APPENDECTOMY N/A Appendectomy from [employer] CARDIAC PACEMAKER PLACEMENT N/A Pacemaker Placement from [employer] NECK SURGERY N/A Neck Surgery from [employer] OTHER SURGICAL HISTORY N/A Pacemaker insertion from [facility] [employer] Placement and removal THROAT SURGERY N/A Throat Surgery from [employer] Family History Family History Problem Relation Name [...] file Social Connections: Unknown (03/21/2023) Received from [facility] Family and Community Support Help with Day-to-Day Activities: Not on file Lonely or Isolated: Not on file Intimate Partner Violence: Unknown (03/21/2023) Received from [facility] Abuse Screen Unsafe at Home or Work/School: Not on file Feels Threatened by Someone?: Not on file Does Anyone Keep You from Contacting Others or Doint Things Outside the Home?: Not on file Physical Sign of Abuse Present: Not on file Housing Stability: Unknown (03/21/2023) Received from [facility] Housing Stability Current Living Arrangements: Not on [...] 53; HBsAg (-); HCVAb (+); viral load [id number]; platelets, albumin, t.bili normal - 01/16/25: MR [...] PCP - Andrey x12 weeks sent to [facility] - discussed MRI with Dr. Dumont - [...] documented as of this encounter Care Teams Cleaning Team Member Relationship Specialty Start Date End Date Juan Clark DO [address] [place] [address] PCP - General 12/31/24 Jackie Coy APRN [address] [place] [address] Nurse Practitioner Neurosurgery 03/27/21 Fredrick Esposito MD [address] [place] [address] Surgeon Neurosurgery 05/06/21 documented as of this encounter
--- OUTSIDE RECORDS SUMMARY | 2025-02-18 12:41 | XMS_ITS | Clinical Summary ---
Author Organization Healthcare Address [address] [place] [address] Care Team Providers Care Baking Factory Worker Name Role Phone Jackie Coy TESTER VIBRATOR EQUIPMENT Unavailable [phone] Fredrick Esposito MD Unavailable [phone] Juan Clark DO Primary Care Provider [phone] Allergies Active Allergy Reactions Criticality Noted Date [...] (05/06/2021): Added automatically from request for surgery [id number] Encounters Date Type Department Care Team Description 01/23/2025 10:10 AM EDT Office Visit [facility] Medicine Specialties 0 [facility], [address] [place] [phone] Jennifer Akins APRN Chronic hepatitis C without hepatic coma (CMS/HCC) (Primary Dx); Hepatic cyst 01/23/2025 Telephone [facility] Medicine Specialties 0 [facility], [address] [place] [phone] Jennifer Akins APRN Prior-authorization/ insurance Verification 01/23/2025 Travel 01/17/2025 Telephone [facility] Medicine Specialties 0 [facility], [address] [place] [address], [place] [address] Mable Jennifer Ansley, SANGEETHA 01/16/2025 10:46 AM EDT - 01/16/2025 11:59 PM EDT Hospital Encounter [facility] [address] [place] [phone] Vahe Juarez, RN Liver lesion; Chronic viral hepatitis C (CMS/HCC) Discharge Disposition: Home or Self Care 01/16/2025 Travel 01/09/2025 Telephone [facility] [address] [place] [phone] Vivi Ko RN 12/31/2024 1:30 PM EDT - 12/31/2024 11:59 PM EDT Hospital Encounter [facility] [address] [place] [phone] Presence of cardiac pacemaker Discharge Disposition: Home or Self Care 12/31/2024 12:37 PM EDT - 12/31/2024 1:29 PM EDT Hospital Encounter Cardiac Imaging [address] [place] [phone] Liver lesion; Chronic viral hepatitis C (CMS/HCC) Discharge Disposition: Home or Self Care 12/31/2024 Travel from Last 3 Months Immunizations Immunization [...] Health Maintenance Due Date Last Done Comments Y-Medicare Annual Wellness (AWV) 1955 [facility]-Infant/Child/Adol SDOH Screenings [...] [facility]-Abdominal Aortic Aneurys m (AAA) Screening 2022 POA-UNKQU-01 Vaccine (1 - season) 2025 [facility]-Influenza Vaccine (#1) 2025 [facility]-Depression Screening 01/23/2026 [...] this topic Medical Devices Implanted Type Area Art Installer Device Identifier Shelf Expiration Date Model / Serial / Lot Medtronic Atrial Lead-11/11/2009 Implanted:06/2009 (Quantity not on file) Lead Chest Wall Medtronic 5076 / [id number] / Medtronic Ventricular Lead-11/11/2009 Implanted:06/2009 (Quantity not on file) Lead Chest Wall Medtronic 5076 / [id number] / Assurity Pacemaker Wiley- 023 Implanted:03/15 by Juan Hardin MD (Quantity not on file) Pacemaker Chest Wall FleAffair 2272 / [id number] / Description:MEDTRONIC LEADS Implanted on 11/11/2009 ATRIAL LEAD MODEL: 5076/ Serial number: [id number] VENTRICLE LEAD MODEL: 5076/ Serial number: [id number] NON-conditional MRI system due to MIXED system of leads and generator. One Level Plate, 14mm - [id number] Implanted:Qty: 1 on 05/16/2021 by Blake Dickerson MD at [facility] Plate N/A: Spine Cervical DePuy Spine [employer] [id number] 05/16/2022 [id number] / / Self Drilling Screw 16mm - [id number] Implanted:Qty: 4 on 05/16/2021 by Blake Dickerson MD at [facility] Screw N/A: Spine Cervical DePuy Spine [employer] LP-[id number] 05/16/2022 [id number] / / Knee Vanguard1 Cervical Preservon 8mm - [id number] - [id number] Implanted:Qty: 1 on 05/16/2021 by Fredrick Esposito MD at [facility] N/A: Spine Cervical [facility]-[id number] 12/01/2025 [id number] / [id number] / [id number] Graft Vivigen 1cc - [id number] - [id number] Implanted:Qty: 1 on 05/16/2021 by Fredrick Esposito MD at [facility] N/A: Spine Cervical [facility]-[id number] 10/22/2021 [id number] / [id number] / 5 Explanted Type Area Art Installer Device Identifier Shelf Expiration Date Model / Serial / Lot Compression Pin, 14mm - [id number] Explanted:Qty: 2 on 05/16/2021 by Blake Dickerson MD at [facility] Pin N/A: Spine Cervical deets, Inc.uy Spine Sales [id number] 05/16/2022 [id number] / / Procedures Procedure Name Priority Date/Time [...] using the following sequences: coronal single shot S3zzvastyl fast spin echo, axial T2 weighted sequences [...] MD on 01/16/2025 3:25 PM Jennifer Akins TESTER VIBRATOR EQUIPMENT IMG MRI PROCEDURES Final Re sult * [...] Modality Other Narrative 12/31/2024 5:29 PM EDT [facility]: In-Person CIED Evaluation & Report Name: Kimani Soni Date: 12/31/2024 : 1955 Age: 69 y.o. Device: Art Installer: Wiley dual chamber PM Permanent Programming Mode [...] are within acceptable limits. 4) Notify Diagnostic polisher hand if any of the following are discovered in the post-MRI interrogation: Capture threshold change of >1.0 V Sensing drop >50% Pacing impedance change >5O ohms Shock impedance change >5 ohms 5) Leave printed copy of pre-MRI and post-MRI testing results and programming with Diagnostic polisher hand. Attestation I personally performed this device check and provided results to ordering provider. Jennifer Akins APRN CV IMPLANTABLE CARDIAC JASON CE PROCEDURES Final Result from Last 3 Months Insurance [employer] MEDIC[place] Care Teams Baking Factory Worker Relationship Specialty Start Date End Date Juan Clark DO [address] [facility] [address] [place] [address] PCP - General 12/31/24 Jackie Coy APRN [address] [facility] [address] [place] [address] Nurse Practitioner Neurosurgery 03/27/21 Fredrick Esposito MD [address] [place] [address] Surgeon Neurosurgery 05/06/21
--- OUTSIDE RECORDS SUMMARY | 2025-02-18 12:41 | XMS_ITS | Encounter Summary ---
Author Organization Healthcare Address [address] [place] [address] Care Team Providers Care Bindery Helper Name Role Phone Luis Mendez MD Primary Care Provider [phone] Jackie Coy APRN Unavailable [phone] Fredrick Esposito MD Unavailable [phone] Yuniel Clark DO Primary Care Provider [phone] Juan Clark DO Primary Care Provider [phone] Reason for Referral * Consultation (Routine) - Closed Specialty Diagnoses / Procedures Referred By Isak berman Referred To Contact Neurosurgery Diagnoses Radiculopathy, cervical Luis Mendez MD [address] [place] [address] Phone: tel: fax: Referral ID Status Reason Start Date Expiration Date V isits Requested Visits Authorized [id number] Closed Specialty Services Required 03/19/2021 09/18/2022 1 1 Encounter Details Date Type Department Care Team (Late st Contact Info) Description 03/19/2021 [facility] [address] [place] [address] Luis Mendez MD [address] [place] [address] Radiculopathy, cervical (Primary Dx) Social History [...] nos documented in this encounter Care Teams Bindery Helper Relationship Specialty Start Date End Date Luis Mendez MD [address] [place] [address] PCP - General 10/24/20 08/15/24 Yuniel Clark DO [address] [place] [address] PCP - General 08/16/24 12/30/24 Juan Clark DO [address] [place] [address] PCP - General 12/31/24 Jackie Coy APRN [address] [facility] [address] [place] [address] Nurse Practitioner Neurosurgery 03/27/21 Fredrick Esposito MD [address] [place] [address] Surgeon Neurosurgery 05/06/21 documented as of this encounter
--- OUTSIDE RECORDS SUMMARY | 2025-02-18 12:41 | XMS_ITS | Encounter Summary ---
Author Organization Healthcare Address [address] [place] [address] Care Team Providers Care Control Systems Technician Name Role Phone Jackie Coy ACCOUNT SERVICES MANAGER Unavailable [phone] Fredrick Esposito MD Unavailable [phone] Juan Clark DO Primary Care Provider [phone] Reason for Visit * Reason Onset Date Comments Prior-authorization/insurance Verification 01/23 Encounter Details Date Type Department Care Team (Late st Contact Info) Description 01/23/2025 Telephone [facility] Medicine Specialties [address] [place] [address] Jennifer Akins, ACCOUNT SERVICES MANAGER [address] [place] [address] Prior-authorization/ins urance Verification Social History [...] encounter Miscellaneous Notes * Telephone Encounter - Anya Morrison, PharmD - 02/04/2025 12:29 PM EDT CA #4: No vmail . Sending UTR letter via mail as pt does not have MyChart. 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 Clark's ofc. They will switch to 10mg or 30mg daily Qulipta. Theywill contact the patient and send in RX. I emphasized this is just while he is on Epclusa. Warfarin: Monitor for diminished coagulation status (eg, reduced INR, thrombosis) upon initiation and during treatment with direct acting antiviral agents and adjust doses of vitamin K antagonists accordingly. Monitor for increased coagulation status (eg, increased INR, bleeding) upon discontinuation of direct acting antiviral agents and adjust dose of vitamin K antagonists as needed. * Telephone Encounter - Mega Foreman RN - 01/25/2025 12:14 PM EDT Left VM and CBN requesting call back * Telephone Encounter - Mega Foreman RN - 01/24/2025 3:25 PM EDT Left VM and requested call back, Dr Clark's ofc * Telephone Encounter - Mega Foreman RN - 01/23/2025 3:19 PM EDT Left VM and CBN at Dr [facility] * Telephone Encounter - Lazara Mcclendon PharmD - 01/23/2025 12:14 PM EDT Epclusa is interacting Qulipta when used for treatment of episodic migraine, the recommended dose of atogepant is 10 mg once daily or 30 mg once daily when coadministered with MPUS2F9/1B3 inhibitors.Pt receiving Qulipta from outside provider reported [...] documented as of this encounter Care Teams Control Systems Technician Relationship Specialty Start Date End Date Juan Clark DO [address] [place] [address] [place] [address] PCP - General 12/31/24 Jackie Coy APRN [address] [place] [address] Nurse Practitioner Neurosurgery 03/27/21 Fredrick Esposito MD [address] [place] [address] Surgeon Neurosurgery 05/06/21 documented as of this encounter
--- OUTSIDE RECORDS SUMMARY | 2025-02-18 12:41 | XMS_ITS | Encounter Summary ---
Author Organization Healthcare Address [address] [place] [address] Care Team Providers Care Verification Rep Name Role Phone Jackie Coy FULL SERVICE VENDING DRIVER Unavailable [phone] Fredrick Esposito MD Unavailable [phone] Juan Clark DO Primary Care Provider [phone] Encounter Details Date Type Department Care Team (Late st Contact Info) Description 01/17/2025 Telephone [facility] Medicine Specialties [address] [place] [address] Jennifer Akins, FULL SERVICE VENDING DRIVER [address] [place] [address] Social History Tobacco Use Types [...] overeating Several days 01/23/2025 10 :10 AM ONELIAT Perry Souza Feeling bad about yourself - [...] difficult at all 01/23/2025 10:10 AM Perry Zimmerman documented as of this encounter Miscellaneous Notes [...] feeling well today Best contact number: Other: [phone] Optimal time of day to reach caller: ANYTIME Additional comments/information from caller: None Note: Please do not reply to this message. Follow-up communication and further actions as a result of this message need to be communicated with the patient directly, if the patient is not active onMyChart. If the patient is active on MyChart, they will receive notification of the communication/outcome via [employer]. documented in this encounter Plan of Treatment [...] documented as of this encounter Care Teams Verification Rep Relationship Specialty Start Date End Date Juan Clark DO [address] [place] [address] PCP - General 12/31/24 Jackie Coy APRN [address] [place] [address] Nurse Practitioner Neurosurgery 03/27/21 Fredrick Esposito MD [address] [place] [address] Surgeon Neurosurgery 05/06/21 documented as of this encounter
--- OUTSIDE RECORDS SUMMARY | 2025-02-18 12:41 | XMS_ITS | Encounter Summary ---
Author Organization Healthcare Address [address] [place] [address] Care Team Providers Care Redeye Gunner Name Role Phone Jackie Coy LITHOGRAPHER HELPER Unavailable [phone] Fredrick Esposito MD Unavailable [phone] Juan Clark DO Primary Care Provider [phone] Encounter Details Date Type Department Care Team (Late st Contact Info) Description 01/09/2025 Telephone [facility] [address] [place] [address] Vivi Ko, RN [facility] Social History [...] documented as of this encounter Care Teams Redeye Gunner Relationship Specialty Start Date End Date Juan Clark DO [address] [place] [address] PCP - General 12/31/24 Jackie Coy APRN [address] [place] [address] Nurse Practitioner Neurosurgery 03/27/21 Fredrick Esposito MD [address] [place] [address] Surgeon Neurosurgery 05/06/21 documented as of this encounter
--- OUTSIDE RECORDS SUMMARY | 2025-02-18 12:41 | XMS_ITS | Encounter Summary ---
Author Organization Healthcare Address [address] [place] [address] Care Team Providers Care Public Relations Account Executive Name Role Phone Jackie Coy ASSISTANT CONTROLLER Unavailable [phone] Fredrick Esposito MD Unavailable [phone] Juan Clark DO Primary Care Provider [phone] Encounter Details Date Type Department Care Team [...] documented as of this encounter Care Teams Public Relations Account Executive Relationship Specialty Start Date End Date Juan Clark DO [address] [place] [address] PCP - General 12/31/24 Jackie Coy APRN [address] [place] [address] Nurse Practitioner Neurosurgery 03/27/21 Fredrick Esposito MD [address] [place] [address] Surgeon Neurosurgery 05/06/21 documented as of this encounter
--- OUTSIDE RECORDS SUMMARY | 2025-02-18 12:41 | XMS_ITS | Encounter Summary ---
Author Organization Healthcare Address [address] [place] [address] Care Team Providers Care Char House Supervisor Name Role Phone Jackie Coy ROUTE SALES MANAGER Unavailable [phone] Fredrick Esposito MD Unavailable [phone] Juan Clark DO Primary Care Provider [phone] Encounter Details Date Type Department Care Team [...] documented as of this encounter Care Teams Char House Supervisor Relationship Specialty Start Date End Date Juan Clark DO [address] [place] [address] [place] [address] PCP - General 12/31/24 Jackie Coy APRN [address] [place] [address] Nurse Practitioner Neurosurgery 03/27/21 Fredrick Esposito MD [address] [place] [address] Surgeon Neurosurgery 05/06/21 documented as of this encounter
--- OUTSIDE RECORDS SUMMARY | 2025-02-18 12:41 | XMS_ITS | Encounter Summary ---
Author Organization Healthcare Address [address] [place] [address] Care Team Providers Care Bit Shaver Name Role Phone Jackie Coy HOST AND HOSTESS Unavailable [phone] Fredrick Esposito MD Unavailable [phone] Juan Clark DO Primary Care Provider [phone] Encounter Details Date Type Department Care Team [...] documented as of this encounter Care Teams Bit Shaver Relationship Specialty Start Date End Date Juan Clark DO [address] [place] [address] PCP - General 12/31/24 Jackie Coy APRN [address] [place] [address] Nurse Practitioner Neurosurgery 03/27/21 Fredrick Esposito MD [address] [place] [address] Surgeon Neurosurgery 05/06/21 documented as of this encounter
--- OUTSIDE RECORDS SUMMARY | 2025-02-18 12:41 | XMS_ITS | Encounter Summary ---
Author Organization Healthcare Address [address] [place] [address] Care Team Providers Care Technology Teacher Name Role Phone aJckie Coy FACILITIES ENGINEERING MANAGER Unavailable [phone] Fredrick Esposito MD Unavailable [phone] Yuniel Clark DO Primary Care Provider [phone] Juan Clark DO Primary Care Provider [phone] Encounter Details Date Type Department Care Team (Late st Contact Info) Description 08/21/[address] [facility] Medicine Specialties [address] [place] [address] Jennifer Akins, FACILITIES ENGINEERING MANAGER [address] [place] [address] Social History Tobacco Use Types [...] documented as of this encounter Care Teams Technology Teacher Relationship Specialty Start Date End Date Yuniel Clark DO [address] [place] [address] PCP - General 08/16/24 12/30/24 Juan Clark DO [address] [facility] [address] [place] [address] PCP - General 12/31/24 Jackie Coy APRN [address] [place] [address] Nurse Practitioner Neurosurgery 03/27/21 Fredrick Esposito MD [address] [place] [address] Surgeon Neurosurgery 05/06/21 documented as of this encounter
[2025-02-18 13:05] LABS: PHA INR Fingerstick 3.5 (0.9-1.1)
== END 2025-02-18 13:08 ==
LOC: ACC 12:38
PROVIDERS: PCP Internal Medicine; Visit Provider Family Medicine
DX: I48.0 Paroxysmal atrial fibrillation (principal); Z79.01 Long term (current) use of anticoagulants
CPT/HCPCS: 85610; 99211; G0463